=== PATIENT | male | born 1935 | race Caucasian/White ===

== ENCOUNTER → 2017-11-01 07:46 | Outpatient (CLI) | payer MEDICARE, SELFPAY | PROVIDERS: PCP Family Medicine; Visit Provider Orthopaedic Surgery | DX: G56.01 Carpal tunnel syndrome, right upper limb (principal); I25.10 Atherosclerotic heart disease of native coronary artery without angina pectoris; E78.5 Hyperlipidemia, unspecified; I10 Essential (primary) hypertension; Z01.818 Encounter for other preprocedural examination | CPT/HCPCS: 93005; 93010 ==

== ENCOUNTER → 2017-11-20 09:30 | Outpatient (CLI) | payer MEDICARE, SELFPAY | PROVIDERS: PCP Family Medicine; Visit Provider Orthopaedic Surgery | DX: Z47.89 Encounter for other orthopedic aftercare (principal); G56.01 Carpal tunnel syndrome, right upper limb ==

== ENCOUNTER → 2017-12-25 09:13 | Outpatient (BNVA) | payer MEDICARE, SELFPAY | PROVIDERS: PCP Family Medicine; Visit Provider Nurse Practitioner Family | DX: I35.0 Nonrheumatic aortic (valve) stenosis (principal); E78.5 Hyperlipidemia, unspecified; I12.9 Hypertensive chronic kidney disease with stage 1 through stage 4 chronic kidney disease, or unspecified chronic kidney disease; I48.0 Paroxysmal atrial fibrillation; I49.5 Sick sinus syndrome; Z45.018 Encounter for adjustment and management of other part of cardiac pacemaker; E11.22 Type 2 diabetes mellitus with diabetic chronic kidney disease; Z79.84 Long term (current) use of oral hypoglycemic drugs; Z79.01 Long term (current) use of anticoagulants | CPT/HCPCS: 93280; 99213 ==

== ENCOUNTER → 2018-07-16 08:42 | Outpatient (BNVA) | payer MEDICARE, SELFPAY | PROVIDERS: PCP Family Medicine; Visit Provider Nurse Practitioner Family | DX: I35.0 Nonrheumatic aortic (valve) stenosis (principal); E78.5 Hyperlipidemia, unspecified; I10 Essential (primary) hypertension; I48.0 Paroxysmal atrial fibrillation; I49.5 Sick sinus syndrome; E11.9 Type 2 diabetes mellitus without complications; Z79.84 Long term (current) use of oral hypoglycemic drugs; Z45.018 Encounter for adjustment and management of other part of cardiac pacemaker | CPT/HCPCS: 93280; 99213 ==

== ENCOUNTER → 2018-07-16 09:37 | Outpatient (BNVA) | payer MEDICARE, SELFPAY | PROVIDERS: PCP Family Medicine; Referring Provider Family Medicine; Visit Provider Orthopaedic Surgery | DX: M75.81 Other shoulder lesions, right shoulder (principal); Z95.0 Presence of cardiac pacemaker; I49.5 Sick sinus syndrome; I35.0 Nonrheumatic aortic (valve) stenosis; E78.5 Hyperlipidemia, unspecified; I10 Essential (primary) hypertension; I48.0 Paroxysmal atrial fibrillation; Z45.018 Encounter for adjustment and management of other part of cardiac pacemaker; E11.9 Type 2 diabetes mellitus without complications; Z79.84 Long term (current) use of oral hypoglycemic drugs | CPT/HCPCS: 20610; 93280; 99212; 99213; J1040 ==

== ENCOUNTER 2018-08-27 10:21 | Outpatient (CLI) | payer MEDICARE, SELFPAY ==
--- NOTE | 2018-08-27 10:01 | DI.RAD_ITS ---
SYMPTOMS/DIAGNOSIS: PAIN RIGHT ELBOW: The bony structures are normally mineralized. There is no fracture or dislocation. An olecranon spur is demonstrated. There is no evidence of a joint effusion.
== END 2018-08-27 10:41 ==
PROVIDERS: PCP Family Medicine; Referring Provider Family Medicine; Visit Provider Orthopaedic Surgery
DX: M25.521 Pain in right elbow (principal); M77.8 Other enthesopathies, not elsewhere classified
CPT/HCPCS: 99213; 99214; 73080

== ENCOUNTER 2018-09-11 00:55 | Outpatient (CLI) | payer MEDICARE, SELFPAY ==
--- NOTE | 2018-09-11 10:15 | MERGE_ITS ---
*[facility]* *[facility]* [address] [place] [address] Date of study: 09/11/2018 Transthoracic Echocardiography M-mode, complete 2D, complete spectral Doppler, and color Doppler *STUDY CONCLUSIONS* Summary: 1. Left ventricle: The cavity size was normal. There was mild concentric hypertrophy. Systolic function was normal. The estimated ejection fraction was 60-65%. Wall motion was normal; there were no regional wall motion abnormalities. Findings consistent with diastolic dysfunction. 2. Aortic valve: Mild calcification. Left coronary cusp mobility was severely restricted. There was mild stenosis. Peak velocity (S): 1.8m/sec. Valve area (VTI): 1.7cm^2. 3. Mitral valve: There was mild regurgitation. 4. Left atrium: The atrium was severely dilated. 5. Right ventricle: The cavity size was normal. Wall thickness was normal. Pacer wire or catheter noted in right ventricle. Systolic function was normal. 6. Pulmonary arteries: Pulmonary systolic pressure was increased, in the range of 35mm Hg to 40mm Hg. *PATIENT PRESENTATION* Height: 177.8cm ((70in) ) S/D Pressure: 150 / 68 Weight: 95.3kg ((209.6lb) ) BSA: 2.19m^2 Test start time: 10:30 AM. Test stop time: 11:00 AM. 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 This study was interpreted by [facility]. Pertinent images and digital data are archived for permanent storage and are available for subsequent review. Comparison was made to the study of 10/03/2017. Study status: Routine. Transthoracic echocardiography. M-mode, complete 2D, complete spectral Doppler, and color Doppler. A Transthoracic Echocardiogram was performed. Scanning was performed from the parasternal, apical, subcostal, and suprasternal notch acoustic windows. Images were obtained using an [id number] cardiac ultrasound machine. Image quality was adequate. Study completion: The patient tolerated the procedure well. History: PMH: Aortic stenosis i35.0 *CARDIAC ANATOMY* Left ventricle: The cavity size was normal. There was mild concentric hypertrophy. Systolic function was normal. The estimated ejection fraction was 60-65%. Wall motion was normal; there were no regional wall motion abnormalities. Findings consistent with diastolic dysfunction. Aortic valve: Trileaflet; normal thickness leaflets. Mild calcification. Left coronary cusp mobility was severely restricted. Doppler: There was mild stenosis. There was no significant regurgitation. VTI ratio of LVOT to aortic valve: 0.55. Valve area (VTI): 1.7cm^2. Indexed valve area (VTI): 0.8cm^2/m^2. Peak velocity ratio of LVOT to aortic valve: 0.49. Valve area (Vmax): 1.5cm^2. Indexed valve area (Vmax): 0.7cm^2/m^2. Mean velocity ratio of LVOT to aortic valve: 0.54. Valve area (Vmean): 1.7cm^2. Indexed valve area (Vmean): 0.8cm^2/m^2. Mean gradient (S): 7.2mm Hg. Peak gradient (S): 12.7mm Hg. Aorta: Aortic root: The aortic root was normal in size. Ascending aorta: The ascending aorta was normal in size. Mitral valve: Structurally normal valve. Mobility was not restricted. Doppler: Transvalvular velocity was within the normal range. There was no evidence for stenosis. There was mild regurgitation. Valve area by pressure half-time: 3.4cm^2. Indexed valve area by pressure half-time: 1.5cm^2/m^2. Peak gradient (D): 3.4mm Hg. Left atrium: The atrium was severely dilated. Right ventricle: The cavity size was normal. Wall thickness was normal. Pacer wire or catheter noted in right ventricle. Systolic function was normal. Pulmonic valve: Structurally normal valve. The pulmonary valve appears to be grossly normal. Doppler: Transvalvular velocity was within the normal range. There was no evidence for stenosis. There was mild regurgitation. Peak gradient (S): 10.3mm Hg. Tricuspid valve: Structurally normal valve. Doppler: Transvalvular velocity was within the normal range. There was no evidence for stenosis. There was mild regurgitation. Pulmonary artery: Pulmonary systolic pressure was increased, in the range of 35mm Hg to 40mm Hg. Right atrium: The atrium was normal in size. Pericardium: There was no pericardial effusion. Systemic veins: Inferior vena cava: Well visualized. The vessel was patent and normal in size. The respirophasic diameter changes were in the normal range (greater than or equal to 50%). Baseline ECG: Paced rhythm. Measurements Left ventricle Value 10/03/2017 Reference LV ID, ED, PLAX 5.0 cm 4.7 3.5 - 6.0 LV ID, ES, PLAX 3.4 cm 3.3 2.1 - 4.0 LV PW thickness, ED, PLAX 1.2 cm 1.2 LV end-diastolic volume, 68 ml 61 1-p A2C LV ejection fraction, 1-p 57 % 64 A2C LV end-diastolic volume, 76 ml 71 1-p A4C LV ejection fraction, 1-p 54 % 67 A4C LV e', lateral 0.087 m/sec 0.096 LV E/e', lateral 11 9 LV e', medial 0.073 m/sec 0.085 LV E/e', medial 13 10 LV e', average 0.08 m/sec 0.091 LV E/e', average 12 9 Ventricular septum Value 10/03/2017 Reference IVS thickness, ED, PLAX 1.3 cm 1.2 LVOT Value 10/03/2017 Reference LVOT ID, A-P 2.0 cm 2.0 LVOT area 3.1 cm^2 3.3 LVOT peak velocity, S 0.88 m/sec 0.79 LVOT mean velocity, S 0.69 m/sec 0.6 LVOT VTI, S 20.4 cm 18.9 LVOT peak gradient, S 3.1 mm Hg 2.5 LVOT mean gradient, S 2 mm Hg 1.6 Stroke volume (SV), LVOT 64 ml 62 DP Stroke index (SV/bsa), 29 ml/m^2 28 LVOT DP Aortic valve Value 10/03/2017 Reference Aortic valve peak 1.8 m/sec 1.7 velocity, S Aortic valve mean 1.28 m/sec 1.23 velocity, S Aortic valve VTI, S 37.0 cm 38.3 Aortic mean gradient, S 7.2 mm Hg 6.4 Aortic peak gradient, S 12.7 mm Hg 11.1 VTI ratio, LVOT/AV 0.55 0.49 Aortic valve area, VTI 1.7 cm^2 1.6 Velocity ratio, peak, 0.49 0.47 LVOT/AV Aortic valve area, peak 1.5 cm^2 1.6 velocity Velocity ratio, mean, 0.54 0.49 LVOT/AV Aortic valve area, mean 1.7 cm^2 1.6 velocity Aortic valve area/bsa, 0.8 cm^2/m^2 0.7 mean velocity Aorta Value 10/03/2017 Reference Aortic root ID, ED 3.2 cm 3.1 Ascending aorta ID, A-P, S 2.9 cm 2.7 Left atrium Value 10/03/2017 Reference LA ID, A-P, ES 3.8 cm 3.8 LA ID/bsa, A-P 1.7 cm/m^2 1.7 <=2.2 LA area, ES, A4C (H) 28.9 cm^2 22.2 8.8 - 23.4 LA volume/bsa, ES, 1-p A4C 55 ml/m^2 35 LA/aortic root ratio 1.18 1.21 Mitral valve Value 10/03/2017 Reference Mitral E-wave peak 0.93 m/sec 0.86 velocity Mitral A-wave peak 0.57 m/sec 0.69 velocity Mitral deceleration time 225 ms 199 150 - 230 Mitral pressure half-time 65 ms 58 Mitral peak gradient, D 3.4 mm Hg 3 Mitral E/A ratio, peak 1.63 1.25 Mitral valve area, PHT, DP 3.4 cm^2 3.8 Tricuspid valve Value 10/03/2017 Reference Tricuspid regurg peak 3.2 m/sec 3 velocity Tricuspid peak RV-RA 42.1 mm Hg 36.4 gradient Right atrium Value 10/03/2017 Reference RA area, ES, A4C 17.2 cm^2 16.2 8.3 - 19.5 Pulmonic valve Value 10/03/2017 Reference Pulmonic peak gradient, S 10.3 mm Hg Legend: (L) and (H) paulino values outside specified reference range. I have personally reviewed the images and have reviewed and edited the reported findings. Electronically signed by Alex Chung 09/11/2018 12:07
== END 2018-09-11 01:15 ==
PROVIDERS: PCP Family Medicine; Visit Provider Nurse Practitioner Family
DX: I35.0 Nonrheumatic aortic (valve) stenosis (principal); I50.1 Left ventricular failure, unspecified; I10 Essential (primary) hypertension; E11.9 Type 2 diabetes mellitus without complications; Z95.0 Presence of cardiac pacemaker
CPT/HCPCS: 93306

== ENCOUNTER 2018-09-11 15:33 | Outpatient (REF) | payer MEDICARE, SELFPAY ==
[2018-09-11 22:34] LABS: BUN 27 mg/dL (7-18); CREATININE 1.85 mg/dL (0.70-1.30); Calcium 8.1 mg/dL (8.5-10.1); Chloride 104 mmol/L (98-107); Estimated GFR 35.17 (mL/min/1.73m2); Glucose 156 mg/dL (70-100); Potassium 4.9 mmol/L (3.5-5.1); Sodium 140 mmol/L (136-145)
[2018-09-11 22:49] LABS: Hemoglobin A1C 7.2 % (4.5-6.2)
== END 2018-09-11 15:53 ==
LOC: NCHCN 15:33
PROVIDERS: PCP Family Medicine; Visit Provider Family Medicine
DX: E11.9 Type 2 diabetes mellitus without complications (principal); I10 Essential (primary) hypertension
CPT/HCPCS: 80048; 83036

== ENCOUNTER 2019-04-01 10:00 | Outpatient (REF) | payer MEDICARE, SELFPAY ==
[2019-04-01 16:53] LABS: Abs Immature Grans 0.01 k/cumm (0.0-0.09); Absolute Basophil Count 0.03 k/cumm (0.0-0.2); Absolute Eosinophil Count 0.14 k/cumm (0.0-0.7); Absolute Lymphocyte Count 1.43 k/cumm (1.2-3.4); Absolute Monocyte Count 0.34 k/cumm (0.11-0.7); Absolute Neutrophil Count 3.58 k/cumm (1.2-6.7); Basophils % 0.5; Eosinophils % 2.5; HCT 35.5 % (40.0-50.0); HGB 11.6 g/dL (13.5-17.5); Immature Grans % 0.2; Lymphocytes % 25.9; Mean Corp. HGB Concentration 32.7 g/dL (32.0-36.0); Mean Corpuscular Hemoglobin 29.1 pg (27.0-33.0); Mean Corpuscular Volume 89.2 fL (80-95); Mean Platelet Volume 12.6 fL (8.0-11.0); Monocytes % 6.1; Neutrophils % 64.8; Platelet Count 191 x1000/uL (130-400); RBC 3.98 m/cumm (4.50-6.00); RBC Distribution Width 12.7 % (11.8-14.1); White Blood Cell Count 5.53 k/cumm (4.4-10.8)
[2019-04-01 17:20] LABS: ALT 17 U/L (16-63); AST 35 U/L (15-37); Albumin 3.8 g/dL (3.4-5.0); Alkaline Phosphatase 151 U/L (46-116); Anion Gap 11.7 mmol/L (3-11); BUN 31 mg/dL (7-18); Bilirubin, Total 0.2 mg/dL (0.2-1.0); CO2 25.3 mmol/L (21.0-32.0); CREATININE 1.83 mg/dL (0.70-1.30); Calcium 8.4 mg/dL (8.5-10.1); Chloride 104 mmol/L (98-107); Estimated GFR 35.53 (mL/min/1.73m2); Glucose 264 mg/dL (74-106); Potassium 4.6 mmol/L (3.5-5.1); Sodium 141 mmol/L (136-145); Total Protein 6.7 g/dL (6.4-8.2)
[2019-04-01 18:11] LABS: Hemoglobin A1C 7.2 % (3.8-5.6)
== END 2019-04-01 10:20 ==
LOC: NCHCN 10:00
PROVIDERS: PCP Family Medicine; Visit Provider Specialist/Technologist Athletic Trainer
DX: E11.9 Type 2 diabetes mellitus without complications (principal)
CPT/HCPCS: 80053; 83036; 85025

== ENCOUNTER → 2019-06-25 10:56 | Outpatient (BNVA) | payer MEDICARE, SELFPAY | PROVIDERS: PCP Family Medicine; Referring Provider Family Medicine; Visit Provider Physician Assistant | DX: I49.5 Sick sinus syndrome (principal); Z45.018 Encounter for adjustment and management of other part of cardiac pacemaker; I10 Essential (primary) hypertension; E11.9 Type 2 diabetes mellitus without complications | CPT/HCPCS: 93280; 99212; 99213 ==

== ENCOUNTER 2019-09-12 07:52 | Outpatient (CLI) | payer MEDICARE, SELFPAY ==
[2019-09-13 14:13] LABS: COVID-19 RT-PCR UVMMC Result Negative (Negative)
== END 2019-09-12 08:12 ==
PROVIDERS: PCP Family Medicine; Visit Provider Internal Medicine Cardiovascular Disease
DX: Z03.818 Encounter for observation for suspected exposure to other biological agents ruled out (principal)
CPT/HCPCS: U0003

== ENCOUNTER 2019-09-16 07:25 | Day surgery (SDC) | payer MEDICARE, SELFPAY ==
[2019-09-16] VITALS (9 sets, daily range): BP systolic 148–187; BP diastolic 56–91; PULSE 72–86; RESP 12–20; TEMP 35.8–36.7; O2SAT 10–99
[2019-09-16 08:10] LABS: Anion Gap 8.5 mmol/L (3-11); CO2 27.5 mmol/L (21.0-32.0); Chloride 105 mmol/L (98-107); Potassium 4.3 mmol/L (3.5-5.1); Sodium 141 mmol/L (136-145)
[2019-09-16] MEDS: Normal Saline 1,000 ML 30 ML IV (08:14)
--- NOTE | 2019-09-16 08:41 | HPE_ITS ---
Date of service: 09/16/19 Time of Service: 08:41 Assessment and Plan Assessment and plan (1) Cardiac pacemaker: Status: Acute (2) Persistent atrial fibrillation: Status: Acute Assessment and plan: Plan for cardioversion this morning History of Present Illness History of Present Illness Chief Complaint: atrial flutter Narrative: 84yo man with SSS, PAF, mature dual lead [employer] pacemaker, now with persistent atrial flutter based on device data. He is here today for a scheduled cardioversion. He has no complaints today. He remains relatively asymptomatic. Review of Systems All systems reviewed & are unremarkable except as noted in HPI and below PFSH Medical History DM2 (diabetes mellitus, type 2) (Chronic) Essential hypertension (Chronic) History of TIA (transient ischemic attack) and stroke (Acute) Per pt. in 2003 had carotid artery surgery, after procedure pt. suffered a stroke, pt. states full forearm numbness and parts of left leg Hyperlipidemia (Chronic) Mild aortic stenosis (Chronic) Paroxysmal atrial fibrillation (Chronic) Persistent atrial fibrillation (Acute) Onset mid May 2019 - ongoing as of 06/25/2019 Sick sinus syndrome (Chronic) pt. unsure of this medical hx Surgical History FH: carotid endarterectomy (Acute) History of permanent cardiac pacemaker placement (Chronic) Social History Smoking/Tobacco Use Status: Former Tobacco Use Alcohol Intake: never Drug use: Never Meds Home Medications and Allergies Home Medications Medication Instructions Recorded Confirmed Type aspirin [Aspirin Low-Strength] 81 mg PO DAILY #1 tab-cap 09/28/13 09/16/19 History atorvastatin 80 mg PO DAILY #90 tab-cap 09/28/13 09/16/19 History paroxetine HCl [Paxil] 10 mg PO DAILY #1 tab-cap 09/28/13 09/16/19 History pediatric [id number]-[id number] 1 ea PO BID tab.chew 09/28/13 09/16/19 History [Multivitamins With Iron] phenytoin sodium extended 100 mg PO BID #1 09/28/13 09/16/19 History [Dilantin] [id number]-min 1 ea PO DAILY #1 09/16/19 History [Icaps Tablet] albuterol sulfate [Proventil Hfa] 2 puff INHALATION PRN inhaler 10/21/14 09/15/19 History amlodipine [Norvasc] 10 mg PO DAILY tab-cap 10/21/14 09/16/19 History furosemide 80 mg PO DAILY tab-cap 10/21/14 09/16/19 History lisinopril 5 mg PO DAILY 03/15/17 09/16/19 History sitagliptin [Januvia] 100 mg PO DAILY 03/15/17 09/16/19 History fluticasone propionate [Flovent 220 puff INHALATION DAILY 03/19/17 09/15/19 History 220MCG] ibuprofen 800 mg PO TID #30 tab 03/19/17 09/16/19 Rx glimepiride 1 mg tablet 1 mg PO QAM 07/16/18 09/16/19 History rivaroxaban 15 mg tablet 15 mg PO QPM 07/16/18 09/16/19 History Allergies Allergy/AdvReac Type Severity Reaction Status Date / Time metformin Allergy Unknown Diarrhea Unverified 09/16/19 07:50 ezetimibe [From Vytorin] AdvReac FAILED Unverified 09/16/19 07:50 lisinopril AdvReac Hyperkalemi Unverified 09/16/19 07:50 a simvastatin [From Vytorin] AdvReac FAILED Unverified 09/16/19 07:50 Exam Const General: healthy appearing Chest Chest: normal inspection of the chest Resp Effort & Inspection: normal respiratory effort Cardio Rate: regular rate Rhythm: regular rhythm Heart Sounds: S1 normal and S2 normal Extrem General: normal to inspection Results Labs Result diagrams: 09/16/19 07:50 Labs: Laboratory Results - last 24 hr 09/16/19 07:50 Sodium 141 Potassium 4.3 Chloride 105 Carbon Dioxide 27.5 Anion Gap 8.5 Last Vital Signs Temp 36.6 C 09/16/19 07:35 Pulse 72 09/16/19 07:35 Resp 18 09/16/19 07:35 BP 169/62 H 09/16/19 07:35 Pulse Ox 10 L 09/16/19 07:35 COVID-19 Screening In the past 14 days, have you traveled outside of [place] or [place]?: NO Had IN PERSON contact w/suspected or confirmed C-19 person: No
--- NOTE | 2019-09-16 08:47 | W.PM.DSUDISC ---
Discharge Plan Disposition Patient Disposition: HOME Condition: Good Discharge Details Reason For Visit: CARDIOVERSION Attending Provider: David Rojo Primary Care Provider: Nel Cabrera Home Meds and New Rx's Prescriptions: No Action Xarelto 15 mg tablet 15 mg PO QPM RF: 0 glimepiride 1 mg tablet 1 mg PO QAM RF: 0 atorvastatin 80 MG tablet 80 mg PO DAILY Qty: 90 RF: 0 paroxetine HCl [Paxil] 10 MG tablet 10 mg PO DAILY Qty: 1 RF: 0 phenytoin sodium extended [Dilantin Extended] 100 MG capsule 100 mg PO BID Qty: 1 RF: 0 Multi-Vitamins with Iron 1 EACH tablet,chewable 1 ea PO BID RF: 0 aspirin [Aspirin Low-Strength] 81 MG tablet,chewable 81 mg PO DAILY Qty: 1 RF: 0 ICaps 1 EACH tablet extended release 1 ea PO DAILY Qty: 1 RF: 0 furosemide 40 MG tablet 80 mg PO DAILY RF: 0 amlodipine [Norvasc] 10 MG tablet 10 mg PO DAILY RF: 0 albuterol sulfate [Proventil HFA] 6.7 GM HFA aerosol inhaler 2 puff Inhalation PRN RF: 0 lisinopril 5 MG tablet 5 mg PO DAILY RF: 0 Januvia 100 MG tablet 100 mg PO DAILY RF: 0 Flovent HFA 120 PUFF HFA aerosol inhaler 220 puff Inhalation DAILY RF: 0 ibuprofen 800 MG tablet 800 mg PO TID Qty: 30 RF: 0 Discharge Instructions Activity:: Activity as Tolerated Diet:: As Tolerated Discharge Data Discharge Date/Time-TO BE ENTERED AT DEPARTURE: 09/16/19 09:24 DS: Diagnosis Discharge Diagnosis (1) Cardiac pacemaker: Status: Acute (2) Persistent atrial fibrillation: Status: Acute Asessment and Plan: Successful DC cardioversion with 200J x1. Patient's rhythm was confirmed using his Medtronic Pacemaker both before and after cardioversion.
--- NOTE | 2019-09-18 08:34 | W.CARDVER ---
Date of service: 09/16/19 Time of Service: 08:34 Cardioversion The patient was brought to the procedure room. His rhythm was confirmed to be atrial flutter using a [employer] interrogation device. Patient was sedated with the help of anesthesia. Patient was DC cardioverted with 200 J x 1. Normal sinus rhythm was confirmed with ECG Patient tolerated the procedure well Patient was transferred to the recovery unit.
== END 2019-09-16 11:20 | disposition home or self-care (01) ==
LOC: SUR 07:25
PROVIDERS: PCP Family Medicine; Visit Provider Internal Medicine Cardiovascular Disease
PROC: 5A2204Z Restoration of Cardiac Rhythm, Single (ICD-10-PCS; CPT 92960; principal; 2019-09-16 08:30)
DX: I48.19 Other persistent atrial fibrillation (principal); Z95.0 Presence of cardiac pacemaker; I48.92 Unspecified atrial flutter; I10 Essential (primary) hypertension; E11.9 Type 2 diabetes mellitus without complications
CPT/HCPCS: 92960; 36415; 80051; 99223; J2704

== ENCOUNTER → 2019-12-24 09:23 | Outpatient (BNVA) | payer MEDICARE, SELFPAY | PROVIDERS: PCP Family Medicine; Referring Provider Family Medicine; Visit Provider Student in an Organized Health Care Education/Training Program | DX: M18.11 Unilateral primary osteoarthritis of first carpometacarpal joint, right hand (principal); E11.9 Type 2 diabetes mellitus without complications; Z79.84 Long term (current) use of oral hypoglycemic drugs; I10 Essential (primary) hypertension; G83.89 Other specified paralytic syndromes | CPT/HCPCS: 20605; 99203; 99214; J1030 ==

== ENCOUNTER → 2020-03-17 10:48 | Outpatient (BNVA) | payer MEDICARE, SELFPAY | PROVIDERS: PCP Family Medicine; Referring Provider Family Medicine; Visit Provider Orthopaedic Surgery | DX: M70.62 Trochanteric bursitis, left hip (principal); M70.61 Trochanteric bursitis, right hip | CPT/HCPCS: 20610; J1040 ==

== ENCOUNTER 2020-03-17 11:49 | Outpatient (CLI) | payer MEDICARE, SELFPAY ==
--- NOTE | 2020-03-17 11:00 | DI.RAD_ITS ---
EXAM: XR HIP PELVIS ADULT BL CLINICAL HISTORY: b/l hip pain. TECHNIQUE: 2D digital imaging was performed. COMPARISON: CR RT HIP COMPLETE AP PELVIS from 06/07/2015 FINDINGS: There is no evidence of pelvic or hip fracture. Hip joint spaces are normal but there are marginal o steophytes seen in the right femoral head indicating atherosclerotic involvement. No obvious osteoph ytes in the left femoral head. Chondrocalcinosis noted on the left side. No ominous osseous lesions . IMPRESSION: Degenerative changes, more prominent on the right side as described above. No ominous osseous lesion s. DATA REPOSITORY: RADIATION DOSE DELIVERED:
== END 2020-03-17 12:09 ==
PROVIDERS: PCP Family Medicine; Referring Provider Family Medicine; Visit Provider Orthopaedic Surgery
DX: M11.252 Other chondrocalcinosis, left hip (principal); M25.751 Osteophyte, right hip; M25.551 Pain in right hip; M25.552 Pain in left hip; M70.62 Trochanteric bursitis, left hip; M70.61 Trochanteric bursitis, right hip
CPT/HCPCS: 20610; 73521; 99214; J1040

== ENCOUNTER → 2020-04-14 11:18 | Outpatient (BNVA) | payer MEDICARE, SELFPAY | PROVIDERS: PCP Family Medicine; Referring Provider Family Medicine; Visit Provider Internal Medicine Cardiovascular Disease | DX: I48.92 Unspecified atrial flutter (principal); Z79.01 Long term (current) use of anticoagulants; Z45.018 Encounter for adjustment and management of other part of cardiac pacemaker | CPT/HCPCS: 93280 ==

== ENCOUNTER → 2020-10-27 13:52 | Outpatient (BNVA) | payer MEDICARE, SELFPAY | PROVIDERS: PCP Family Medicine; Referring Provider Family Medicine; Visit Provider Physician Assistant | DX: I49.5 Sick sinus syndrome (principal); Z45.018 Encounter for adjustment and management of other part of cardiac pacemaker | CPT/HCPCS: 93280; 99212 ==

== ENCOUNTER → 2020-12-07 13:14 | Outpatient (BNVA) | payer MEDICARE, SELFPAY | PROVIDERS: PCP Family Medicine; Referring Provider Family Medicine | DX: M70.62 Trochanteric bursitis, left hip (principal); M70.61 Trochanteric bursitis, right hip | CPT/HCPCS: 20610; J1040 ==

== ENCOUNTER 2021-03-09 17:13 | Outpatient (REF) | payer MEDICARE, SELFPAY ==
[2021-03-09 22:43] LABS: ALT 21 U/L (16-63); AST 39 U/L (15-37); Alkaline Phosphatase 151 U/L (46-116); BUN 44 mg/dL (7-18); Bilirubin, Total 0.3 mg/dL (0.2-1.0); CREATININE 2.1 mg/dL (0.70-1.30); Calcium 8.6 mg/dL (8.5-10.1); Calculated LDL 84 mg/dL (<100); Chloride 105 mmol/L (98-107); Cholesterol 150 mg/dL (<200); Estimated GFR 30.17 (mL/min/1.73m2); Glucose 108 mg/dL (74-106); HDL Cholesterol 44 mg/dL (40-60); Potassium 4.8 mmol/L (3.5-5.1); Sodium 140 mmol/L (136-145); Total Protein 6.9 g/dL (6.4-8.2); Triglyceride 111 mg/dL (<150)
[2021-03-09 22:55] LABS: Hemoglobin A1C 6.7 % (<5.7)
== END 2021-03-09 17:14 | disposition home or self-care (01) ==
LOC: NCHCN 17:13
PROVIDERS: PCP Family Medicine; Visit Provider Family Medicine
DX: E11.9 Type 2 diabetes mellitus without complications (principal); I10 Essential (primary) hypertension; E78.5 Hyperlipidemia, unspecified; N18.30 Chronic kidney disease, stage 3 unspecified
CPT/HCPCS: 80053; 80061; 83036

== ENCOUNTER → 2021-04-27 13:08 | Outpatient (BNVA) | payer MEDICARE, SELFPAY | PROVIDERS: PCP Family Medicine; Visit Provider Physician Assistant | DX: I49.5 Sick sinus syndrome (principal); I48.0 Paroxysmal atrial fibrillation; Z45.018 Encounter for adjustment and management of other part of cardiac pacemaker | CPT/HCPCS: 93280; 99212 ==

== ENCOUNTER 2021-06-19 08:19 | Emergency (ER) | payer MEDICARE, SELFPAY ==
[2021-06-19 08:24] VITALS: BP 178/57; PULSE 61; TEMP 36.1; O2SAT 99
--- NOTE | 2021-06-19 08:30 | DI.RAD_ITS ---
Exam(s) XR SHOULDER RT COMPLETE 2+V EXAM: XR SHOULDER RT COMPLETE 2+V CLINICAL HISTORY: Fall, debbie-lat pain. TECHNIQUE: 2D digital imaging was performed. COMPARISON: CR RIGHT SHOULDER COMPLETE from 02/14/2017 FINDINGS: Five views of the right shoulder reveal no evidence of acute fracture or dislocation of the glenohume ral joint. Chondrocalcinosis noted. There is a 4 x 3 millimeter calcific density in the superior as pect of the joint. Also calcification inferiorly in what appears to to be the labrum. Subacromial s pace is not diminished. AC joint appears widened when compared to previous. Vascular calcification is noted in the right axillary artery IMPRESSION: Compared to February 2017 there is no widening of the AC joint space, not previously present. Degene rative changes as described above in the glenohumeral joint. DATA REPOSITORY: RADIATION DOSE DELIVERED:
--- NOTE | 2021-06-19 08:41 | ED.GENADUL_ITS ---
Discharge Plan Disposition Patient Disposition: HOME Condition: Improving Discharge Details Clinical Impression: Injury of shoulder, right Primary Care Provider: Nel Cabrera ED Provider: Floyd Gonzales Home Meds and New Rx's Prescriptions: Continued Xarelto 15 mg tablet 15 mg PO QPM 0RF glimepiride 1 mg tablet 1 mg PO QAM 0RF phenytoin sodium extended [Dilantin Extended] 100 mg capsule 100 mg PO BID 0RF atorvastatin 80 MG tablet 80 mg PO DAILY Qty: 90 0RF Rx Instructions: 1 TAB DAILY paroxetine HCl [Paxil] 10 MG tablet 10 mg PO DAILY Qty: 1 0RF Multi-Vitamins with Iron 1 EACH tablet,chewable 1 ea PO BID 0RF aspirin [Aspirin Low-Strength] 81 MG tablet,chewable 81 mg PO DAILY Qty: 1 0RF ICaps 1 EACH tablet extended release 1 ea PO DAILY Qty: 1 0RF furosemide 40 MG tablet 80 mg PO DAILY 0RF amlodipine [Norvasc] 10 MG tablet 10 mg PO DAILY 0RF albuterol sulfate [Proventil HFA] 6.7 GM HFA aerosol inhaler 2 puff Inhalation PRN 0RF Label Comments: unknown naproxen 500 mg tablet 500 mg PO BID PRN0RF multivitamin Tablet 1 tab PO DAILY 0RF lisinopril 5 MG tablet 5 mg PO DAILY 0RF Januvia 100 MG tablet 100 mg PO DAILY 0RF Flovent HFA 120 PUFF HFA aerosol inhaler 220 puff Inhalation DAILY 0RF ibuprofen 800 MG tablet 800 mg PO TID Qty: 30 0RF Discharge Instructions Instructions: Shoulder Sprain (ED), Shoulder Pain (ED) Additional Instructions: Please wear sling while awake and out of bed until seen in orthopedic clinic for follow-up. I have placed a referral for you to orthopedic clinic, the office number is [phone]. Continue ice 20 minutes at a time 5-6 times per day reduce pain and swelling. You may use the arm for eating, brushing teeth, etc. please do not perform heavy lifting and have your son and family help you with would and other chores around the house. Tylenol 650 mg twice daily as needed for pain. Continue your routine medications. Return to the emergency department for any new concerns. Medical Decision Making This is a pleasant and delightful 86-year-old male who lives alone with his dog Judy in [place]. Family to live close by. He heats with wood and yesterday while in the cellar he stumbled and fell against a wall striking his right shoulder which is his dominant and most used arm. 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 He did not fall, have a loss of consciousness, or injure himself in any other way. On exam the patient has right glenohumeral humeral anterior tenderness and pain with internal and external rotation. He is unable to fully abduct the arm and has pain with passive abduction. Patient given ice, referred for x-ray which shows degenerative changes in the AC joint and glenohumeral joint. There is no evidence of fracture. Given that this is an acute injury, rather that overuse, I would consider rotator cuff pathology as well as tendinopathy. Discussed with the patient rest in a sling and short-term follow-up in orthopedic clinic. His son will assist him in daily chores around the house. While in the ER the patient had an uneventful check of his Medtronic cardiac device with no evidence of performance issues. We will ask for short-term orthopedic follow-up as the patient is dependent on his right upper extremity due to previous stroke with left upper extremity hemiparesis. He is stable and appropriate for discharge to home with family help. HPI General Mode of arrival: ambulatory . Date/Time Provider Initiated Documentation: 06/19/21 08:19 . Limitations to Documentation: no limitations . Information obtained by: patient . History of Present Illness 86 year old M presents to the emergency department with the chief complaint of Right shoulder pain after stumble and fall last night, described as moderate, Quality is described as dull and constant, and is localized to the right and upper extremity. Patient reports no radiation. Patient started experiencing this hour(s) and it has been constant. improves with Rest improves symptom(s), Movement worsens symptoms . Patient notes denies chest pain, fever/chills, headaches, seizure, syncope and weakness. Patient did receive the following treatments prior to arrival, NSAID Related Data Home Medications Medication Instructions Recorded Confirmed aspirin 81 mg chewable tablet 81 mg PO DAILY #1 tab-cap 09/28/13 06/19/21 (Aspirin Low-Strength) atorvastatin 80 mg tablet 80 mg PO DAILY #90 tab-cap 09/28/13 06/19/21 paroxetine HCl 10 mg tablet (Paxil) 10 mg PO DAILY #1 tab-cap 09/28/13 06/19/21 pediatric jvkthpfq-kfou-kxw 1 ea PO BID tab.chew 09/28/13 04/27/21 (Multi-Vitamins with Iron) [id number]-[id number]-Y-A-wctlyj-qeztxou-min 1 ea PO DAILY #1 09/28/13 06/19/21 3,300 unit-5 mg-200mg-75 unit tablet ER (ICaps) albuterol sulfate 90 mcg/actuation 2 puff INHALATION PRN inhaler 10/21/14 06/19/21 aerosol inhaler (Proventil HFA) amlodipine 10 mg tablet (Norvasc) 10 mg PO DAILY tab-cap 10/21/14 06/19/21 furosemide 40 mg tablet 80 mg PO DAILY tab-cap 10/21/14 06/19/21 lisinopril 5 mg tablet 5 mg PO DAILY 03/15/17 06/19/21 sitagliptin 100 mg tablet (Januvia) 100 mg PO DAILY 03/15/17 06/19/21 fluticasone propionate 220 220 puff INHALATION DAILY 03/19/17 04/27/21 mcg/actuation HFA aerosol inhaler (Flovent HFA) ibuprofen 800 mg tablet 800 mg PO TID #30 tab 03/19/17 04/27/21 glimepiride 1 mg tablet 1 mg PO QAM 07/16/18 06/19/21 rivaroxaban 15 mg tablet (Xarelto) 15 mg PO QPM 07/16/18 06/19/21 phenytoin sodium extended 100 mg 100 mg PO BID 04/15/20 06/19/21 capsule (Dilantin Extended) multivitamin 1 tab PO DAILY 04/27/21 naproxen 500 mg tablet 500 mg PO BID PRN 04/27/21 06/19/21 Previous Rx's Medication Instructions Recorded ibuprofen 800 mg tablet 800 mg PO TID #30 tab 03/19/17 Allergies Allergy/AdvReac Type Severity Reaction Status Date / Time metformin Allergy Unknown Diarrhea Verified 06/19/21 08:31 ezetimibe [From Vytorin] AdvReac FAILED Verified 06/19/21 08:31 lisinopril AdvReac Hyperkalemi Verified 06/19/21 08:31 a simvastatin [From Vytorin] AdvReac FAILED Verified 06/19/21 08:31 General Stated Complaint: Orthopedic DEENA: 4 Review of Systems Narrative: No other injury. No loss of consciousness. No head/neck/chest or back pain. Denies palpitations or shortness of breath. Lives alone. Has prestanding in left upper extremity weakness from stroke. Heats with wood. Family lives close by. 8 systems reviewed and otherwise negative PFSH All Active Problems (Updated 06/19/21 @ 09:06 by Floyd Gonzales MD) Injury of shoulder, right (Acute) Trochanteric bursitis, right hip (Acute) Steroid injection: 12/07/2020; 03/17/2020 Trochanteric bursitis, left hip (Acute) Steroid injection: 12/07/2020; 03/17/2020 Osteoarthritis of carpometacarpal joint of right thumb (Acute) Cardiac pacemaker (Acute 08/17/17) Med[employer]izeure XT DR MRI model # [id number] serial # [id number] (pulse generator) Ventricular electrodes: Medtronic CapsureFix Model # 5076-58 cm Serial # [id number] Atrial electrodes: Medtronic CapsureFix model # 5076-52 cm serial # [id number] Right rotator cuff tendinitis (Acute) Corticosteroid injection: 07/16/18 Persistent atrial fibrillation (Acute) Onset mid May 2019 - ongoing as of 06/25/2019 Mild aortic stenosis (Chronic) DM2 (diabetes mellitus, type 2) (Chronic) Hyperlipidemia (Chronic) Essential hypertension (Chronic) Paroxysmal atrial fibrillation (Chronic) Sick sinus syndrome (Chronic) pt. unsure of this medical hx Medical History History of TIA (transient ischemic attack) and stroke Per pt. in 2003 had carotid artery surgery, after procedure pt. suffered a stroke, pt. states full forearm numbness and parts of left leg Surgical History FH: carotid endarterectomy History of permanent cardiac pacemaker placement Social History Smoking/Tobacco Use Status: Former Tobacco Use Smoking risk assessment performed?: Yes Alcohol Intake: never Drug use: Never Substance use type: does not use Current gender identity: male Do you feel safe at home: Yes Do you feel safe in your relationship?: Yes Exam Narrative Exam Narrative: GEN: awake, alert, oriented 3. Pleasant, well groomed, interactive. HEAD: Normocephalic, atraumatic ENT: Mucous membranes moist, External ear exam unremarkable EYES: PERRL, EOMI NECK: Full ROM, no ART, no menigismus CHEST/RESP: Nontender, clear to auscultation bilateral, no wheeze/rhonchi/rales CARDIOVASCULAR: RRR, no murmur, rub tino. 2+ Rad pulse bilateral ABDOMEN: Soft, nontender, no mass. +Bowel sounds EXT: Left upper extremity hemiparesis and muscle wasting. Right glenohumeral joint is tender anteriorly chief outpatient. Pain with internal and external rotation. Pain with active attempts at abduction. Motor strength is normal with biceps triceps and hand. Normal sensation throughout. Edema, no rash Neuro: Grossly normal neurologic exam, conversant, interactive. Psych: Speech fluent, thoughts congruent, affect normal Course Vital Signs Vital signs: Vital Signs Temperature 36.1 C L 06/19/21 08:24 Pulse 61 06/19/21 08:24 Blood Pressure 178/57 H 06/19/21 08:24 Pulse Oximetry 99 06/19/21 08:24 Temperature 36.1 C L 06/19/21 08:24 Pulse 61 06/19/21 08:24 Respiratory Effort Non-Labored 06/19/21 08:28 Blood Pressure 178/57 H 06/19/21 08:24 Blood Pressure Position Sitting 06/19/21 08:24 Pulse Oximetry 99 06/19/21 08:24 Oxygen Delivery Method Room Air 06/19/21 08:24 Oxygen Flow Rate 0 06/19/21 08:24
--- NOTE | 2021-06-19 08:59 | DI.VRAD_ITS ---
PROCEDURE INFORMATION: Exam: XR Right Shoulder Exam date and time: 06/19/2021 8:40 AM Age: 86 years old Clinical indication: Other: Fall, anterio-lat pain TECHNIQUE: Imaging protocol: XR Right shoulder. Views: 2 or more views. COMPARISON: CR RIGHT SHOULDER COMPLETE 02/14/2017 9:33 AM FINDINGS: Bones/joints: Degenerative changes in the acromioclavicular joint and glenohumeral joint. There is no evidence of acute fracture.There is no evidence of malalignment or dislocation. Soft tissues: Normal. IMPRESSION: There is no evidence of acute fracture.There is no evidence of malalignment or dislocation. Dictated and Authenticated by: Anibal Laboy MD. Ordering:BRITTANIE Barrientos MD
--- NOTE | 2021-06-19 18:26 | PDOC.ERCMPRO ---
- If Service Date Differs Date of service: 06/19/21 Time of Service: 18:26 Care Management Progress Note Emily presents in the ED for an injury to his right shoulder. At the request of ED provider, REBECCA meets with Emir to assess needs. Emir heats his home with wood and his injury will prevent him from putting wood into his stove. Emir states his son and [id number] live nearby and his son will likely be able to help him out. He reportedly fills the stove in the morning and again at night. He assures CM that his son will be able to do that for him until his shoulder heals. No other needs are identified.
== END 2021-06-19 09:18 | disposition home or self-care (01) ==
PROVIDERS: Emergency Provider Emergency Medicine; PCP Family Medicine
DX: S49.81XA Other specified injuries of right shoulder and upper arm, initial encounter (principal); W18.39XA Other fall on same level, initial encounter
CPT/HCPCS: 99283; 73030

== ENCOUNTER → 2021-07-06 10:29 | Outpatient (BNVA) | payer MEDICARE, SELFPAY | PROVIDERS: PCP Family Medicine; Referring Provider Family Medicine; Visit Provider Student in an Organized Health Care Education/Training Program | DX: M12.511 Traumatic arthropathy, right shoulder (principal); S49.91XA Unspecified injury of right shoulder and upper arm, initial encounter; W19.XXXA Unspecified fall, initial encounter | CPT/HCPCS: 20610; 99214; J1030 ==

== ENCOUNTER → 2021-10-26 13:06 | Outpatient (BNVA) | payer MEDICARE, SELFPAY | PROVIDERS: PCP Family Medicine; Visit Provider Physician Assistant | DX: Z95.0 Presence of cardiac pacemaker (principal); I49.5 Sick sinus syndrome; I48.19 Other persistent atrial fibrillation | CPT/HCPCS: 93280 ==

== ENCOUNTER → 2021-10-27 12:32 | Outpatient (BNVA) | payer MEDICARE, SELFPAY | PROVIDERS: PCP Family Medicine; Referring Provider Family Medicine; Visit Provider Internal Medicine Cardiovascular Disease | DX: Z95.0 Presence of cardiac pacemaker (principal); I35.0 Nonrheumatic aortic (valve) stenosis; I48.19 Other persistent atrial fibrillation | CPT/HCPCS: 99214; 99213 ==

== ENCOUNTER 2021-10-28 10:21 | Outpatient (REF) | payer MEDICARE, SELFPAY ==
[2021-10-28 11:28] LABS: Source Nasal/Nares
[2021-10-28 15:07] LABS: COVID-19 PCR Negative (Negative)
== END 2021-10-28 10:22 | disposition home or self-care (01) ==
LOC: LBN 10:21
PROVIDERS: PCP Family Medicine; Visit Provider Internal Medicine Cardiovascular Disease
DX: Z20.822 Contact with and (suspected) exposure to COVID-19 (principal); Z01.818 Encounter for other preprocedural examination
CPT/HCPCS: 87635

== ENCOUNTER 2021-11-01 06:55 | Day surgery (SDC) | payer MEDICARE, SELFPAY ==
[2021-11-01 07:18] VITALS: BP 140/55; PULSE 64; RESP 20; TEMP 36.8; O2SAT 100
[2021-11-01] MEDS: Normal Saline 1,000 ML 30 ML IV (07:27)
--- NOTE | 2021-11-01 07:29 | W.ANESPRE ---
General Info Date of Service Date Performed: 11/01/21 Height: 5 ft 9 in Weight: 94 kg Body Mass Index (BMI): 30.6 Surgical Procedure: Operation Date: 11/01/21 07:30 Proposed Procedure Side Surgeon p Cardioversion Stefanie Herring MD Actual Procedure Side Surgeon p Cardioversion Stefanie Herring MD Pre-Op Diagnosis Post-Op Diagnosis PERSISTENT ATRIAL FIBRILLATION Meds Allergies and Home Medications Allergies Allergy/AdvReac Type Severity Reaction Status Date / Time metformin Allergy Unknown Diarrhea Verified 11/01/21 07:31 ezetimibe [From Vytorin] AdvReac FAILED Verified 11/01/21 07:31 lisinopril AdvReac Hyperkalemi Verified 11/01/21 07:31 a simvastatin [From Vytorin] AdvReac FAILED Verified 11/01/21 07:31 Home Medication Medication Instructions Recorded aspirin 81 mg chewable tablet 81 mg PO DAILY #1 tab-cap 09/28/13 (Aspirin Low-Strength) atorvastatin 80 mg tablet 80 mg PO DAILY #90 tab-caps 09/28/13 paroxetine HCl 10 mg tablet (Paxil) 10 mg PO DAILY #1 tab-cap 09/28/13 [id number]-Y1-P-K-dlzzam-cxqsohk-min 1 ea PO DAILY ##1 09/28/13 3,300 unit-5 mg-200mg-75 unit tablet ER (ICaps) albuterol sulfate 90 mcg/actuation 2 puff inhalation PRN 10/21/14 aerosol inhaler (Proventil HFA) amlodipine 10 mg tablet (Norvasc) 10 mg PO DAILY 10/21/14 furosemide 40 mg tablet 80 mg PO DAILY 10/21/14 lisinopril 5 mg tablet 5 mg PO DAILY 03/15/17 sitagliptin 100 mg tablet (Januvia) 100 mg PO DAILY 03/15/17 fluticasone propionate 220 220 puff inhalation DAILY 03/19/17 mcg/actuation HFA aerosol inhaler (Flovent HFA) ibuprofen 800 mg tablet 800 mg PO TID #30 tabs 03/19/17 glimepiride 1 mg tablet 1 mg PO QAM 07/16/18 rivaroxaban 15 mg tablet (Xarelto) 15 mg PO QPM 07/16/18 phenytoin sodium extended 100 mg 100 mg PO BID 04/15/20 capsule (Dilantin Extended) multivitamin 1 tab PO DAILY 04/27/21 naproxen 500 mg tablet 500 mg PO BID PRN 04/27/21 amiodarone 200 mg tablet 200 mg PO BID #60 tabs 10/27/21 Current Visit Medications: Current Medications Generic Name Dose Route Start Last Admin Trade Name Freq PRN Reason Stop Dose Admin Sodium Chloride 1,000 mls @ 30 mls/hr 11/01/21 06:00 11/01/21 07:27 Saline 1000ml Bag IV 30 mls/hr INFUSION RAMÍREZ Administration IV Miscellaneous Supplies 1 each 11/01/21 06:00 Iv Access IV 11/30/21 23:59 DIRECTED RAMÍREZ Sodium Chloride 0 ml 11/01/21 06:00 Normal Saline Flush 10 Ml Syr IV 11/30/21 23:59 PRN PRN Sodium Chloride 0 ml 11/01/21 06:00 Normal Saline 10 Ml Vial IJ 11/30/21 23:59 DIRECTED PRN Sterile Water 0 ml 11/01/21 06:00 Water,Injection,Sterile 10 Ml Vial IJ 11/30/21 23:59 DIRECTED PRN PFSH Active Problems Active Problems: Problem Status Onset Code Sick sinus syndrome I49.5 Paroxysmal atrial fibrillation I48.0 Essential hypertension I10 Hyperlipidemia E78.5 DM2 (diabetes mellitus, type 2) E11.9 Mild aortic stenosis I35.0 Cardiac pacemaker 08/17/17 Z95.0 Right rotator cuff tendinitis M75.81 Persistent atrial fibrillation I48.19 Osteoarthritis of carpometacarpal joint of right thumb M18.11 Trochanteric bursitis, left hip M70.62 Trochanteric bursitis, right hip M70.61 Traumatic arthropathy, 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 in 2003 had carotid artery surgery, after procedure pt. suffered a stroke, pt. states full forearm numbness and parts of left leg Pulmonary embolus left DVT Seizure disorder Pt. states he doesn't remember ever having any Surgical History Surgical History FH: carotid endarterectomy History of permanent cardiac pacemaker placement Tobacco Smoking/Tobacco Use Status: Former Tobacco Use Passive smoking exposure: No Second hand exposure: No Alcohol Alcohol Intake: never Substance Use Substance use: Never Substance use type: does not use Vital Signs and Lab Results Vital Signs Most Recent Vital Signs in EMR: Most Recent Vital Signs Temp Pulse Resp BP Pulse Ox 36.8 C 64 20 140/55 L 100 11/01/21 07:18 11/01/21 07:18 11/01/21 07:18 11/01/21 07:18 11/01/21 07:18 Lab Results Blood Type / Crossmatch: No Data to Display Complete Blood Count: No Data to Display Complete Metabolic Panel: No Data to Display Liver Function Panel: No Data to Display Coagulation Panel: No Data to Display Cardiac Panel: No Data to Display Arterial Blood Gas: No Data to Display Venous Blood Gas: No Data to Display Pancreas Panel: No Data to Display Thyroid Panel: No Data to Display Infectious Disease: Coronavirus (COVID-19)(PCR) Negative (Negative) 10/28/21 08:12 Coronavirus 2019 Source Nasal/Nares 10/28/21 08:12 Blood Cultures: No Data to Display Toxicology Panel: No Data to Display Anesthesia Assessment and Plan Anesthesia History Personal History: No History of Anesthesia Complications Family History: No Family History of Anesthesia Complications Exercise Tolerance Exercise Tolerance: Metabolic Equivalents>4 Pertinent Negatives Pertinent Negatives: No Symptoms of GERD, No Major Cardiovascular Symptoms or Complaints and No Major Pulmonary Symptoms or Complaints Cardiac & Pulmonary Exam Cardiac Exam: Normal S1/S2 Heart Sounds Pulmonary Exam: Clear Bilateral Breath Sounds Implantable Cardiac Device Does patient have a Pacemaker or an ICD?: Yes Device [employer] Operator:: Medtronic Lola XT DR model [id number] Reason for Placement:: Persistant A-fib Date of Last Device Interrogation:: 10/26/21 Airway Exam Known Difficult Airway: No Mallampati Class: 2 Mouth Opening: Normal (> 3cm) Thyromental Distance: Greater than 3 cm Neck Range of Motion: Full ROM Neck Circumference: Normal Teeth Condition: Removable Dentures/Plates Upper ASA Classification ASA Score: ASA 3 Emergency Case?: No NPO Status NPO Status: NPO Clears >2 hours, Solids >8 hours Anesthesia Plan Resuscitation Status: Full Code Anesthesia Technique: General Anesthesia Airway Planned: Natural Airway Monitors Used: Standard Monitors
--- NOTE | 2021-11-01 07:30 | RT.EKG_ITS ---
APPROVED REPORT Exam: Resting ECG Reason for Exam: Pre-Op EKG Patient Location: O HR:69 bpm ECG Measurements Heart Rate 69 AXIS MS 289 P 0 QRSd 184 QRS 230 QT 466 T 78 QTc 501 Conclusion Ventricular-paced rhythm
[2021-11-01 07:35] VITALS: BMI 30.6
--- NOTE | 2021-11-01 08:00 | RT.EKG_ITS ---
APPROVED REPORT Exam: Resting ECG Reason for Exam: Post-op EKG Patient Location: O HR:67 bpm ECG Measurements Heart Rate 67 AXIS NH [id number] P [id number] QRSd 152 QRS -27 QT 464 T 81 QTc 491 Conclusion Ventricular paced rhythm No change from previous
--- NOTE | 2021-11-01 08:12 | W.PM.DSUDISC ---
Discharge Plan Disposition Patient Disposition: HOME Condition: Good Discharge Details Attending Provider: Stefanie Herring Primary Care Provider: Nel Cabrera Home Meds and New Rx's Prescriptions: Continued Xarelto 15 mg tablet 15 mg PO QPM glimepiride 1 mg tablet 1 mg PO QAM phenytoin sodium extended [Dilantin Extended] 100 mg capsule 100 mg PO BID atorvastatin 80 MG tablet 80 mg PO DAILY Qty: 90 Rx Instructions: 1 TAB DAILY paroxetine HCl [Paxil] 10 MG tablet 10 mg PO DAILY Qty: 1 aspirin [Aspirin Low-Strength] 81 MG tablet,chewable 81 mg PO DAILY Qty: 1 ICaps 1 EACH tablet extended release 1 ea PO DAILY Qty: 1 furosemide 40 MG tablet 80 mg PO DAILY amlodipine [Norvasc] 10 MG tablet 10 mg PO DAILY albuterol sulfate [Proventil HFA] 6.7 GM HFA aerosol inhaler 2 puff Inhalation PRN Label Comments: unknown naproxen 500 mg tablet 500 mg PO BID PRN multivitamin Tablet 1 tab PO DAILY lisinopril 5 MG tablet 5 mg PO DAILY Januvia 100 MG tablet 100 mg PO DAILY fluticasone propionate [Flovent HFA] 120 PUFF HFA aerosol inhaler 220 puff Inhalation DAILY ibuprofen 800 MG tablet 800 mg PO TID Qty: 30 0RF Discontinued amiodarone 200 mg tablet 200 mg PO BID Qty: 60 8RF Discharge Instructions Activity:: Activity as Tolerated Diet:: As Tolerated
--- NOTE | 2021-11-01 08:14 | W.CARDVER ---
Date of service: 11/01/21 Time of Service: 08:15 Cardioversion DATE OF PROCEDURE: 11/01/21 PRE-OP DIAGNOSES: atrial fibrillation Indications: Atrial fibrillation Procedure Description: Patient was admitted for synchronized cardioversion. He was taken to the operating room and anterior and posterior pads were applied. He was sedated under the direction of the department of anesthesia. When he was adequately sedated, he had 2 separate synchronized shocks at 150 and then 200 W seconds. He remained ventricularly paced throughout. After the second shock there were possible very low amplitude P waves noted. No further intervention was recommended and the patient was taken to the recovery area where he will be discharged when he is fully awake and alert
[2021-11-01 08:23] VITALS: BP 130/50; PULSE 70; RESP 21; TEMP 36.4; O2SAT 97
--- NOTE | 2021-11-01 08:42 | W.ANESPOSTOP ---
Postoperative Evaluation Date, Time and Location Date Performed: 11/01/21 Time Performed: 08:42 Patient Location: Day Surgery Unit Vital Signs Most Recent Imported Vital Signs: Most Recent Vital Signs Temp Pulse Resp BP Pulse Ox 36.4 C L 70 21 130/50 L 97 11/01/21 08:23 11/01/21 08:23 11/01/21 08:23 11/01/21 08:23 11/01/21 08:23 Pain Score Most Recent Pain Score: Most Recent Pain Score Pain Level 0 11/01/21 08:23 Assessment Mental Status: Awake (Alert & Oriented to Patient Baseline) Airway and Respiratory Function: Patent airway with normal (patient baseline) respiratory exam Cardiovascular Function: Hemodynamically Stable Hydration Status: Adequately Hydrated Nausea & Vomiting: No Nausea or Vomiting Pain: Pt. Denies Any Pain Peripheral Nerve Block: Patient did not receive a nerve block
[2021-11-01 08:55] VITALS: BP 143/60; PULSE 68; RESP 15; TEMP 35.9; O2SAT 98
== END 2021-11-01 09:30 | disposition home or self-care (01) ==
PROVIDERS: PCP Family Medicine; Visit Provider Internal Medicine Cardiovascular Disease
PROC: 5A2204Z Restoration of Cardiac Rhythm, Single (ICD-10-PCS; CPT 92960; principal; 2021-11-01 07:30)
DX: I48.0 Paroxysmal atrial fibrillation (principal); I10 Essential (primary) hypertension; I35.0 Nonrheumatic aortic (valve) stenosis; E11.9 Type 2 diabetes mellitus without complications
CPT/HCPCS: 92960; 93005; 93010; J2704

== ENCOUNTER → 2021-11-22 08:53 | Outpatient (BNVA) | payer MEDICARE, SELFPAY | PROVIDERS: PCP Family Medicine; Referring Provider Family Medicine; Visit Provider Student in an Organized Health Care Education/Training Program | DX: M12.511 Traumatic arthropathy, right shoulder (principal) | CPT/HCPCS: 20610; 99214; J1040 ==

== ENCOUNTER 2022-04-17 12:22 | Outpatient (REF) | payer MEDICARE, SELFPAY ==
[2022-04-17 14:54] LABS: ALT 15 U/L (16-63); AST 39 U/L (15-37); Alkaline Phosphatase 187 U/L (46-116); Anion Gap 9.3 mmol/L (3-11); BUN 47 mg/dL (7-18); Bilirubin, Total 0.3 mg/dL (0.2-1.0); CO2 25.7 mmol/L (21.0-32.0); CREATININE 1.9 mg/dL (0.70-1.30); Calcium 8.5 mg/dL (8.5-10.1); Chloride 106 mmol/L (98-107); Estimated GFR 33.93 (mL/min/1.73m2); Glucose 114 mg/dL (74-106); Potassium 4.8 mmol/L (3.5-5.1); Sodium 141 mmol/L (136-145)
[2022-04-17 15:01] LABS: Hemoglobin A1C 6.9 % (<5.7)
== END 2022-04-17 12:23 | disposition home or self-care (01) ==
LOC: NCHCN 12:22
PROVIDERS: PCP Family Medicine; Visit Provider Family Medicine
DX: E11.9 Type 2 diabetes mellitus without complications (principal); Z00.00 Encounter for general adult medical examination without abnormal findings; I10 Essential (primary) hypertension; E78.00 Pure hypercholesterolemia, unspecified
CPT/HCPCS: 80053; 82306; 83036

== ENCOUNTER → 2022-04-26 10:29 | Outpatient (BNVA) | payer MEDICARE, SELFPAY | PROVIDERS: PCP Family Medicine; Visit Provider Physician Assistant | DX: Z95.0 Presence of cardiac pacemaker (principal); I49.5 Sick sinus syndrome; I48.19 Other persistent atrial fibrillation | CPT/HCPCS: 93280 ==

== ENCOUNTER → 2022-05-24 09:54 | Outpatient (BNVA) | payer MEDICARE, SELFPAY | PROVIDERS: PCP Family Medicine; Referring Provider Family Medicine; Visit Provider Student in an Organized Health Care Education/Training Program | DX: M12.511 Traumatic arthropathy, right shoulder | CPT/HCPCS: 20610; 99213; J1040 ==

== ENCOUNTER → 2022-07-27 12:37 | Outpatient (BNVA) | payer MEDICARE, SELFPAY | PROVIDERS: PCP Family Medicine; Referring Provider Family Medicine; Visit Provider Surgery | DX: T23.322A Burn of third degree of single left finger (nail) except thumb, initial encounter (principal); X17.XXXA Contact with hot engines, machinery and tools, initial encounter; I26.99 Other pulmonary embolism without acute cor pulmonale; Z86.73 Personal history of transient ischemic attack (TIA), and cerebral infarction without residual deficits; G83.24 Monoplegia of upper limb affecting left nondominant side; Z95.0 Presence of cardiac pacemaker; Z79.01 Long term (current) use of anticoagulants | CPT/HCPCS: 99202; 99213 ==

== ENCOUNTER → 2022-08-10 13:12 | Outpatient (BNVA) | payer MEDICARE, SELFPAY | PROVIDERS: PCP Family Medicine; Referring Provider Family Medicine; Visit Provider Surgery | DX: Z51.89 Encounter for other specified aftercare (principal); T23.322D Burn of third degree of single left finger (nail) except thumb, subsequent encounter; X17.XXXD Contact with hot engines, machinery and tools, subsequent encounter; G83.24 Monoplegia of upper limb affecting left nondominant side | CPT/HCPCS: 99213 ==

== ENCOUNTER → 2022-08-28 13:27 | Outpatient (BNVA) | payer MEDICARE, SELFPAY | PROVIDERS: PCP Family Medicine; Referring Provider Family Medicine; Visit Provider Surgery | DX: G83.24 Monoplegia of upper limb affecting left nondominant side (principal); T23.322D Burn of third degree of single left finger (nail) except thumb, subsequent encounter; X58.XXXD Exposure to other specified factors, subsequent encounter | CPT/HCPCS: 11042; 99212 ==

== ENCOUNTER → 2022-10-25 10:24 | Outpatient (BNVA) | payer MEDICARE, SELFPAY | PROVIDERS: PCP Family Medicine; Referring Provider Family Medicine; Visit Provider Physician Assistant | DX: Z45.010 Encounter for checking and testing of cardiac pacemaker pulse generator [battery] (principal); I49.5 Sick sinus syndrome; I48.91 Unspecified atrial fibrillation | CPT/HCPCS: 93280 ==

== ENCOUNTER → 2022-11-24 10:03 | Outpatient (BNVA) | payer MEDICARE, SELFPAY | PROVIDERS: PCP Family Medicine; Referring Provider Family Medicine; Visit Provider Internal Medicine Cardiovascular Disease | DX: I48.19 Other persistent atrial fibrillation (principal); Z95.0 Presence of cardiac pacemaker | CPT/HCPCS: 99213 ==

== ENCOUNTER 2023-01-08 16:35 | Outpatient (REF) | payer MEDICARE, SELFPAY ==
[2023-01-08 16:16] LABS: Abs Immature Grans 0.01 10^3/uL (0.0-0.06); Absolute Basophil Count 0.06 10^3/uL (0.0-0.2); Absolute Eosinophil Count 0.29 10^3/uL (0.0-0.7); Absolute Lymphocyte Count 1.68 10^3/uL (1.2-3.4); Absolute Monocyte Count 0.49 10^3/uL (0.1-0.8); Absolute Neutrophil Count 3.11 10^3/uL (1.2-6.7); Basophils % 1.1; Eosinophils % 5.1; HCT 33.3 % (40.0-50.0); HGB 10.4 g/dL (13.5-17.5); Immature Grans % 0.2; Lymphocytes % 29.8; MCH 27.6 pg (27.0-33.0); MCHC 31.2 % (32.0-36.0); MCV 88 fL (80-95); MPV 12.7 fL (8.0-11.0); Monocytes % 8.7; Neutrophils % 55.1; Platelet Count 195 10^3/uL (130-400); RBC 3.77 10^6/uL (4.36-5.78); RDW 13.6 % (11.8-14.1); RDW-SD 44.4 fL; WBC 5.64 10^3/uL (4.4-10.8)
[2023-01-08 16:48] LABS: ALT 11 U/L (16-63); AST 40 U/L (15-37); Alkaline Phosphatase 219 U/L (46-116); Anion Gap 9.4 mmol/L (3-11); BUN 43 mg/dL (7-18); Bilirubin, Total 0.3 mg/dL (0.2-1.0); CO2 24.6 mmol/L (21.0-32.0); CREATININE 1.9 mg/dL (0.70-1.30); Chloride 105 mmol/L (98-107); Estimated GFR 33.93 (mL/min/1.73m2); Glucose 133 mg/dL (74-106); Potassium 5.1 mmol/L (3.5-5.1); Sodium 139 mmol/L (136-145); Total Protein 7.6 g/dL (6.4-8.2)
== END 2023-01-08 16:36 | disposition home or self-care (01) ==
LOC: NCHCN 16:35
PROVIDERS: PCP Family Medicine; Visit Provider Family Medicine
DX: E11.9 Type 2 diabetes mellitus without complications (principal); I48.91 Unspecified atrial fibrillation
CPT/HCPCS: 80053; 83036; 85025

== ENCOUNTER → 2023-03-12 14:16 | Outpatient (CLI) | payer MEDICARE, SELFPAY ==
--- NOTE | 2023-03-12 | DI.RAD_ITS ---
Exam(s) XR CHEST 2V PA LATERAL EXAM: XR CHEST 2V PA LATERAL CLINICAL HISTORY: COUGH R05.9 X 2 WEEKS W/ SOB FORMER SMOKER. TECHNIQUE: 2D digital imaging was performed. COMPARISON: CR CHEST 2 VIEWS PA,LAT from 05/13/2010 FINDINGS: 2 views: Heart size is normal but there has been interval placement of a bipolar left subclavian pacemaker wit h lead tips in RA and right ventricle. There is no mediastinal widening. There is blunting of the right costophrenic angle consistent with a small right pleural effusion. Le ft costophrenic angle is clear. Mild increased markings in the left lung base just above the hemidia phragm noted. No pulmonary edema. No pneumothorax. IMPRESSION: Cardiac pacemaker. No pulmonary edema but there does appear to be a small-moderate size right pleura l effusion. Mild scarring left lung base just above the hemidiaphragm. DATA REPOSITORY: RADIATION DOSE DELIVERED:
== END ==
PROVIDERS: PCP Family Medicine; Visit Provider Nurse Practitioner Family
DX: R05.9 Cough, unspecified (principal); Z87.891 Personal history of nicotine dependence; R91.8 Other nonspecific abnormal finding of lung field
CPT/HCPCS: 71046

== ENCOUNTER → 2023-03-22 10:09 | Outpatient (CLI) | payer MEDICARE, SELFPAY ==
--- NOTE | 2023-03-22 10:59 | DI.RAD_ITS ---
Exam(s) XR CHEST 2V PA LATERAL EXAM: XR CHEST 2V PA LATERAL CLINICAL HISTORY: PLEURAL EFFUSION J90 TECHNIQUE: 2D digital imaging was performed. COMPARISON: CR CHEST 2 VIEWS PA,LAT from 05/13/2010 CR XR CHEST 2V PA LATERAL from 03/12/2023 FINDINGS: HEART: Normal size. A pacemaker again noted. Aorta: Not dilated. PULMONARY VASCULATURE: Normal. LUNGS: Minimal scarring again noted above left diaphragm. PLEURAL SPACE: Improvement in right pleural effusion. Ms. Minimal residual blunting. BONE:Unremarkable for age. Soft tissues: Unremarkable. IMPRESSION: Some improvement in right pleural effusion, now with minimal blunting at the costophrenic angle. DATA REPOSITORY: RADIATION DOSE DELIVERED:
== END ==
PROVIDERS: PCP Family Medicine; Visit Provider Family Medicine
DX: S52.614A Nondisplaced fracture of right ulna styloid process, initial encounter for closed fracture (principal); X58.XXXA Exposure to other specified factors, initial encounter
CPT/HCPCS: 71046

== ENCOUNTER → 2023-03-26 01:13 | Outpatient (CLI) | payer MEDICARE, SELFPAY ==
--- NOTE | 2023-03-26 | DI.RAD_ITS ---
Exam(s) XR HAND LT COMPLETE EXAM: XR HAND LT COMPLETE CLINICAL HISTORY: CONTUSION,S60.222A. TECHNIQUE: 2D digital imaging was performed of the left hand. Three views were obtained. AP, later al and oblique views were obtained. COMPARISON: No exams were available for comparison FINDINGS: BONES: There is a nondisplaced fracture through the ulnar styloid process. No bony destructive lesio n is seen. JOINTS: No dislocation present. SOFT TISSUE: Normal. IMPRESSION: Nondisplaced fracture through the ulnar styloid process. Unexpected findings DATA REPOSITORY: RADIATION DOSE DELIVERED:
== END ==
PROVIDERS: PCP Family Medicine; Visit Provider Family Medicine
DX: S52.614A Nondisplaced fracture of right ulna styloid process, initial encounter for closed fracture (principal); X58.XXXA Exposure to other specified factors, initial encounter
CPT/HCPCS: 73130

== ENCOUNTER → 2023-04-13 00:48 | Outpatient (CLI) | payer MEDICARE, SELFPAY ==
--- NOTE | 2023-04-13 | DI.CT_ITS ---
Exam(s) CT CHEST WO EXAM: CT CHEST WO CLINICAL HISTORY: PLATT R06.09. TECHNIQUE: Imaging protocol: Axial computed tomography images were obtained and coronal and sagittal reformatted images were created and reviewed. COMPARISON: CR XR CHEST 2V PA LATERAL from 03/22/2023 FINDINGS: The examination is limited due to patient motion artifact. Tracheobronchial tree: Patent where visualized. Pulmonary parenchyma: Mild emphysematous changes are seen in the lungs. There are moderate bilateral pleural effusions and subjacent infiltrates, right greater than left. Mediastinum and Jo Ann: No dominant adenopathy or fluid collection. The esophagus is unremarkable. Thyroid gland: Unremarkable. Pleura: No pneumothorax. Heart: The heart is not dilated. Coronary artery calcification and/or stents are present. No pericar dial effusion. Aorta: Thoracic aorta non-dilated. Atherosclerosis. Upper abdomen: Unremarkable. Lymph nodes: Within normal limits. Tubes, Catheters, and Lines: Cardiac pacing device is in place. Soft tissues: Unremarkable. Bones:Within normal limits for the patient's age. IMPRESSION: Moderate bilateral pleural effusions and small subjacent infiltrates which may represent atelectasis or pneumonia. RADIATION DOSE DELIVERED: 456.08mGy.cm Total DLP 456.08mGy.cm Total DLP DATA REPOSITORY: All CT scans at this facility are submitted to the National Radiology Data Registry (NRDR) Dose Index Registry (DIR) with the [employer] (ACR). RADIATION OPTIMIZATION: All CT scans at this facility use at least one of these dose optimization te chniques: automated exposure control; mA and/or kV adjustment per patient size (includes targeted exa ms where dose is matched to clinical indication); or iterative reconstruction.
== END ==
PROVIDERS: PCP Family Medicine; Visit Provider Family Medicine
DX: J91.8 Pleural effusion in other conditions classified elsewhere (principal); R06.09 Other forms of dyspnea
CPT/HCPCS: 71250

== ENCOUNTER → 2023-04-25 11:18 | Outpatient (BNVA) | payer MEDICARE, SELFPAY | PROVIDERS: PCP Family Medicine; Visit Provider Physician Assistant | DX: Z95.0 Presence of cardiac pacemaker (principal); I48.19 Other persistent atrial fibrillation | CPT/HCPCS: 93280 ==

== ENCOUNTER 2023-04-27 08:18 | Day surgery (SDC) | payer MEDICARE, SELFPAY ==
--- NOTE | 2023-04-26 14:19 | W.PM.DSUDISC ---
Date of service: 04/27/23 Time of Service: 10:25 Discharge Plan Disposition Patient Disposition: Home Condition: Good Discharge Details Reason For Visit: Thoracentesis Attending Provider: Jeison Edwards Primary Care Provider: Nel Cabrera Home Meds and New Rx's Prescriptions: Continued glimepiride 1 mg tablet 1 mg PO QAM silver sulfadiazine [Silvadene] 1 % cream 1 applic topical BID Qty: 50 2RF Rx Instructions: apply a 1.5 mm thickness phenytoin sodium extended [Dilantin Extended] 100 mg capsule 100 mg PO BID atorvastatin 80 MG tablet 80 mg PO DAILY Qty: 90 Rx Instructions: 1 TAB DAILY paroxetine HCl [Paxil] 10 MG tablet 10 mg PO DAILY Qty: 1 aspirin [Aspirin Low-Strength] 81 MG tablet,chewable 81 mg PO DAILY Qty: 1 ICaps 1 EACH tablet extended release 1 ea PO DAILY Qty: 1 furosemide 40 MG tablet 80 mg PO DAILY amlodipine [Norvasc] 10 MG tablet 10 mg PO DAILY naproxen 500 mg tablet 500 mg PO BID PRN multivitamin Tablet 1 tab PO DAILY trazodone 50 mg tablet 50 mg PO QHS PRN mirtazapine 7.5 mg tablet 7.5 mg PO DAILY lisinopril 5 MG tablet 5 mg PO DAILY Januvia 100 MG tablet 100 mg PO DAILY ibuprofen 800 MG tablet 800 mg PO TID Qty: 30 0RF Held Xarelto 15 mg tablet 15 mg PO QPM Hold Instructions: Resume on 04/28/23. Discharge Instructions Instructions: Thoracentesis (DC) Additional Instructions: Ilya, we were able to get a specimen of the fluid from around your lung just as we planned today. Everything went very smoothly. I would like you to hold your Eliquis until tomorrow. You can resume it at that point at your regular dose. You may have a little bit of soreness, and some bruising from the site where I passed the needle through. This is very common, so do not be alarmed if you notice some tenderness in the area. You should leave the Band-Aid on until tomorrow. If the Band-Aid becomes soaked, it can be removed, and a new one can be placed. After 24 hours, if the needle site is dry, then you do not need any more Band-Aids on it at that point. It is fine to resume all of your usual activities. You may find that you have a little bit of coughing, so do not be alarmed if that is the case. If you develop any pain in the right side of your chest, or worrisome shortness of breath, please let my office know right away, or come to the emergency department if it is after regular business hours. It will take a week or 2 for me to get all the results of the pleural fluid, and I will certainly be in touch at that point to share any information that I have gathered. I will also make sure that Dr. Cabrera's office also gets the results. Stand Alone Forms: Valorie Flowers (DSU) Activity:: Activity as Tolerated Remove Dressings/Wound Care:: 24 hours Diet:: As Tolerated Discharge Orders Discharge Orders: Discharge Order (Routine); Ordered 04/27/23 Ordered By: Jeison Edwards DS: Diagnosis Discharge Diagnosis (1) Pleural effusion: Status: Acute Asessment and Plan: Status post right-sided diagnostic thoracentesis
[2023-04-27 08:31] VITALS: BP 166/51; PULSE 65; RESP 18; TEMP 36.7; O2SAT 98
--- NOTE | 2023-04-27 10:00 | PAPNONF_PTH ---
PATIENT: Emir Davis LOC: [facility] U#:[id number] AGE/SX: 88/M ROOM: RE04/27/[address]: Jeison Edwards MD : [id number] BED: DIS: 04/27/2023 SPEC #: [id number] RECD: 04/27/23 13:13 STATUS: PAOLA REQ #: [id number] SHIRAZ: 04/27/23 10:[address]: Jeison Edwards DEPT: [facility] Cytology RECD BY: Denice Lucia ENTERED: 04/27/23 13:14 SP TYPE: BROOKE ARRIAZA DR: Nel Cabrera Tissues: 1 - BODY FLUID CYTO(NOT S/U/N/EM)[facility] Procedures: BODY FLUID CYTO(NOT SPU/UR/NIP/ENDOM)[facility] Comments: [id number] (AT=250 ml, SENT FRESH) (REFRIGERATED)
[2023-04-27 10:28] VITALS: BP 166/51; PULSE 68; RESP 18; TEMP 36.7; O2SAT 68
--- NOTE | 2023-04-27 10:28 | W.PROCNOTE ---
Date of service: 04/27/23 Time of Service: 10:28 Procedure Note Date of procedure: 04/27/23 Procedure: Thoracentesis Surgeon/Proceduralist/Physician: Jeison Edwards Procedure Diagnosis: Right-sided diagnostic thoracentesis Procedure Indications: Emir, who prefers to be called Ilya is an 88-year-old male who recently had a fall from a standing level height. This was associated with some exertional dyspnea. He underwent a CAT scan that demonstrated mild bilateral pleural effusions, with the right side being a little bit greater than the left. He is referred for a diagnostic thoracentesis. In the interim, he has been feeling a little bit better. He still has a little bit of exertional dyspnea, with some associated cough. Otherwise, he feels well. Procedure Description: Ilya was brought back to the procedure room. She was assisted to a seated position, with pillows and the table used for his comfort. I performed a limited ultrasound of the right and left hemithoraces. There are bilateral pleural effusions, but the left is quite small. The right side is a suitable target for thoracentesis. Next, I prepped and draped the back in the usual fashion. Next, with real-time ultrasound guidance, I raised a skin wheal, and anesthetize the trajectory of the thoracentesis over the area of the underlying rib. Next, again with ultrasound, I advanced a thoracentesis needle into the pleural space under direct vision. Pale straw-colored fluid was aspirated. The catheter was gently advanced as the needle was removed. Specimens were obtained for pleural fluid analysis. The drain was then connected to suction tubing, and a Vacutainer was used to empty the pleural space. In total about 850 mL of pleural fluid was drained. He had just a small amount of coughing at the end portion of the procedure. Under positive pressure expiration, I removed the catheter, and applied an occlusive bandage. He was brought back to the same-day surgery unit having tolerated the procedure just fine. Postprocedural x-ray showed no evidence of pneumothorax.
--- NOTE | 2023-04-27 10:35 | DI.RAD_ITS ---
Exam(s) XR PORTABLE CHEST AP EXAM: XR PORTABLE CHEST AP CLINICAL HISTORY: s/p right thoracentesis. TECHNIQUE: 2D digital imaging was performed. COMPARISON: CR XR CHEST 2V PA LATERAL from 03/22/2023 FINDINGS: Single AP portable view. Bipolar left subclavian pacemaker again noted with lead tips in RA and right ventricle. Heart size is upper normal. The mediastinum is not widened. Right lung is clear. However, there is now mild infiltrate in the left lower lobe retrocardiac regio n. No obvious pleural effusions. No pneumothorax. No fractures. IMPRESSION: Subtle suggestion of possible left lower lobe infiltrate. No obvious pleural effusions. Recommend n onportable PA and lateral views when clinically possible. DATA REPOSITORY: RADIATION DOSE DELIVERED:
[2023-04-27 11:30] LABS: Clarity Clear; Source Pleural
[2023-04-27 11:32] LABS: Nucleated Cells 420 uL (0)
[2023-04-27 11:55] LABS: Polynuclear Cells 1 %
[2023-04-27 11:56] LABS: Mononuclear Cells 99 %
[2023-04-27 17:53] LABS: Albumin, Body FLuid <1.0 g/dL (See Note); Glucose, Fluid 111 mg/dL (See Note)
[2023-04-29 13:56] LABS: Fluid Type Pleural; Lactate Dehydrogenase (LD), BF 51 U/L; Protein,Total, BF 1.3 g/dL
[2023-05-01 16:26] LABS: Cholesterol (BF) 7 mg/dL; Fluid Type Pleural; Triglyceride (BF) <4 mg/dL
== END 2023-04-27 08:19 | disposition home or self-care (01) ==
PROVIDERS: PCP Family Medicine; Visit Provider Surgery
PROC: (CPT 32554; principal; 2023-04-27 09:00)
DX: J90 Pleural effusion, not elsewhere classified (principal); I48.0 Paroxysmal atrial fibrillation; Z79.899 Other long term (current) drug therapy
CPT/HCPCS: 32555; 82042; 82664; 84311; 84478; 71045; 81373; 82465; 83615; 84157; 87070; 87205; 88104; 89051

== ENCOUNTER 2023-05-14 15:21 | Outpatient (REF) | payer MEDICARE, SELFPAY ==
[2023-05-14 17:20] LABS: Hemoglobin A1C 6.9 % (<5.7)
== END 2023-05-14 15:22 | disposition home or self-care (01) ==
LOC: NCHCN 15:21
PROVIDERS: PCP Family Medicine; Visit Provider Family Medicine
DX: E11.9 Type 2 diabetes mellitus without complications (principal)
CPT/HCPCS: 83036

== ENCOUNTER 2023-08-26 08:59 | Inpatient (IN) | payer MEDICARE, SELFPAY ==
[2023-08-26] VITALS (54 sets, daily range): BP systolic 140–200; BP diastolic 32–143; PULSE 59–110; RESP 13–31; TEMP 36–37.1; O2SAT 91–100
--- NOTE | 2023-08-26 09:00 | DI.RAD_ITS ---
Exam(s) XR CHEST 2V PA LATERAL EXAM: XR CHEST 2V PA LATERAL CLINICAL HISTORY: cough. TECHNIQUE: 2D digital imaging was performed. COMPARISON: CR XR PORTABLE CHEST AP from 04/27/2023 FINDINGS: 2 views: Again noted is a bipolar left subclavian pacemaker lead tips in RA and right ventricle Heart size is normal. The mediastinum is not widened. There is infiltrate in left lower lobe retrocardiac region which is posterior basal segment left lowe r lobe. Blunting of the right costophrenic angle is noted. Small bilateral pleural effusions. IMPRESSION: Left lower lobe infiltrate. Small bilateral pleural effusions. Called to hospitalist 08/26/2023 2:25 p.m. DATA REPOSITORY: RADIATION DOSE DELIVERED:
--- NOTE | 2023-08-26 09:00 | RT.EKG_ITS ---
APPROVED REPORT Exam: Resting ECG Reason for Exam: SOB Patient Location: E HR:84 bpm ECG Measurements Heart Rate 84 AXIS VA 171 P 0 QRSd 194 QRS -75 QT 440 T 97 QTc 522 Conclusion Ventricular-paced rhythm
[2023-08-26 09:23] LABS: Abs Immature Grans 0.03 10^3/uL (0.0-0.06); Absolute Basophil Count 0.06 10^3/uL (0.0-0.2); Absolute Eosinophil Count 0.03 10^3/uL (0.0-0.7); Absolute Lymphocyte Count 1.43 10^3/uL (1.2-3.4); Absolute Monocyte Count 0.68 10^3/uL (0.1-0.8); Absolute Neutrophil Count 5.92 10^3/uL (1.2-6.7); Basophils % 0.7 %; Eosinophils % 0.4 %; HCT 27.6 % (40.0-50.0); HGB 8.4 g/dL (13.5-17.5); Immature Grans % 0.4 %; Lymphocytes % 17.5 %; MCH 26.3 pg (27.0-33.0); MCHC 30.4 % (32.0-36.0); MCV 87 fL (80-95); MPV 11.8 fL (8.0-11.0); Monocytes % 8.3 %; Neutrophils % 72.7 %; Platelet Count 192 10^3/uL (130-400); RBC 3.19 10^6/uL (4.36-5.78); RDW 14.6 % (11.8-14.1); RDW-SD 46.5 fL; WBC 8.15 10^3/uL (4.4-10.8)
--- NOTE | 2023-08-26 09:25 | ED.GENADUL_ITS ---
Discharge Plan Disposition Patient Disposition: Admit to [facility] Discharge Details Clinical Impression: Heart failure, chronic, with acute decompensation, Acute on chronic kidney failure, Hyperkalemia Admit Date/Time: 08/26/23 12:18 Admit Provider: Seamus Quiñones Attending Provider: Seamus Quiñones Primary Care Provider: Nel Cabrera ED Provider: Scott Alexis General Mode of arrival: wheelchair . Date/Time Provider Initiated Documentation: 08/26/23 09:07 . Limitations to Documentation: no limitations . Information obtained by: patient and RN notes reviewed . History of Present Illness 88 year old M presents to the emergency department with the chief complaint of Shortness of breath, described as moderate, severe and similar to prior episodes, Patient started experiencing this day(s) (1) and it has been constant. No relieving factors improve symptom(s), Movement worsens symptoms . Patient notes shortness of breath and weakness; denies fever/chills and nausea/vomiting. Patient did receive the following treatments prior to arrival, none Related Data Home Medications Medication Instructions Recorded Confirmed aspirin 81 mg chewable tablet 81 mg PO DAILY #1 tab-cap 09/28/13 08/26/23 (Aspirin Low-Strength) atorvastatin 80 mg tablet 80 mg PO DAILY #90 tab-caps 09/28/13 08/26/23 [id number]-min 1 ea PO DAILY ##1 09/28/13 08/26/23 3,300 unit-5 mg-200mg-75 unit tablet ER (ICaps) amlodipine 10 mg tablet (Norvasc) 10 mg PO DAILY 10/21/14 08/26/23 furosemide 40 mg tablet 80 mg PO DAILY 10/21/14 08/26/23 lisinopril 5 mg tablet 5 mg PO DAILY 03/15/17 08/26/23 sitagliptin phosphate 100 mg 100 mg PO DAILY 03/15/17 08/26/23 tablet (Januvia) ibuprofen 800 mg tablet 800 mg PO TID #30 tabs 03/19/17 08/26/23 glimepiride 1 mg tablet 1 mg PO QAM 07/16/18 08/26/23 rivaroxaban 15 mg tablet (Xarelto) 15 mg PO QPM 07/16/18 08/26/23 phenytoin sodium extended 100 mg 100 mg PO BID 04/15/20 08/26/23 capsule (Dilantin Extended) multivitamin 1 tab PO DAILY 04/27/21 08/26/23 naproxen 500 mg tablet 500 mg PO BID PRN 04/27/21 08/26/23 trazodone 50 mg tablet 50 mg PO QHS PRN 05/02/22 08/26/23 silver sulfadiazine 1 % topical 1 applic topical BID #50 grams 08/12/22 08/26/23 cream (Silvadene) mirtazapine 7.5 mg tablet 7.5 mg PO DAILY 04/26/23 08/26/23 Previous Rx's Medication Instructions Recorded ibuprofen 800 mg tablet 800 mg PO TID #30 tabs 03/19/17 silver sulfadiazine 1 % topical 1 applic topical BID #50 grams 08/12/22 cream (Silvadene) Allergies Allergy/AdvReac Type Severity Reaction Status Date / Time metformin Allergy Unknown Diarrhea Verified 04/27/23 08:54 ezetimibe [From Vytorin] AdvReac FAILED Verified 04/27/23 08:54 lisinopril AdvReac Hyperkalemi Verified 04/27/23 08:54 a simvastatin [From Vytorin] AdvReac FAILED Verified 04/27/23 08:54 General Stated Complaint: SOB DEENA: 3 Review of Systems Constitutional Constitutional: Denies chills, Denies fever(s), Reports malaise and Reports weakness ENT Ears, Nose, Mouth, and Throat: Denies nasal congestion, Reports nasal discharge, Denies nasal obstruction and Denies sore throat Cardiovascular Cardiovascular: Denies chest pain, Denies leg edema, Reports dyspnea, Reports dyspnea on exertion and Reports orthopnea Respiratory Respiratory: Reports cough, Reports dyspnea and Reports dyspnea on exertion Gastrointestinal Gastrointestinal: Denies abdominal pain, Denies diarrhea, Denies nausea and Denies vomiting Integumentary/Breasts Skin/Breast: Denies rash Neurologic Neurologic: Reports weakness Exam Const General: cooperative, comfortable and not diaphoretic Orientation: alert, awake and oriented x3 Limitations: mental status not altered Neck Neck: normal visual inspection, full ROM, trachea midline, supple and no anterior neck swelling Chest Chest: normal inspection of the chest Resp Effort & Inspection: able to speak in complete sentences and tachypneic Auscultation: crackles bilaterally (fine) at the base Cardio Jugular venous pressure: no JVD Palpation: normal PMI Rate: regular rate Rhythm: regular rhythm Heart Sounds: S1 normal, S2 normal, no click, no gallops, no murmurs and no rubs Pulses: radial pulses present bilaterally 2+ GI Inspection: normal to inspection Palpation: soft, no aortic enlargement, no pulsatile masses and nontender Auscultation: normal bowel sounds Skin General skin exam: no rashes or lesions noted Neuro General: patient alert, patient awake, patient oriented x3, tone normal and moves all extremities Course Vital Signs Vital signs: Vital Signs Temperature 36.6 C 08/26/23 09:07 Pulse 76 08/26/23 09:07 Respiratory Rate 23 08/26/23 09:07 Blood Pressure 179/67 H 08/26/23 09:07 Pulse Oximetry 95 08/26/23 09:07 Temperature 36.6 C 08/26/23 09:07 Temperature Source Oral 08/26/23 09:07 Pulse 76 08/26/23 09:07 Respiratory Rate 23 08/26/23 09:07 Respiratory Effort Normal, Non-Labored 08/26/23 09:20 Blood Pressure 179/67 H 08/26/23 09:07 Blood Pressure Position Sitting 08/26/23 09:07 Pulse Oximetry 95 08/26/23 09:07 Oxygen Delivery Method Room Air 08/26/23 09:07 Oxygen Flow Rate 0 08/26/23 09:07 Pain Level 0 08/26/23 09:07 Medical Decision Making Patient presenting to the emergency department for chief complaint of shortness of breath. Patient reports that this started yesterday and worsened through the evening. States increase of symptoms with activity and lying flat which made it difficult to sleep. Patient does state this is similar to when he needed to have fluid drained off of his lung. Patient denies any chest pain, abdominal discomfort, nausea vomiting fever chills or other symptoms. He does state slight runny nose but again review of systems otherwise negative. 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 Physical exam shows fine crackles bilateral bases, tachypnea, slight hypertension but patient has not taken any of his morning medications. Exam otherwise noncontributory. Will plan on doing EKG, labs, and chest x-ray. Pending results will give patient 80 mg push IV Lasix as chief working diagnosis is CHF exacerbation and fluid overload. Please see physician interpretation for full interpretation of EKG but upon my review patient is ventricular paced, rate of 84, difficult to determine STEMI due to paced rhythm but given no chest pain have lower suspicion of ACS. Will continue to monitor Reviewed patient's labs which show anemia with hemoglobin of 8.4 otherwise no leukocytosis or shift noted, CMP does show potassium of 6.1 slightly elevated glucose BNP of 4523 and troponin of 596. Patient is negative for COVID flu RSV. Given the hyperkalemia and CHF will monitor patient's urine output, will give calcium glucose and insulin along with albuterol. Will recheck a BMP after further diuresis along with repeat troponin as again I do not feel this is ACS related. Repeat troponin shows decreased to 533 repeat EKG looks very similar except potential slight ST depressions in V6 but again please see physician interpretation for full interpretation of EKG. Potassium remains at 6.1 on review of BMP. patient was reassessed and stated overall improvement of symptoms and has 300-500ml urine output and tachypnea has significantly decreased. I feel that troponin elevation is secondary to fluid overload and CHF. Patient agreeable to admission for further diuresis and monitoring. Spoke with hospitalist Dr. Quiñones who agreed to admit patient. Patient did give verbal confirmation of DNR/DNI status and family was present for this discussion. Imaging Data Radiologic Study: Imaging: X-Ray My impression: Question of possible pleural effusion that is subtle with some signs of pulmonary edema Radiologist's impression: Exam(s) PROCEDURE INFORMATION: Exam: XR Chest Exam date and time: 08/26/2023 9:32 AM Age: 88 years old Clinical indication: Cough TECHNIQUE: Imaging protocol: Radiologic exam of the chest. Views: 2 views. COMPARISON: CR XR PORTABLE CHEST AP 04/27/2023 10:30 AM FINDINGS: Tubes, catheters and devices: Transvenous pacemaker leads in the heart Lungs: Unremarkable. No consolidation. Pleural spaces: Unremarkable. No pleural effusion. No pneumothorax. Heart/Mediastinum: Mild cardiomegaly Bones/joints: Unremarkable. IMPRESSION: No focal consolidation Dictated and Authenticated by: Anibal Laboy MD. Lab Data Lab results reviewed: Yes I reviewed the patient's lab results. Quality:SDOH Health Related Social Needs: No Data to Display PFSH All Active Problems (Updated 08/26/23 @ 14:26 by Kaylie Curtis NP) Anemia (Chronic) NSTEMI (non-ST elevated myocardial infarction) (Acute) Acute on chronic kidney failure (Acute) Heart failure, chronic, with acute decompensation (Acute) Hyperkalemia (Acute) Pleural effusion (Acute) Memory change (Acute) Paralysis of left upper extremity (Acute) Third degree burn of finger of left hand excluding thumb (Acute) Burn of finger (Acute) Sick sinus syndrome (Chronic) pt. unsure of this medical hx Essential hypertension (Chronic) Hyperlipidemia (Chronic) DM2 (diabetes mellitus, type 2) (Chronic) Mild aortic stenosis (Chronic) Cardiac pacemaker (Acute 08/17/17) Vow To Be [place] XT DR MRI model # [id number] serial # [id number] (pulse generator) Ventricular electrodes: Medtronic CapsureFix Model # 5076-58 cm Serial # [id number] Atrial electrodes: [employer]tronic CapsureFix model # 5076-52 cm serial # [id number] Right rotator cuff tendinitis (Acute) Corticosteroid injection: 07/16/18 Persistent atrial fibrillation (Acute) Onset mid May 2019 - ongoing as of 06/25/2019 - sinus restored Onset again January 2021 - ongoing as of 10/26/2021 DC cardioversion [facility] 10/2021 - on amiodarone; recurrent in February 2022 - amiodarone stopped Osteoarthritis of carpometacarpal joint of right thumb (Acute) Trochanteric bursitis, left hip (Acute) Steroid injection: 12/07/2020; 03/17/2020 Trochanteric bursitis, right hip (Acute) Steroid injection: 12/07/2020; 03/17/2020 Traumatic arthropathy, right shoulder (Acute) Most recent Depo-Medrol injection: 11/22/2021; 05/24/2022 Medical History 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 states he doesn't remember ever having any History of TIA (transient ischemic attack) and stroke Per pt. in 2003 had carotid artery surgery, after procedure pt. suffered a stroke, pt. states full forearm numbness and parts of left leg Surgical History History of thoracentesis (~04/2023) FH: carotid endarterectomy History of permanent cardiac pacemaker placement Family History Brother Family history of premature coronary heart disease Sister Family history of premature coronary heart disease Social History Smoking/Tobacco Use Status: Former Tobacco Use Quit Date: 04/09/84 Pack-years: 30 Second Hand Exposure: No Smoking risk assessment performed?: Yes Alcohol Intake: never Drug use: Never Substance use type: does not use Housing: house Current gender identity: male Do you feel safe at home: Yes (lives alone) Do you feel safe in your relationship?: Yes
[2023-08-26] MEDS: Furosemide 100 MG/10 ML VIAL 80 MG IVP ×2 (09:39→14:45)
[2023-08-26 09:50] LABS: ALT 18 U/L (16-63); AST 39 U/L (15-37); Albumin 4.1 g/dL (3.4-5.0); Alkaline Phosphatase 209 U/L (46-116); BUN 61 mg/dL (7-18); Bilirubin, Total 0.5 mg/dL (0.2-1.0); CREATININE 2.7 mg/dL (0.70-1.30); Calcium 8.7 mg/dL (8.5-10.1); Chloride 103 mmol/L (98-107); Estimated GFR 22.12 (mL/min/1.73m2); Glucose 164 mg/dL (74-106); Magnesium 1.9 mg/dL (1.8-2.4); NT-proBNP 4523 pg/mL (<300); Sodium 137 mmol/L (136-145); Total Protein 7.8 g/dL (6.4-8.2)
[2023-08-26 09:53] LABS: Potassium 6.1 mmol/L (3.5-5.1); Troponin I 596 ng/L (< or =60)
[2023-08-26] MEDS: Albuterol 2.5 MG/3 ML INH SOLN VIAL UPD (10:11)
--- NOTE | 2023-08-26 10:14 | DI.VRAD_ITS ---
PROCEDURE INFORMATION: Exam: XR Chest Exam date and time: 08/26/2023 9:32 AM Age: 88 years old Clinical indication: Cough TECHNIQUE: Imaging protocol: Radiologic exam of the chest. Views: 2 views. COMPARISON: CR XR PORTABLE CHEST AP 04/27/2023 10:30 AM FINDINGS: Tubes, catheters and devices: Transvenous pacemaker leads in the heart Lungs: Unremarkable. No consolidation. Pleural spaces: Unremarkable. No pleural effusion. No pneumothorax. Heart/Mediastinum: Mild cardiomegaly Bones/joints: Unremarkable. IMPRESSION: No focal consolidation Dictated and Authenticated by: Anibal Laboy MD. Ordering:CHLOÉ Chavez MD
[2023-08-26 10:15] LABS: COVID-19 PCR Negative (Negative); Influenza A PCR Negative (Negative); Influenza B PCR Negative (Negative); RSV PCR Negative (Negative)
[2023-08-26 10:17] LABS: Source Nasopharynx
[2023-08-26] MEDS: Insulin REGULAR-Human 100 UNITS/ML UNIT 10 UNITS SC (10:40)
[2023-08-26] MEDS: Dextrose 50%-Water 25 GM/50 ML SYR IVP (10:41)
[2023-08-26] MEDS: Calcium Gluconate 4.65 MEQ/10 ML VIAL 4.65 MG IVP (10:45)
[2023-08-26 11:35] LABS: BUN 62 mg/dL (7-18); CREATININE 2.6 mg/dL (0.70-1.30); Calcium 9.5 mg/dL (8.5-10.1); Chloride 101 mmol/L (98-107); Estimated GFR 23.14 (mL/min/1.73m2); Glucose 276 mg/dL (74-106); Sodium 130 mmol/L (136-145)
[2023-08-26 11:37] LABS: Potassium 6.1 mmol/L (3.5-5.1)
--- NOTE | 2023-08-26 11:45 | RT.EKG_ITS ---
APPROVED REPORT Exam: Resting ECG Reason for Exam: shortness of breath Patient Location: E HR:62 bpm ECG Measurements Heart Rate 62 AXIS DE 322 P 0 QRSd 180 QRS -61 QT 470 T 102 QTc 477 Conclusion Ventricular-paced rhythm
[2023-08-26 11:47] LABS: Troponin I 533 ng/L (< or =60)
[2023-08-26] MEDS: Sodium Zirconium Cyclosilicate 10 GM PKT PO ×2 (11:56→14:46)
--- NOTE | 2023-08-26 12:19 | W.PM.HP.N ---
Date of service: 08/26/23 Time of Service: 12:19 Assessment and Plan Assessment and plan (1) Hyperkalemia: Status: Acute Assessment and plan: in setting of CRUZ from decompensated heart failure received lasix, insulin and dextrose and lokelma in the ED. no acute EKG manifestations, did receive calcium gluconate will continue lasix and lokelma and trend closely (2) Heart failure, chronic, with acute decompensation: Status: Acute Assessment and plan: strict I&O and daily weights continue diuresis will hold nicole I in setting of CRUZ update echo, last echo on record (September 2018) shows: Summary: 1. Left ventricle: The cavity size was normal. There was mild concentric hypertrophy. Systolic function was normal. The estimated ejection fraction was 60-65%. Wall motion was normal; there were no regional wall motion abnormalities. Findings consistent with diastolic dysfunction. 2. Aortic valve: Mild calcification. Left coronary cusp mobility was severely restricted. There was mild stenosis. Peak velocity (S): 1.8m/sec. Valve area (VTI): 1.7cm^2. 3. Mitral valve: There was mild regurgitation. 4. Left atrium: The atrium was severely dilated. 5. Right ventricle: The cavity size was normal. Wall thickness was normal. Pacer wire or catheter noted in right ventricle. Systolic function was normal. 6. Pulmonary arteries: Pulmonary systolic pressure was increased, in the range of 35mm Hg to 40mm Hg. (3) Acute on chronic kidney failure: Status: Acute Assessment and plan: baseline creatinine 1.9, comes in at 2.7 hold nephrotoxic drugs in setting on decompensated heart failure trend (4) NSTEMI (non-ST elevated myocardial infarction): Status: Acute Assessment and plan: initially suspected type 2 NSTEMI in setting of decompensated heart failure but after further query on admission, in the setting of diabetes and sudden onset of exertional shortness of breath yesterday possibility of type 1, will give full dose asa. low threshold to initial heparin drip, he is fully anticoagulated on xarelto. no chest pain or ischemic changes on EKG trops trending downward in 500's. no further trending needed. continue baby asa daily, will update echo tomorrow when available. would appreciate cardiology input. (5) Sick sinus syndrome: Status: Chronic Assessment and plan: with pacemaker in situ (6) Essential hypertension: Status: Chronic Assessment and plan: will hold lisinopril in setting of CRUZ continue norvasc diuresing (7) DM2 (diabetes mellitus, type 2): Status: Chronic Assessment and plan: diabetic diet blood sugar checks ac with sliding scale coverage will hold oral agents while hospitalized, well controlled with last A1C was 6.9 in May 2023 (8) Persistent atrial fibrillation: Status: Acute Assessment and plan: fully anticoagulated on rivoroxaban not on any rate control medications (was previously on amiodarone) (9) Anemia: Status: Chronic Assessment and plan: normocytic, and in setting of CKD, but also on anticoagulation. no evidence of active bleeding, no black/tarry stools, no orthostatic symptoms. will add anemia studies, check stool for OB. History of Present Illness History of Present Illness Chief Complaint: shortness of breath Narrative: This is an elderly male lives home independently past medical history significant for diastolic heart failure, diabetes mellitus type 2, chronic kidney disease, persistent atrial fibrillation on chronic anticoagulation, sick sinus syndrome with pacemaker who presents to the emergency department after 1 day history of shortness of breath this came on suddenly while he was working out in the yard. He denied any chest pain. He states his symptoms progressively got worse overnight definitely worse lying flat. He denies any new increased peripheral edema he states that this came on suddenly and was not progressive. He denies any cough fever or recent viral illness. He states has been taking his medications as prescribed. Workup in the emergency department was concerning for acute decompensation of heart failure with hyperkalemia and acute on chronic renal failure. He received IV diuretics with improvement in his symptoms. Hospitalist is asked to admit him for further management Review of Systems All systems reviewed & are unremarkable except as noted in HPI and below PFSH All Active Problems (Updated 08/26/23 @ 14:26 by Kaylie Curtis NP) Anemia (Chronic) NSTEMI (non-ST elevated myocardial infarction) (Acute) Acute on chronic kidney failure (Acute) Heart failure, chronic, with acute decompensation (Acute) Hyperkalemia (Acute) Pleural effusion (Acute) Memory change (Acute) Paralysis of left upper extremity (Acute) Third degree burn of finger of left hand excluding thumb (Acute) Burn of finger (Acute) Sick sinus syndrome (Chronic) pt. unsure of this medical hx Essential hypertension (Chronic) Hyperlipidemia (Chronic) DM2 (diabetes mellitus, type 2) (Chronic) Mild aortic stenosis (Chronic) Cardiac pacemaker (Acute 08/17/17) Medtronic [place] XT DR MRI model # [id number] serial # [id number] (pulse generator) Ventricular electrodes: Medtronic CapsureFix Model # 5076-58 cm Serial # [id number] Atrial electrodes: Medtronic CapsureFix model # 5076-52 cm serial # [id number] Right rotator cuff tendinitis (Acute) Corticosteroid injection: 07/16/18 Persistent atrial fibrillation (Acute) Onset mid May 2019 - ongoing as of 06/25/2019 - sinus restored Onset again January 2021 - ongoing as of 10/26/2021 DC cardioversion [facility] 10/2021 - on amiodarone; recurrent in February 2022 - amiodarone stopped Osteoarthritis of carpometacarpal joint of right thumb (Acute) Trochanteric bursitis, left hip (Acute) Steroid injection: 12/07/2020; 03/17/2020 Trochanteric bursitis, right hip (Acute) Steroid injection: 12/07/2020; 03/17/2020 Traumatic arthropathy, right shoulder (Acute) Most recent Depo-Medrol injection: 11/22/2021; 05/24/2022 Medical History 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 states he doesn't remember ever having any History of TIA (transient ischemic attack) and stroke Per pt. in 2003 had carotid artery surgery, after procedure pt. suffered a stroke, pt. states full forearm numbness and parts of left leg Surgical History History of thoracentesis (~04/2023) FH: carotid endarterectomy History of permanent cardiac pacemaker placement Family History Brother Family history of premature coronary heart disease Sister Family history of premature coronary heart disease Social History Smoking/Tobacco Use Status: Former Tobacco Use Quit Date: 04/09/84 Pack-years: 30 Second Hand Exposure: No Smoking risk assessment performed?: Yes Alcohol Intake: never Drug use: Never Substance use type: does not use Housing: house Current gender identity: male Do you feel safe at home: Yes (lives alone) Do you feel safe in your relationship?: Yes Meds Allergies and Home Medications Allergies Allergy/AdvReac Type Severity Reaction Status Date / Time metformin Allergy Unknown Diarrhea Verified 04/27/23 08:54 ezetimibe [From Vytorin] AdvReac FAILED Verified 04/27/23 08:54 lisinopril AdvReac Hyperkalemi Verified 04/27/23 08:54 a simvastatin [From Vytorin] AdvReac FAILED Verified 04/27/23 08:54 Home Medications Medication Instructions Recorded Confirmed Type aspirin 81 mg chewable tablet 81 mg PO DAILY #1 tab-cap 09/28/13 08/26/23 History (Aspirin Low-Strength) atorvastatin 80 mg tablet 80 mg PO DAILY #90 tab-caps 09/28/13 08/26/23 History [id number]-G-[id number]-rzryyl-fjnikja-min 1 ea PO DAILY ##1 09/28/13 08/26/23 History 3,300 unit-5 mg-200mg-75 unit tablet ER (ICaps) amlodipine 10 mg tablet (Norvasc) 10 mg PO DAILY 10/21/14 08/26/23 History furosemide 40 mg tablet 80 mg PO DAILY 10/21/14 08/26/23 History lisinopril 5 mg tablet 5 mg PO DAILY 03/15/17 08/26/23 History sitagliptin phosphate 100 mg 100 mg PO DAILY 03/15/17 08/26/23 History tablet (Januvia) ibuprofen 800 mg tablet 800 mg PO TID #30 tabs 03/19/17 08/26/23 Rx glimepiride 1 mg tablet 1 mg PO QAM 07/16/18 08/26/23 History rivaroxaban 15 mg tablet (Xarelto) 15 mg PO QPM 07/16/18 08/26/23 History phenytoin sodium extended 100 mg 100 mg PO BID 04/15/20 08/26/23 History capsule (Dilantin Extended) multivitamin 1 tab PO DAILY 04/27/21 08/26/23 History naproxen 500 mg tablet 500 mg PO BID PRN 04/27/21 08/26/23 History trazodone 50 mg tablet 50 mg PO QHS PRN 05/02/22 08/26/23 History silver sulfadiazine 1 % topical 1 applic topical BID #50 grams 08/12/22 08/26/23 Rx cream (Silvadene) mirtazapine 7.5 mg tablet 7.5 mg PO DAILY 04/26/23 08/26/23 History Exam Narrative Exam Narrative: Elderly male appearing younger than stated age no acute distress head is atraumatic eyes nonicteric noninjected EOMs intact oral mucosa is moist cardiovascular regular rate and rhythm is 100% paced on the monitor lungs with Rales in the bases bilaterally no wheezing abdomen benign skin with no rashes or lesions bilateral lower extremity +1-2 edema which she says is baseline neurologic he is awake alert oriented no focal deficits psychiatric normal mood and affect Results Labs 08/27/23 06:18 08/27/23 06:18 Labs: Laboratory Results - last 24 hr 08/26/23 08/26/23 08/26/23 09:15 09:20 09:26 WBC 8.15 RBC 3.19 L Hgb 8.4 L Hct 27.6 L MCV 87 MCH 26.3 L MCHC 30.4 L RDW 14.6 H Plt Count 192 MPV 11.8 H Immature Gran % 0.4 Neutrophils % 72.7 Lymphocytes % 17.5 Monocytes % 8.3 Eosinophils % 0.4 Basophils % 0.7 Nucleated RBC % 0.0 Absolute Neutrophils 5.92 Absolute Lymphocytes 1.43 Absolute Monocytes 0.68 Absolute Eosinophils 0.03 Absolute Basophils 0.06 Sodium 137 Potassium 6.1 H* Chloride 103 Carbon Dioxide 21.0 Anion Gap 13.0 H BUN 61 H Creatinine 2.7 H Est GFR (CKD-EPI 2020) 22.12 Glucose 164 H Calcium 8.7 Magnesium 1.9 Total Bilirubin 0.5 AST 39 H ALT 18 Alkaline Phosphatase 209 H Troponin I 596 H* NT-Pro-B Natriuret Pep 4523 H Cancelled Total Protein 7.8 Albumin 4.1 COVID-19 Source Nasopharynx SARS-CoV-2 (PCR) Negative Influenza Type A (PCR) Negative Influenza Type B (PCR) Negative RSV (PCR) Negative 08/26/23 11:20 WBC RBC Hgb Hct MCV MCH MCHC RDW Plt Count MPV Immature Gran % Neutrophils % Lymphocytes % Monocytes % Eosinophils % Basophils % Nucleated RBC % Absolute Neutrophils Absolute Lymphocytes Absolute Monocytes Absolute Eosinophils Absolute Basophils Sodium 130 L Potassium 6.1 H* Chloride 101 Carbon Dioxide 21.0 Anion Gap 8.0 BUN 62 H Creatinine 2.6 H Est GFR (CKD-EPI 2020) 23.14 Glucose 276 H Calcium 9.5 Magnesium Total Bilirubin AST ALT Alkaline Phosphatase Troponin I 533 H* NT-Pro-B Natriuret Pep Total Protein Albumin COVID-19 Source SARS-CoV-2 (PCR) Influenza Type A (PCR) Influenza Type B (PCR) RSV (PCR) Last Vital Signs Temp 36.6 C 08/26/23 09:29 Pulse 64 08/26/23 11:51 Resp 26 H 08/26/23 11:51 BP 185/49 H 08/26/23 11:51 Pulse Ox 96 08/26/23 11:51 Time Spent Time spent with Patient: >75 minutes Time was spent: preparing to see the patient(eg.review tests), obtaining and/or reviewing separately otained hiistory, ordering medications,tests, procedures, indepentently interpreting results, counseling the patient and care coordination
[2023-08-26] MEDS: Aspirin 81 MG CHEW 324 MG CH (14:45)
[2023-08-26 16:19] LABS: Iron 40 ug/dL (65-175)
[2023-08-26 16:41] LABS: BUN 58 mg/dL (7-18); CREATININE 2.4 mg/dL (0.70-1.30); Calcium 8.7 mg/dL (8.5-10.1); Chloride 102 mmol/L (98-107); Estimated GFR 25.48 (mL/min/1.73m2); Glucose 74 mg/dL (74-106); Sodium 139 mmol/L (136-145)
[2023-08-26 16:43] LABS: Potassium 4.5 mmol/L (3.5-5.1)
[2023-08-26] MEDS: Rivaroxaban 15 MG TABLET PO (16:59)
[2023-08-26 17:22] LABS: Lab Add On Test DONE
[2023-08-26] MEDS: Ferrous Sulfate 325 MG TAB PO (19:55)
[2023-08-26] MEDS: Normal Saline Flush 10 ML SYR IVP (19:55)
[2023-08-27] MEDS: traZODone 50 MG TAB PO (01:02)
[2023-08-27 03:19] VITALS: BP 141/52; PULSE 62; RESP 14; TEMP 37.8; O2SAT 97
[2023-08-27 06:36] LABS: Abs Immature Grans 0.02 10^3/uL (0.0-0.06); Absolute Basophil Count 0.05 10^3/uL (0.0-0.2); Absolute Eosinophil Count 0.08 10^3/uL (0.0-0.7); Absolute Lymphocyte Count 1.39 10^3/uL (1.2-3.4); Absolute Monocyte Count 0.82 10^3/uL (0.1-0.8); Absolute Neutrophil Count 5.72 10^3/uL (1.2-6.7); Basophils % 0.6 %; HCT 25.4 % (40.0-50.0); HGB 8.1 g/dL (13.5-17.5); Immature Grans % 0.2 %; Lymphocytes % 17.2 %; MCH 26.8 pg (27.0-33.0); MCHC 31.9 % (32.0-36.0); MCV 84 fL (80-95); MPV 12.4 fL (8.0-11.0); Monocytes % 10.1 %; Neutrophils % 70.9 %; Platelet Count 169 10^3/uL (130-400); RBC 3.02 10^6/uL (4.36-5.78); RDW 14.6 % (11.8-14.1); RDW-SD 44.8 fL; WBC 8.08 10^3/uL (4.4-10.8)
[2023-08-27 06:57] LABS: Anion Gap 12.5 mmol/L (3-11); BUN 61 mg/dL (7-18); CO2 22.5 mmol/L (21.0-32.0); CREATININE 2.6 mg/dL (0.70-1.30); Calcium 8.3 mg/dL (8.5-10.1); Chloride 101 mmol/L (98-107); Estimated GFR 23.14 (mL/min/1.73m2); Glucose 148 mg/dL (74-106); Potassium 4.8 mmol/L (3.5-5.1); Sodium 136 mmol/L (136-145)
[2023-08-27 07:18] VITALS: BP 142/47; PULSE 60; RESP 18; TEMP 37.6; O2SAT 93
[2023-08-27] MEDS: Normal Saline Flush 10 ML SYR IVP (08:23)
[2023-08-27] MEDS: Furosemide 100 MG/10 ML VIAL 80 MG IVP (08:23)
[2023-08-27] MEDS: Multivitamin TAB 1 TAB PO (08:24)
[2023-08-27] MEDS: Insulin Aspart 300 UNITS/3 ML PEN SC ×2 (08:24→11:50)
[2023-08-27] MEDS: amLODIPine 10 MG TAB PO (08:24)
[2023-08-27] MEDS: Ferrous Sulfate 325 MG TAB PO (08:25)
[2023-08-27] MEDS: Atorvastatin 40 MG TAB 80 MG PO (08:25)
[2023-08-27] MEDS: Aspirin 81 MG CHEW PO (08:25)
--- NOTE | 2023-08-27 09:43 | INITIAL_ITS ---
Date of service: 08/27/23 Time of Service: 09:50 Care Management Initial Assmt Initial Assessment Reason for Hospitalization: Hyperkalemia, decompensated heart failure Functional Status/Living Situation Town of Residence: [place] Resides with: Alone Significant Other/Family: Local Natural Supports: Ilya's son, Calista, and daughter in law, Nat, live across the street from Ilya. Calista and Nat are very supportive, and Ilya stated that he would want Calista to be his medical decision maker (HCA). Ilya has two other sons, one who lives in [place], [place], and one who lives in [place]. Employment Status: Retired (Ilya worked for the [employer], as well as the [employer].) Instrumental Activities of Daily Living (ADLs): Independent (Ilya has one arm, which he has lived with for twenty years, therefore he has made modifications in order to complete all ADLs independently.) Activities/Hobbies/SocialSupport: Ilya enjoys spending time with his small dog, Joni, who is a long haired dachshund that he takes everywhere with him. Medications Medication Management: No Issues/Barriers identified Physical Functioning/Mobility Assistive Device: Ilya lost one of his arms about 20 years go, and has been modifying his work and daily life ever sense. Advance Directives Advance Directives: Do you have an Advance Directive: Y 08/25/19 12:59 AD On File at [facility]: N 08/25/19 12:59 Date Asked 08/26/23 08/26/23 17:47 AD Date Reviewed COLST On File at [facility] COLST Date Scanned Comment: discussed [place] AD with Ilya, who stated that he has a will that he filled out years ago, and that he would like his son, Calista, to be his HCA. Code Status Resuscitation Status DNR/DNI Portal Pt does not currently have a portal and education provided: Yes Insurance Coverage/Financial Issues Insurance: [facility]. AARP supplement. ACO Member: Yes Care Team Visit Care Team Role Provider Type Nel Cabrera Primary Care Provider NON-[facility] STAFF PH YSICIAN InPatient Zachary Montanez Other Providers OTHER Scott Alexis NP Emergency Provider NURSE PRACTITIONER Seamus Quiñones MD Admit Provider [facility] STAFF PHYSICIAN Attending Provider Discharge Potential Discharge Needs: PCP F/U Appt Anticipated Barriers to Discharge: None Identified Patient/Family Education Needs: Review discharge instructions, discuss Ask Me Three Transportation: Private vehicle (by family) Plan: Anticipate Ilya will return home once medically cleared. His son will drive him home via private vehicle. He will follow up with his PCP and discharge plan of care. CM will continue to follow. PFSH All Active Problems (Updated 08/27/23 @ 14:46 by Stefanie Herring MD) Anemia (Chronic) NSTEMI (non-ST elevated myocardial infarction) (Acute) Acute on chronic kidney failure (Acute) Heart failure, chronic, with acute decompensation (Acute) Hyperkalemia (Acute) Pleural effusion (Acute) Memory change (Acute) Paralysis of left upper extremity (Acute) Third degree burn of finger of left hand excluding thumb (Acute) Burn of finger (Acute) Sick sinus syndrome (Chronic) pt. unsure of this medical hx Essential hypertension (Chronic) Hyperlipidemia (Chronic) DM2 (diabetes mellitus, type 2) (Chronic) Mild aortic stenosis (Chronic) Cardiac pacemaker (Acute 08/17/17) [employer] [place] XT DR MRI model # [id number] serial # [id number] (pulse generator) Ventricular electrodes: Medtronic CapsureFix Model # 5076-58 cm Serial # [id number] Atrial electrodes: Medtronic CapsureFix model # 5076-52 cm serial # [id number] Right rotator cuff tendinitis (Acute) Corticosteroid injection: 07/16/18 Persistent atrial fibrillation (Acute) Onset mid May 2019 - ongoing as of 06/25/2019 - sinus restored Onset again January 2021 - ongoing as of 10/26/2021 DC cardioversion [facility] 10/2021 - on amiodarone; recurrent in February 2022 - amiodarone stopped Osteoarthritis of carpometacarpal joint of right thumb (Acute) Trochanteric bursitis, left hip (Acute) Steroid injection: 12/07/2020; 03/17/2020 Trochanteric bursitis, right hip (Acute) Steroid injection: 12/07/2020; 03/17/2020 Traumatic arthropathy, right shoulder (Acute) Most recent Depo-Medrol injection: 11/22/2021; 05/24/2022 Medical History 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 states he doesn't remember ever having any History of TIA (transient ischemic attack) and stroke Per pt. in 2003 had carotid artery surgery, after procedure pt. suffered a stroke, pt. states full forearm numbness and parts of left leg Surgical History History of thoracentesis (~04/2023) FH: carotid endarterectomy History of permanent cardiac pacemaker placement Family History Brother Family history of premature coronary heart disease Sister Family history of premature coronary heart disease Social History Smoking/Tobacco Use Status: Former Tobacco Use Quit Date: 04/09/84 Pack-years: 30 Second Hand Exposure: No Smoking risk assessment performed?: Yes Alcohol Intake: never Drug use: Never Substance use type: does not use Housing: house Current gender identity: male Do you feel safe at home: Yes (lives alone) Do you feel safe in your relationship?: Yes SDOH(Care Management) Screening Will the Patient Participate in the Screening?: Unable to obtain Do you worry about having a steady place to live?: no
[2023-08-27 11:47] VITALS: BP 121/43; PULSE 60; RESP 18; TEMP 37.2; O2SAT 97
[2023-08-27] MEDS: Acetaminophen 325 MG TAB 650 MG PO (14:38)
--- NOTE | 2023-08-27 14:40 | CCONE_ITS ---
Date of service: 08/27/23 Time of Service: 14:42 Assessment and Plan Assessment and plan (1) NSTEMI (non-ST elevated myocardial infarction): Status: Acute Assessment and plan: I would consider this a type II myocardial infarction, precipitated by heart failure and also anemia (2) Acute on chronic kidney failure: Status: Acute Assessment and plan: He has chronic kidney disease. I doubt any of this is acute Qualifiers: Chronic kidney disease stage: stage 4 (severe) Acute renal failure type: unspecified Qualified Code(s): N17.9 - Acute kidney failure, unspecified; N18.4 - Chronic kidney disease, stage 4 (severe) (3) Anemia: Status: Chronic Assessment and plan: So far iron studies look low. He may have anemia due in part to his renal disease Qualifiers: Anemia type: unspecified type Qualified Code(s): D64.9 - Anemia, unspecified (4) Mild aortic stenosis: Status: Chronic Assessment and plan: Again, I would like to see his echocardiogram regarding LV function and degree of valvular disease. I suspect he has heart failure with preserved ejection fraction with some contribution of his renal disease. History of Present Illness History of Present Illness Chief Complaint: Shortness of breath Narrative: This is an 88-year-old man with multiple medical problems who reportedly came to the hospital because of shortness of breath. He has permanent atrial fibrillation and a pacemaker programmed VVI. He is chronically anticoagulated with Xarelto. Around the beginning of the year he had pleural effusions which were evaluated and treated with thoracentesis. As best I can determine these were a transudate. It appears he was short of breath then, but that it improved. His respiratory status worsened again prompting him to come to the emergency room. He describes orthopnea as well as exertional dyspnea. Chest x- ray was read as showing no acute pulmonary disease. He was noted to be anemic with a hemoglobin of 8.4, now 8.1. His potassium was elevated but this has been corrected. He has chronic kidney disease. Baseline creatinine appears to be now in the vicinity of 2.5. Troponins were moderately elevated but relatively flat. EKGs only showed ventricular paced rhythm I have been waiting for an echocardiogram to be performed to assess LV function and his prior known mild aortic stenosis. Echocardiogram has not yet been performed today Review of Systems Narrative: Patient was not interviewed or examined PFSH All Active Problems (Updated 08/27/23 @ 14:46 by Stefanie Herring MD) Anemia (Chronic) NSTEMI (non-ST elevated myocardial infarction) (Acute) Acute on chronic kidney failure (Acute) Heart failure, chronic, with acute decompensation (Acute) Hyperkalemia (Acute) Pleural effusion (Acute) Memory change (Acute) Paralysis of left upper extremity (Acute) Third degree burn of finger of left hand excluding thumb (Acute) Burn of finger (Acute) Sick sinus syndrome (Chronic) pt. unsure of this medical hx Essential hypertension (Chronic) Hyperlipidemia (Chronic) DM2 (diabetes mellitus, type 2) (Chronic) Mild aortic stenosis (Chronic) Cardiac pacemaker (Acute 08/17/17) [email or web address] [place] XT DR MRI model # W1DR01 serial # [id number] (pulse generator) Ventricular electrodes: [employer]tronic CapsureFix Model # 5076-58 cm Serial # [id number] Atrial electrodes: [employer]onic CapsureFix model # 5076-52 cm serial # [id number] Right rotator cuff tendinitis (Acute) Corticosteroid injection: 07/16/18 Persistent atrial fibrillation (Acute) Onset mid May 2019 - ongoing as of 06/25/2019 - sinus restored Onset again January 2021 - ongoing as of 10/26/2021 DC cardioversion [facility] 10/2021 - on amiodarone; recurrent in February 2022 - amiodarone stopped Osteoarthritis of carpometacarpal joint of right thumb (Acute) Trochanteric bursitis, left hip (Acute) Steroid injection: 12/07/2020; 03/17/2020 Trochanteric bursitis, right hip (Acute) Steroid injection: 12/07/2020; 03/17/2020 Traumatic arthropathy, right shoulder (Acute) Most recent Depo-Medrol injection: 11/22/2021; 05/24/2022 Medical History 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 states he doesn't remember ever having any History of TIA (transient ischemic attack) and stroke Per pt. in 2003 had carotid artery surgery, after procedure pt. suffered a stroke, pt. states full forearm numbness and parts of left leg Surgical History History of thoracentesis (~04/2023) FH: carotid endarterectomy History of permanent cardiac pacemaker placement Family History Brother Family history of premature coronary heart disease Sister Family history of premature coronary heart disease Social History Smoking/Tobacco Use Status: Former Tobacco Use Quit Date: 04/09/84 Pack-years: 30 Second Hand Exposure: No Smoking risk assessment performed?: Yes Alcohol Intake: never Drug use: Never Substance use type: does not use Housing: house Current gender identity: male Do you feel safe at home: Yes (lives alone) Do you feel safe in your relationship?: Yes Exam Narrative Exam Narrative: Patient was not examined Results Last Vital Signs Temp 37.2 C 08/27/23 11:47 Pulse 60 08/27/23 11:47 Resp 18 08/27/23 11:47 BP 121/43 L 08/27/23 11:47 Pulse Ox 97 08/27/23 11:47 Labs 08/27/23 06:18 08/27/23 06:18 Labs: Laboratory Results - last 24 hr 08/26/23 08/26/23 08/27/23 11:22 16:17 06:18 WBC 8.08 RBC 3.02 L Hgb 8.1 L Hct 25.4 L MCV 84 MCH 26.8 L MCHC 31.9 L RDW 14.6 H Plt Count 169 MPV 12.4 H Immature Gran % 0.2 Neutrophils % 70.9 Lymphocytes % 17.2 Monocytes % 10.1 Eosinophils % 1.0 Basophils % 0.6 Nucleated RBC % 0.0 Absolute Neutrophils 5.72 Absolute Lymphocytes 1.39 Absolute Monocytes 0.82 H Absolute Eosinophils 0.08 Absolute Basophils 0.05 Sodium 139 136 Potassium 4.5 D 4.8 Chloride 102 101 Carbon Dioxide 24.0 22.5 Anion Gap 13.0 H 12.5 H BUN 58 H 61 H Creatinine 2.4 H 2.6 H Est GFR (CKD-EPI 2020) 25.48 23.14 Glucose 74 148 H Calcium 8.7 8.3 L Iron 40 L Add-On Test Request DONE
--- NOTE | 2023-08-27 14:53 | PT.INIE ---
PT Notes Visit Reasons: hyperkalmia, decompensated heart failure Physical Therapy Inpatient Initial Evaluation Date: 08/27/2023 Referring Doctor: Kaylie Curtis NP PT Orders: PT CONSULT: Eval/Treat Precautions: Fall. Standard. Activity as tolerated. Patient Profile/Admitting Diagnosis: Emir is an 88-year-old male with past medical history of L UE hemiplegia (CVA 21 years ago) who presented to the ED on 08/26/2023 due to shortness of breath with subsequent admission to acute level level of care for management of hyperkalemia, heart failure chronic with decompensation, NSTEMI, sick sinus syndrome, diabetes type 2, persistent atrial fibrillation, and anemia. PMHX: All Active Problems (Updated 08/26/23 @ 14:26 by Kaylie Curtis NP) Anemia (Chronic) NSTEMI (non-ST elevated myocardial infarction) (Acute) Acute on chronic kidney failure (Acute) Heart failure, chronic, with acute decompensation (Acute) Hyperkalemia (Acute) Pleural effusion (Acute) Memory change (Acute) Paralysis of left upper extremity (Acute) Third degree burn of finger of left hand excluding thumb (Acute) Burn of finger (Acute) Sick sinus syndrome (Chronic) pt. unsure of this medical hx Essential hypertension (Chronic) Hyperlipidemia (Chronic) DM2 (diabetes mellitus, type 2) (Chronic) Mild aortic stenosis (Chronic) Cardiac pacemaker (Acute 08/17/17) [employer] [place] XT DR MRI model # [id number] serial # [id number] (pulse generator) Ventricular electrodes: [employer] CapsureFix Model # 5076-58 cm Serial # [id number] Atrial electrodes: [employer] CapsureFix model # 5076-52 cm serial # [id number] Right rotator cuff tendinitis (Acute) Corticosteroid injection: 07/16/18Persistent atrial fibrillation (Acute) Onset mid May 2019 - ongoing as of 06/25/2019 - sinus restored Onset again January 2021 - ongoing as of 10/26/2021 DC cardioversion [facility] 10/2021 - on amiodarone; recurrent in February 2022 - amiodarone stopped Osteoarthritis of carpometacarpal joint of right thumb (Acute) Trochanteric bursitis, left hip (Acute) Steroid injection: 12/07/2020; 03/17/2020Trochanteric bursitis, right hip (Acute) Steroid injection: 12/07/2020; 03/17/2020Traumatic arthropathy, right shoulder (Acute) Most recent Depo-Medrol injection: 11/22/2021; 05/24/2022 Medical History 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 states he doesn't remember ever having any History of TIA (transient ischemic attack) and stroke Per pt. in 2003 had carotid artery surgery, after procedure pt. suffered a stroke, pt. states full forearm numbness and parts of left leg Surgical History History of thoracentesis (~04/2023) FH: carotid endarterectomy History of permanent cardiac pacemaker placement Social History/Home Situation: Lives alone. No assistive device with ambulation performance. Still drives. Very good family support. Manages meals and self-care tasks at home prior to admission. 2 steps to enter with 1 rail. Equipment Owned/DME: None Subjective: Per sister, patient has been doing well and managing alone at home until today's admission. Verbalized feeling back almost at mobility baseline and hoping to go home. Agreeable with HH PT. Objective: General Observation: Resting in bed. Sister helping out with getting patient cleaned up. Patient on his way to echo testing. PT offerred to assist. Mental Status: Alert and oriented as to person, place, time, and purpose. Able to pay attention, focus, and respond appropriately. Pain: None reported Vital Signs: WNL as closely monitored by nursing staff ROM: Right Upper Extremity: Shoulder Flexion WFL. Shoulder abduction WFL. Elbow flexion WFL. Wrist flexion WFL. Functional opening and closing of hand WFL. Left Upper Extremity: Flaccid from 21-year old L UE monoplegia and L LE hemiparesis Right Lower Extremity: Hip flexion WFL. Hip abduction WFL. Knee flexion WFL. Ankle dorsiflexion WFL. Ankle plantarflexion WFL. Left Lower Extremity: Hip flexion WFL. Hip abduction WFL. Knee flexion WFL. Ankle dorsiflexion WFL. Ankle plantarflexion WFL. Strength: Right Upper Extremity: Shoulder flexors 4/5. Shoulder abductors 4/5. Elbow flexors 4/5. Elbow extensors 4/5. Template Inspector strong. Left Upper Extremity: 0/5 due to L UE monoplegia Right Lower Extremity: Hip flexors 4-/5. Hip abductors 4-/5. Knee flexors 4-/5. Knee extensors 4-/5. Ankle dorsiflexors 4-/5. Ankle plantarflexors 4-/5. Left Lower Extremity: Hip flexors 3/5. Hip abductors 3/5. Knee flexors 3/5. Knee extensors 3/5. Ankle dorsiflexors 3/5. Ankle plantarflexors 3/5. Bed Mobility/Transfers: Minimal cueing provided for use of B hands as needed for support, movement sequence, AD management, and posture to reduce fall risk and minimize pain report Rolling with cues for safe/correct technique Supine to sit with minimal assist Sit to stand hand held assist to L UE Stand to sit stand by assist Bed to transport chair contact guard assist Gait: 10 steps from bedside to transport chair with stand by assist from PT with no assistive device. Patient stated that this has how he has been moving at home. Balance: Static Sitting: Normal Dynamic Sitting: Normal Static Standing: Good Dynamic Standing: Fair Special Tests: Mobility Limitations Standardized Measure [facility] AM-PAC 6 clicks Basic Mobility Inpatient Short Form: Raw Score: 21 CMS Score: 29% deficit 4-Stage balance Test: Feet together 10 seconds Semi-tandem <10 seconds Full tandem <10 seconds One-legged stance deferred Informed Consent/Education: Patient was instructed in purpose of PT consult and plan of care. Agreeable to proceed with established PT POC to achieve personal goals. 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 Able to ambulate indoor home distances without AD. Patient presents with clinical signs and symptoms consistent with current/admitting diagnoses that have resulted to mobility limitations, gait instability, generalized weakness, and overall ADL decline as demonstrated by the following impairment level findings: 1. Decreased strength to B LE major muscle groups L<<R 2. Impaired standing balance 3. Impaired activity tolerance 4. 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 Decline in bed mobility skills 2. Increased completion time for mobility ADL performance 3. Increased risk for fall Patient is assessed as a 66639 moderate complexity based on the following: History: 88-year-old male with past medical history as indicated above Examination: Demonstrable impairment in strength, balance, and mobility level with underlying impairments and functional limitations as exhibited above as well as deficit score of 29% utilizing the [facility] Mobility Inpatient Short Form Presentation: Stable Decision Makin moderate complexity Goals: Goals X1 week 1. Supine-Sit independent 2. Sit-Supine independent 3. Sit-Stand independent 4. Stand-Sit independent with no AD 5. Bed-Chair independent with no AD 6. Chair-Bed independent with no AD 7. Independent gait on level surface with use of SPC for at least 150 feet feet without report of pain nor dyspnea 8. Independent stair negotiation while holding onto 1 rail for at least 2 steps without report of pain nor dyspnea 9. Independent with home exercise program 10. Good static and dynamic standing balance/tolerance Plan of Care/Treatment Plan: 1-2x/day, 7 days/week x 1 week. Plan of care has been reviewed with the HEALTHCARE CONSULTANT providing the service under Physical Therapy direction. Initiate Physical Therapy intervention for pain management as needed, strengthening, bed mobility, transfers, gait, stairs, balance training, and use of assistive device. DISCHARGE RECOMMENDATIONS: [] Home with no services [] [X patient will benefit from home health PT services in order to progress mobility level using least restrictive assistive ambulatory device, assess home safety, identify additional equipment needs, and establish a functional maintenance program that will increase ability of patient to remain at home.] Home with services. [] Home with outpatient PT [] [] SNF for continued rehabilitation [] [] Nutrition Instructor Care [] [] SNF versus LTC based on ability to participate and progress [] TREATMENT CODE/TIME: 9716 2 x 20 minutes for 1 unit (14:53-15:13). Thank you for the opportunity to participate in the care of this patient. Sylvia Burgos PT, DPT, CLT [facility], [place]
--- NOTE | 2023-08-27 15:00 | DI.US_ITS ---
APPROVED REPORT EXAM: Comprehensive 2D, Doppler, and color-flow Echocardiogram Patient Location: In-Patient Room/Bed: 210 Offshoring Manager: Eliot Brewer RDCS (AE) Indications: heart failure Other Information Study Quality: Technically Limited. Technically limited study due to body habitus, inability to posit ion patient. Conclusion Technically difficult but adequate study Normal left ventricular wall thickness and chamber size. Ejection fraction is 50 to 55%. There are no segmental wall motion abnormalities Normal right ventricular size and function Both atria are normal in size Device lead noted in the right heart Grossly normal appearance of the aortic valve. Mean gradient is 9 mmHg Mild mitral and tricuspid regurgitation Estimated right ventricular systolic pressure is 41 mmHg Wall motion Left Ventricle The left ventricle is normal size. The overall left ventricular systolic function appears normal. The re is normal left ventricular wall thickness. There are no segmental wall motion abnormalities. There is no ventricular septal defect visualized. LVEF is 50-55%. Right Ventricle The right ventricle is normal size. The right ventricular systolic function is normal. Pacemaker lead is present in the right ventricle. Atria The left atrium size is normal. The right atrium size is normal. The interatrial septum is intact wit h no evidence for an atrial septal defect. Aortic Valve Aortic valve is grossly normal in structure. Mean gradient is 9 mmHg No aortic regurgitation is prese nt. Mitral Valve The mitral valve is normal in structure. No evidence of mitral valve stenosis. Mild mitral regurgitat ion. Tricuspid Valve The tricuspid valve is normal in structure. There is no tricuspid valve stenosis. Mild tricuspid regu rgitation. The RVSP is 41.2 mmHg. Pulmonic Valve Pulmonic valve is not well visualized. Great Vessels The aortic root is not well visualized but is probably normal size. Ascending aorta is not well visua lized. Aortic arch is not well visualized. IVC is normal in size and collapses >50% with inspiration. Pericardium There is no pericardial effusion. 2D Dimensions IVSD d PLAX 1.00 cm M: 0.6-1.2 Ao Root d 2.98 cm M: 3.1 - 3.7 LVPW d PLAX 0.97 cm M: 0.6 - 1.2 LVID d PLAX 4.80 cm M: 4.2 - 5.8 LVDs 3.57 cm M: 2.5 - 4.0 LV EF Teichholz 50.4 % FS 25.64 % LV EDV (Teich) 107.3 mL LV ESV (Teich) 53.2 mL Stroke Vol Index (Teich) 26.40 M-Mode TAPSE 1.18 cm (M/F) >1.7 Auto EF LV EDV A4C 82.8 mL LV EDV A2C 127.9 mL LV EDV BP 103.7 mL LV ESV A4C 43.4 mL LV ESV A2C 66.7 mL LV ESV BP 53.6 mL LVEF(%) A4C 47.6 % LVEF(%) A2C 47.9 % LVEF(%) BP 48.3 % LV SV A4C 39.4 ml LV SV A2C 61.3 ml LV SV BP 50.1 ml LV CO A4C 3.0 L/min LV CO A2C 4.1 L/min LV CO BP 3.5 L/min HR A4C 75.16 BPM HR A2C 67.04 BPM LV EDV Index (BP) LA Volume LA Length A4C 4.3 cm LA Length A2C 5.2 cm LA Area A4C s 11.52 cm2 LA Area A2C s 19.73 cm2 LA Vol A4C A-L 26.13 mL LA Vol A2C A-L 62.98 mL LA Vol Biplane A-L 44.8 mL LA Vol/BSA A4C A-L LA Vol/BSA A2C A-L LA Vol/BSA BP A-L 21.8 mL/m2 LA Vol A4C MOD 24.4 mL LA Vol A2C MOD 61.6 mL LA Vol BP MOD 42.2 mL RA Volume RA Area A4C 8.6 cm2 RA ESV A4C (A-L) 14.6mL RA Vol/BSA A4C A-L RA Length A4C 4.3 cm RA ESV A4C (MOD) 13.9mL LV Diastology MV E' medial 0.076 (>0.07 m/s) MV E Vmax 1.10 (0.4-1.3 m/s) MV E/E' MED 14.39 (<14) MV A Vmax 0.50 (0.4-1.3 m/s) MV E' lateral 0.113 (>0.1 m/s) E/A Ratio 2.2 MV E/E' LAT 9.76 (<14) MV E' Average 0.095 m/s MV E/E'(average) 11.63 Aortic Valve AoV Vmax 1.77 m/s LVOT Vmax 0.78 m/s AoV Peak Grad 12.5 mmHg LVOT Peak Grad 2.4 mmHg AoV Area (Vmax) 1.35 cm2 LVOT VTI 0.133 m AoV VTI 0.341 m LVOT Mean Grad 1.6 mmHg AoV Mean Kyle. 1.42 m/s LVOT SV 40.61 mL AoV Mean Grad 8.7 mmHg LVOT Diam s 1.95 cm AoV Area (VTI) 1.19 cm2 Velocity Ratio 0.44 Mitral Valve MV DT 231 (160-240 msec) Tricuspid Valve RA Pressure 3.00 mmHg TR Vmax 3.09 m/s TR Peak Grad 38.1 mmHg RVSP (TR) 41.2 mmHg
--- NOTE | 2023-08-27 15:04 | DSE_ITS ---
Date of service: 08/27/23 Time of Service: 15:04 DS: Diagnosis Discharge Diagnosis (1) NSTEMI (non-ST elevated myocardial infarction): Status: Acute (2) Acute on chronic kidney failure: Status: Acute (3) Anemia: Status: Chronic (4) Mild aortic stenosis: Status: Chronic Discharge Plan Disposition Patient Disposition: Home Condition: Stable Discharge Details Reason For Visit: hyperkalmia, decompensated heart failure Admit Date/Time: 08/26/23 12:18 Admit Provider: Seamus Quiñones Attending Provider: Seamus Quiñones Primary Care Provider: Nel Cabrera [facility] Hospital Course: This is an 88-year-old male patient followed by cardiology who presented to the emergency department with complaints of shortness of breath and fatigue he states his symptoms came on suddenly yesterday while doing yard work. He denied any chest pain or peripheral edema. His workup in the emergency department was concerning for congestive heart failure he was found to have acute on chronic renal failure with hyperkalemia and an elevated troponin thought to be due to his heart failure. He received treatment for the hyperkalemia with IV calcium dextrose insulin and Lokelma he also received IV diuresis. He was admitted to the hospitalist services. His troponin did remain flat. He had no acute ischemic changes on his EKG. He responded well to the diuresis his potassium normalized. He was safely reambulated. He did have an echocardiogram but results were pending at time of discharge he did feel he was stable and ready for discharge to home. He will follow-up outpatient with cardiology and his primary care provider for further recommendations based on echo results. Discharge discussed with Dr. Quiñones Home Meds and New Rx's Prescriptions: Continued Xarelto 15 mg tablet 15 mg PO QPM Hold Instructions: Resume on 04/28/23. glimepiride 1 mg tablet 1 mg PO QAM silver sulfadiazine [Silvadene] 1 % cream 1 applic topical BID Qty: 50 2RF Rx Instructions: apply a 1.5 mm thickness phenytoin sodium extended [Dilantin Extended] 100 mg capsule 100 mg PO BID atorvastatin 80 MG tablet 80 mg PO DAILY Qty: 90 Rx Instructions: 1 TAB DAILY aspirin [Aspirin Low-Strength] 81 MG tablet,chewable 81 mg PO DAILY Qty: 1 ICaps 1 EACH tablet extended release 1 ea PO DAILY Qty: 1 furosemide 40 MG tablet 80 mg PO DAILY amlodipine [Norvasc] 10 MG tablet 10 mg PO DAILY naproxen 500 mg tablet 500 mg PO BID PRN multivitamin Tablet 1 tab PO DAILY trazodone 50 mg tablet 50 mg PO QHS PRN mirtazapine 7.5 mg tablet 7.5 mg PO DAILY lisinopril 5 MG tablet 5 mg PO DAILY Januvia 100 MG tablet 100 mg PO DAILY ibuprofen 800 MG tablet 800 mg PO TID Qty: 30 0RF Discharge Instructions Instructions: Heart Failure (DC), Acute Kidney Injury (DC), Hyperkalemia (DC) Stand Alone Forms: Nursing Discharge Form Referrals: Nle Cabrera [Primary Care Provider] - 09/05/23 2:50 pm Stefanie Herring MD [ [facility] STAFF PHYSICIAN] - (The office should call for an appointment. ) Activity:: Activity as Tolerated Equipment/Supplies:: No Equipment Needed Diet:: As Tolerated Discharge Orders Discharge Orders: Discharge Order (Routine); Ordered 08/27/23 Ordered By: Kaylie Curtis Discharge Data Discharge Date/Time-TO BE ENTERED AT DEPARTURE: 08/27/23 16:25 DS: Summary Time Spent with Patient providing and/or coordinating discharge services: Greater than 30 minutes Status at Discharge Functional status at discharge: independent ambulation Overall status at discharge: patient is progressing back to baseline Mental Status: mental status grossly normal Speech and Movement: speech and movement normal Mood: congruent mood Affect: normal affect Quality:SDOH Health Related Social Needs: No Data to Display Exam Narrative Exam Narrative: Elderly male appearing younger than stated age no acute distress head is atraumatic eyes nonicteric noninjected EOMs intact oral mucosa is moist cardiovascular regular rate and rhythm is 100% paced on the monitor lungs with Rales in the bases bilaterally no wheezing abdomen benign skin with no rashes or lesions bilateral lower extremity +1-2 edema which she says is baseline neurologic he is awake alert oriented no focal deficits psychiatric normal mood and affect Psych Mental Status: mental status grossly normal Speech and Movement: speech and movement normal Mood: congruent mood Affect: normal affect DS: Data Vitals/I&O Vitals and I&O: Vital Signs Temperature 37.2 C 08/27/23 11:47 Temperature Source Tympanic 08/27/23 11:47 Pulse 60 08/27/23 11:47 Pulse Rhythm Regular 08/27/23 08:30 Pulse 110 H 08/26/23 12:36 Respiratory Rate 18 08/27/23 11:47 Respiratory Effort Normal, Non-Labored 08/27/23 08:30 Respiratory Depth Normal 08/27/23 08:30 Respiratory Pattern Normal 08/27/23 08:30 Blood Pressure 121/43 L 08/27/23 11:47 Blood Pressure Mean 89 08/26/23 12:36 Blood Pressure Position Sitting 08/26/23 09:29 Pulse Oximetry 97 08/27/23 11:47 Oxygen Delivery Method Room Air 08/27/23 11:47 Oxygen Flow Rate 0 08/27/23 11:47 Pain Level 0 08/27/23 11:47 Comment RN Notified 08/27/23 03:19 Intake & Output 08/26/23 08/27/23 08/27/23 23:59 11:59 23:59 Intake Total 1040 / 1040 890 / 890 Output Total 1100 / 1425 275 / 1425 1150 / 1425 Balance -60 / -385 615 / -535 -1150 / -535 Weight 91.1 kg 86.8 kg Intake: Oral 1040 / 1040 890 / 890 Output: Urine 1100 / 1425 275 / 1425 1150 / 1425 Other: Urine Color Light [place] Yellow Yellow Urine Appearance Clear Clear Clear Data Completed and Pending Labs on day of discharge: Labs from last 24 hours 08/27/23 08/26/23 08/26/23 06:18 16:17 11:22 WBC 8.08 RBC 3.02 L Hgb 8.1 L Hct 25.4 L MCV 84 MCH 26.8 L MCHC 31.9 L RDW 14.6 H Plt Count 169 MPV 12.4 H Immature Gran % 0.2 Neutrophils % 70.9 Lymphocytes % 17.2 Monocytes % 10.1 Eosinophils % 1.0 Basophils % 0.6 Nucleated RBC % 0.0 Absolute Neutrophils 5.72 Absolute Lymphocytes 1.39 Absolute Monocytes 0.82 H Absolute Eosinophils 0.08 Absolute Basophils 0.05 Sodium 136 139 Potassium 4.8 4.5 D Chloride 101 102 Carbon Dioxide 22.5 24.0 Anion Gap 12.5 H 13.0 H BUN 61 H 58 H Creatinine 2.6 H 2.4 H Est GFR (CKD-EPI 2020) 23.14 25.48 Glucose 148 H 74 Calcium 8.3 L 8.7 Iron 40 L Add-On Test Request DONE PFS All Active Problems (Updated 08/28/23 @ 00:08 by KALEN ALONSO) Anemia (Chronic) NSTEMI (non-ST elevated myocardial infarction) (Acute) Acute on chronic kidney failure (Acute) Heart failure, chronic, with acute decompensation (Acute) Hyperkalemia (Acute) Pleural effusion (Acute) Memory change (Acute) Paralysis of left upper extremity (Acute) Third degree burn of finger of left hand excluding thumb (Acute) Burn of finger (Acute) Sick sinus syndrome (Chronic) pt. unsure of this medical hx Essential hypertension (Chronic) Hyperlipidemia (Chronic) DM2 (diabetes mellitus, type 2) (Chronic) Mild aortic stenosis (Chronic) Cardiac pacemaker (Acute 08/17/17) [employer] [place] XT DR MRI model # W1DR01 serial # [id number] (pulse generator) Ventricular electrodes: [employer] CapsureFix Model # 5076-58 cm Serial # [id number] Atrial electrodes: [employer] CapsureFix model # 5076-52 cm serial # [id number] Right rotator cuff tendinitis (Acute) Corticosteroid injection: 07/16/18 Persistent atrial fibrillation (Acute) Onset mid May 2019 - ongoing as of 06/25/2019 - sinus restored Onset again January 2021 - ongoing as of 10/26/2021 DC cardioversion 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 states he doesn't remember ever having any History of TIA (transient ischemic attack) and stroke Per pt. in 2003 had carotid artery surgery, after procedure pt. suffered a stroke, pt. states full forearm numbness and parts of left leg Surgical History History of thoracentesis (~04/2023) FH: carotid endarterectomy History of permanent cardiac pacemaker placement Family History Brother Family history of premature coronary heart disease Sister Family history of premature coronary heart disease Social History Smoking/Tobacco Use Status: Former Tobacco Use Quit Date: 04/09/84 Pack-years: 30 Second Hand Exposure: No Smoking risk assessment performed?: Yes Alcohol Intake: never Drug use: Never Substance use type: does not use Housing: house Current gender identity: male Do you feel safe at home: Yes (lives alone) Do you feel safe in your relationship?: Yes Time Spent with Patient Time Spent with Patient: >85 minutes Time was spent: preparing to see the patient(eg.review tests), obtaining and/or reviewing separately otained hiistory, ordering medications,tests, procedures, referring, communicating with other health care support representative, indepentently interpreting results and counseling the patient
[2023-08-27 15:47] VITALS: BP 135/46; PULSE 74; RESP 20; TEMP 37; O2SAT 95
--- NOTE | 2023-08-27 16:02 | PDOC.CMDIS ---
Date of service: 08/27/23 Time of Service: 16:04 LACE Index Scoring Tool Questions: Length of Stay (in days): 1 Was the patient admitted via the E.D.?: Yes Comorbidities: Previous M.I., Diabetes w/o Complication, Congestive Heart Failure and Liver or Renal Disease E.D. Visits: 0 Answers: Total Score: 9 Risk of Readmission: Low Risk Care Management Discharge Plan Reason for Hospitalization: hyperkalemia, heart failure Discharge Plan: Ilya returned home today with new orders for HH RN, PT. His son drove him home via private vehicle. He will follow up with his PCP and discharge plan of care. He is happy to be going home. Patient/Family Education Needs: Review discharge instructions and limitations, discussion of self care needs including ask me three. Services Needed at Discharge: Home Health Care Services (new HH RN, PT) SDOH Health Related Social Needs: No Data to Display
--- NOTE | 2023-08-27 16:05 | PDOC.HHF2F ---
Home Health Referral Home Health Orders Clinical synopsis of why skilled professionals are needed: HFrEF, HTN, NSTEMI Registered Nurse: Check all that apply Instruct on new or changed medication(s)/assess compliance: Ordered Physical Therapist: Check all that apply Increase strength & endurance for safe mobility at home: Ordered To design/establish home maintenance program: Ordered Fall reduction therapy program for patient with history of frequent falls: Ordered Home safety evaluation and teaching/gait training including stair management (if applicable): Ordered Encounter Date and Reason: I certify that a FTF encounter for this patient was performed on August 27, 2023 and that such encounter was related to the primary reason the patient requires home health services. The encounter was conducted in the following manner: By me as the certifying physician, USER EXPERIENCE ANALYST, PA or By an inpatient physician, USER EXPERIENCE ANALYST or PA during an inpatient stay who communicated findings to me, Certification And Authentication I certify that I composed the above information based on my clinical judgment relating to this patient's medical condition and, if applicable, clinical findings communicated to me by the NPP or inpatient physician who performed the FTF encounter. Name of Provider that will be monitoring home health services: Nel Cabrera
== END 2023-08-27 16:25 | disposition home or self-care (01) | DRG 280 ==
LOC: ER 12:36 → MS 17:47
PROVIDERS: Nurse Practitioner Acute Care; Admitting Provider Family Medicine; Emergency Provider Nurse Practitioner Family; PCP Family Medicine; Visit Provider Family Medicine
DX: I21.4 Non-ST elevation (NSTEMI) myocardial infarction (principal); I50.33 Acute on chronic diastolic (congestive) heart failure; I13.0 Hypertensive heart and chronic kidney disease with heart failure and stage 1 through stage 4 chronic kidney disease, or unspecified chronic kidney disease; N17.9 Acute kidney failure, unspecified; N18.4 Chronic kidney disease, stage 4 (severe); I48.19 Other persistent atrial fibrillation; E87.5 Hyperkalemia; I49.5 Sick sinus syndrome; E11.22 Type 2 diabetes mellitus with diabetic chronic kidney disease; I35.0 Nonrheumatic aortic (valve) stenosis; D64.9 Anemia, unspecified; Z95.0 Presence of cardiac pacemaker; Z79.01 Long term (current) use of anticoagulants; R41.3 Other amnesia; I25.10 Atherosclerotic heart disease of native coronary artery without angina pectoris; Z86.711 Personal history of pulmonary embolism; G47.00 Insomnia, unspecified; E78.00 Pure hypercholesterolemia, unspecified; F32.A Depression, unspecified; Z86.73 Personal history of transient ischemic attack (TIA), and cerebral infarction without residual deficits; Z79.84 Long term (current) use of oral hypoglycemic drugs
CPT/HCPCS: 00123; 36415; 36416; 80048; 80053; 82962; 87637; 93005; 93306; 94640; 96374; 96375; 97162; 99222; 99285; 71046; 83540; 83735; 83880; 84484; 85025; 93010; 99223; 99239; J0612; J1815; J1940; J7613

== ENCOUNTER → 2023-08-27 16:12 | Outpatient (BNVA) | payer MEDICARE, SELFPAY | PROVIDERS: PCP Family Medicine; Referring Provider Family Medicine; Visit Provider Internal Medicine Cardiovascular Disease ==

== ENCOUNTER 2023-09-09 08:02 | Emergency (ER) | payer MEDICARE, SELFPAY ==
[2023-09-09] VITALS (13 sets, daily range): BP systolic 108–168; BP diastolic 37–113; PULSE 57–85; RESP 13–26; TEMP 37.4; O2SAT 97
--- NOTE | 2023-09-09 08:00 | RT.EKG_ITS ---
APPROVED REPORT Exam: Resting ECG Reason for Exam: dyspnea Patient Location: E HR:69 bpm ECG Measurements Heart Rate 69 AXIS IN 117 P 0 QRSd 165 QRS -38 QT 423 T 131 QTc 454 Conclusion Ventricular-paced complexes...other complexes also detected
--- NOTE | 2023-09-09 08:27 | W.ED.GENAD ---
Discharge Plan Disposition Patient Disposition: Home Condition: Stable Discharge Details Clinical Impression: Dyspnea Primary Care Provider: Nel Cabrera ED Provider: Adolfo Lobo Home Meds and New Rx's Prescriptions: New furosemide [Lasix] 40 mg tablet 40 mg PO QAM Qty: 30 0RF Continued Xarelto 15 mg tablet 15 mg PO QPM Hold Instructions: Resume on 04/28/23. glimepiride 1 mg tablet 1 mg PO QAM silver sulfadiazine [Silvadene] 1 % cream 1 applic topical BID Qty: 50 2RF Rx Instructions: apply a 1.5 mm thickness phenytoin sodium extended [Dilantin Extended] 100 mg capsule 100 mg PO BID atorvastatin 80 MG tablet 80 mg PO DAILY Qty: 90 Rx Instructions: 1 TAB DAILY aspirin [Aspirin Low-Strength] 81 MG tablet,chewable 81 mg PO DAILY Qty: 1 ICaps 1 EACH tablet extended release 1 ea PO DAILY Qty: 1 furosemide 40 MG tablet 80 mg PO DAILY amlodipine [Norvasc] 10 MG tablet 10 mg PO DAILY naproxen 500 mg tablet 500 mg PO BID PRN multivitamin Tablet 1 tab PO DAILY trazodone 50 mg tablet 50 mg PO QHS PRN mirtazapine 7.5 mg tablet 7.5 mg PO DAILY lisinopril 5 MG tablet 5 mg PO DAILY Januvia 100 MG tablet 100 mg PO DAILY Discharge Instructions Additional Instructions: He still have a small amount of fluid in your lungs which is likely the cause of your symptoms with laying flat. Increasing the dose of your furosemide should help. I would recommend continuing 80 mg and adding the 40 mg tablets that I prescribed for you today. Follow-up with primary care provider within 1 to 2 weeks. He can also discuss with them if you should have a sleep study to determine if he would benefit from a CPAP machine If you feel more ill, have difficulty breathing when sitting up or at rest or have severe chest pain or fevers return to the emergency department for reevaluation HPI General Mode of arrival: wheelchair. Date/Time Provider Initiated Documentation: 09/09/23 08:02. Limitations to Documentation: no limitations. Information obtained by: patient and family. History of Present Illness 88 year old M presents to the emergency department with the chief complaint of dyspnea when laying flat, described as moderate, Patient started experiencing this week(s) (2) and it has been constant. other things that improve symptom(s), (Sitting up) Other factors that worsen symptoms (Laying flat) . Patient notes denies chest pain and fever/chills. Patient did receive the following treatments prior to arrival, none Related Data Home Medications Medication Instructions Recorded Confirmed aspirin 81 mg chewable tablet 81 mg PO DAILY #1 tab-cap 09/28/13 09/09/23 (Aspirin Low-Strength) atorvastatin 80 mg tablet 80 mg PO DAILY #90 tab-caps 09/28/13 09/09/23 [id number] 1 ea PO DAILY ##1 09/28/13 09/09/23 3,300 unit-5 mg-200mg-75 unit tablet ER (ICaps) amlodipine 10 mg tablet (Norvasc) 10 mg PO DAILY 10/21/14 09/09/23 furosemide 40 mg tablet 80 mg PO DAILY 10/21/14 09/09/23 lisinopril 5 mg tablet 5 mg PO DAILY 03/15/17 09/09/23 sitagliptin phosphate 100 mg 100 mg PO DAILY 03/15/17 09/09/23 tablet (Januvia) glimepiride 1 mg tablet 1 mg PO QAM 07/16/18 09/09/23 rivaroxaban 15 mg tablet (Xarelto) 15 mg PO QPM 07/16/18 09/09/23 phenytoin sodium extended 100 mg 100 mg PO BID 04/15/20 09/09/23 capsule (Dilantin Extended) multivitamin 1 tab PO DAILY 04/27/21 09/09/23 naproxen 500 mg tablet 500 mg PO BID PRN 04/27/21 09/09/23 trazodone 50 mg tablet 50 mg PO QHS PRN 05/02/22 09/09/23 silver sulfadiazine 1 % topical 1 applic topical BID #50 grams 08/12/22 09/09/23 cream (Silvadene) mirtazapine 7.5 mg tablet 7.5 mg PO DAILY 04/26/23 09/09/23 furosemide 40 mg tablet (Lasix) 40 mg PO QAM #30 tabs 09/09/23 Previous Rx's Medication Instructions Recorded silver sulfadiazine 1 % topical 1 applic topical BID #50 grams 08/12/22 cream (Silvadene) furosemide 40 mg tablet (Lasix) 40 mg PO QAM #30 tabs 09/09/23 Allergies Allergy/AdvReac Type Severity Reaction Status Date / Time metformin Allergy Unknown Diarrhea Verified 09/09/23 08:04 ezetimibe [From Vytorin] AdvReac FAILED Verified 09/09/23 08:04 lisinopril AdvReac Hyperkalemi Verified 09/09/23 08:04 a simvastatin [From Vytorin] AdvReac FAILED Verified 09/09/23 08:04 General Stated Complaint: SOB DEENA: 3 Review of Systems All systems reviewed & are unremarkable except as noted in HPI and below Constitutional Constitutional: Denies chills and Denies fever(s) Cardiovascular Cardiovascular: Denies chest pain and Reports dyspnea Respiratory Respiratory: Reports dyspnea Gastrointestinal Gastrointestinal: Denies abdominal pain, Denies nausea and Denies vomiting Integumentary/Breasts Skin/Breast: Denies rash Exam Const General: no acute distress Orientation: alert HENMT Head: normal to inspection Ears: external ears normal General nose exam: external nose normal Mouth: moist mucous membranes Eyes General: appearance normal, both eyes and all related structures Neck Neck: normal visual inspection Resp Effort & Inspection: normal respiratory effort and able to speak in complete sentences Auscultation: crackles and no wheezes Cardio Rate: regular rate Skin General skin exam: no rashes or lesions noted Neuro General: patient alert and patient oriented x3 Extrem General: normal to inspection Psych Mental Status: mental status grossly normal Course Vital Signs Vital signs: Vital Signs Temperature 37.4 C 09/09/23 08:08 Pulse 78 09/09/23 08:08 Respiratory Rate 16 09/09/23 08:08 Blood Pressure 140/43 L 09/09/23 08:08 Pulse Oximetry 97 09/09/23 08:08 Temperature 37.4 C 09/09/23 08:08 Temperature Source Temporal Artery Scan 09/09/23 08:08 Pulse 78 09/09/23 08:08 Respiratory Rate 16 09/09/23 08:08 Respiratory Effort Normal, Non-Labored, Short of Breath 09/09/23 08:10 Blood Pressure 140/43 L 09/09/23 08:08 Blood Pressure Position Sitting 09/09/23 08:08 Pulse Oximetry 97 09/09/23 08:08 Oxygen Delivery Method Room Air 09/09/23 08:08 Oxygen Flow Rate 0 09/09/23 08:08 Pain Level 0 09/09/23 08:08 Medical Decision Making 88-year-old male with a history of chronic kidney disease, recent mission for heart failure, pacemaker due to sick sinus syndrome, hypertension, diabetes, A-fib on rivaroxaban, comes in with continued shortness of breath when laying flat and with exertion. He says he felt this way since he was discharged on the , denies ever having any chest pain, no fever, had a cough for the first few days after discharge but none since. Patient is sitting up on the side of the bed states he feels much better sitting in this position and laying on the stretcher. He is alert and answering questions appropriately, he does have crackles at the bases bilaterally, mild pitting edema to the mid tibias bilaterally, no calf tenderness. Bedside ultrasound shows no pericardial effusion,appears to have normal ejection fraction. Does have B-lines more so on the left lung than the right. Suspect recurrent CHF and pulmonary edema, will check a CBC, CMP, troponin as this was elevated last time, obtain a chest x-ray, and treat with IV Lasix. He took his 80 mg oral dose this morning, will give an IV dose of 80 mg. Monitor I's and O's. Patient has been able to urinate and has urinated 250 cc and states he feels better. Labs showed no significant changes from baseline, troponin negative, given he had symptoms for 1 week do not feel delta troponin indicated. Has continued pleural effusions and minimally changed from prior x-ray, discussed results with him and discussed options of increasing his dose of Lasix and going home or being admitted for observation and patient does not want to be admitted again and prefers to go home. This is reasonable given he has no oxygen requirement and reassuring lab workup. I will have him increase his dose of Lasix from 80 mg to 120 mg daily. He will follow-up with his primary care provider and return precautions given Differential Diagnosis Differential Diagnosis: CHF, anemia, CRUZ Medical Records Medical records reviewed: Yes I reviewed the patient's medical records. Imaging Data Radiologic Study: Attestation: I personally reviewed and interpreted this imaging study as follows: Imaging: X-Ray Radiologist's impression: TECHNIQUE: Imaging protocol: Radiologic exam of the chest. Views: 2 views. COMPARISON: CR XR CHEST 2V PA LATERAL 08/26/2023 9:32 AM FINDINGS: Lungs: Minimal compressive atelectasis in the lung bases. Pleural spaces: Bilateral pleural effusions, perhaps minimally increased in volume compared to the 08/26/2023. Heart/Mediastinum: Heart size is stable. No pulmonary vascular congestion. Cardiac pacemaker is again noted. Bones/joints: No obvious acute abnormality. IMPRESSION: Bilateral pleural effusions may have increased very slightly in volume since 08/26/2023. Otherwise, no new process is seen. Lab Data Lab results reviewed: Yes I reviewed the patient's lab results. ECG Data Attestation: I personally reviewed and interpreted this ECG (s) as follows: Prior ECG tracings: available for review Interpretation: Paced rhythm, rate of 69, no significant changes from prior Quality:SDOH Health Related Social Needs: No Data to Display [facility] All Active Problems (Updated 09/09/23 @ 10:28 by Adolfo Lobo MD) Dyspnea (Acute) Skin lesion of face (Acute) Anemia (Chronic) NSTEMI (non-ST elevated myocardial infarction) (Acute) Acute on chronic kidney failure (Acute) Heart failure, chronic, with acute decompensation (Acute) Hyperkalemia (Acute) Pleural effusion (Acute) Memory change (Acute) Paralysis of left upper extremity (Acute) Third degree burn of finger of left hand excluding thumb (Acute) Burn of finger (Acute) Sick sinus syndrome (Chronic) pt. unsure of this medical hx Essential hypertension (Chronic) Hyperlipidemia (Chronic) DM2 (diabetes mellitus, type 2) (Chronic) Mild aortic stenosis (Chronic) Cardiac pacemaker (Acute 08/17/17) [employer] [place] XT DR MRI model # [id number] serial # [id number] (pulse generator) Ventricular electrodes: [employer]tronic CapsureFix Model # 5076-58 cm Serial # [id number] Atrial electrodes: [employer]tronic CapsureFix model # 5076-52 cm serial # [id number] Right rotator cuff tendinitis (Acute) Corticosteroid injection: 07/16/18 Persistent atrial fibrillation (Acute) Onset mid May 2019 - ongoing as of 06/25/2019 - sinus restored Onset again January 2021 - ongoing as of 10/26/2021 DC cardioversion [facility] 10/2021 - on amiodarone; recurrent in February 2022 - amiodarone stopped Osteoarthritis of carpometacarpal joint of right thumb (Acute) Trochanteric bursitis, left hip (Acute) Steroid injection: 12/07/2020; 03/17/2020 Trochanteric bursitis, right hip (Acute) Steroid injection: 12/07/2020; 03/17/2020 Traumatic arthropathy, right shoulder (Acute) Most recent Depo-Medrol injection: 11/22/2021; 05/24/2022 Medical History 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 states he doesn't remember ever having any History of TIA (transient ischemic attack) and stroke Per pt. in 2003 had carotid artery surgery, after procedure pt. suffered a stroke, pt. states full forearm numbness and parts of left leg Surgical History History of thoracentesis (~04/2023) FH: carotid endarterectomy History of permanent cardiac pacemaker placement Family History Brother Family history of premature coronary heart disease Sister Family history of premature coronary heart disease Social History Smoking/Tobacco Use Status: Former Tobacco Use Quit Date: 04/09/84 Pack-years: 30 Second Hand Exposure: No Smoking risk assessment performed?: Yes Alcohol Intake: never Drug use: Never Substance use type: does not use Housing: house Current gender identity: male Do you feel safe at home: Yes (lives alone) Do you feel safe in your relationship?: Yes POCUS Exam (ED) Limited Cardiac Exam DATE OF EXAM: 09/09/23 REASON FOR EXAM: Dyspnea VISUALIZED STRUCTURES: Left ventricle and Right ventricle VIEW OBTAINED: Parasternal long-axis PERTINENT FINDINGS/IMPRESSION: No LV dysfunction and No pericardial effusion Exam complete
--- NOTE | 2023-09-09 08:30 | DI.RAD_ITS ---
Exam(s) XR CHEST 2V PA LATERAL EXAM: XR CHEST 2V PA LATERAL CLINICAL HISTORY: dyspnea TECHNIQUE: 2D digital imaging was performed of the chest. Two images were obtained. PA and lateral views were obtained. COMPARISON: CR,XR XR CHEST 2V PA LATERAL from 08/26/2023 FINDINGS: MEDIASTINUM: Normal. HEART: Normal. The cardiac pacing wires are in stable position. PULMONARY VASCULATURE: Normal. LUNGS: Small bilateral basilar opacities which may represent atelectasis. Pneumonia cannot be entire ly excluded. PLEURAL SPACE: There are bilateral small pleural effusions present. No pneumothorax. BONE:Within normal limits for the patient's age. OTHER FINDINGS:Normal. IMPRESSION: Slight increase in size of the pleural effusions. Bilateral basilar opacities which may represent at electasis. DATA REPOSITORY: RADIATION DOSE DELIVERED:
[2023-09-09 08:42] LABS: Abs Immature Grans 0.02 10^3/uL (0.0-0.06); Absolute Basophil Count 0.04 10^3/uL (0.0-0.2); Absolute Eosinophil Count 0.09 10^3/uL (0.0-0.7); Absolute Monocyte Count 0.47 10^3/uL (0.1-0.8); Absolute Neutrophil Count 4.33 10^3/uL (1.2-6.7); BE (Venous) -5 mmol/L (-2-3); Basophils % 0.7 %; Eosinophils % 1.5 %; HCO3 (Venous) 21 mmol/L (23-28); HCT 26.3 % (40.0-50.0); HGB 7.9 g/dL (13.5-17.5); Immature Grans % 0.3 %; Lymphocytes % 18.2 %; MCH 25.9 pg (27.0-33.0); MCV 86 fL (80-95); MPV 11.2 fL (8.0-11.0); Monocytes % 7.8 %; Neutrophils % 71.5 %; O2 Sat (Venous) 42 %; Platelet Count 229 10^3/uL (130-400); RBC 3.05 10^6/uL (4.36-5.78); RDW 14.6 % (11.8-14.1); RDW-SD 45.4 fL; TCO2 (Venous) 20 mmol/L (24-29); WBC 6.05 10^3/uL (4.4-10.8); pCO2 (Venous) 41 mmHg (41-51); pH (Venous) 7.32 (7.31-7.41); pO2 (Venous) 27 mmHg
[2023-09-09] MEDS: Normal Saline Flush 10 ML SYR IVP (08:47)
[2023-09-09] MEDS: Furosemide 100 MG/10 ML VIAL 80 MG IVP (08:47)
[2023-09-09 09:01] LABS: INR 1.5 (0.9-1.1); PTT Activated 32.4 sec (23.6-32.8); Prothrombin Time 14.3 sec (9.1-11.1)
[2023-09-09 09:10] LABS: ALT 15 U/L (16-63); AST 35 U/L (15-37); Albumin 3.8 g/dL (3.4-5.0); Alkaline Phosphatase 199 U/L (46-116); Anion Gap 11.7 mmol/L (3-11); BUN 47 mg/dL (7-18); Bilirubin, Total 0.4 mg/dL (0.2-1.0); CO2 22.3 mmol/L (21.0-32.0); CREATININE 2.5 mg/dL (0.70-1.30); Calcium 8.4 mg/dL (8.5-10.1); Chloride 102 mmol/L (98-107); Estimated GFR 24.26 (mL/min/1.73m2); Glucose 282 mg/dL (74-106); NT-proBNP 5243 pg/mL (<300); Potassium 5.2 mmol/L (3.5-5.1); Sodium 136 mmol/L (136-145); TSH (W/Ref FT4) 2.55 uIU/mL (0.36-3.74); Total Protein 7.6 g/dL (6.4-8.2); Troponin I 57 ng/L (< or =60)
[2023-09-09 09:16] LABS: Diff Comment Diff Reviewed; Hypochromasia 1+
[2023-09-09 09:27] LABS: COVID-19 PCR Negative (Negative)
[2023-09-09 09:38] LABS: Procalcitonin < 0.1 ng/mL
--- NOTE | 2023-09-09 09:39 | DI.VRAD_ITS ---
PROCEDURE INFORMATION: Exam: XR Chest Exam date and time: 09/09/2023 9:12 AM Age: 88 years old Clinical indication: Shortness of breath TECHNIQUE: Imaging protocol: Radiologic exam of the chest. Views: 2 views. COMPARISON: CR XR CHEST 2V PA LATERAL 08/26/2023 9:32 AM FINDINGS: Lungs: Minimal compressive atelectasis in the lung bases. Pleural spaces: Bilateral pleural effusions, perhaps minimally increased in volume compared to the 08/26/2023. Heart/Mediastinum: Heart size is stable. No pulmonary vascular congestion. Cardiac pacemaker is again noted. Bones/joints: No obvious acute abnormality. IMPRESSION: Bilateral pleural effusions may have increased very slightly in volume since 08/26/2023. Otherwise, no new process is seen. Dictated and Authenticated by: Magen Greene MD. Ordering:OKSANA Mata MD
[2023-09-09 09:40] LABS: Source Nasopharynx
== END 2023-09-09 11:05 | disposition home or self-care (01) ==
PROVIDERS: Emergency Provider Emergency Medicine; PCP Family Medicine
DX: R06.09 Other forms of dyspnea (principal); I13.0 Hypertensive heart and chronic kidney disease with heart failure and stage 1 through stage 4 chronic kidney disease, or unspecified chronic kidney disease; E11.22 Type 2 diabetes mellitus with diabetic chronic kidney disease; N18.30 Chronic kidney disease, stage 3 unspecified; I50.9 Heart failure, unspecified; I48.0 Paroxysmal atrial fibrillation; I25.2 Old myocardial infarction; J90 Pleural effusion, not elsewhere classified; I69.354 Hemiplegia and hemiparesis following cerebral infarction affecting left non-dominant side; Z86.73 Personal history of transient ischemic attack (TIA), and cerebral infarction without residual deficits; Z79.01 Long term (current) use of anticoagulants; Z79.84 Long term (current) use of oral hypoglycemic drugs; Z86.711 Personal history of pulmonary embolism; Z87.891 Personal history of nicotine dependence; Z79.82 Long term (current) use of aspirin
CPT/HCPCS: 36415; 80053; 82805; 84145; 87635; 93005; 93308; 96374; 99285; 71046; 83735; 83880; 84443; 84484; 85025; 85610; 85730; 93010; 99284; J1940

== ENCOUNTER → 2023-09-14 09:47 | Outpatient (BNVA) | payer MEDICARE, SELFPAY | PROVIDERS: PCP Family Medicine; Referring Provider Family Medicine; Visit Provider Internal Medicine Cardiovascular Disease | DX: I50.43 Acute on chronic combined systolic (congestive) and diastolic (congestive) heart failure (principal); I48.19 Other persistent atrial fibrillation; I35.0 Nonrheumatic aortic (valve) stenosis; D64.9 Anemia, unspecified; N18.30 Chronic kidney disease, stage 3 unspecified | CPT/HCPCS: 99213 ==

== ENCOUNTER → 2023-09-20 10:54 | Outpatient (BNVA) | payer MEDICARE, SELFPAY | PROVIDERS: PCP Family Medicine; Referring Provider Family Medicine; Visit Provider Internal Medicine Cardiovascular Disease | DX: I50.43 Acute on chronic combined systolic (congestive) and diastolic (congestive) heart failure (principal); I48.19 Other persistent atrial fibrillation | CPT/HCPCS: 99213 ==

== ENCOUNTER → 2023-10-05 09:54 | Outpatient (BNVA) | payer MEDICARE, SELFPAY | PROVIDERS: PCP Family Medicine; Referring Provider Family Medicine; Visit Provider Internal Medicine Cardiovascular Disease | DX: I50.43 Acute on chronic combined systolic (congestive) and diastolic (congestive) heart failure (principal); Z95.0 Presence of cardiac pacemaker | CPT/HCPCS: 99213 ==

== ENCOUNTER → 2023-10-24 11:22 | Outpatient (BNVA) | payer MEDICARE, SELFPAY | PROVIDERS: PCP Family Medicine; Visit Provider Physician Assistant | DX: Z95.810 Presence of automatic (implantable) cardiac defibrillator (principal); I48.19 Other persistent atrial fibrillation | CPT/HCPCS: 93279 ==

== ENCOUNTER → 2023-11-22 10:48 | Outpatient (BNVA) | payer MEDICARE, SELFPAY | PROVIDERS: PCP Family Medicine; Visit Provider Internal Medicine Cardiovascular Disease | DX: I48.21 Permanent atrial fibrillation (principal); D64.9 Anemia, unspecified; I50.30 Unspecified diastolic (congestive) heart failure; Z95.0 Presence of cardiac pacemaker | CPT/HCPCS: 99213 ==

== ENCOUNTER → 2023-12-21 11:09 | Outpatient (BNVA) | payer MEDICARE, SELFPAY | PROVIDERS: PCP Family Medicine; Referring Provider Family Medicine | DX: M70.62 Trochanteric bursitis, left hip (principal); M70.61 Trochanteric bursitis, right hip; M17.0 Bilateral primary osteoarthritis of knee | CPT/HCPCS: 99213 ==

== ENCOUNTER 2024-01-07 10:20 | Emergency (ER) | payer MEDICARE, SELFPAY ==
[2024-01-07] VITALS (11 sets, daily range): BP systolic 137–158; BP diastolic 44–65; PULSE 59–103; RESP 20–29; TEMP 36.8; O2SAT 97–99
--- NOTE | 2024-01-07 10:30 | RT.EKG_ITS ---
APPROVED REPORT Exam: Resting ECG Reason for Exam: SOB Patient Location: E HR:72 bpm ECG Measurements Heart Rate 72 AXIS IN 198 P 0 QRSd 153 QRS -8 QT 433 T 160 QTc 481 Conclusion Ventricular-paced complexes...other complexes also detected
--- NOTE | 2024-01-07 11:07 | ED.GENADUL_ITS ---
Discharge Plan Disposition Patient Disposition: Home Condition: Stable Discharge Details Clinical Impression: Shortness of breath, CHF exacerbation Primary Care Provider: Nel Cabrera ED Provider: Adolfo Lobo Home Meds and New Rx's Prescriptions: Continued Xarelto 15 mg tablet 15 mg PO QPM glimepiride 1 mg tablet 1 mg PO QAM silver sulfadiazine [Silvadene] 1 % cream 1 applic topical BID Qty: 50 2RF Rx Instructions: apply a 1.5 mm thickness furosemide 80 mg tablet 80 mg PO BID Rx Instructions: take 80 mg in AM, take second pill no later than 3PM paroxetine HCl 10 mg/5 mL suspension 10 mg PO QAM phenytoin sodium extended [Dilantin Extended] 100 mg capsule 100 mg PO BID albuterol sulfate [Ventolin HFA] 90 mcg/actuation HFA aerosol inhaler 2 inh inhalation 6XD PRN atorvastatin 80 MG tablet 80 mg PO DAILY Qty: 90 Rx Instructions: 1 TAB DAILY aspirin [Aspirin Low-Strength] 81 MG tablet,chewable 81 mg PO DAILY Qty: 1 ICaps 1 EACH tablet extended release 1 ea PO DAILY Qty: 1 amlodipine [Norvasc] 10 MG tablet 10 mg PO DAILY naproxen 500 mg tablet 500 mg PO BID PRN multivitamin Tablet 1 tab PO DAILY trazodone 50 mg tablet 50 mg PO QHS PRN mirtazapine 7.5 mg tablet 7.5 mg PO DAILY lisinopril 5 MG tablet 5 mg PO DAILY Januvia 100 MG tablet 100 mg PO DAILY Discharge Instructions Additional Instructions: I would recommend increasing your morning Lasix dose to 160 mg. Recommend following up with your primary care provider within 1 to 2 weeks for recheck. If you feel more ill, have severe worsening shortness of breath or chest pain return to the emergency department for reevaluation HPI General Date/Time Provider Initiated Documentation: 01/07/24 10:36 . Limitations to Documentation: no limitations . Information obtained by: patient . History of Present Illness 88 year old M presents to the emergency department with the chief complaint of dyspnea, described as moderate, Patient started experiencing this day(s) (4) and it has been constant. No relieving factors improve symptom(s), No exacerbating factors reported . Patient notes shortness of breath; denies chest pain, cough and fever/chills. Patient did receive the following treatments prior to arrival, none Related Data Home Medications ?Medication ?Instructions ?Recorded ?Confirmed aspirin 81 mg chewable tablet 81 mg PO DAILY #1 tab-cap 09/28/13 01/07/24 (Aspirin Low-Strength) atorvastatin 80 mg tablet 80 mg PO DAILY #90 tab-caps 09/28/13 01/07/24 [id number]-[id number]-inzeoak-min 1 ea PO DAILY ##1 09/28/13 01/07/24 3,300 unit-5 mg-200mg-75 unit tablet ER (ICaps) amlodipine 10 mg tablet (Norvasc) 10 mg PO DAILY 10/21/14 01/07/24 lisinopril 5 mg tablet 5 mg PO DAILY 03/15/17 01/07/24 sitagliptin phosphate 100 mg 100 mg PO DAILY 03/15/17 01/07/24 tablet (Januvia) glimepiride 1 mg tablet 1 mg PO QAM 07/16/18 01/07/24 rivaroxaban 15 mg tablet (Xarelto) 15 mg PO QPM 07/16/18 01/07/24 phenytoin sodium extended 100 mg 100 mg PO BID 04/15/20 01/07/24 capsule (Dilantin Extended) multivitamin 1 tab PO DAILY 04/27/21 01/07/24 naproxen 500 mg tablet 500 mg PO BID PRN 04/27/21 01/07/24 trazodone 50 mg tablet 50 mg PO QHS PRN 05/02/22 01/07/24 silver sulfadiazine 1 % topical 1 applic topical BID #50 grams 08/12/22 01/07/24 cream (Silvadene) mirtazapine 7.5 mg tablet 7.5 mg PO DAILY 04/26/23 01/07/24 albuterol sulfate 90 mcg/actuation 2 inh inhalation 6XD PRN 10/24/23 01/07/24 aerosol inhaler (Ventolin HFA) furosemide 80 mg tablet 80 mg PO BID 11/22/23 01/07/24 paroxetine HCl 10 mg/5 mL oral 10 mg PO QAM 11/22/23 01/07/24 suspension Previous Rx's ?Medication ?Instructions ?Recorded silver sulfadiazine 1 % topical 1 applic topical BID #50 grams 08/12/22 cream (Silvadene) Allergies Allergy/AdvReac Type Severity Reaction Status Date / Time metformin Allergy Unknown Diarrhea Verified 01/07/24 12:11 ezetimibe (From Vytorin) AdvReac FAILED Verified 01/07/24 12:11 lisinopril AdvReac Hyperkalemi Verified 01/07/24 12:11 a simvastatin (From Vytorin) AdvReac FAILED Verified 01/07/24 12:11 General Stated Complaint: RespSymp DEENA: 3 Review of Systems All systems reviewed & are unremarkable except as noted in HPI and below Constitutional Constitutional: Denies chills, Denies fever(s) and Denies weakness Cardiovascular Cardiovascular: Denies chest pain and Reports dyspnea Respiratory Respiratory: Reports dyspnea Gastrointestinal Gastrointestinal: Denies abdominal pain, Denies nausea and Denies vomiting Musculoskeletal Musculoskeletal: Denies joint swelling Neurologic Neurologic: Denies weakness Exam Const General: no acute distress Orientation: alert HENMT Head: normal to inspection Ears: external ears normal General nose exam: external nose normal Mouth: moist mucous membranes Eyes General: appearance normal, both eyes and all related structures Neck Neck: normal visual inspection Resp Effort & Inspection: normal respiratory effort and able to speak in complete sentences Auscultation: clear to auscultation bilaterally Cardio Jugular venous pressure: no JVD Rate: regular rate Skin General skin exam: no rashes or lesions noted Neuro General: patient alert and patient oriented x3 Extrem General: edema Psych Mental Status: mental status grossly normal Course Vital Signs Vital signs: Vital Signs Temperature 36.8 C 01/07/24 10:32 Pulse 68 01/07/24 10:32 Respiratory Rate 20 01/07/24 10:32 Blood Pressure 137/65 01/07/24 10:32 Pulse Oximetry 97 01/07/24 10:32 Temperature 36.8 C 01/07/24 10:32 Temperature Source Tympanic 01/07/24 10:32 Pulse 68 01/07/24 10:32 Respiratory Rate 20 01/07/24 10:32 Blood Pressure 137/65 01/07/24 10:32 Blood Pressure Position Sitting 01/07/24 10:32 Pulse Oximetry 97 01/07/24 10:32 Oxygen Delivery Method Room Air 01/07/24 10:32 Oxygen Flow Rate 0 01/07/24 10:32 Pain Level 0 01/07/24 10:32 Medical Decision Making 88-year-old male with a history of heart failure, A-fib on Xarelto, who comes in with 4 days of worsening shortness of breath. He denies any chest pain or fevers or cough. He says he still taking his Lasix, and has been urinating normally. He is alert and oriented x 4 and arrival speaking clearly, he has no wheezing at the apices mildly diminished breath sounds at the bases. No JVD, does have mild pitting edema of the lower distal extremities. Suspect CHF, will check a troponin, CBC, CMP, proBNP and procalcitonin and obtain a chest x-ray*. He is on Xarelto so doubt PE and has no pleuritic chest pain to suggest this. Patient sleeping on reassessment, remains hemodynamically stable and not requiring any oxygen 98% room air. He denies any chest pain. His initial troponin was 89 and second 1 was 86 and given his had symptoms for over 3 hours and was downtrending of feeling further as indicated. Does have an elevated proBNP and small pleural effusions on his chest x-ray so suspect he is in CHF as the cause for the elevated troponins. Has chronic anemia at baseline. I discussed results with him and offered admission, but given he is asymptomatic currently he declines admission, I feel this is reasonable given his ongoing oxygen, and his minimal elevation in his troponins. I will have him increase h is dose of furosemide in the morning Differential Diagnosis Differential Diagnosis: chf, pneumonia, nstemi Medical Records Medical records reviewed: Yes I reviewed the patient's medical records. Lab Data Lab results reviewed: Yes I reviewed the patient's lab results. ECG Data Attestation: I personally reviewed and interpreted this ECG (s) as follows: Prior ECG tracings: available for review Interpretation: ventricular paced rhythm rate of 72 pr 198 Quality:[facility] Health Related Social Needs: No Data to Display PFSH All Active Problems (Updated 01/07/24 @ 15:21 by Adolfo Lobo MD) CHF exacerbation (Acute) Shortness of breath (Acute) Osteoarthritis of knees, bilateral (Acute) Heart failure (Acute) Skin lesion of face (Acute) Anemia (Chronic) NSTEMI (non-ST elevated myocardial infarction) (Acute) Acute on chronic kidney failure (Acute) Heart failure, chronic, with acute decompensation (Acute) Hyperkalemia (Acute) Pleural effusion (Acute) Memory change (Acute) Paralysis of left upper extremity (Acute) Third degree burn of finger of left hand excluding thumb (Acute) Burn of finger (Acute) Sick sinus syndrome (Chronic) pt. unsure of this medical hx Essential hypertension (Chronic) Hyperlipidemia (Chronic) DM2 (diabetes mellitus, type 2) (Chronic) Mild aortic stenosis (Chronic) Cardiac pacemaker (Acute 08/17/17) [employer]onic [place] XT DR MRI model # [id number] serial # [id number] (pulse generator) Ventricular electrodes: Medtronic CapsureFix Model # 5076-58 cm Serial # [id number] Atrial electrodes: Medtronic CapsureFix model # 5076-52 cm serial # [id number] Right rotator cuff tendinitis (Acute) Corticosteroid injection: 07/16/18 Persistent atrial fibrillation (Acute) Onset mid May 2019 - ongoing as of 06/25/2019 - sinus restored Onset again January 2021 - ongoing as of 10/26/2021 DC cardioversion [facility] 10/2021 - on amiodarone; recurrent in February 2022 - amiodarone stopped Osteoarthritis of carpometacarpal joint of right thumb (Acute) Trochanteric bursitis, left hip (Acute) Steroid injection: 12/07/2020; 03/17/2020 Trochanteric bursitis, right hip (Acute) Steroid injection: 12/07/2020; 03/17/2020 Traumatic arthropathy, right shoulder (Acute) Most recent Depo-Medrol injection: 11/22/2021; 05/24/2022 Medical History 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 states he doesn't remember ever having any History of TIA (transient ischemic attack) and stroke Per pt. in 2003 had carotid artery surgery, after procedure pt. suffered a stroke, pt. states full forearm numbness and parts of left leg Surgical History History of thoracentesis (~04/2023) FH: carotid endarterectomy History of permanent cardiac pacemaker placement Family History Brother Family history of premature coronary heart disease Sister Family history of premature coronary heart disease Social History Smoking/Tobacco Use Status: Former Tobacco Use Quit Date: 04/09/84 Pack-years: 30 Second Hand Exposure: No Smoking risk assessment performed?: Yes Alcohol Intake: never Drug use: Never Substance use type: does not use Housing: house Current gender identity: male Do you feel safe at home: Yes (lives alone) Do you feel safe in your relationship?: Yes
[2024-01-07 11:55] LABS: COVID-19 PCR Negative (Negative); Influenza A PCR Negative (Negative); Influenza B PCR Negative (Negative); RSV PCR Negative (Negative)
[2024-01-07 11:59] LABS: Source Nasopharynx
[2024-01-07 12:28] LABS: Abs Immature Grans 0.02 10^3/uL (0.0-0.06); Absolute Basophil Count 0.04 10^3/uL (0.0-0.2); Absolute Eosinophil Count 0.08 10^3/uL (0.0-0.7); Absolute Lymphocyte Count 1.25 10^3/uL (1.2-3.4); Absolute Monocyte Count 0.58 10^3/uL (0.1-0.8); Absolute Neutrophil Count 5.17 10^3/uL (1.2-6.7); Basophils % 0.6 %; Eosinophils % 1.1 %; HCT 25.3 % (40.0-50.0); HGB 7.6 g/dL (13.5-17.5); Immature Grans % 0.3 %; Lymphocytes % 17.5 %; MCH 24.7 pg (27.0-33.0); MCV 82 fL (80-95); MPV 12.4 fL (8.0-11.0); Monocytes % 8.1 %; Neutrophils % 72.4 %; Platelet Count 171 10^3/uL (130-400); RBC 3.08 10^6/uL (4.36-5.78); RDW 17.2 % (11.8-14.1); RDW-SD 50.9 fL; WBC 7.14 10^3/uL (4.4-10.8)
[2024-01-07 12:42] LABS: INR 1.5 (0.9-1.1); PTT Activated 31.4 sec (23.6-32.8); Prothrombin Time 14.3 sec (9.1-11.1)
[2024-01-07 12:56] LABS: ALT 19 U/L (16-63); AST 41 U/L (15-37); Albumin 3.6 g/dL (3.4-5.0); Alkaline Phosphatase 190 U/L (46-116); BUN 68 mg/dL (7-18); Bilirubin, Total 0.45 mg/dL (0.2-1.0); CREATININE 2.5 mg/dL (0.70-1.30); Chloride 101 mmol/L (98-107); Estimated GFR 24.26 (mL/min/1.73m2); Glucose 146 mg/dL (74-106); Magnesium 1.8 mg/dL (1.8-2.4); NT-proBNP 5058 pg/mL (<300); Sodium 135 mmol/L (136-145); Total Protein 7.4 g/dL (6.4-8.2)
[2024-01-07 12:57] LABS: Troponin I 89 ng/L (<or=76)
[2024-01-07 13:02] LABS: Procalcitonin 0.1 ng/mL
[2024-01-07 14:29] LABS: Troponin I 86 ng/L (<or=76)
--- NOTE | 2024-01-07 14:35 | DI.RAD_ITS ---
Exam(s) XR CHEST 2V PA LATERAL EXAM: XR CHEST 2V PA LATERAL CLINICAL HISTORY: ?chf TECHNIQUE: 2D digital imaging was performed. Two views. COMPARISON: CR,XR XR CHEST 2V PA LATERAL from 09/09/2023 FINDINGS: HEART: Enlarged, unchanged. Pacemaker again noted. Aorta: Not dilated. PULMONARY VASCULATURE: Normal. MEDIASTINUM: Unremarkable. LUNGS: No focal infiltrate or pulmonary edema visible. PLEURAL SPACE: Small bilateral pleural effusions, right greater than left, unchanged. No pneumothora x. BONE:Unremarkable for age. SOFT TISSUES: Unremarkable. IMPRESSION: Small bilateral pleural effusions, stable. DATA REPOSITORY: RADIATION DOSE DELIVERED:
--- NOTE | 2024-01-08 10:08 | NUR.NOTE ---
Nursing Note: Patients daughter called with a few questions about his medication increase. She also wanted to confirm that she received the correct medication because the discharge said lasix and his prescription bottles say furosemide. I reassured her that these are the same medications and per the discharge instructions, he should be taking 160 mg in the morning and the normal 80 mg in the evening. I also instructed her to follow up closely with his PCP for monitoring.
== END 2024-01-07 15:42 | disposition home or self-care (01) ==
PROVIDERS: Emergency Provider Emergency Medicine; PCP Family Medicine
DX: I13.0 Hypertensive heart and chronic kidney disease with heart failure and stage 1 through stage 4 chronic kidney disease, or unspecified chronic kidney disease (principal); E11.22 Type 2 diabetes mellitus with diabetic chronic kidney disease; N18.30 Chronic kidney disease, stage 3 unspecified; I50.9 Heart failure, unspecified; E78.00 Pure hypercholesterolemia, unspecified; I25.10 Atherosclerotic heart disease of native coronary artery without angina pectoris; I25.2 Old myocardial infarction; Z86.73 Personal history of transient ischemic attack (TIA), and cerebral infarction without residual deficits; Z86.711 Personal history of pulmonary embolism; Z79.01 Long term (current) use of anticoagulants; Z79.84 Long term (current) use of oral hypoglycemic drugs; Z79.82 Long term (current) use of aspirin; Z87.891 Personal history of nicotine dependence
CPT/HCPCS: 36415; 80053; 84145; 87637; 93005; 99285; 71046; 83735; 83880; 84484; 85025; 85610; 85730; 93010; 99284

== ENCOUNTER 2024-01-25 17:52 | Inpatient (IN) | payer MEDICARE, SELFPAY ==
[2024-01-25] VITALS (25 sets, daily range): BP systolic 104–158; BP diastolic 36–81; PULSE 72–76; RESP 16–26; TEMP 36.4–36.9; O2SAT 97–100
--- NOTE | 2024-01-25 17:45 | RT.EKG_ITS ---
APPROVED REPORT Exam: Resting ECG Reason for Exam: dyspnea Patient Location: E HR:78 bpm ECG Measurements Heart Rate 78 AXIS AR 53 P 0 QRSd 175 QRS -33 QT 446 T 134 QTc 509 Conclusion Ventricular-paced rhythm V paced rhythm
--- NOTE | 2024-01-25 18:15 | DI.RAD_ITS ---
Exam(s) XR CHEST 2V PA LATERAL EXAM: XR CHEST 2V PA LATERAL CLINICAL HISTORY: SOB, h/o CHF. TECHNIQUE: 2D digital imaging was performed. COMPARISON: CR XR CHEST 2V PA LATERAL from 01/07/2024 FINDINGS: 2 views: Cardiomegaly and bipolar left subclavian pacemaker again noted with lead tips in RA and right ventric le. Mediastinum is not widened. There are small bilateral pleural effusions. There also appears to be some infiltrate in the right l ower lobe posterior basal segment (behind the right-side of the heart). IMPRESSION: Area of infiltrate in the posterior basal segment of the right lower lobe. Small bilateral pleural e ffusions although on the right side the pleural effusion is smaller than on 01/07/2024. Mild pulmonary congestion but less than was evident on 01/07/2024. DATA REPOSITORY: RADIATION DOSE DELIVERED:
--- NOTE | 2024-01-25 18:22 | W.ED.GENAD ---
Discharge Plan Disposition Patient Disposition: Admit to [facility] Discharge Details Clinical Impression: Heart failure, chronic, with acute decompensation, Acute on chronic kidney failure, Anemia Admit Date/Time: 01/25/24 21:04 Admit Provider: David Denny Attending Provider: David Denny Primary Care Provider: Nel Cabrera ED Provider: Kiana Ramos [facility] General Date/Time Provider Initiated Documentation: 01/25/24 18:04. [facility] Narrative: Emir Ayon) is an 88-year-old male with history of chronic CHF, anemia, afib on anticoagulation with Xarelto, NSTEMI, HTN, HLD, T2DM, aortic stenosis, sick sinus syndrome with cardiac pacemaker, and L sided UE paralysis who presents to the emergency department today for evaluation of shortness of breath. He reports that he has been to the emergency department twice for this, was told it was CHF exacerbation H time. After last visit he had his furosemide increased to 160 mg in the morning and 80 mg at night. He reports he felt better after leaving the emergency department, but has had increasing shortness of breath with exertion over the last 3 weeks. Today he had some discomfort going all across his anterior chest that lasted approximately 30 to 45 minutes, and resolved after he burped. He denies associated fever/chills, dizziness, cough, nausea/vomiting, change in p.o. intake, abdominal pain, change in bowel or bladder function, new pedal edema. He has been taking his medications as prescribed. He reports that on one of his previous emergency department visits he had to have the fluid drained from his lung. He denies history of cancer. Physical exam reassuring. Patient is alert and oriented x 4, in no acute distress. Conjunctival pallor noted. Easy work of breathing, able to speak in complete sentences. Inspiratory and expiratory crackles noted in all lung cabrera. Normal heart sounds. Abdomen is soft, nondistended, nontender to palpation with normoactive bowel sounds. No pedal edema. DDx includes but is not limited to: ACS, CHF, severe anemia, obstructive process such as neoplasm, PNA, GERD. Low suspicion for PE based on current anticoagulation with Xarelto. I independently interpreted the following tests: EKG shows ventricular paced rhythm, no changes consistent with acute ischemia, unchanged from previous. Troponins elevated, 420 initial and 649 at one hour, then 697 at 3 hour. Worsening of acute anemia noted, H&H 6.1 and 20.1 today versus 7.6 and 25.3 on 01/07/2024. No thrombocytopenia noted. While in the emergency department Ilya received 1 unit PRBCs for severe anemia. History and presentation today consistent with heart failure coupled with severe anemia and jnyvj-vk-vuegcke kidney disease, likely attributed to increased furosemide dosing. Elevated troponins likely due to demand ischemia. Discussed case with Dr. Denny, hospitalist. Pt to be admitted to [facility]. Related Data Home Medications ?Medication ?Instructions ?Recorded ?Confirmed aspirin 81 mg chewable tablet 81 mg PO DAILY #1 tab-cap 09/28/13 01/25/24 (Aspirin Low-Strength) atorvastatin 80 mg tablet 80 mg PO DAILY #90 tab-caps 09/28/13 01/25/24 [id number]-W-P-pycimw-tbtnpqt-min 1 ea PO DAILY ##1 09/28/13 01/25/24 3,300 unit-5 mg-200mg-75 unit tablet ER (ICaps) amlodipine 10 mg tablet (Norvasc) 10 mg PO DAILY 10/21/14 01/25/24 lisinopril 5 mg tablet 5 mg PO DAILY 03/15/17 01/25/24 sitagliptin phosphate 100 mg 100 mg PO DAILY 03/15/17 01/25/24 tablet (Januvia) glimepiride 1 mg tablet 1 mg PO QAM 07/16/18 01/25/24 rivaroxaban 15 mg tablet (Xarelto) 15 mg PO QPM 07/16/18 01/25/24 phenytoin sodium extended 100 mg 100 mg PO BID 04/15/20 01/25/24 capsule (Dilantin Extended) multivitamin 1 tab PO DAILY 04/27/21 01/25/24 naproxen 500 mg tablet 500 mg PO BID PRN 04/27/21 01/25/24 trazodone 50 mg tablet 50 mg PO QHS PRN 05/02/22 01/25/24 silver sulfadiazine 1 % topical 1 applic topical BID #50 grams 08/12/22 01/25/24 cream (Silvadene) mirtazapine 7.5 mg tablet 7.5 mg PO DAILY 04/26/23 01/25/24 albuterol sulfate 90 mcg/actuation 2 inh inhalation 6XD PRN 10/24/23 01/25/24 aerosol inhaler (Ventolin HFA) furosemide 80 mg tablet 80 mg PO BID 11/22/23 01/25/24 paroxetine HCl 10 mg/5 mL oral 10 mg PO QAM 11/22/23 01/25/24 suspension Previous Rx's ?Medication ?Instructions ?Recorded silver sulfadiazine 1 % topical 1 applic topical BID #50 grams 08/12/22 cream (Silvadene) Allergies Allergy/AdvReac Type Severity Reaction Status Date / Time metformin Allergy Unknown Diarrhea Verified 01/25/24 18:01 ezetimibe (From Vytorin) AdvReac FAILED Verified 01/25/24 18:01 lisinopril AdvReac Hyperkalemi Verified 01/25/24 18:01 a simvastatin (From Vytorin) AdvReac FAILED Verified 01/25/24 18:01 General Stated Complaint: SOB DEENA: 3 Review of Systems Narrative: see HPI Exam Narrative Exam Narrative: conjunctival pallor noted Const General: cooperative, healthy appearing and no acute distress Nutritional Appearance: average body habitus and thin Orientation: alert and oriented x3 Resp Effort & Inspection: normal respiratory effort and able to speak in complete sentences Auscultation: rales bilaterally Cardio Rate: regular rate Rhythm: regular rhythm GI Inspection: normal to inspection and non-distended Palpation: not firm, not rigid and nontender Auscultation: normal bowel sounds Skin General skin exam: no rashes or lesions noted Extrem General: no pedal edema Course Vital Signs Vital signs: Vital Signs Temperature 36.4 C 01/25/24 17:55 Pulse 74 01/25/24 17:55 Respiratory Rate 20 01/25/24 17:55 Blood Pressure 147/63 H 01/25/24 17:55 Pulse Oximetry 98 01/25/24 17:55 Temperature 36.4 C 01/25/24 17:55 Temperature Source Temporal Artery Scan 01/25/24 17:55 Pulse 74 01/25/24 17:55 Respiratory Rate 20 01/25/24 17:55 Blood Pressure 147/63 H 01/25/24 17:55 Pulse Oximetry 98 01/25/24 17:55 Oxygen Delivery Method Room Air 01/25/24 17:55 Oxygen Flow Rate 0 01/25/24 17:55 Pain Level 0 01/25/24 17:55 Medical Decision Making Quality:SDOH Health Related Social Needs: No Data to Display PFSH All Active Problems (Updated 01/25/24 @ 22:13 by Kiana Mccullough) Anemia (Chronic) Hypomagnesemia (Acute) Elevated troponin level not due to acute coronary syndrome (Acute) CKD (chronic kidney disease) (Chronic) CHF exacerbation (Acute) Shortness of breath (Acute) Osteoarthritis of knees, bilateral (Acute) Heart failure (Chronic) Skin lesion of face (Acute) Anemia (Chronic) NSTEMI (non-ST elevated myocardial infarction) (Acute) Acute on chronic kidney failure (Acute) Heart failure, chronic, with acute decompensation (Acute) Hyperkalemia (Acute) Pleural effusion (Chronic) Memory change (Acute) Paralysis of left upper extremity (Acute) Third degree burn of finger of left hand excluding thumb (Acute) Burn of finger (Acute) Sick sinus syndrome (Chronic) pt. unsure of this medical hx Essential hypertension (Chronic) Hyperlipidemia (Chronic) DM2 (diabetes mellitus, type 2) (Chronic) Mild aortic stenosis (Chronic) Cardiac pacemaker (Acute 08/17/17) [employer] [place] XT DR MRI model # [id number] serial # [id number] (pulse generator) Ventricular electrodes: [employer]tronic CapsureFix Model # 5076-58 cm Serial # [id number] Atrial electrodes: [employer]tronic CapsureFix model # 5076-52 cm serial # [id number] Right rotator cuff tendinitis (Acute) Corticosteroid injection: 07/16/18 Persistent atrial fibrillation (Acute) Onset mid May 2019 - ongoing as of 06/25/2019 - sinus restored Onset again January 2021 - ongoing as of 10/26/2021 DC cardioversion [facility] 10/2021 - on amiodarone; recurrent in February 2022 - amiodarone stopped Osteoarthritis of carpometacarpal joint of right thumb (Acute) Trochanteric bursitis, left hip (Acute) Steroid injection: 12/07/2020; 03/17/2020 Trochanteric bursitis, right hip (Acute) Steroid injection: 12/07/2020; 03/17/2020 Traumatic arthropathy, right shoulder (Acute) Most recent Depo-Medrol injection: 11/22/2021; 05/24/2022 Medical History 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 states he doesn't remember ever having any History of TIA (transient ischemic attack) and stroke Per pt. in 2003 had carotid artery surgery, after procedure pt. suffered a stroke, pt. states full forearm numbness and parts of left leg Surgical History History of thoracentesis (~04/2023) FH: carotid endarterectomy History of permanent cardiac pacemaker placement Family History Brother Family history of premature coronary heart disease Sister Family history of premature coronary heart disease Social History Smoking/Tobacco Use Status: Former Tobacco Use Quit Date: 04/09/84 Pack-years: 30 Second Hand Exposure: No Smoking risk assessment performed?: Yes Alcohol Intake: never Drug use: Never Substance use type: does not use Housing: house Current gender identity: male Do you feel safe at home: Yes (lives alone) Do you feel safe in your relationship?: Yes
[2024-01-25 18:42] LABS: Abs Immature Grans 0.04 10^3/uL (0.0-0.06); Absolute Basophil Count 0.04 10^3/uL (0.0-0.2); Absolute Eosinophil Count 0.06 10^3/uL (0.0-0.7); Absolute Lymphocyte Count 1.47 10^3/uL (1.2-3.4); Absolute Monocyte Count 0.67 10^3/uL (0.1-0.8); Absolute Neutrophil Count 4.02 10^3/uL (1.2-6.7); Basophils % 0.6 %; Immature Grans % 0.6 %; Lymphocytes % 23.3 %; MCH 24.5 pg (27.0-33.0); MCHC 30.3 % (32.0-36.0); MCV 81 fL (80-95); MPV 11.6 fL (8.0-11.0); Monocytes % 10.6 %; Neutrophils % 63.9 %; Platelet Count 197 10^3/uL (130-400); RBC 2.49 10^6/uL (4.36-5.78); RDW 16.6 % (11.8-14.1); RDW-SD 47.8 fL
[2024-01-25 18:45] LABS: HCT 20.1 % (40.0-50.0); HGB 6.1 g/dL (13.5-17.5)
[2024-01-25 18:51] LABS: Hypochromasia 2+
[2024-01-25 19:02] LABS: Lab Add On Test DONE
[2024-01-25 19:08] LABS: ALT 16 U/L (16-63); AST 38 U/L (15-37); Albumin 3.3 g/dL (3.4-5.0); Alkaline Phosphatase 145 U/L (46-116); Anion Gap 15.2 mmol/L (3-11); Bilirubin, Total 0.22 mg/dL (0.2-1.0); CO2 22.8 mmol/L (21.0-32.0); CREATININE 3.1 mg/dL (0.70-1.30); Chloride 100 mmol/L (98-107); Estimated GFR 18.74 (mL/min/1.73m2); Glucose 207 mg/dL (74-106); Magnesium 1.7 mg/dL (1.8-2.4); NT-proBNP 5274 pg/mL (<300); Potassium 4.8 mmol/L (3.5-5.1); Sodium 138 mmol/L (136-145)
[2024-01-25 19:09] LABS: BUN 89 mg/dL (7-18); Troponin I 420 ng/L (<or=76)
--- NOTE | 2024-01-25 19:49 | DI.VRAD_ITS ---
PROCEDURE INFORMATION: Exam: XR Chest Exam date and time: 01/25/2024 7:12 PM Age: 88 years old Clinical indication: Shortness of breath; Additional info: SOB, h/o chf TECHNIQUE: Imaging protocol: Radiologic exam of the chest. Views: 2 views. COMPARISON: CR XR CHEST 2V PA LATERAL 01/07/2024 2:31 PM FINDINGS: Lungs: No acute lung infiltrates. No pulmonary edema or interstitial edema. Pleural spaces: Blunting of the costophrenic angles bilaterally suggesting small pleural effusions. Heart/Mediastinum: Normal heart size. Left chest pacemaker. Bones/joints: Degenerative thoracic spine. IMPRESSION: 1. No acute infiltrates or pulmonary edema. 2. Small bilateral pleural effusions with blunted costophrenic angles. Pleural effusions appear to have decreased slightly in size since prior study 01/07/2024. 3. Cardiac pacemaker. Dictated and Authenticated by: Emil Kimbrough MD. Ordering:CHAPIS Bruno MD
[2024-01-25 19:51] LABS: Procalcitonin < 0.1 ng/mL
--- NOTE | 2024-01-25 20:27 | W.PM.HP.N ---
Date of service: 01/25/24 Time of Service: 20:27 Assessment and Plan Assessment and plan (1) Dyspnea on exertion: Start date: 01/25/24 Assessment and plan: This is an 88-year-old gentleman with progressive shortness of breath over weeks prior to admission becoming so severe that he could not walk across the room. He did have an episode of chest pressure which was relieved by belching and no other associated symptoms prior to presentation. This found to be severely anemic and was given 1 unit of packed red blood cells with his hemoglobin just above 7 g/dL with no symptoms at rest. Because of his increasing trend in troponins though not dramatic with associated CKD, The patient was given 1 more units of thyroid blood cells and [facility] cardiology will be consulted if his troponins do not plateau. Repeat EKG will be performed though patient does have paced rhythm. He is not having ongoing resting symptoms and has had no recurrent chest pressure. He is a full code. (2) Anemia: Start date: 01/25/24 Status: Chronic Assessment and plan: Patient has progressive anemia and this may be associated with CKD and iron deficiency. Patient did have complaints of melanotic stools a month prior to admission and he is taking naproxen daily rather than as needed with his family prefilling his medications. Occult blood test will be done on his stool and surgery was consulted for possible EGD. Patient will be n.p.o. after midnight. Qualifiers: Anemia type: due to chronic kidney disease Chronic kidney disease stage: stage 4 (severe) Qualified Code(s): N18.4 - Chronic kidney disease, stage 4 (severe); D63.1 - Anemia in chronic kidney disease (3) Heart failure: Status: Chronic Assessment and plan: This appears chronic and stable. Patient does have recurrent pleural effusions which is being evaluated. Avoid fluid overload and continue outpatient furosemide twice daily. ED physician did report the patient recently had increase Lasix therapy which may have prompted his elevation of creatinine level and exacerbation of CKD. Qualifiers: Heart failure chronicity: unspecified Heart failure type: diastolic Qualified Code(s): I50.30 - Unspecified diastolic (congestive) heart failure (4) Hypomagnesemia: Start date: 01/25/24 Status: Acute Assessment and plan: Replete and follow-up lab. (5) Elevated troponin level not due to acute coronary syndrome: Start date: 01/25/24 Status: Acute Assessment and plan: Patient's troponins will be trended with thus far not plateauing though he is asymptomatic. This could be associated with his acute anemia and presentation with persistence of elevation because of CKD. [facility]ology will be consulted. Recent echocardiogram was reassuring. (6) Pleural effusion: Status: Chronic Assessment and plan: Continue follow-up with evaluation as outpatient. This appears to be stable. (7) CKD (chronic kidney disease): Status: Chronic Assessment and plan: Monitor while hospitalized. This is progressive and probably associated with diabetes. Qualifiers: Chronic kidney disease stage: stage 4 (severe) Qualified Code(s): N18.4 - Chronic kidney disease, stage 4 (severe) (8) Atherosclerosis of coronary artery without angina pectoris: Assessment and plan: Patient is having increased troponin levels trending upward slowly. He is asymptomatic. Repeat EKG and continue Xarelto. Consultation with [facility] cardiology if continues to trend upward. Qualifiers: Coronary Disease-Associated Artery/Lesion type: [place] artery [place] vs. transplanted heart: [place] heart Qualified Code(s): I25.10 - Atherosclerotic heart disease of [place] coronary artery without angina pectoris (9) Persistent atrial fibrillation: Status: Chronic Assessment and plan: Patient did have sick sinus syndrome with atrial fibrillation and presently is completely paced rhythm. (10) Cardiac pacemaker: Status: Chronic Assessment and plan: Completely paced rhythm at this time. (11) Essential hypertension: Status: Chronic Assessment and plan: Continue outpatient medical therapy monitoring and adjusting as needed. (12) DM2 (diabetes mellitus, type 2): Status: Chronic Assessment and plan: Glucometers before meals and at bedtime with moderate sliding scale short acting insulin for coverage while hospitalized. Hold outpatient medical therapy except for Januvia. Qualifiers: Chronic kidney disease stage: stage 4 (severe) Diabetes mellitus complication detail: with chronic kidney disease Diabetes mellitus complication status: with kidney complications Diabetes mellitus snf insulin use: without snf use Qualified Code(s): E11.22 - Type 2 diabetes mellitus with diabetic chronic kidney disease; N18.4 - Chronic kidney disease, stage 4 (severe) (13) Hyperlipidemia: Status: Chronic Assessment and plan: Continue outpatient statin therapy. Qualifiers: Hyperlipidemia type: mixed hyperlipidemia Qualified Code(s): E78.2 - Mixed hyperlipidemia History of Present Illness History of Present Illness Chief Complaint: Progressively increasing shortness of breath over the last 3 weeks Narrative: This is an 88-year-old male patient with a history of atrial fibrillation with sick sinus syndrome having paced beats on Xarelto presenting with progressive shortness of breath with exertion over the last 3 weeks with a history of progressive anemia that has not been fully evaluated by history. He does have an increased RDW and does have CKD with a slightly worsened with increasing use of diuretics recently. He does have normal potassium but hypomagnesemia with chronic diuretic therapy. His magnesium will be repleted. He was initiated on 1 unit of packed red blood cells for his symptomatic anemia. Anemia deficiency panel will be checked on admitting serum prior to transfusion. He did have an adequate left ventricular ejection fraction with no focal wall motion abnormalities in August 2023 by echocardiogram but increased PA pressure. Recently is that recurrent pleural effusions with continuing evaluation. He did have a short episode of chest pressure which was relieved by belching and his troponins were elevated in the ED which may be associated with his CKD most likely secondary to demand with his anemia and increased shortness of breath recently over weeks of progressive symptoms. [facility] cardiology was not consulted in the ED and we will trend troponins with discussion with cardiology if marked increase. For now this appears to be nonischemic elevation of his troponins. He had no associated symptoms and presently is asymptomatic. EKG is uninterpretable with paced rhythm. He will be on cardiac monitoring. He already is on Xarelto and heparin was not initiated. His main presentation is his shortness of breath with his progressive anemia and he did receive 1 unit of packed red blood cells with follow-up and further transfusion only if needed. Long-term he will need to have an evaluation for possible CKD associated anemia and Epogen injections. He is a full code. He did indicate he may not want to pursue continued CODE STATUS and this can be discussed with palliative care if needed during this hospitalization and at least with his PCP. Review of Systems Narrative: 13 point review of systems negative for change and peripheral edema or weight gain, possibly melanotic stool 1 to 2 months prior to admission which self resolved, otherwise unrevealing or stable. [facility] All Active Problems (Updated 01/26/24 @ 06:53 by David Denny) Anemia (Chronic) Hypomagnesemia (Acute) Elevated troponin level not due to acute coronary syndrome (Acute) CKD (chronic kidney disease) (Chronic) CHF exacerbation (Acute) Shortness of breath (Acute) Osteoarthritis of knees, bilateral (Acute) Heart failure (Chronic) Skin lesion of face (Acute) Anemia (Chronic) NSTEMI (non-ST elevated myocardial infarction) (Acute) Acute on chronic kidney failure (Acute) Heart failure, chronic, with acute decompensation (Acute) Hyperkalemia (Acute) Pleural effusion (Chronic) Memory change (Acute) Paralysis of left upper extremity (Acute) Third degree burn of finger of left hand excluding thumb (Acute) Burn of finger (Acute) Sick sinus syndrome (Chronic) pt. unsure of this medical hx Essential hypertension (Chronic) Hyperlipidemia (Chronic) DM2 (diabetes mellitus, type 2) (Chronic) Mild aortic stenosis (Chronic) Cardiac pacemaker (Chronic 08/17/17) [employer] [place] XT DR MRI model # [id number] serial # [id number] (pulse generator) Ventricular electrodes: Medtronic CapsureFix Model # 5076-58 cm Serial # [id number] Atrial electrodes: [employer]tronic CapsureFix model # 5076-52 cm serial # [id number] Right rotator cuff tendinitis (Acute) Corticosteroid injection: 07/16/18 Persistent atrial fibrillation (Chronic) Onset mid May 2019 - ongoing as of 06/25/2019 - sinus restored Onset again January 2021 - ongoing as of 10/26/2021 DC cardioversion [facility] 10/2021 - on amiodarone; recurrent in February 2022 - amiodarone stopped Osteoarthritis of carpometacarpal joint of right thumb (Acute) Trochanteric bursitis, left hip (Acute) Steroid injection: 12/07/2020; 03/17/2020 Trochanteric bursitis, right hip (Acute) Steroid injection: 12/07/2020; 03/17/2020 Traumatic arthropathy, right shoulder (Acute) Most recent Depo-Medrol injection: 11/22/2021; 05/24/2022 Medical History 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 states he doesn't remember ever having any History of TIA (transient ischemic attack) and stroke Per pt. in 2003 had carotid artery surgery, after procedure pt. suffered a stroke, pt. states full forearm numbness and parts of left leg Surgical History History of thoracentesis (~04/2023) FH: carotid endarterectomy History of permanent cardiac pacemaker placement Family History Brother Family history of premature coronary heart disease Sister Family history of premature coronary heart disease Social History Smoking/Tobacco Use Status: Former Tobacco Use Quit Date: 04/09/84 Pack-years: 30 Second Hand Exposure: No Smoking risk assessment performed?: Yes Alcohol Intake: never Drug use: Never Substance use type: does not use Housing: house Current gender identity: male Do you feel safe at home: Yes (lives alone) Do you feel safe in your relationship?: Yes Meds Allergies and Home Medications Allergies Allergy/AdvReac Type Severity Reaction Status Date / Time metformin Allergy Unknown Diarrhea Verified 01/25/24 18:01 ezetimibe (From Vytorin) AdvReac FAILED Verified 01/25/24 18:01 lisinopril AdvReac Hyperkalemi Verified 01/25/24 18:01 a simvastatin (From Vytorin) AdvReac FAILED Verified 01/25/24 18:01 Home Medications ?Medication ?Instructions ?Recorded ?Confirmed ?Type aspirin 81 mg chewable tablet 81 mg PO DAILY #1 tab-cap 09/28/13 01/25/24 History (Aspirin Low-Strength) atorvastatin 80 mg tablet 80 mg PO DAILY #90 tab-caps 09/28/13 01/25/24 History [id number]-min 1 ea PO DAILY ##1 09/28/13 01/25/24 History 3,300 unit-5 mg-200mg-75 unit tablet ER (ICaps) amlodipine 10 mg tablet (Norvasc) 10 mg PO DAILY 10/21/14 01/25/24 History lisinopril 5 mg tablet 5 mg PO DAILY 03/15/17 01/25/24 History sitagliptin phosphate 100 mg 100 mg PO DAILY 03/15/17 01/25/24 History tablet (Januvia) glimepiride 1 mg tablet 1 mg PO QAM 07/16/18 01/25/24 History rivaroxaban 15 mg tablet (Xarelto) 15 mg PO QPM 07/16/18 01/25/24 History phenytoin sodium extended 100 mg 100 mg PO BID 04/15/20 01/25/24 History capsule (Dilantin Extended) multivitamin 1 tab PO DAILY 04/27/21 01/25/24 History naproxen 500 mg tablet 500 mg PO BID PRN 04/27/21 01/25/24 History trazodone 50 mg tablet 50 mg PO QHS PRN 05/02/22 01/25/24 History silver sulfadiazine 1 % topical 1 applic topical BID #50 grams 08/12/22 01/25/24 Rx cream (Silvadene) mirtazapine 7.5 mg tablet 7.5 mg PO DAILY 04/26/23 01/25/24 History albuterol sulfate 90 mcg/actuation 2 inh inhalation 6XD PRN 10/24/23 01/25/24 History aerosol inhaler (Ventolin HFA) furosemide 80 mg tablet 80 mg PO BID 11/22/23 01/25/24 History paroxetine HCl 10 mg/5 mL oral 10 mg PO QAM 11/22/23 01/25/24 History suspension Exam Narrative Exam Narrative: General: Patient appears appropriate for age, alert and oriented x 3 and in no acute distress. HEENT: Normocephalic, eyes with pupils equal and react to light symmetric, extraocular liver intact and sclera anicteric. Oropharynx with moist [place] and fair dentition. Neck: Supple without JVD. Back: Slightly stooped posture without CVA tenderness. Lungs: Fair aeration and clear to auscultation and percussion. No focalizing rales or rhonchi. No expiratory wheeze. Heart: Regular rate and rhythm with no appreciable murmur or gallop. Palpable pacemaker subcutaneously left upper chest. Abdomen: Normal contour, soft and nontender to palpation with no palpable hepatosplenomegaly. Bowel sounds positive all quadrants. Genitalia/rectal: Exam deferred. Extremity: 1+ pitting edema over both lower extremities with chronic nonpitting edema the patient reporting unchanged from baseline. Skin changes over legs with hyperpigmentation and loss of hair but no ulcerations. No cyanosis or clubbing. Good capillary refill. Skin: Normal color, warm and dry. Chronic changes over legs. Rough texture with actinic changes over sun exposed areas. Neuro: Cranial nerves II through XII gross intact, no focal motor deficits. No tremor. Psych: Normal affect and mood. Remote and recent memory grossly intact. No abnormal thought processes. Results Imaging Imaging Studies: Exam: XR Chest Exam date and time: 01/25/2024 7:12 PM Age: 88 years old Clinical indication: Shortness of breath; Additional info: SOB, h/o chf TECHNIQUE: Imaging protocol: Radiologic exam of the chest. Views: 2 views. COMPARISON: CR XR CHEST 2V PA LATERAL 01/07/2024 2:31 PM FINDINGS: Lungs: No acute lung infiltrates. No pulmonary edema or interstitial edema. Pleural spaces: Blunting of the costophrenic angles bilaterally suggesting small pleural effusions. Heart/Mediastinum: Normal heart size. Left chest pacemaker. Bones/joints: Degenerative thoracic spine. IMPRESSION: 1. No acute infiltrates or pulmonary edema. 2. Small bilateral pleural effusions with blunted costophrenic angles. Pleural effusions appear to have decreased slightly in size since prior study 01/07/2024. 3. Cardiac pacemaker. EXAM: Comprehensive 2D, Doppler, and color-flow Echocardiogram Date of Exam: 08/27/23 Indications: heart failure Other Information Study Quality: Technically Limited. Technically limited study due to body habitus, inability to position patient. Conclusion Technically difficult but adequate study Normal left ventricular wall thickness and chamber size. Ejection fraction is 50 to 55%. There are no segmental wall motion abnormalities Normal right ventricular size and function Both atria are normal in size Device lead noted in the right heart Grossly normal appearance of the aortic valve. Mean gradient is 9 mmHg Mild mitral and tricuspid regurgitation Estimated right ventricular systolic pressure is 41 mmHg Labs 01/26/24 03:22 01/25/24 18:34 Labs: Laboratory Results - last 24 hr 10/18/24 10/18/24 10/18/24 18:34 18:34 18:34 WBC 6.30 RBC 2.49 L Hgb 6.1 L* Hct 20.1 L* MCV 81 MCH 24.5 L MCHC 30.3 L RDW 16.6 H Plt Count 197 MPV 11.6 H Immature Gran % 0.6 Neutrophils % 63.9 Lymphocytes % 23.3 Monocytes % 10.6 Eosinophils % 1.0 Basophils % 0.6 Nucleated RBC % 0.0 Absolute Neutrophils 4.02 Absolute Lymphocytes 1.47 Absolute Monocytes 0.67 Absolute Eosinophils 0.06 Absolute Basophils 0.04 RBC Morphology See Below Hypochromasia 2+ Sodium 138 Cancelled Potassium 4.8 Cancelled Chloride 100 Carbon Dioxide Anion Gap BUN Creatinine Est GFR (CKD-EPI 2020) Glucose Calcium Magnesium Total Bilirubin AST ALT Alkaline Phosphatase Troponin I NT-Pro-B Natriuret Pep Total Protein Albumin Procalcitonin Add-On Test Request ABO/Rh Blood Type Recheck Antibody Screen Crossmatch 01/25/24 01/25/24 01/25/24 18:34 18:34 18:34 WBC RBC Hgb Hct MCV MCH MCHC RDW Plt Count MPV Immature Gran % Neutrophils % Lymphocytes % Monocytes % Eosinophils % Basophils % Nucleated RBC % Absolute Neutrophils Absolute Lymphocytes Absolute Monocytes Absolute Eosinophils Absolute Basophils RBC Morphology Hypochromasia Sodium Potassium Chloride Cancelled Carbon Dioxide 22.8 Cancelled Anion Gap 15.2 H Cancelled BUN 89 H* Creatinine Est GFR (CKD-EPI 2020) Glucose Calcium Magnesium Total Bilirubin AST ALT Alkaline Phosphatase Troponin I NT-Pro-B Natriuret Pep Total Protein Albumin Procalcitonin Add-On Test Request ABO/Rh Blood Type Recheck Antibody Screen Crossmatch 01/25/24 01/25/24 01/25/24 18:34 18:34 18:34 WBC RBC Hgb Hct MCV MCH MCHC RDW Plt Count MPV Immature Gran % Neutrophils % Lymphocytes % Monocytes % Eosinophils % Basophils % Nucleated RBC % Absolute Neutrophils Absolute Lymphocytes Absolute Monocytes Absolute Eosinophils Absolute Basophils RBC Morphology Hypochromasia Sodium Potassium Chloride Carbon Dioxide Anion Gap BUN Cancelled Creatinine 3.1 H Cancelled Est GFR (CKD-EPI 2020) 18.74 Cancelled Glucose 207 H Calcium Magnesium Total Bilirubin AST ALT Alkaline Phosphatase Troponin I NT-Pro-B Natriuret Pep Total Protein Albumin Procalcitonin Add-On Test Request ABO/Rh Blood Type Recheck Antibody Screen Crossmatch 01/25/24 01/25/24 01/25/24 18:34 18:34 18:34 WBC RBC Hgb Hct MCV MCH MCHC RDW Plt Count MPV Immature Gran % Neutrophils % Lymphocytes % Monocytes % Eosinophils % Basophils % Nucleated RBC % Absolute Neutrophils Absolute Lymphocytes Absolute Monocytes Absolute Eosinophils Absolute Basophils RBC Morphology Hypochromasia Sodium Potassium Chloride Carbon Dioxide Anion Gap BUN Creatinine Est GFR (CKD-EPI 2020) Glucose Cancelled Calcium 8.0 L Cancelled Magnesium 1.7 L Cancelled Total Bilirubin 0.22 AST ALT Alkaline Phosphatase Troponin I NT-Pro-B Natriuret Pep Total Protein Albumin Procalcitonin Add-On Test Request ABO/Rh Blood Type Recheck Antibody Screen Crossmatch 01/25/24 01/25/24 01/25/24 18:34 18:34 18:34 WBC RBC Hgb Hct MCV MCH MCHC RDW Plt Count MPV Immature Gran % Neutrophils % Lymphocytes % Monocytes % Eosinophils % Basophils % Nucleated RBC % Absolute Neutrophils Absolute Lymphocytes Absolute Monocytes Absolute Eosinophils Absolute Basophils RBC Morphology Hypochromasia Sodium Potassium Chloride Carbon Dioxide Anion Gap BUN Creatinine Est GFR (CKD-EPI 2020) Glucose Calcium Magnesium Total Bilirubin Cancelled AST 38 H Cancelled ALT 16 Cancelled Alkaline Phosphatase 145 H Troponin I NT-Pro-B Natriuret Pep Total Protein Albumin Procalcitonin Add-On Test Request ABO/Rh Blood Type Recheck Antibody Screen Crossmatch 01/25/24 01/25/24 01/25/24 18:34 18:34 18:34 WBC RBC Hgb Hct MCV MCH MCHC RDW Plt Count MPV Immature Gran % Neutrophils % Lymphocytes % Monocytes % Eosinophils % Basophils % Nucleated RBC % Absolute Neutrophils Absolute Lymphocytes Absolute Monocytes Absolute Eosinophils Absolute Basophils RBC Morphology Hypochromasia Sodium Potassium Chloride Carbon Dioxide Anion Gap BUN Creatinine Est GFR (CKD-EPI 2020) Glucose Calcium Magnesium Total Bilirubin AST ALT Alkaline Phosphatase Cancelled Troponin I 420 H* NT-Pro-B Natriuret Pep 5274 H Total Protein 7.0 Cancelled Albumin 3.3 L Cancelled Procalcitonin < 0.1 Add-On Test Request ABO/Rh Blood Type Recheck Cancelled Antibody Screen Crossmatch 01/25/24 01/25/24 01/25/24 18:34 18:52 19:23 WBC RBC Hgb Hct MCV MCH MCHC RDW Plt Count MPV Immature Gran % Neutrophils % Lymphocytes % Monocytes % Eosinophils % Basophils % Nucleated RBC % Absolute Neutrophils Absolute Lymphocytes Absolute Monocytes Absolute Eosinophils Absolute Basophils RBC Morphology Hypochromasia Sodium Potassium Chloride Carbon Dioxide Anion Gap BUN Creatinine Est GFR (CKD-EPI 2020) Glucose Calcium Magnesium Total Bilirubin AST ALT Alkaline Phosphatase Troponin I NT-Pro-B Natriuret Pep Total Protein Albumin Procalcitonin Add-On Test Request DONE ABO/Rh A Positive Blood Type Recheck A Positive Antibody Screen NEGATIVE Crossmatch See Detail Last Vital Signs Temp 36.9 C 01/25/24 20:12 Pulse 74 01/25/24 20:16 Resp 21 01/25/24 20:16 BP 138/53 L 01/25/24 20:16 Pulse Ox 99 01/25/24 20:16 Time Spent Time spent with Patient: >75 minutes Time was spent: preparing to see the patient(eg.review tests), obtaining and/or reviewing separately otained hiistory, ordering medications,tests, procedures, indepentently interpreting results, counseling the patient and care coordination
[2024-01-25 21:02] LABS: Troponin I 649 ng/L (<or=76)
[2024-01-25 22:05] LABS: Troponin I 697 ng/L (<or=76)
[2024-01-25 22:10] LABS: COVID-19 PCR Negative (Negative); Influenza A PCR Negative (Negative); Influenza B PCR Negative (Negative); RSV PCR Negative (Negative)
[2024-01-25 22:11] LABS: Source NASOPHARYNX
--- NOTE | 2024-01-25 22:19 | W.PC.ACHO ---
Registration Status: Primary Language: Preferred Language: ED Information & Data Chief Complaint SOB 01/25/24 19:59 Chief Complaint SOB 01/25/24 18:26 Triage Note Patient presented with 01/25/24 17:55 daughter in law with known history of CHF. But presented today with SOB for the past 2-3 weeks. Patient daughter in law state symptoms' has gotten worsened over the past couple of day. 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 Hemiplegia Insomnia Depressive disorder Nicotine dependence Pure hypercholesterolemia Paroxysmal atrial fibrillation Pulmonary embolus Seizure disorder History of TIA (transient ischemic attack) and stroke (Last Reviewed 01/25/24 @ 20:31 by David Denny) History of thoracentesis (~04/2023) FH: carotid endarterectomy History of permanent cardiac pacemaker placement Most Recent Vital Signs Temperature 36.8 C 01/25/24 22:09 Temperature Source Temporal Artery Scan 01/25/24 20:12 Pulse 75 01/25/24 22:09 Pulse 75 01/25/24 20:16 Respiratory Rate 20 01/25/24 22:09 Respiratory Effort Non-Labored, Short of Breath 01/25/24 19:59 Respiratory Depth Normal 01/25/24 19:59 Respiratory Pattern Normal 01/25/24 19:59 Blood Pressure 131/81 01/25/24 22:09 Blood Pressure Mean 81 01/25/24 20:16 Blood Pressure Position Supine 01/25/24 20:12 Pulse Oximetry 98 01/25/24 22:09 Oxygen Delivery Method Room Air 01/25/24 22:09 Oxygen Flow Rate 0 01/25/24 22:09 Pain Level 0 01/25/24 20:12 Allergies metformin Allergy (Unknown, Verified 01/25/24 18:01) Diarrhea ezetimibe (From Vytorin) Adverse Reaction (Verified 01/25/24 18:01) FAILED lisinopril Adverse Reaction (Verified 01/25/24 18:01) Hyperkalemia simvastatin (From Vytorin) Adverse Reaction (Verified 01/25/24 18:01) FAILED Precautions Isolation Standard precaution 01/25/24 19:59 IV IV Catheter Type [Right Saline Lock Forearm] IV Catheter Type [Right Peripheral IV Antecubital] IV Catheter Gauge [Right 22 Forearm] IV Catheter Gauge [Right 20 Antecubital] Diet Orders Category Date Time Status Diabetes Consistent CHO/Heart Healthy [DIET] Nutrition 01/26/24 Breakfast Ordered Diagnostics 01/25/24 01/25/24 01/25/24 Range/Units 22:07 21:39 21:25 WBC Pending (4.4-10.8) 10^3/uL RBC Pending (4.36-5.78) 10^6/uL Hgb Pending (13.5-17.5) g/dL Hct Pending (40.0-50.0) % MCV Pending (80-95) fL MCH Pending (27.0-33.0) pg MCHC Pending (32.0-36.0) % RDW Pending (11.8-14.1) % Plt Count Pending (130-400) 10^3/uL MPV Pending (8.0-11.0) fL Immature Gran % % Neutrophils % % Lymphocytes % % Monocytes % % Eosinophils % % Basophils % % Nucleated RBC % (0.0-0.3) % Absolute Neutrophils (1.2-6.7) 10^3/uL Absolute Lymphocytes (1.2-3.4) 10^3/uL Absolute Monocytes (0.1-0.8) 10^3/uL Absolute Eosinophils (0.0-0.7) 10^3/uL Absolute Basophils (0.0-0.2) 10^3/uL RBC Morphology Hypochromasia Sodium (136-145) mmol/L Potassium (3.5-5.1) mmol/L Chloride (98-107) mmol/L Carbon Dioxide (21.0-32.0) mmol/L Anion Gap (3-11) mmol/L BUN (7-18) mg/dL Creatinine (0.70-1.30) mg/dL Est GFR (CKD-EPI 2020) (mL/min/1.73m2) Glucose (74-106) mg/dL Calcium (8.5-10.1) mg/dL Magnesium (1.8-2.4) mg/dL Iron Ferritin Total Bilirubin (0.2-1.0) mg/dL AST (15-37) U/L ALT (16-63) U/L Alkaline Phosphatase (46-116) U/L Troponin I Pending 697 H* (<or=76) ng/L NT-Pro-B Natriuret Pep (<300) pg/mL Total Protein (6.4-8.2) g/dL Albumin (3.4-5.0) g/dL Vitamin B12 Folate Procalcitonin ng/mL TSH Pending COVID-19 Source Pending SARS-CoV-2 (PCR) Pending Influenza Type A (PCR) Pending Influenza Type B (PCR) Pending RSV (PCR) Pending Add-On Test Request ABO/Rh Blood Type Recheck Antibody Screen Crossmatch 01/25/24 01/25/24 01/25/24 Range/Units 21:04 20:32 19:23 WBC (4.4-10.8) 10^3/uL RBC (4.36-5.78) 10^6/uL Hgb (13.5-17.5) g/dL Hct (40.0-50.0) % MCV (80-95) fL MCH (27.0-33.0) pg MCHC (32.0-36.0) % RDW (11.8-14.1) % Plt Count (130-400) 10^3/uL MPV (8.0-11.0) fL Immature Gran % % Neutrophils % % Lymphocytes % % Monocytes % % Eosinophils % % Basophils % % Nucleated RBC % (0.0-0.3) % Absolute Neutrophils (1.2-6.7) 10^3/uL Absolute Lymphocytes (1.2-3.4) 10^3/uL Absolute Monocytes (0.1-0.8) 10^3/uL Absolute Eosinophils (0.0-0.7) 10^3/uL Absolute Basophils (0.0-0.2) 10^3/uL RBC Morphology Hypochromasia Sodium (136-145) mmol/L Potassium (3.5-5.1) mmol/L Chloride (98-107) mmol/L Carbon Dioxide (21.0-32.0) mmol/L Anion Gap (3-11) mmol/L BUN (7-18) mg/dL Creatinine (0.70-1.30) mg/dL Est GFR (CKD-EPI 2020) (mL/min/1.73m2) Glucose (74-106) mg/dL Calcium (8.5-10.1) mg/dL Magnesium (1.8-2.4) mg/dL Iron Pending Ferritin Pending Total Bilirubin (0.2-1.0) mg/dL AST (15-37) U/L ALT (16-63) U/L Alkaline Phosphatase (46-116) U/L Troponin I 649 H* (<or=76) ng/L NT-Pro-B Natriuret Pep (<300) pg/mL Total Protein (6.4-8.2) g/dL Albumin (3.4-5.0) g/dL Vitamin B12 Pending Folate Pending Procalcitonin ng/mL TSH COVID-19 Source SARS-CoV-2 (PCR) Influenza Type A (PCR) Influenza Type B (PCR) RSV (PCR) Add-On Test Request ABO/Rh A Positive Blood Type Recheck Antibody Screen NEGATIVE Crossmatch See Detail 01/25/24 01/25/24 01/25/24 Range/Units 18:52 18:34 18:34 WBC (4.4-10.8) 10^3/uL RBC (4.36-5.78) 10^6/uL Hgb (13.5-17.5) g/dL Hct (40.0-50.0) % MCV (80-95) fL MCH (27.0-33.0) pg MCHC (32.0-36.0) % RDW (11.8-14.1) % Plt Count (130-400) 10^3/uL MPV (8.0-11.0) fL Immature Gran % % Neutrophils % % Lymphocytes % % Monocytes % % Eosinophils % % Basophils % % Nucleated RBC % (0.0-0.3) % Absolute Neutrophils (1.2-6.7) 10^3/uL Absolute Lymphocytes (1.2-3.4) 10^3/uL Absolute Monocytes (0.1-0.8) 10^3/uL Absolute Eosinophils (0.0-0.7) 10^3/uL Absolute Basophils (0.0-0.2) 10^3/uL RBC Morphology Hypochromasia Sodium (136-145) mmol/L Potassium (3.5-5.1) mmol/L Chloride (98-107) mmol/L Carbon Dioxide (21.0-32.0) mmol/L Anion Gap (3-11) mmol/L BUN (7-18) mg/dL Creatinine (0.70-1.30) mg/dL Est GFR (CKD-EPI 2020) (mL/min/1.73m2) Glucose (74-106) mg/dL Calcium (8.5-10.1) mg/dL Magnesium (1.8-2.4) mg/dL Iron Ferritin Total Bilirubin (0.2-1.0) mg/dL AST (15-37) U/L ALT (16-63) U/L Alkaline Phosphatase (46-116) U/L Troponin I (<or=76) ng/L NT-Pro-B Natriuret Pep (<300) pg/mL Total Protein (6.4-8.2) g/dL Albumin Cancelled (3.4-5.0) g/dL Vitamin B12 Folate Procalcitonin < 0.1 ng/mL TSH COVID-19 Source SARS-CoV-2 (PCR) Influenza Type A (PCR) Influenza Type B (PCR) RSV (PCR) Add-On Test Request DONE ABO/Rh Blood Type Recheck A Positive Cancelled Antibody Screen Crossmatch 01/25/24 01/25/24 01/25/24 Range/Units 18:34 18:34 18:34 WBC (4.4-10.8) 10^3/uL RBC (4.36-5.78) 10^6/uL Hgb (13.5-17.5) g/dL Hct (40.0-50.0) % MCV (80-95) fL MCH (27.0-33.0) pg MCHC (32.0-36.0) % RDW (11.8-14.1) % Plt Count (130-400) 10^3/uL MPV (8.0-11.0) fL Immature Gran % % Neutrophils % % Lymphocytes % % Monocytes % % Eosinophils % % Basophils % % Nucleated RBC % (0.0-0.3) % Absolute Neutrophils (1.2-6.7) 10^3/uL Absolute Lymphocytes (1.2-3.4) 10^3/uL Absolute Monocytes (0.1-0.8) 10^3/uL Absolute Eosinophils (0.0-0.7) 10^3/uL Absolute Basophils (0.0-0.2) 10^3/uL RBC Morphology Hypochromasia Sodium (136-145) mmol/L Potassium (3.5-5.1) mmol/L Chloride (98-107) mmol/L Carbon Dioxide (21.0-32.0) mmol/L Anion Gap (3-11) mmol/L BUN (7-18) mg/dL Creatinine (0.70-1.30) mg/dL Est GFR (CKD-EPI 2020) (mL/min/1.73m2) Glucose (74-106) mg/dL Calcium (8.5-10.1) mg/dL Magnesium (1.8-2.4) mg/dL Iron Ferritin Total Bilirubin (0.2-1.0) mg/dL AST (15-37) U/L ALT Cancelled (16-63) U/L Alkaline Phosphatase Cancelled 145 H (46-116) U/L Troponin I 420 H* (<or=76) ng/L NT-Pro-B Natriuret Pep 5274 H (<300) pg/mL Total Protein Cancelled 7.0 (6.4-8.2) g/dL Albumin 3.3 L (3.4-5.0) g/dL Vitamin B12 Folate Procalcitonin ng/mL TSH COVID-19 Source SARS-CoV-2 (PCR) Influenza Type A (PCR) Influenza Type B (PCR) RSV (PCR) Add-On Test Request ABO/Rh Blood Type Recheck Antibody Screen Crossmatch 01/25/24 01/25/24 01/25/24 Range/Units 18:34 18:34 18:34 WBC (4.4-10.8) 10^3/uL RBC (4.36-5.78) 10^6/uL Hgb (13.5-17.5) g/dL Hct (40.0-50.0) % MCV (80-95) fL MCH (27.0-33.0) pg MCHC (32.0-36.0) % RDW (11.8-14.1) % Plt Count (130-400) 10^3/uL MPV (8.0-11.0) fL Immature Gran % % Neutrophils % % Lymphocytes % % Monocytes % % Eosinophils % % Basophils % % Nucleated RBC % (0.0-0.3) % Absolute Neutrophils (1.2-6.7) 10^3/uL Absolute Lymphocytes (1.2-3.4) 10^3/uL Absolute Monocytes (0.1-0.8) 10^3/uL Absolute Eosinophils (0.0-0.7) 10^3/uL Absolute Basophils (0.0-0.2) 10^3/uL RBC Morphology Hypochromasia Sodium (136-145) mmol/L Potassium (3.5-5.1) mmol/L Chloride (98-107) mmol/L Carbon Dioxide (21.0-32.0) mmol/L Anion Gap (3-11) mmol/L BUN (7-18) mg/dL Creatinine (0.70-1.30) mg/dL Est GFR (CKD-EPI 2020) (mL/min/1.73m2) Glucose (74-106) mg/dL Calcium (8.5-10.1) mg/dL Magnesium Cancelled (1.8-2.4) mg/dL Iron Ferritin Total Bilirubin Cancelled 0.22 (0.2-1.0) mg/dL AST Cancelled 38 H (15-37) U/L ALT 16 (16-63) U/L Alkaline Phosphatase (46-116) U/L Troponin I (<or=76) ng/L NT-Pro-B Natriuret Pep (<300) pg/mL Total Protein (6.4-8.2) g/dL Albumin (3.4-5.0) g/dL Vitamin B12 Folate Procalcitonin ng/mL TSH COVID-19 Source SARS-CoV-2 (PCR) Influenza Type A (PCR) Influenza Type B (PCR) RSV (PCR) Add-On Test Request ABO/Rh Blood Type Recheck Antibody Screen Crossmatch 01/25/24 01/25/24 01/25/24 Range/Units 18:34 18:34 18:34 WBC (4.4-10.8) 10^3/uL RBC (4.36-5.78) 10^6/uL Hgb (13.5-17.5) g/dL Hct (40.0-50.0) % MCV (80-95) fL MCH (27.0-33.0) pg MCHC (32.0-36.0) % RDW (11.8-14.1) % Plt Count (130-400) 10^3/uL MPV (8.0-11.0) fL Immature Gran % % Neutrophils % % Lymphocytes % % Monocytes % % Eosinophils % % Basophils % % Nucleated RBC % (0.0-0.3) % Absolute Neutrophils (1.2-6.7) 10^3/uL Absolute Lymphocytes (1.2-3.4) 10^3/uL Absolute Monocytes (0.1-0.8) 10^3/uL Absolute Eosinophils (0.0-0.7) 10^3/uL Absolute Basophils (0.0-0.2) 10^3/uL RBC Morphology Hypochromasia Sodium (136-145) mmol/L Potassium (3.5-5.1) mmol/L Chloride (98-107) mmol/L Carbon Dioxide (21.0-32.0) mmol/L Anion Gap (3-11) mmol/L BUN (7-18) mg/dL Creatinine (0.70-1.30) mg/dL Est GFR (CKD-EPI 2020) Cancelled (mL/min/1.73m2) Glucose Cancelled 207 H (74-106) mg/dL Calcium Cancelled 8.0 L (8.5-10.1) mg/dL Magnesium 1.7 L (1.8-2.4) mg/dL Iron Ferritin Total Bilirubin (0.2-1.0) mg/dL AST (15-37) U/L ALT (16-63) U/L Alkaline Phosphatase (46-116) U/L Troponin I (<or=76) ng/L NT-Pro-B Natriuret Pep (<300) pg/mL Total Protein (6.4-8.2) g/dL Albumin (3.4-5.0) g/dL Vitamin B12 Folate Procalcitonin ng/mL TSH COVID-19 Source SARS-CoV-2 (PCR) Influenza Type A (PCR) Influenza Type B (PCR) RSV (PCR) Add-On Test Request ABO/Rh Blood Type Recheck Antibody Screen Crossmatch 01/25/24 01/25/24 01/25/24 Range/Units 18:34 18:34 18:34 WBC (4.4-10.8) 10^3/uL RBC (4.36-5.78) 10^6/uL Hgb (13.5-17.5) g/dL Hct (40.0-50.0) % MCV (80-95) fL MCH (27.0-33.0) pg MCHC (32.0-36.0) % RDW (11.8-14.1) % Plt Count (130-400) 10^3/uL MPV (8.0-11.0) fL Immature Gran % % Neutrophils % % Lymphocytes % % Monocytes % % Eosinophils % % Basophils % % Nucleated RBC % (0.0-0.3) % Absolute Neutrophils (1.2-6.7) 10^3/uL Absolute Lymphocytes (1.2-3.4) 10^3/uL Absolute Monocytes (0.1-0.8) 10^3/uL Absolute Eosinophils (0.0-0.7) 10^3/uL Absolute Basophils (0.0-0.2) 10^3/uL RBC Morphology Hypochromasia Sodium (136-145) mmol/L Potassium (3.5-5.1) mmol/L Chloride (98-107) mmol/L Carbon Dioxide (21.0-32.0) mmol/L Anion Gap Cancelled (3-11) mmol/L BUN Cancelled 89 H* (7-18) mg/dL Creatinine Cancelled 3.1 H (0.70-1.30) mg/dL Est GFR (CKD-EPI 2020) 18.74 (mL/min/1.73m2) Glucose (74-106) mg/dL Calcium (8.5-10.1) mg/dL Magnesium (1.8-2.4) mg/dL Iron Ferritin Total Bilirubin (0.2-1.0) mg/dL AST (15-37) U/L ALT (16-63) U/L Alkaline Phosphatase (46-116) U/L Troponin I (<or=76) ng/L NT-Pro-B Natriuret Pep (<300) pg/mL Total Protein (6.4-8.2) g/dL Albumin (3.4-5.0) g/dL Vitamin B12 Folate Procalcitonin ng/mL TSH COVID-19 Source SARS-CoV-2 (PCR) Influenza Type A (PCR) Influenza Type B (PCR) RSV (PCR) Add-On Test Request ABO/Rh Blood Type Recheck Antibody Screen Crossmatch 01/25/24 01/25/24 01/25/24 Range/Units 18:34 18:34 18:34 WBC (4.4-10.8) 10^3/uL RBC (4.36-5.78) 10^6/uL Hgb (13.5-17.5) g/dL Hct (40.0-50.0) % MCV (80-95) fL MCH (27.0-33.0) pg MCHC (32.0-36.0) % RDW (11.8-14.1) % Plt Count (130-400) 10^3/uL MPV (8.0-11.0) fL Immature Gran % % Neutrophils % % Lymphocytes % % Monocytes % % Eosinophils % % Basophils % % Nucleated RBC % (0.0-0.3) % Absolute Neutrophils (1.2-6.7) 10^3/uL Absolute Lymphocytes (1.2-3.4) 10^3/uL Absolute Monocytes (0.1-0.8) 10^3/uL Absolute Eosinophils (0.0-0.7) 10^3/uL Absolute Basophils (0.0-0.2) 10^3/uL RBC Morphology Hypochromasia Sodium (136-145) mmol/L Potassium Cancelled (3.5-5.1) mmol/L Chloride Cancelled 100 (98-107) mmol/L Carbon Dioxide Cancelled 22.8 (21.0-32.0) mmol/L Anion Gap 15.2 H (3-11) mmol/L BUN (7-18) mg/dL Creatinine (0.70-1.30) mg/dL Est GFR (CKD-EPI 2020) (mL/min/1.73m2) Glucose (74-106) mg/dL Calcium (8.5-10.1) mg/dL Magnesium (1.8-2.4) mg/dL Iron Ferritin Total Bilirubin (0.2-1.0) mg/dL AST (15-37) U/L ALT (16-63) U/L Alkaline Phosphatase (46-116) U/L Troponin I (<or=76) ng/L NT-Pro-B Natriuret Pep (<300) pg/mL Total Protein (6.4-8.2) g/dL Albumin (3.4-5.0) g/dL Vitamin B12 Folate Procalcitonin ng/mL TSH COVID-19 Source SARS-CoV-2 (PCR) Influenza Type A (PCR) Influenza Type B (PCR) RSV (PCR) Add-On Test Request ABO/Rh Blood Type Recheck Antibody Screen Crossmatch 01/25/24 01/25/24 Range/Units 18:34 18:34 WBC 6.30 (4.4-10.8) 10^3/uL RBC 2.49 L (4.36-5.78) 10^6/uL Hgb 6.1 L* (13.5-17.5) g/dL Hct 20.1 L* (40.0-50.0) % MCV 81 (80-95) fL MCH 24.5 L (27.0-33.0) pg MCHC 30.3 L (32.0-36.0) % RDW 16.6 H (11.8-14.1) % Plt Count 197 (130-400) 10^3/uL MPV 11.6 H (8.0-11.0) fL Immature Gran % 0.6 % Neutrophils % 63.9 % Lymphocytes % 23.3 % Monocytes % 10.6 % Eosinophils % 1.0 % Basophils % 0.6 % Nucleated RBC % 0.0 (0.0-0.3) % Absolute Neutrophils 4.02 (1.2-6.7) 10^3/uL Absolute Lymphocytes 1.47 (1.2-3.4) 10^3/uL Absolute Monocytes 0.67 (0.1-0.8) 10^3/uL Absolute Eosinophils 0.06 (0.0-0.7) 10^3/uL Absolute Basophils 0.04 (0.0-0.2) 10^3/uL RBC Morphology See Below Hypochromasia 2+ Sodium Cancelled 138 (136-145) mmol/L Potassium 4.8 (3.5-5.1) mmol/L Chloride (98-107) mmol/L Carbon Dioxide (21.0-32.0) mmol/L Anion Gap (3-11) mmol/L BUN (7-18) mg/dL Creatinine (0.70-1.30) mg/dL Est GFR (CKD-EPI 2020) (mL/min/1.73m2) Glucose (74-106) mg/dL Calcium (8.5-10.1) mg/dL Magnesium (1.8-2.4) mg/dL Iron Ferritin Total Bilirubin (0.2-1.0) mg/dL AST (15-37) U/L ALT (16-63) U/L Alkaline Phosphatase (46-116) U/L Troponin I (<or=76) ng/L NT-Pro-B Natriuret Pep (<300) pg/mL Total Protein (6.4-8.2) g/dL Albumin (3.4-5.0) g/dL Vitamin B12 Folate Procalcitonin ng/mL TSH COVID-19 Source SARS-CoV-2 (PCR) Influenza Type A (PCR) Influenza Type B (PCR) RSV (PCR) Add-On Test Request ABO/Rh Blood Type Recheck Antibody Screen Crossmatch Intake and Output - 24 Hour Total 01/25/24 17:52 thru 01/25/24 22:08 Intake Total 450 Balance 450 Weight 87.543 kg Intake: Blood Product 400 Unit 400 Other 50 Unit 50 Falls Risk Assessment History of Falls No History 01/25/24 19:59 Contributing Factors Unstable,Impairments 01/25/24 19:59 Ambulatory Aids Uses ambulatory device 01/25/24 19:59 Gait Evaluation No gait disturbance 01/25/24 19:59 Fall Total Score 21 01/25/24 19:59 Level of Risk Standard/Low Risk 01/25/24 19:59 Problems (Last Reviewed 01/25/24 @ 20:31 by David Denny) Hypomagnesemia (Acute) Elevated troponin level not due to acute coronary syndrome (Acute) CKD (chronic kidney disease) (Chronic) Heart failure (Chronic) Anemia (Chronic) Pleural effusion (Chronic) Essential hypertension (Chronic) Hyperlipidemia (Chronic) DM2 (diabetes mellitus, type 2) (Chronic) Cardiac pacemaker (Acute 08/17/17) Persistent atrial fibrillation (Acute) v v v v v v v v v Sending and/or Receiving Nurses: Please use comment section below to note any information pertinent to the patient hand-off not included above. Information / Comments: Patient has continuous shortness of breath for several weeks. Progressive weight loss for several months. Patient has history of CHF. History of left side weakness from previous CVA. Patient is standby assist for ambulation. Ordered Covid/Flu to rule out. DM type 2 patient. 20 right antecubital 22 Right forearm afebrile 96% 6.1 hgb, 20.1 hct 1.7 mag Report received from:JANNET valencia
[2024-01-25 22:22] LABS: Iron 61 ug/dL (65-175)
[2024-01-25 22:22] LABS: Bilirubin Negative (Negative); Blood Negative (Negative); Clarity Clear (Clear); Glucose Negative (Negative); Ketones Negative (Negative); Leukocyte Esterase Negative (Negative); Nitrite Negative (Negative); Specific Gravity 1.015 (1.005-1.025); Urobilinogen 0.2 mg/dL (Up to 0.2)
[2024-01-25] MEDS: MAGNESIUM SULFATE 2 GM/50 ML BAG IV_INF (22:32)
[2024-01-25 22:50] LABS: Ferritin 38 ng/mL (26-388); Folate > 20.0 ng/mL (8.6-20.0); Vitamin B12 491 pg/mL (193-986)
[2024-01-26] VITALS (12 sets, daily range): BP systolic 91–141; BP diastolic 42–57; PULSE 61–77; RESP 17–22; TEMP 35.8–37.5; O2SAT 93–99
[2024-01-26 00:26] LABS: HCT 24.3 % (40.0-50.0); HGB 7.6 g/dL (13.5-17.5); MCH 25.2 pg (27.0-33.0); MCHC 31.3 % (32.0-36.0); MCV 81 fL (80-95); MPV 11.5 fL (8.0-11.0); Platelet Count 189 10^3/uL (130-400); RBC 3.01 10^6/uL (4.36-5.78); RDW-SD 46.3 fL
[2024-01-26 00:51] LABS: TSH (W/Ref FT4) 3.32 uIU/mL (0.36-3.74)
[2024-01-26 01:06] LABS: Troponin I 850 ng/L (<or=76)
[2024-01-26] MEDS: Normal Saline Flush 10 ML SYR IVP ×2 (01:40→21:43)
[2024-01-26 03:34] LABS: HCT 24.3 % (40.0-50.0); HGB 7.8 g/dL (13.5-17.5); MCH 24.9 pg (27.0-33.0); MCHC 32.1 % (32.0-36.0); MCV 78 fL (80-95); RBC 3.13 10^6/uL (4.36-5.78); RDW 15.9 % (11.8-14.1); RDW-SD 44.7 fL; WBC 9.02 10^3/uL (4.4-10.8)
[2024-01-26 03:48] LABS: Troponin I 989 ng/L (<or=76)
--- NOTE | 2024-01-26 06:30 | RT.EKG_ITS ---
APPROVED REPORT Exam: Resting ECG Reason for Exam: Elevated troponins Patient Location: I HR:76 bpm ECG Measurements Heart Rate 76 AXIS AR [id number] P [id number] QRSd 157 QRS -9 QT 418 T 141 QTc 471 Conclusion May be atrial pacing, ventricular pacing Left bundle branch block...QRSd>120, broad/notched R
[2024-01-26 07:03] LABS: HCT 24.3 % (40.0-50.0); HGB 7.7 g/dL (13.5-17.5); MCH 25.4 pg (27.0-33.0); MCHC 31.7 % (32.0-36.0); MCV 80 fL (80-95); MPV 10.5 fL (8.0-11.0); Platelet Count 183 10^3/uL (130-400); RBC 3.03 10^6/uL (4.36-5.78); RDW-SD 46.4 fL; WBC 8.61 10^3/uL (4.4-10.8)
[2024-01-26 07:18] LABS: ALT 16 U/L (16-63); AST 35 U/L (15-37); Albumin 3.4 g/dL (3.4-5.0); Alkaline Phosphatase 151 U/L (46-116); Anion Gap 11.9 mmol/L (3-11); Bilirubin, Total 0.39 mg/dL (0.2-1.0); CO2 24.1 mmol/L (21.0-32.0); CREATININE 2.7 mg/dL (0.70-1.30); Calcium 8.6 mg/dL (8.5-10.1); Chloride 104 mmol/L (98-107); Estimated GFR 22.12 (mL/min/1.73m2); Glucose 90 mg/dL (74-106); Magnesium 2.1 mg/dL (1.8-2.4); Potassium 4.3 mmol/L (3.5-5.1); Sodium 140 mmol/L (136-145); Total Protein 7.1 g/dL (6.4-8.2)
[2024-01-26 07:21] LABS: BUN 84 mg/dL (7-18)
[2024-01-26] MEDS: Mirtazapine 15 MG TAB 7.5 MG PO (08:00)
[2024-01-26] MEDS: Multivitamin TAB 1 TAB PO (08:01)
[2024-01-26] MEDS: Atorvastatin 40 MG TAB 80 MG PO (08:02)
[2024-01-26] MEDS: amLODIPine 10 MG TAB PO (08:02)
[2024-01-26] MEDS: Lisinopril 5 MG TAB PO (08:02)
[2024-01-26] MEDS: Furosemide 80 MG TAB PO ×2 (08:03→16:21)
--- NOTE | 2024-01-26 09:34 | PDOC.CMIN ---
Date of service: 01/26/24 Time of Service: 09:35 Care Management Initial Assmt Initial Assessment Reason for Hospitalization: dyspnea on exertion Functional Status/Living Situation Patient Presentation: Ilya lives alone in a single family home in [place] with his dog and cat. He has 3 sons; two live locally and one is in [place]. Ilya also has 7 grandchildren and 4 great grandchildren. 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 When asked if he enjoyed the work as road nguyen, he stated he did not, but that it paid well. Ilya is independent at baseline and does not receive any community services. He has been admitted with difficulty breathing and was found to be symptomatically anemic and has received 2 units of blood. Ilya also has elevated troponins which started at 420 and increased to the current high of 1021. A call was placed to [facility] requesting transfer, however they declined to accept the patient. His renal function is such that he would not be able to receive contrast for a cardiac cath. A surgical consult has been placed and an EGD is planned for Sunday. Town of Residence: [place] Resides with: Alone Significant Other/Family: Local (2 sons live locally and one is in [place]) Employment Status: Retired Instrumental Activities of Daily Living (ADLs): Independent Medications Medication Management: No Issues/Barriers identified Advance Directives Advance Directives: Do you have an Advance Directive: Y 12/24/23 16:24 AD On File at [facility]: N 12/24/23 16:24 Date Asked 01/25/24 01/25/24 18:01 AD Date Reviewed COLST On File at [facility] COLST Date Scanned Code Status Resuscitation Status Full Code Portal Pt does not currently have a portal and education provided: Yes Insurance Coverage/Financial Issues Insurance: Medicare [facility] Medicare Supplement Care Team Visit Care Team Role Provider Type Nel Cabrera Primary Care Provider NON-[facility] STAFF PHYSICIAN Asher Okeefe, DO Other Providers CONSULTING PHYSICIAN Kiana Mccullough Emergency Provider NURSE PRACTITIONER David Denny Admit Provider NON-[facility] STAFF PHYSICIAN Attending Provider Discharge Potential Discharge Needs: Other (transfer to tertiary care) Anticipated Barriers to Discharge: Bed availability Transportation: EMS Plan: Anticipate Ilya will be transferred to [facility] when a bed is available. He will follow up with facility providers and plan of care and transport via EMS coordinated by the nursing classified advertising supervisor.discharged home, possibly with new home health services, when medically cleared. He will follow up with his community providers and plan of care and transport with family. CM will follow and continue to assess for discharge needs. PFSH All Active Problems (Updated 01/26/24 @ 06:53 by David Denny) Anemia (Chronic) Hypomagnesemia (Acute) Elevated troponin level not due to acute coronary syndrome (Acute) CKD (chronic kidney disease) (Chronic) CHF exacerbation (Acute) Shortness of breath (Acute) Osteoarthritis of knees, bilateral (Acute) Heart failure (Chronic) Skin lesion of face (Acute) Anemia (Chronic) NSTEMI (non-ST elevated myocardial infarction) (Acute) Acute on chronic kidney failure (Acute) Heart failure, chronic, with acute decompensation (Acute) Hyperkalemia (Acute) Pleural effusion (Chronic) Memory change (Acute) Paralysis of left upper extremity (Acute) Third degree burn of finger of left hand excluding thumb (Acute) Burn of finger (Acute) Sick sinus syndrome (Chronic) pt. unsure of this medical hx Essential hypertension (Chronic) Hyperlipidemia (Chronic) DM2 (diabetes mellitus, type 2) (Chronic) Mild aortic stenosis (Chronic) Cardiac pacemaker (Chronic 08/17/17) OpenDrive Lola XT DR MRI model # [id number] serial # [id number] (pulse generator) Ventricular electrodes: Medtronic CapsureFix Model # 5076-58 cm Serial # [id number] Atrial electrodes: Medtronic CapsureFix model # 5076-52 cm serial # [id number] Right rotator cuff tendinitis (Acute) Corticosteroid injection: 07/16/18 Persistent atrial fibrillation (Chronic) Onset mid May 2019 - ongoing as of 06/25/2019 - sinus restored Onset again January 2021 - ongoing as of 10/26/2021 DC cardioversion [facility] 10/2021 - on amiodarone; recurrent in February 2022 - amiodarone stopped Osteoarthritis of carpometacarpal joint of right thumb (Acute) Trochanteric bursitis, left hip (Acute) Steroid injection: 12/07/2020; 03/17/2020 Trochanteric bursitis, right hip (Acute) Steroid injection: 12/07/2020; 03/17/2020 Traumatic arthropathy, right shoulder (Acute) Most recent Depo-Medrol injection: 11/22/2021; 05/24/2022 Medical History 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 states he doesn't remember ever having any History of TIA (transient ischemic attack) and stroke Per pt. in 2003 had carotid artery surgery, after procedure pt. suffered a stroke, pt. states full forearm numbness and parts of left leg Surgical History History of thoracentesis (~04/2023) FH: carotid endarterectomy History of permanent cardiac pacemaker placement Family History Brother Family history of premature coronary heart disease Sister Family history of premature coronary heart disease Social History Smoking/Tobacco Use Status: Former Tobacco Use Quit Date: 04/09/84 Pack-years: 30 Second Hand Exposure: No Smoking risk assessment performed?: Yes Alcohol Intake: never Drug use: Never Substance use type: does not use Housing: house Current gender identity: male Do you feel safe at home: Yes (lives alone) Do you feel safe in your relationship?: Yes SDOH(Care Management) Screening Will the Patient Participate in the Screening?: Yes Do you worry about having a steady place to live?: no Problems where you live: no known problems In the past 12 months, have you had to go without electric, gas, oil or water in your home?: no Have you or anyone in your house had to go without enough food to eat?: no Has lack of transportation kept you from medical appointments or from doing things needed for daily living?: no Has anyone in your support network made you feel unsafe for any reason?: no
[2024-01-26] MEDS: PARoxetine 10 MG TAB PO (09:44)
[2024-01-26] MEDS: SITagliptin 100 MG TAB PO (09:45)
--- NOTE | 2024-01-26 10:01 | W.PM.PROGNOT ---
Date of Service Date of service: 01/26/24 Time of Service: 10:01 Assessment and Plan Assessment and plan (1) Dyspnea on exertion: Start date: 01/25/24 Assessment and plan: Presentation with progressive shortness of breath over weeks prior with increased severity prompting the patient to seek medical care Chest pressure on presentation relieved by belching without other associated symptoms. Non- ischemic EKG Hemoglobin 6.1 and 7.6 status post 1 unit of packed red blood cells-with resolution of dyspnea at rest. Will continue to monitor As needed oxygen 20 and sat above 92% Physical therapy for safe discharge (2) Anemia: Start date: 01/25/24 Status: Chronic Assessment and plan: Progressive anemia and this may be associated with CKD and iron deficiency versus recent report of melena in the prior month which would point out to GI bleed in the setting of taking daily naproxen in the past month as well as rivaroxaban. 1 PRBC completed in the ED Complete second PRBC transfusion Repeat H&H Surgical consult: Plan for EGD Sunday morning Will hold rivaroxaban ASA 81 mg EC PO daily Qualifiers: Anemia type: due to chronic kidney disease Chronic kidney disease stage: stage 4 (severe) Qualified Code(s): N18.4 - Chronic kidney disease, stage 4 (severe); D63.1 - Anemia in chronic kidney disease (3) Heart failure: Status: Chronic Assessment and plan: Last echo conducted on 08/27/2023 with LVEF of 50-55% Will avoid fluid overload Continue outpatient furosemide twice daily; reported recentl increase in Lasix therapy which may have prompted his elevation of creatinine level and exacerbation of CKD. Echo cardiogram on Sunday Qualifiers: Heart failure chronicity: unspecified Heart failure type: diastolic Qualified Code(s): I50.30 - Unspecified diastolic (congestive) heart failure (4) Hypomagnesemia: Start date: 01/25/24 Status: Acute Assessment and plan: Resolved with mag of 2.1 Mg in a.m. (5) Elevated troponin level not due to acute coronary syndrome: Start date: 01/25/24 Status: Acute Assessment and plan: Trending up troponins with initial value at 420 on 01/25/2024 at 18:00 then 1021 at 10:55 on 01/26/2024 Cardiology consulted at [facility] with goal of transferring patient: Spoke to AMY Cortés-does not recommend transfer for cath at this time with creatinine clearance around 20 mL/min as well as acute bleeding and anemia. The provider considered sequential troponin of 989 and 1021 over the span of 8 hours as a flat trend and recommends further troponin 3 hours apart. Subsequent troponin scheduled for 1400 is not trending down at 922. As per discussion with [facility] cardiology this could well be due to demand ischemia in the setting of severe anemia; the recommended to call them back if the patient again became symptomatic. Will not repeat troponin as we have down trending troponin now unless the patient becomes symptomatic ASA 81 mg also recommended ending agreement with holding of rivaroxaban (6) Pleural effusion: Status: Chronic Assessment and plan: Continue follow-up with evaluation as outpatient Continue home dose of diuretic (7) CKD (chronic kidney disease): Status: Chronic Assessment and plan: BMP in the morning Possibly associated with DM type II Qualifiers: Chronic kidney disease stage: stage 4 (severe) Qualified Code(s): N18.4 - Chronic kidney disease, stage 4 (severe) (8) Atherosclerosis of coronary artery without angina pectoris: Assessment and plan: Initial chest pressure, with increased troponin levels trending upward slowly. no further symptoms at this time Consultation with [facility] cardiology: Recommendation by AMY Cortés are to treat GIB/ anemia - hold xeralto for suspected GIB and report of melena Try ASA 81 mg to see if the patient will tolerate. Call if further ACS symptoms; this might still be considered demand ischemia The patient cannot be cath in the setting of acute GIB , CrCL 23ml/min- CT of ABD with contrast could not be done at this time for GFR < 30 Qualifiers: Coronary Disease-Associated Artery/Lesion type: [place] artery [place] vs. transplanted heart: [place] heart Qualified Code(s): I25.10 - Atherosclerotic heart disease of [place] coronary artery without angina pectoris (9) Persistent atrial fibrillation: Status: Chronic Assessment and plan: Patient did have sick sinus syndrome with atrial fibrillation and presently is completely paced rhythm. Rivaroxaban now on hold On telemetry (10) Cardiac pacemaker: Status: Chronic Assessment and plan: paced rhythm versus sinus TELEMETRY (11) Essential hypertension: Status: Chronic Assessment and plan: Continue home medicine therapy monitoring and adjusting as needed. (12) DM2 (diabetes mellitus, type 2): Status: Chronic Assessment and plan: Continue Bal AC and at bedtime with SSI and renal dosing Januvia. 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 Discussed with Dr. 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 Objective Last Vital Signs Temp 36.7 C 01/26/24 07:51 Pulse 76 01/26/24 07:51 Resp 19 01/26/24 07:51 BP 141/56 H 01/26/24 07:51 Pulse Ox 99 01/26/24 07:51 Laboratory Results - last 24 hr 01/25/24 01/25/24 01/25/24 18:34 18:34 18:34 WBC 6.30 RBC 2.49 L Hgb 6.1 L* Hct 20.1 L* MCV 81 MCH 24.5 L MCHC 30.3 L RDW 16.6 H Plt Count 197 MPV 11.6 H Immature Gran % 0.6 Neutrophils % 63.9 Lymphocytes % 23.3 Monocytes % 10.6 Eosinophils % 1.0 Basophils % 0.6 Nucleated RBC % 0.0 Absolute Neutrophils 4.02 Absolute Lymphocytes 1.47 Absolute Monocytes 0.67 Absolute Eosinophils 0.06 Absolute Basophils 0.04 RBC Morphology See Below Hypochromasia 2+ Sodium 138 Cancelled Potassium 4.8 Cancelled Chloride 100 Carbon Dioxide Anion Gap BUN Creatinine Est GFR (CKD-EPI 2020) Glucose Calcium Magnesium Iron Ferritin Total Bilirubin AST ALT Alkaline Phosphatase Troponin I NT-Pro-B Natriuret Pep Total Protein Albumin Vitamin B12 Folate Procalcitonin TSH Urine Color Urine Clarity Urine pH Ur Specific Flasher Urine Protein Urine Ketones Urine Blood Urine Nitrite Urine Bilirubin Urine Urobilinogen Ur Leukocyte Esterase Urine Glucose COVID-19 Source SARS-CoV-2 (PCR) Influenza Type A (PCR) Influenza Type B (PCR) RSV (PCR) Add-On Test Request ABO/Rh Blood Type Recheck Antibody Screen Crossmatch 01/25/24 01/25/24 01/25/24 18:34 18:34 18:34 WBC RBC Hgb Hct MCV MCH MCHC RDW Plt Count MPV Immature Gran % Neutrophils % Lymphocytes % Monocytes % Eosinophils % Basophils % Nucleated RBC % Absolute Neutrophils Absolute Lymphocytes Absolute Monocytes Absolute Eosinophils Absolute Basophils RBC Morphology Hypochromasia Sodium Potassium Chloride Cancelled Carbon Dioxide 22.8 Cancelled Anion Gap 15.2 H Cancelled BUN 89 H* Creatinine Est GFR (CKD-EPI 2020) Glucose Calcium Magnesium Iron Ferritin Total Bilirubin AST ALT Alkaline Phosphatase Troponin I NT-Pro-B Natriuret Pep Total Protein Albumin Vitamin B12 Folate Procalcitonin TSH Urine Color Urine Clarity Urine pH Ur Specific Flasher Urine Protein Urine Ketones Urine Blood Urine Nitrite Urine Bilirubin Urine Urobilinogen Ur Leukocyte Esterase Urine Glucose COVID-19 Source SARS-CoV-2 (PCR) Influenza Type A (PCR) Influenza Type B (PCR) RSV (PCR) Add-On Test Request ABO/Rh Blood Type Recheck Antibody Screen Crossmatch 01/25/24 01/25/24 01/25/24 18:34 18:34 18:34 WBC RBC Hgb Hct MCV MCH MCHC RDW Plt Count MPV Immature Gran % Neutrophils % Lymphocytes % Monocytes % Eosinophils % Basophils % Nucleated RBC % Absolute Neutrophils Absolute Lymphocytes Absolute Monocytes Absolute Eosinophils Absolute Basophils RBC Morphology Hypochromasia Sodium Potassium Chloride Carbon Dioxide Anion Gap BUN Cancelled Creatinine 3.1 H Cancelled Est GFR (CKD-EPI 2020) 18.74 Cancelled Glucose 207 H Calcium Magnesium Iron Ferritin Total Bilirubin AST ALT Alkaline Phosphatase Troponin I NT-Pro-B Natriuret Pep Total Protein Albumin Vitamin B12 Folate Procalcitonin TSH Urine Color Urine Clarity Urine pH Ur Specific Flasher Urine Protein Urine Ketones Urine Blood Urine Nitrite Urine Bilirubin Urine Urobilinogen Ur Leukocyte Esterase Urine Glucose COVID-19 Source SARS-CoV-2 (PCR) Influenza Type A (PCR) Influenza Type B (PCR) RSV (PCR) Add-On Test Request ABO/Rh Blood Type Recheck Antibody Screen Crossmatch 01/25/24 01/25/24 01/25/24 18:34 18:34 18:34 WBC RBC Hgb Hct MCV MCH MCHC RDW Plt Count MPV Immature Gran % Neutrophils % Lymphocytes % Monocytes % Eosinophils % Basophils % Nucleated RBC % Absolute Neutrophils Absolute Lymphocytes Absolute Monocytes Absolute Eosinophils Absolute Basophils RBC Morphology Hypochromasia Sodium Potassium Chloride Carbon Dioxide Anion Gap BUN Creatinine Est GFR (CKD-EPI 2020) Glucose Cancelled Calcium 8.0 L Cancelled Magnesium 1.7 L Cancelled Iron 61 L Ferritin 38 Total Bilirubin 0.22 AST ALT Alkaline Phosphatase Troponin I NT-Pro-B Natriuret Pep Total Protein Albumin Vitamin B12 Folate Procalcitonin TSH Urine Color Urine Clarity Urine pH Ur Specific Flasher Urine Protein Urine Ketones Urine Blood Urine Nitrite Urine Bilirubin Urine Urobilinogen Ur Leukocyte Esterase Urine Glucose COVID-19 Source SARS-CoV-2 (PCR) Influenza Type A (PCR) Influenza Type B (PCR) RSV (PCR) Add-On Test Request ABO/Rh Blood Type Recheck Antibody Screen Crossmatch 01/25/24 01/25/24 01/25/24 18:34 18:34 18:34 WBC RBC Hgb Hct MCV MCH MCHC RDW Plt Count MPV Immature Gran % Neutrophils % Lymphocytes % Monocytes % Eosinophils % Basophils % Nucleated RBC % Absolute Neutrophils Absolute Lymphocytes Absolute Monocytes Absolute Eosinophils Absolute Basophils RBC Morphology Hypochromasia Sodium Potassium Chloride Carbon Dioxide Anion Gap BUN Creatinine Est GFR (CKD-EPI 2020) Glucose Calcium Magnesium Iron Ferritin Total Bilirubin Cancelled AST 38 H Cancelled ALT 16 Cancelled Alkaline Phosphatase 145 H Troponin I NT-Pro-B Natriuret Pep Total Protein Albumin Vitamin B12 Folate Procalcitonin TSH Urine Color Urine Clarity Urine pH Ur Specific Flasher Urine Protein Urine Ketones Urine Blood Urine Nitrite Urine Bilirubin Urine Urobilinogen Ur Leukocyte Esterase Urine Glucose COVID-19 Source SARS-CoV-2 (PCR) Influenza Type A (PCR) Influenza Type B (PCR) RSV (PCR) Add-On Test Request ABO/Rh Blood Type Recheck Antibody Screen Crossmatch 01/25/24 01/25/24 01/25/24 18:34 18:34 18:34 WBC RBC Hgb Hct MCV MCH MCHC RDW Plt Count MPV Immature Gran % Neutrophils % Lymphocytes % Monocytes % Eosinophils % Basophils % Nucleated RBC % Absolute Neutrophils Absolute Lymphocytes Absolute Monocytes Absolute Eosinophils Absolute Basophils RBC Morphology Hypochromasia Sodium Potassium Chloride Carbon Dioxide Anion Gap BUN Creatinine Est GFR (CKD-EPI 2020) Glucose Calcium Magnesium Iron Ferritin Total Bilirubin AST ALT Alkaline Phosphatase Cancelled Troponin I 420 H* NT-Pro-B Natriuret Pep 5274 H Total Protein 7.0 Cancelled Albumin 3.3 L Cancelled Vitamin B12 491 Folate > 20.0 H Procalcitonin < 0.1 TSH Urine Color Urine Clarity Urine pH Ur Specific Flasher Urine Protein Urine Ketones Urine Blood Urine Nitrite Urine Bilirubin Urine Urobilinogen Ur Leukocyte Esterase Urine Glucose COVID-19 Source SARS-CoV-2 (PCR) Influenza Type A (PCR) Influenza Type B (PCR) RSV (PCR) Add-On Test Request ABO/Rh Blood Type Recheck Cancelled Antibody Screen Crossmatch 01/25/24 01/25/24 01/25/24 18:34 18:52 19:23 WBC RBC Hgb Hct MCV MCH MCHC RDW Plt Count MPV Immature Gran % Neutrophils % Lymphocytes % Monocytes % Eosinophils % Basophils % Nucleated RBC % Absolute Neutrophils Absolute Lymphocytes Absolute Monocytes Absolute Eosinophils Absolute Basophils RBC Morphology Hypochromasia Sodium Potassium Chloride Carbon Dioxide Anion Gap BUN Creatinine Est GFR (CKD-EPI 2020) Glucose Calcium Magnesium Iron Ferritin Total Bilirubin AST ALT Alkaline Phosphatase Troponin I NT-Pro-B Natriuret Pep Total Protein Albumin Vitamin B12 Folate Procalcitonin TSH Urine Color Urine Clarity Urine pH Ur Specific Flasher Urine Protein Urine Ketones Urine Blood Urine Nitrite Urine Bilirubin Urine Urobilinogen Ur Leukocyte Esterase Urine Glucose COVID-19 Source SARS-CoV-2 (PCR) Influenza Type A (PCR) Influenza Type B (PCR) RSV (PCR) Add-On Test Request DONE ABO/Rh A Positive Blood Type Recheck A Positive Antibody Screen NEGATIVE Crossmatch See Detail 10/01/25/24 01/25/24 20:32 21:25 21:39 WBC RBC Hgb Hct MCV MCH MCHC RDW Plt Count MPV Immature Gran % Neutrophils % Lymphocytes % Monocytes % Eosinophils % Basophils % Nucleated RBC % Absolute Neutrophils Absolute Lymphocytes Absolute Monocytes Absolute Eosinophils Absolute Basophils RBC Morphology Hypochromasia Sodium Potassium Chloride Carbon Dioxide Anion Gap BUN Creatinine Est GFR (CKD-EPI 2020) Glucose Calcium Magnesium Iron Ferritin Total Bilirubin AST ALT Alkaline Phosphatase Troponin I 649 H* 697 H* NT-Pro-B Natriuret Pep Total Protein Albumin Vitamin B12 Folate Procalcitonin TSH Urine Color Yellow Urine Clarity Clear Urine pH 6.0 Ur Specific Flasher 1.015 Urine Protein Negative Urine Ketones Negative Urine Blood Negative Urine Nitrite Negative Urine Bilirubin Negative Urine Urobilinogen 0.2 Ur Leukocyte Esterase Negative Urine Glucose Negative COVID-19 Source NASOPHARYNX SARS-CoV-2 (PCR) Negative Influenza Type A (PCR) Negative Influenza Type B (PCR) Negative RSV (PCR) Negative Add-On Test Request ABO/Rh Blood Type Recheck Antibody Screen Crossmatch 01/26/24 01/26/24 01/26/24 00:15 03:22 06:55 WBC 7.00 9.02 8.61 RBC 3.01 L 3.13 L 3.03 L Hgb 7.6 L 7.8 L 7.7 L Hct 24.3 L 24.3 L 24.3 L MCV 81 78 L 80 MCH 25.2 L 24.9 L 25.4 L MCHC 31.3 L 32.1 31.7 L RDW 16.0 H 15.9 H 16.0 H Plt Count 189 183 MPV 11.5 H 10.5 Immature Gran % Neutrophils % Lymphocytes % Monocytes % Eosinophils % Basophils % Nucleated RBC % Absolute Neutrophils Absolute Lymphocytes Absolute Monocytes Absolute Eosinophils Absolute Basophils RBC Morphology Hypochromasia Sodium 140 Potassium 4.3 Chloride 104 Carbon Dioxide 24.1 Anion Gap 11.9 H BUN 84 H* Creatinine 2.7 H Est GFR (CKD-EPI 2020) 22.12 Glucose 90 Calcium 8.6 Magnesium 2.1 Iron Ferritin Total Bilirubin 0.39 AST 35 ALT 16 Alkaline Phosphatase 151 H Troponin I 850 H* 989 H* NT-Pro-B Natriuret Pep Total Protein 7.1 Albumin 3.4 Vitamin B12 Folate Procalcitonin TSH 3.32 Urine Color Urine Clarity Urine pH Ur Specific Flasher Urine Protein Urine Ketones Urine Blood Urine Nitrite Urine Bilirubin Urine Urobilinogen Ur Leukocyte Esterase Urine Glucose COVID-19 Source SARS-CoV-2 (PCR) Influenza Type A (PCR) Influenza Type B (PCR) RSV (PCR) Add-On Test Request ABO/Rh Blood Type Recheck Antibody Screen Crossmatch Time Spent with Patient Time Spent with Patient: >50 minutes Time was spent: preparing to see the patient(eg.review tests), obtaining and/or reviewing separately otained hiistory, ordering medications,tests, procedures, referring, communicating with other health social worker palliative care, indepentently interpreting results, counseling the patient and care coordination
[2024-01-26 11:02] LABS: HCT 24.7 % (40.0-50.0); HGB 7.7 g/dL (13.5-17.5); MCH 25.2 pg (27.0-33.0); MCHC 31.2 % (32.0-36.0); MCV 81 fL (80-95); MPV 11.3 fL (8.0-11.0); Platelet Count 187 10^3/uL (130-400); RBC 3.06 10^6/uL (4.36-5.78); RDW 16.2 % (11.8-14.1); RDW-SD 46.9 fL
[2024-01-26 11:24] LABS: Troponin I 1021 ng/L (<or=76)
--- NOTE | 2024-01-26 11:28 | SCONE_ITS ---
Date of service: 01/26/24 Time of Service: 11:28 Assessment and Plan Assessment and plan (1) Anemia: Status: Chronic Assessment and plan: (a) Likely chronic in nature. There had been no observed blood loss. (b) Pre-renal azotemia/ renal insuffiency. (c) Hold Naproxen and Xarelto (d) Optimize medical status (e) Monitor for bleeding/trend H/H. Transfuse as appropriate. (f) Will plan for elective upper endoscopy for 01/28/[address] Edwards. (g) I remain immediately available over the weekend should any bleeding be observe; just call if necessary. Thank you for the opportunity to Consult on your patient. Asher Okeefe D.O. History of Present Illness History of Present Illness Chief Complaint: SOB, weakness, fatigue Narrative: This 88 y/o male presented via ER at [facility] with SOB, weakness, and fatigue. Patient found to have anemia with Hgb of 6.1gm. Also had marked increase of BUN/Creat of 84/2.7. There had been no observation of bright red blood, maroon or tarry stools. Patient takes both Xarelto and Naproxen. These are presently being held. General Surgery service consulted to consider upper endoscopy. Review of Systems Narrative: Patient's main complaint has been shortness of breath and weakness. He denies seeing any changes in his bowel movements. Denies seeing any loss ob blood. Constitutional Comments: Pleasant man with nice yepez resting comfortably in hospital bed. Conversational and appropriate. No apparent distress. Cardiovascular Comments: Has Pacemaker Respiratory Comments: Complains of SOB. Gastrointestinal Comments: Denies any abdominal pain. Has not seen any blood loss. Denies changes in bowel habits. Musculoskeletal Comments: C/o weakness. Neurologic Comments: Has had dizziness PFSH All Active Problems (Updated 01/26/24 @ 06:53 by David Denny) Anemia (Chronic) Hypomagnesemia (Acute) Elevated troponin level not due to acute coronary syndrome (Acute) CKD (chronic kidney disease) (Chronic) CHF exacerbation (Acute) Shortness of breath (Acute) Osteoarthritis of knees, bilateral (Acute) Heart failure (Chronic) Skin lesion of face (Acute) Anemia (Chronic) NSTEMI (non-ST elevated myocardial infarction) (Acute) Acute on chronic kidney failure (Acute) Heart failure, chronic, with acute decompensation (Acute) Hyperkalemia (Acute) Pleural effusion (Chronic) Memory change (Acute) Paralysis of left upper extremity (Acute) Third degree burn of finger of left hand excluding thumb (Acute) Burn of finger (Acute) Sick sinus syndrome (Chronic) pt. unsure of this medical hx Essential hypertension (Chronic) Hyperlipidemia (Chronic) DM2 (diabetes mellitus, type 2) (Chronic) Mild aortic stenosis (Chronic) Cardiac pacemaker (Chronic 08/17/17) [employer]here[employer] Lola XT DR MRI model # [id number] serial # [id number] (pulse generator) Ventricular electrodes: Medtronic CapsureFix Model # 5076-58 cm Serial # [id number] Atrial electrodes: Medtronic CapsureFix model # 5076-52 cm serial # [id number] Right rotator cuff tendinitis (Acute) Corticosteroid injection: 07/16/18 Persistent atrial fibrillation (Chronic) Onset mid May 2019 - ongoing as of 06/25/2019 - sinus restored Onset again January 2021 - ongoing as of 10/26/2021 DC cardioversion [facility] 10/2021 - on amiodarone; recurrent in February 2022 - amiodarone stopped Osteoarthritis of carpometacarpal joint of right thumb (Acute) Trochanteric bursitis, left hip (Acute) Steroid injection: 12/07/2020; 03/17/2020 Trochanteric bursitis, right hip (Acute) Steroid injection: 12/07/2020; 03/17/2020 Traumatic arthropathy, right shoulder (Acute) Most recent Depo-Medrol injection: 11/22/2021; 05/24/2022 Medical History 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 states he doesn't remember ever having any History of TIA (transient ischemic attack) and stroke Per pt. in 2003 had carotid artery surgery, after procedure pt. suffered a stroke, pt. states full forearm numbness and parts of left leg Surgical History History of thoracentesis (~04/2023) FH: carotid endarterectomy History of permanent cardiac pacemaker placement Family History Brother Family history of premature coronary heart disease Sister Family history of premature coronary heart disease Social History Smoking/Tobacco Use Status: Former Tobacco Use Quit Date: 04/09/84 Pack-years: 30 Second Hand Exposure: No Smoking risk assessment performed?: Yes Alcohol Intake: never Drug use: Never Substance use type: does not use Housing: house Current gender identity: male Do you feel safe at home: Yes (lives alone) Do you feel safe in your relationship?: Yes Exam Narrative Exam Narrative: Pleasant, cooperative, and appropriate throughout encounter. No apparent distress at this time. Const Other: Chronological age and physiological age appear congruent. Patient does not appear malnourished. Yepez is well-kept. Eyes Other: Non-icteric, EOMI Neck Other: Neck is supple. There are no carotid bruits. Thyroid is non-tender. Chest Other: HRRR Resp Other: No tachypnea, no conversational SOB, Lungs are CTA b/l in anterior cabrera. Cardio Other: HRRR GI Other: Soft, non-tender, BS are present, there is no guarding and no rebound. Other: Not examined. Skin Other: No rashes Neuro Other: There no focal or lateralizing neuro deficits, signs, or symptoms. Extrem Other: There are no open sores, wounds, or ulcers. There is no calf pain. Psych Other: Appropriate, cooperative Results Last Vital Signs Temp 98.1 F 01/26/24 07:51 Pulse 76 01/26/24 07:51 Resp 19 01/26/24 07:51 BP 141/56 H 01/26/24 07:51 Pulse Ox 99 01/26/24 07:51 Labs 01/26/24 06:55 01/26/24 06:55 Labs: Laboratory Results - last 24 hr 01/25/24 01/25/24 01/25/24 18:34 18:34 18:34 WBC 6.30 RBC 2.49 L Hgb 6.1 L* Hct 20.1 L* MCV 81 MCH 24.5 L MCHC 30.3 L RDW 16.6 H Plt Count 197 MPV 11.6 H Immature Gran % 0.6 Neutrophils % 63.9 Lymphocytes % 23.3 Monocytes % 10.6 Eosinophils % 1.0 Basophils % 0.6 Nucleated RBC % 0.0 Absolute Neutrophils 4.02 Absolute Lymphocytes 1.47 Absolute Monocytes 0.67 Absolute Eosinophils 0.06 Absolute Basophils 0.04 RBC Morphology See Below Hypochromasia 2+ Sodium 138 Cancelled Potassium 4.8 Cancelled Chloride 100 Carbon Dioxide Anion Gap BUN Creatinine Est GFR (CKD-EPI 2020) Glucose Calcium Magnesium Iron Ferritin Total Bilirubin AST ALT Alkaline Phosphatase Troponin I NT-Pro-B Natriuret Pep Total Protein Albumin Vitamin B12 Folate Procalcitonin TSH Urine Color Urine Clarity Urine pH Ur Specific [place] Urine Protein Urine Ketones Urine Blood Urine Nitrite Urine Bilirubin Urine Urobilinogen Ur Leukocyte Esterase Urine Glucose COVID-19 Source SARS-CoV-2 (PCR) Influenza Type A (PCR) Influenza Type B (PCR) RSV (PCR) Add-On Test Request ABO/Rh Blood Type Recheck Antibody Screen Crossmatch 01/25/24 01/25/24 01/25/24 18:34 18:34 18:34 WBC RBC Hgb Hct MCV MCH MCHC RDW Plt Count MPV Immature Gran % Neutrophils % Lymphocytes % Monocytes % Eosinophils % Basophils % Nucleated RBC % Absolute Neutrophils Absolute Lymphocytes Absolute Monocytes Absolute Eosinophils Absolute Basophils RBC Morphology Hypochromasia Sodium Potassium Chloride Cancelled Carbon Dioxide 22.8 Cancelled Anion Gap 15.2 H Cancelled BUN 89 H* Creatinine Est GFR (CKD-EPI 2020) Glucose Calcium Magnesium Iron Ferritin Total Bilirubin AST ALT Alkaline Phosphatase Troponin I NT-Pro-B Natriuret Pep Total Protein Albumin Vitamin B12 Folate Procalcitonin TSH Urine Color Urine Clarity Urine pH Ur Specific [place] Urine Protein Urine Ketones Urine Blood Urine Nitrite Urine Bilirubin Urine Urobilinogen Ur Leukocyte Esterase Urine Glucose COVID-19 Source SARS-CoV-2 (PCR) Influenza Type A (PCR) Influenza Type B (PCR) RSV (PCR) Add-On Test Request ABO/Rh Blood Type Recheck Antibody Screen Crossmatch 01/25/24 01/25/24 01/25/24 18:34 18:34 18:34 WBC RBC Hgb Hct MCV MCH MCHC RDW Plt Count MPV Immature Gran % Neutrophils % Lymphocytes % Monocytes % Eosinophils % Basophils % Nucleated RBC % Absolute Neutrophils Absolute Lymphocytes Absolute Monocytes Absolute Eosinophils Absolute Basophils RBC Morphology Hypochromasia Sodium Potassium Chloride Carbon Dioxide Anion Gap BUN Cancelled Creatinine 3.1 H Cancelled Est GFR (CKD-EPI 2020) 18.74 Cancelled Glucose 207 H Calcium Magnesium Iron Ferritin Total Bilirubin AST ALT Alkaline Phosphatase Troponin I NT-Pro-B Natriuret Pep Total Protein Albumin Vitamin B12 Folate Procalcitonin TSH Urine Color Urine Clarity Urine pH Ur Specific [place] Urine Protein Urine Ketones Urine Blood Urine Nitrite Urine Bilirubin Urine Urobilinogen Ur Leukocyte Esterase Urine Glucose COVID-19 Source SARS-CoV-2 (PCR) Influenza Type A (PCR) Influenza Type B (PCR) RSV (PCR) Add-On Test Request ABO/Rh Blood Type Recheck Antibody Screen Crossmatch 01/25/24 01/25/24 01/25/24 18:34 18:34 18:34 WBC RBC Hgb Hct MCV MCH MCHC RDW Plt Count MPV Immature Gran % Neutrophils % Lymphocytes % Monocytes % Eosinophils % Basophils % Nucleated RBC % Absolute Neutrophils Absolute Lymphocytes Absolute Monocytes Absolute Eosinophils Absolute Basophils RBC Morphology Hypochromasia Sodium Potassium Chloride Carbon Dioxide Anion Gap BUN Creatinine Est GFR (CKD-EPI 2020) Glucose Cancelled Calcium 8.0 L Cancelled Magnesium 1.7 L Cancelled Iron 61 L Ferritin 38 Total Bilirubin 0.22 AST ALT Alkaline Phosphatase Troponin I NT-Pro-B Natriuret Pep Total Protein Albumin Vitamin B12 Folate Procalcitonin TSH Urine Color Urine Clarity Urine pH Ur Specific [place] Urine Protein Urine Ketones Urine Blood Urine Nitrite Urine Bilirubin Urine Urobilinogen Ur Leukocyte Esterase Urine Glucose COVID-19 Source SARS-CoV-2 (PCR) Influenza Type A (PCR) Influenza Type B (PCR) RSV (PCR) Add-On Test Request ABO/Rh Blood Type Recheck Antibody Screen Crossmatch 01/25/24 01/25/24 01/25/24 18:34 18:34 18:34 WBC RBC Hgb Hct MCV MCH MCHC RDW Plt Count MPV Immature Gran % Neutrophils % Lymphocytes % Monocytes % Eosinophils % Basophils % Nucleated RBC % Absolute Neutrophils Absolute Lymphocytes Absolute Monocytes Absolute Eosinophils Absolute Basophils RBC Morphology Hypochromasia Sodium Potassium Chloride Carbon Dioxide Anion Gap BUN Creatinine Est GFR (CKD-EPI 2020) Glucose Calcium Magnesium Iron Ferritin Total Bilirubin Cancelled AST 38 H Cancelled ALT 16 Cancelled Alkaline Phosphatase 145 H Troponin I NT-Pro-B Natriuret Pep Total Protein Albumin Vitamin B12 Folate Procalcitonin TSH Urine Color Urine Clarity Urine pH Ur Specific [place] Urine Protein Urine Ketones Urine Blood Urine Nitrite Urine Bilirubin Urine Urobilinogen Ur Leukocyte Esterase Urine Glucose COVID-19 Source SARS-CoV-2 (PCR) Influenza Type A (PCR) Influenza Type B (PCR) RSV (PCR) Add-On Test Request ABO/Rh Blood Type Recheck Antibody Screen Crossmatch 01/25/24 01/25/24 01/25/24 18:34 18:34 18:34 WBC RBC Hgb Hct MCV MCH MCHC RDW Plt Count MPV Immature Gran % Neutrophils % Lymphocytes % Monocytes % Eosinophils % Basophils % Nucleated RBC % Absolute Neutrophils Absolute Lymphocytes Absolute Monocytes Absolute Eosinophils Absolute Basophils RBC Morphology Hypochromasia Sodium Potassium Chloride Carbon Dioxide Anion Gap BUN Creatinine Est GFR (CKD-EPI 2020) Glucose Calcium Magnesium Iron Ferritin Total Bilirubin AST ALT Alkaline Phosphatase Cancelled Troponin I 420 H* NT-Pro-B Natriuret Pep 5274 H Total Protein 7.0 Cancelled Albumin 3.3 L Cancelled Vitamin B12 491 Folate > 20.0 H Procalcitonin < 0.1 TSH Urine Color Urine Clarity Urine pH Ur Specific [place] Urine Protein Urine Ketones Urine Blood Urine Nitrite Urine Bilirubin Urine Urobilinogen Ur Leukocyte Esterase Urine Glucose COVID-19 Source SARS-CoV-2 (PCR) Influenza Type A (PCR) Influenza Type B (PCR) RSV (PCR) Add-On Test Request ABO/Rh Blood Type Recheck Cancelled Antibody Screen Crossmatch 01/25/24 01/25/24 01/25/24 18:34 18:52 19:23 WBC RBC Hgb Hct MCV MCH MCHC RDW Plt Count MPV Immature Gran % Neutrophils % Lymphocytes % Monocytes % Eosinophils % Basophils % Nucleated RBC % Absolute Neutrophils Absolute Lymphocytes Absolute Monocytes Absolute Eosinophils Absolute Basophils RBC Morphology Hypochromasia Sodium Potassium Chloride Carbon Dioxide Anion Gap BUN Creatinine Est GFR (CKD-EPI 2020) Glucose Calcium Magnesium Iron Ferritin Total Bilirubin AST ALT Alkaline Phosphatase Troponin I NT-Pro-B Natriuret Pep Total Protein Albumin Vitamin B12 Folate Procalcitonin TSH Urine Color Urine Clarity Urine pH Ur Specific [place] Urine Protein Urine Ketones Urine Blood Urine Nitrite Urine Bilirubin Urine Urobilinogen Ur Leukocyte Esterase Urine Glucose COVID-19 Source SARS-CoV-2 (PCR) Influenza Type A (PCR) Influenza Type B (PCR) RSV (PCR) Add-On Test Request DONE ABO/Rh A Positive Blood Type Recheck A Positive Antibody Screen NEGATIVE Crossmatch See Detail 01/25/24 01/25/24 01/25/24 20:32 21:25 21:39 WBC RBC Hgb Hct MCV MCH MCHC RDW Plt Count MPV Immature Gran % Neutrophils % Lymphocytes % Monocytes % Eosinophils % Basophils % Nucleated RBC % Absolute Neutrophils Absolute Lymphocytes Absolute Monocytes Absolute Eosinophils Absolute Basophils RBC Morphology Hypochromasia Sodium Potassium Chloride Carbon Dioxide Anion Gap BUN Creatinine Est GFR (CKD-EPI 2020) Glucose Calcium Magnesium Iron Ferritin Total Bilirubin AST ALT Alkaline Phosphatase Troponin I 649 H* 697 H* NT-Pro-B Natriuret Pep Total Protein Albumin Vitamin B12 Folate Procalcitonin TSH Urine Color Yellow Urine Clarity Clear Urine pH 6.0 Ur Specific [place] 1.015 Urine Protein Negative Urine Ketones Negative Urine Blood Negative Urine Nitrite Negative Urine Bilirubin Negative Urine Urobilinogen 0.2 Ur Leukocyte Esterase Negative Urine Glucose Negative COVID-19 Source NASOPHARYNX SARS-CoV-2 (PCR) Negative Influenza Type A (PCR) Negative Influenza Type B (PCR) Negative RSV (PCR) Negative Add-On Test Request ABO/Rh Blood Type Recheck Antibody Screen Crossmatch 01/26/24 01/26/24 01/26/24 00:15 03:22 06:55 WBC 7.00 9.02 8.61 RBC 3.01 L 3.13 L 3.03 L Hgb 7.6 L 7.8 L 7.7 L Hct 24.3 L 24.3 L 24.3 L MCV 81 78 L 80 MCH 25.2 L 24.9 L 25.4 L MCHC 31.3 L 32.1 31.7 L RDW 16.0 H 15.9 H 16.0 H Plt Count 189 183 MPV 11.5 H 10.5 Immature Gran % Neutrophils % Lymphocytes % Monocytes % Eosinophils % Basophils % Nucleated RBC % Absolute Neutrophils Absolute Lymphocytes Absolute Monocytes Absolute Eosinophils Absolute Basophils RBC Morphology Hypochromasia Sodium 140 Potassium 4.3 Chloride 104 Carbon Dioxide 24.1 Anion Gap 11.9 H BUN 84 H* Creatinine 2.7 H Est GFR (CKD-EPI 2020) 22.12 Glucose 90 Calcium 8.6 Magnesium 2.1 Iron Ferritin Total Bilirubin 0.39 AST 35 ALT 16 Alkaline Phosphatase 151 H Troponin I 850 H* 989 H* NT-Pro-B Natriuret Pep Total Protein 7.1 Albumin 3.4 Vitamin B12 Folate Procalcitonin TSH 3.32 Urine Color Urine Clarity Urine pH Ur Specific [place] Urine Protein Urine Ketones Urine Blood Urine Nitrite Urine Bilirubin Urine Urobilinogen Ur Leukocyte Esterase Urine Glucose COVID-19 Source SARS-CoV-2 (PCR) Influenza Type A (PCR) Influenza Type B (PCR) RSV (PCR) Add-On Test Request ABO/Rh Blood Type Recheck Antibody Screen Crossmatch 01/26/24 01/26/24 10:55 11:11 WBC RBC Hgb Hct MCV MCH MCHC RDW Plt Count MPV Immature Gran % Neutrophils % Lymphocytes % Monocytes % Eosinophils % Basophils % Nucleated RBC % Absolute Neutrophils Absolute Lymphocytes Absolute Monocytes Absolute Eosinophils Absolute Basophils RBC Morphology Hypochromasia Sodium Potassium Chloride Carbon Dioxide Anion Gap BUN Creatinine Est GFR (CKD-EPI 2020) Glucose Calcium Magnesium Iron Ferritin Total Bilirubin AST ALT Alkaline Phosphatase Troponin I 1021 H* Cancelled NT-Pro-B Natriuret Pep Total Protein Albumin Vitamin B12 Folate Procalcitonin TSH Urine Color Urine Clarity Urine pH Ur Specific [place] Urine Protein Urine Ketones Urine Blood Urine Nitrite Urine Bilirubin Urine Urobilinogen Ur Leukocyte Esterase Urine Glucose COVID-19 Source SARS-CoV-2 (PCR) Influenza Type A (PCR) Influenza Type B (PCR) RSV (PCR) Add-On Test Request ABO/Rh Blood Type Recheck Antibody Screen Crossmatch
[2024-01-26] MEDS: Pantoprazole 40 MG VIAL IVP ×2 (12:01→21:43)
[2024-01-26 15:15] LABS: Troponin I 922 ng/L (<or=76)
[2024-01-26] MEDS: Insulin Aspart 300 UNITS/3 ML PEN SC (17:13)
[2024-01-27 02:37] VITALS: BP 119/40; PULSE 65; RESP 18; TEMP 36.9; O2SAT 95
[2024-01-27 07:27] VITALS: BP 123/53; PULSE 70; RESP 20; TEMP 36.2; O2SAT 96
[2024-01-27] MEDS: Lisinopril 5 MG TAB PO (08:34)
[2024-01-27] MEDS: Multivitamin TAB 1 TAB PO (08:34)
[2024-01-27] MEDS: amLODIPine 10 MG TAB PO (08:34)
[2024-01-27] MEDS: Pantoprazole 40 MG VIAL IVP ×2 (08:34→20:01)
[2024-01-27] MEDS: Mirtazapine 15 MG TAB 7.5 MG PO (08:34)
[2024-01-27] MEDS: PARoxetine 10 MG TAB PO (08:34)
[2024-01-27] MEDS: Atorvastatin 40 MG TAB 80 MG PO (08:34)
[2024-01-27] MEDS: Aspirin E.C. 81 MG TABEC PO (08:34)
[2024-01-27] MEDS: Furosemide 80 MG TAB PO ×2 (08:34→16:28)
[2024-01-27 11:28] VITALS: BP 124/46; PULSE 66; RESP 20; TEMP 36.5; O2SAT 97
[2024-01-27] MEDS: Insulin Aspart 300 UNITS/3 ML PEN SC ×3 (11:55→21:12)
--- NOTE | 2024-01-27 14:01 | PGE_ITS ---
Date of Service Date of service: 01/27/24 Time of Service: 14:01 Assessment and Plan Assessment and plan (1) Dyspnea on exertion: Assessment and plan: Presentation with progressive shortness of breath over weeks prior with increased severity prompting the patient to seek medical care Chest pressure on presentation relieved by belching without other associated symptoms. Non- ischemic EKG Hemoglobin 6.1 and 7.6 status post 1 unit of packed red blood cells-with resolution of dyspnea at rest. Will continue to monitor As needed oxygen 20 and sat above 92% Physical therapy for safe discharge (2) Anemia: Status: Chronic Assessment and plan: Progressive anemia and this may be associated with CKD and iron deficiency versus recent report of melena in the prior month which would point out to GI bleed in the setting of taking daily naproxen in the past month as well as rivaroxaban. 1 PRBC completed in the ED Complete second PRBC transfusion Repeat H&H Surgical consult: Plan for EGD Sunday morning N.p.o. after midnight Will hold rivaroxaban ASA 81 mg EC PO daily Qualifiers: Anemia type: due to chronic kidney disease Chronic kidney disease stage: stage 4 (severe) Qualified Code(s): N18.4 - Chronic kidney disease, stage 4 (severe); D63.1 - Anemia in chronic kidney disease (3) Heart failure: Status: Chronic Assessment and plan: Last echo conducted on 08/27/2023 with LVEF of 50-55% Will avoid fluid overload Continue outpatient furosemide twice daily; reported recentl increase in Lasix therapy which may have prompted his elevation of creatinine level and exacerbation of CKD. Echo cardiogram on Sunday Qualifiers: Heart failure chronicity: unspecified Heart failure type: diastolic Qualified Code(s): I50.30 - Unspecified diastolic (congestive) heart failure (4) Hypomagnesemia: Status: Acute Assessment and plan: Resolved with mag of 2.1 Mg in a.m. (5) Elevated troponin level not due to acute coronary syndrome: Status: Acute Assessment and plan: Trending up troponins with initial value at 420 on 01/25/2024 at 18:00 then 1021 at 10:55 on 01/26/2024 Cardiology consulted at [facility] with goal of transferring patient: Spoke to AMY Cortés-does not recommend transfer for cath at this time with creatinine clearance around 20 mL/min as well as acute bleeding and anemia. The provider considered sequential troponin of 989 and 1021 over the span of 8 hours as a flat trend and recommends further troponin 3 hours apart. Subsequent troponin scheduled for 1400 is not trending down at 922. As per discussion with [facility] cardiology this could well be due to demand ischemia in the setting of severe anemia; the recommended to call them back if the patient again became symptomatic. Will not repeat troponin as we have down trending troponin now unless the patient becomes symptomatic ASA 81 mg also recommended ending agreement with holding of rivaroxaban (6) Pleural effusion: Status: Chronic Assessment and plan: Continue follow-up with evaluation as outpatient Continue home dose of diuretic (7) CKD (chronic kidney disease): Status: Chronic Assessment and plan: BMP in the morning Possibly associated with DM type II Qualifiers: Chronic kidney disease stage: stage 4 (severe) Qualified Code(s): N18.4 - Chronic kidney disease, stage 4 (severe) (8) Atherosclerosis of coronary artery without angina pectoris: Assessment and plan: Initial chest pressure, with increased troponin levels trending upward slowly. no further symptoms at this time Consultation with [facility] cardiology: Recommendation by AMY Cortés are to treat GIB/ anemia - hold xeralto for suspected GIB and report of melena Try ASA 81 mg to see if the patient will tolerate. Call if further ACS symptoms; this might still be considered demand ischemia The patient cannot be cath in the setting of acute GIB , CrCL 23ml/min- CT of ABD with contrast could not be done at this time for GFR < 30 Qualifiers: Coronary Disease-Associated Artery/Lesion type: eek artery [place] vs. transplanted heart: eek heart Qualified Code(s): I25.10 - Atherosclerotic heart disease of eek coronary artery without angina pectoris (9) Persistent atrial fibrillation: Status: Chronic Assessment and plan: Patient did have sick sinus syndrome with atrial fibrillation and presently is completely paced rhythm. Rivaroxaban now on hold On telemetry (10) Cardiac pacemaker: Status: Chronic Assessment and plan: paced rhythm versus sinus TELEMETRY (11) Essential hypertension: Status: Chronic Assessment and plan: Continue home medicine therapy monitoring and adjusting as needed. (12) DM2 (diabetes mellitus, type 2): Status: Chronic Assessment and plan: Continue Bal AC and at bedtime with SSI and renal dosing Januvia. 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 Discussed with Dr. Harrison Qualifiers: Hyperlipidemia type: mixed hyperlipidemia Qualified Code(s): E78.2 - Mixed hyperlipidemia Subjective Subjective Patient reports: no new complaints, tolerating liquids well, tolerating a regular diet and afebrile; denies shortness of breath Exam Narrative Exam Narrative: Elderly gentleman of stated age no acute distress Const General: no acute distress Orientation: alert HENMT Head: normal to inspection Mouth: moist mucous membranes Eyes General: appearance normal, both eyes and all related structures Neck Neck: normal visual inspection Resp Effort & Inspection: normal respiratory effort and able to speak in complete sentences Auscultation: clear to auscultation bilaterally Cardio Jugular venous pressure: no JVD Rate: regular rate Skin General skin exam: no rashes or lesions noted Neuro General: patient alert and patient oriented x3 Extrem General: edema Psych Mental Status: mental status grossly normal Objective Last Vital Signs Temp 36.5 C 01/27/24 11:28 Pulse 66 01/27/24 11:28 Resp 20 01/27/24 11:28 BP 124/46 L 01/27/24 11:28 Pulse Ox 97 01/27/24 11:28 Laboratory Results - last 24 hr 01/25/24 01/26/24 19:23 14:39 Troponin I 922 H* Crossmatch See Detail Time Spent with Patient Time Spent with Patient: 35-49 minutes Time was spent: preparing to see the patient(eg.review tests), obtaining and/or reviewing separately otained hiistory, ordering medications,tests, procedures, indepentently interpreting results and counseling the patient
--- NOTE | 2024-01-27 15:23 | W.PM.PROGNOT ---
Date of Service Date of service: 01/27/24 Time of Service: 15:23 Assessment and Plan Assessment and plan (1) Anemia: Status: Chronic Assessment and plan: (a) Anemia (presumptive blood loss) (b) NPO after midnight tonight. (c) Hold any anticoagulation after midnight (d) Planning upper endoscopy/EGD for tomorrow (01/28/24) with Dr. Jerry Okeefe, Denys.Faustino Subjective Subjective Interval history since last seen: No new complaints. Patient states that he has not seen any blood. He is feeling better after receiving two units of PRBC's. Hgb 6.1 -->7.7 Exam Narrative Exam Narrative: Patient seen and examined on afternoon round. Resting comfortably in bed on regular nursing floor. GI Other: Soft, non-tender. Objective Last Vital Signs Temp 97.7 F 01/27/24 11:28 Pulse 66 01/27/24 11:28 Resp 20 01/27/24 11:28 BP 124/46 L 01/27/24 11:28 Pulse Ox 97 01/27/24 11:28 Laboratory Results - last 24 hr 01/25/24 19:23 Crossmatch See Detail Time Spent with Patient Time Spent with Patient: <25 minutes Time was spent: preparing to see the patient(eg.review tests), ordering medications,tests, procedures, counseling the patient and care coordination
[2024-01-27 15:31] VITALS: BP 132/49; PULSE 68; RESP 20; TEMP 36.5; O2SAT 97
--- NOTE | 2024-01-27 17:40 | W.PM.PROGNOT ---
Date of Service Date of service: 01/27/24 Time of Service: 17:41 Subjective Subjective Interval history since last seen: transfer orders entered in error on this patient. med surg to ICU with change in resuscitation status. awaiting [facility] support, have not heard reply. paged x 2. transfer orders entered to transfer back to med surg from ICU. Full Code status reinstated. Discussed with Magen lead on Med Surg. Objective Last Vital Signs Temp 36.5 C 01/27/24 15:31 Pulse 68 01/27/24 15:31 Resp 20 01/27/24 15:31 BP 132/49 L 01/27/24 15:31 Pulse Ox 97 01/27/24 15:31 Laboratory Results - last 24 hr 01/25/24 19:23 Crossmatch See Detail Time Spent with Patient Time Spent with Patient: <25 minutes Time was spent: referring, communicating with other health patient care and other (correcting service order dispatcher chief error)
[2024-01-27] MEDS: Normal Saline Flush 10 ML SYR IVP (20:01)
[2024-01-27 20:10] VITALS: BP 128/47; PULSE 67; RESP 18; TEMP 36.8; O2SAT 100
[2024-01-28] VITALS (73 sets, daily range): BP systolic 91–162; BP diastolic 24–100; PULSE 57–117; RESP 15–20; TEMP 36.5–37.1; O2SAT 95–99; BMI 25.4
[2024-01-28] MEDS: Normal Saline Flush 10 ML SYR IVP ×3 (08:18→21:25)
[2024-01-28] MEDS: Pantoprazole 40 MG VIAL IVP ×2 (09:57→21:25)
[2024-01-28] MEDS: Multivitamin TAB 1 TAB PO (09:58)
[2024-01-28] MEDS: Mirtazapine 15 MG TAB 7.5 MG PO (09:58)
[2024-01-28] MEDS: Aspirin E.C. 81 MG TABEC PO (09:59)
[2024-01-28] MEDS: Lisinopril 5 MG TAB PO (09:59)
[2024-01-28] MEDS: amLODIPine 10 MG TAB PO (09:59)
[2024-01-28] MEDS: PARoxetine 10 MG TAB PO (09:59)
[2024-01-28] MEDS: Furosemide 80 MG TAB PO ×2 (10:00→16:58)
[2024-01-28] MEDS: Atorvastatin 40 MG TAB 80 MG PO (10:00)
[2024-01-28 11:19] LABS: Abs Immature Grans 0.02 10^3/uL (0.0-0.06); Absolute Basophil Count 0.04 10^3/uL (0.0-0.2); Absolute Eosinophil Count 0.28 10^3/uL (0.0-0.7); Absolute Lymphocyte Count 1.38 10^3/uL (1.2-3.4); Absolute Monocyte Count 0.69 10^3/uL (0.1-0.8); Absolute Neutrophil Count 3.86 10^3/uL (1.2-6.7); Basophils % 0.6 %; Eosinophils % 4.5 %; HCT 29.4 % (40.0-50.0); Immature Grans % 0.3 %; MCH 25.6 pg (27.0-33.0); MCHC 30.6 % (32.0-36.0); MCV 84 fL (80-95); MPV 11.5 fL (8.0-11.0); Neutrophils % 61.6 %; Platelet Count 194 10^3/uL (130-400); RBC 3.51 10^6/uL (4.36-5.78); RDW 17.1 % (11.8-14.1); RDW-SD 51.8 fL; WBC 6.27 10^3/uL (4.4-10.8)
[2024-01-28 11:28] LABS: Anion Gap 11.7 mmol/L (3-11); BUN 76 mg/dL (7-18); CO2 23.3 mmol/L (21.0-32.0); CREATININE 2.3 mg/dL (0.70-1.30); Calcium 9.1 mg/dL (8.5-10.1); Chloride 107 mmol/L (98-107); Estimated GFR 26.81 (mL/min/1.73m2); Glucose 142 mg/dL (74-106); Potassium 4.5 mmol/L (3.5-5.1); Sodium 142 mmol/L (136-145)
--- NOTE | 2024-01-28 11:42 | CMPROGNOTE_ITS ---
Date of service: 01/28/24 Time of Service: 11:43 Care Management Progress Note Progress Note Text Progress Note Text: Ilya was lying in bed when CM met with him. His daughter in law, Nat, was in the room visiting. He stated that he is hungry and not able to eat currently. Per report, he is NPO for an EGD scheduled for later today. Per provider, he will also need to have an echo, which will likely happen tomorrow. [employer] is also reaching out to cardiology for medication recommendations. He will likely be ready for discharge tomorrow. CM discussed HH services, and he stated that he will consider it; he has had them in the past and wasn't sure that it was helpfu l. CM will continue to follow. Discharge Potential Discharge Needs: Other (may require transfer ) Anticipated Barriers to Discharge: None Identified Patient/Family Education Needs: Review discharge instructions, discuss Ask Me Three Transportation: Private vehicle Plan: Ilya will likely have an EGD today; he may require transfer if he is medically appropriate and accepted for transfer. If he does not transfer, and is stabili zed at [facility], he will likely return home with new HH services, when medically cleared. He will transport He will follow up with his PCP and his discharge plan of care. CM will continue to follow. SDOH(Care Management) Screening Will the Patient Participate in the Screening?: Yes Do you worry about having a steady place to live?: no Problems where you live: no known problems In the past 12 months, have you had to go without electric, gas, oil or water in your home?: no Have you or anyone in your house had to go without enough food to eat?: no Has lack of transportation kept you from medical appointments or from doing things needed for daily living?: no Has anyone in your support network made you feel unsafe for any reason?: no
--- NOTE | 2024-01-28 12:21 | PGE_ITS ---
Date of Service Date of service: 01/28/24 Time of Service: 12:21 Assessment and Plan Assessment and plan (1) Anemia: Status: Chronic Assessment and plan: We talked for a little bit about the differential diagnosis for gastrointestinal bleeding as it relates to his anemia. Despite his lack of dyspepsia, I would still consider gastritis is the most likely culprit, especially in light of his therapeutic anticoagulation. I explained the role of EGD in helping to refine the diagnosis, and the potential for any kind of interventions to reduce likelihood of bleeding again given his ongoing need for anticoagulation. We talked about the risks of the procedure, I think he has a good understanding of this. Will try to proceed with EGD this afternoon in an effort to help get him discharged as soon as possible. Subjective Subjective Interval history since last seen: Ilya seems to be much more comfortable this morning. He reports his dyspnea has improved significantly after transfusion of packed cells. Currently, he denies any discomfort at all. Exam GI Other: Abdomen is soft and nontender. He is not at all distended. Objective Last Vital Signs Temp 97.9 F 01/28/24 07:18 Pulse 77 01/28/24 07:18 Resp 20 01/28/24 07:18 BP 124/100 H 01/28/24 07:18 Pulse Ox 98 01/28/24 07:18 Laboratory Results - last 24 hr 01/28/24 11:10 WBC 6.27 RBC 3.51 L Hgb 9.0 L Hct 29.4 L MCV 84 MCH 25.6 L MCHC 30.6 L RDW 17.1 H Plt Count 194 MPV 11.5 H Immature Gran % 0.3 Neutrophils % 61.6 Lymphocytes % 22.0 Monocytes % 11.0 Eosinophils % 4.5 Basophils % 0.6 Nucleated RBC % 0.0 Absolute Neutrophils 3.86 Absolute Lymphocytes 1.38 Absolute Monocytes 0.69 Absolute Eosinophils 0.28 Absolute Basophils 0.04 Sodium 142 Potassium 4.5 Chloride 107 Carbon Dioxide 23.3 Anion Gap 11.7 H BUN 76 H Creatinine 2.3 H Est GFR (CKD-EPI 2020) 26.81 Glucose 142 H Calcium 9.1 Time Spent with Patient Time Spent with Patient: 25-34 minutes Time was spent: preparing to see the patient(eg.review tests), referring, communicating with other health patient centered care specialist, indepentently interpreting results and counseling the patient
--- NOTE | 2024-01-28 13:04 | W.ANESPRE ---
General Info Date of Service Date Performed: 01/28/24 Height: 5 ft 11 in Weight: 82.7 kg Body Mass Index (BMI): 25.4 Surgical Procedure: Operation Date: 01/28/24 13:20 Proposed Procedure Side Surgeon p Gastroscopy Jeison Edwards MD Meds Allergies and Home Medications Allergies Allergy/AdvReac Type Severity Reaction Status Date / Time metformin Allergy Unknown Diarrhea Verified 01/25/24 18:01 ezetimibe (From Vytorin) AdvReac FAILED Verified 01/25/24 18:01 lisinopril AdvReac Hyperkalemi Verified 01/25/24 18:01 a simvastatin (From Vytorin) AdvReac FAILED Verified 01/25/24 18:01 Home Medication ?Medication ?Instructions ?Recorded aspirin 81 mg chewable tablet 81 mg PO DAILY #1 tab-cap 09/28/13 (Aspirin Low-Strength) atorvastatin 80 mg tablet 80 mg PO DAILY #90 tab-caps 09/28/13 [id number]-min 1 ea PO DAILY ##1 09/28/13 3,300 unit-5 mg-200mg-75 unit tablet ER (ICaps) amlodipine 10 mg tablet (Norvasc) 10 mg PO DAILY 10/21/14 lisinopril 5 mg tablet 5 mg PO DAILY 03/15/17 sitagliptin phosphate 100 mg 100 mg PO DAILY 03/15/17 tablet (Januvia) glimepiride 1 mg tablet 1 mg PO QAM 07/16/18 rivaroxaban 15 mg tablet (Xarelto) 15 mg PO QPM 07/16/18 phenytoin sodium extended 100 mg 100 mg PO BID 04/15/20 capsule (Dilantin Extended) multivitamin 1 tab PO DAILY 04/27/21 naproxen 500 mg tablet 500 mg PO BID PRN 04/27/21 trazodone 50 mg tablet 50 mg PO QHS PRN 05/02/22 mirtazapine 7.5 mg tablet 7.5 mg PO DAILY 04/26/23 albuterol sulfate 90 mcg/actuation 2 inh inhalation 6XD PRN 10/24/23 aerosol inhaler (Ventolin HFA) furosemide 80 mg tablet 80 mg PO BID 11/22/23 paroxetine HCl 10 mg/5 mL oral 10 mg PO QAM 11/22/23 suspension Current Visit Medications: Current Medications Generic Name Dose Route Start Last Admin Trade Name Freq PRN Reason Stop Dose Admin Acetaminophen 0 mg 01/25/24 22:07 Acetaminophen 325 Mg Tab PO Q4H PRN PRN Al Hydrox/Mg Hydrox/Simethicone 30 ml 01/25/24 22:07 Mylanta Suspension 30 Ml Cup PO Q2H PRN PRN Albuterol Sulfate 2 puff 01/25/24 22:07 Albuterol Hfa 8 Gm 60 Puff Inh IH Q4H PRN PRN Amlodipine Besylate 10 mg 01/26/24 08:30 01/28/24 09:59 Amlodipine 10 Mg Tab PO 10 mg DAILY RAMÍREZ Administration Aspirin 81 mg 01/27/24 08:30 01/28/24 09:59 Aspirin E.C. 81 Mg Tabec PO 81 mg DAILY RAMÍREZ Administration Atorvastatin Calcium 80 mg 01/26/24 08:30 01/28/24 10:00 Atorvastatin 40 Mg Tab PO 80 mg DAILY RAMÍREZ Administration Dextrose 0 gm 01/25/24 21:41 Glucose Oral Gel 15 Gm/37.5 Gm Tube PO DIRECTED PRN Dextrose/Water 0 gm 01/25/24 21:41 Dextrose 50%-Water 25 Gm/50 Ml Syr IVP DIRECTED PRN Docusate Sodium 100 mg 01/25/24 22:07 Docusate Sodium 100 Mg Cap PO TID PRN PRN Furosemide 80 mg 01/26/24 08:30 01/28/24 10:00 Furosemide 80 Mg Tab PO 80 mg BID DIURETIC RAMÍREZ Administration Sodium Chloride 500 mls @ 0 mls/hr 01/26/24 07:45 Saline 500ml Bag IV DIRECTED PRN As Directed IV Miscellaneous Supplies 1 each 01/26/24 07:45 Iv Access IV DIRECTED [facility] Insulin Aspart 0 units 01/26/24 08:00 01/28/24 12:22 Insulin Aspart 300 Units/3 Ml Pen SC Not Given 0800,1200,1700,2200 [facility] Protocol Lisinopril 5 mg 01/26/24 08:30 01/28/24 09:59 Lisinopril 5 Mg Tab PO 5 mg DAILY RAMÍREZ Administration Magnesium Hydroxide 30 ml 01/25/24 22:07 Milk Of Magnesia 30 Ml Cup PO DAILY PRN PRN Mirtazapine 7.5 mg 01/26/24 08:30 01/28/24 09:58 Mirtazapine 15 Mg Tab PO 7.5 mg DAILY RAMÍREZ Administration Multivitamins 1 tab 01/26/24 08:30 01/28/24 09:58 Multivitamin Tab PO 1 tab DAILY RAMÍREZ Administration Pantoprazole Sodium 40 mg 01/26/24 11:40 01/28/24 09:57 Pantoprazole 40 Mg Vial IVP 40 mg BID RAMÍREZ Administration Paroxetine HCl 10 mg 01/26/24 08:30 01/28/24 09:59 Paroxetine 10 Mg Tab PO 10 mg QAM RAMÍREZ Administration Phenytoin Sodium 100 mg 01/26/24 08:30 01/28/24 09:58 Phenytoin-Extended 100 Mg Cap PO 100 mg BID RAMÍREZ Administration Polyethylene Glycol 17 gm 01/25/24 22:07 Polyethylene Glycol 3350 17 Gm Packet PO DAILY PRN PRN Constipation Silver Sulfadiazine 0 gm 01/26/24 08:30 01/28/24 10:04 Silver Sulfadiazine 1% 25 Gm Tube TP Not Given BID RAMÍREZ Sitagliptin Phosphate 25 mg 01/27/24 08:30 01/28/24 09:59 Sitagliptin 25 Mg Tab PO 25 mg DAILY RAMÍREZ Administration Sodium Chloride 0 ml 01/26/24 07:45 01/28/24 08:20 Normal Saline Flush 10 Ml Syr IVP 10 ml PRN PRN Administration Trazodone HCl 50 mg 01/25/24 22:07 Trazodone 50 Mg Tab PO HS PRN PRN PFSH Active Problems Active Problems: Problem Status Onset Code Anemia Chronic D64.9 Hypomagnesemia Acute E83.42 Elevated troponin level not due to acute coronary syndrome Acute R79.89 CKD (chronic kidney disease) Chronic N18.9 CHF exacerbation Acute I50.9 Shortness of breath Acute R06.02 Osteoarthritis of knees, bilateral Acute M17.0 Heart failure Chronic I50.9 Skin lesion of face Acute L98.9 Anemia Chronic D64.9 NSTEMI (non-ST elevated myocardial infarction) Acute I21.4 Acute on chronic kidney failure Acute N17.9, N18.9 Heart failure, chronic, with acute decompensation Acute I50.9 Hyperkalemia Acute E87.5 Pleural effusion Chronic J90 Memory change Acute R41.3 Paralysis of left upper extremity Acute G83.24 Third degree burn of finger of left hand excluding thumb Acute T23.322A Burn of finger Acute T23.029A Sick sinus syndrome Chronic I49.5 Essential hypertension Chronic I10 Hyperlipidemia Chronic E78.5 DM2 (diabetes mellitus, type 2) Chronic E11.9 Mild aortic stenosis Chronic I35.0 Cardiac pacemaker Chronic 08/17/17 Z95.0 Right rotator cuff tendinitis Acute M75.81 Persistent atrial fibrillation Chronic I48.19 Osteoarthritis of carpometacarpal joint of right thumb Acute M18.11 Trochanteric bursitis, left hip Acute M70.62 Trochanteric bursitis, right hip Acute M70.61 Traumatic arthropathy, right shoulder Acute M12.511 Medical History Medical History 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 states he doesn't remember ever having any History of TIA (transient ischemic attack) and stroke Per pt. in 2003 had carotid artery surgery, after procedure pt. suffered a stroke, pt. states full forearm numbness and parts of left leg Medical History Comments:: 04/27/23: pt reports he saw forestry support specialist and had pacemaker check on 04/25/23 at [facility] Surgical History Surgical History History of thoracentesis (~04/2023) FH: carotid endarterectomy History of permanent cardiac pacemaker placement Tobacco Smoking/Tobacco Use Status: Former Tobacco Use Passive smoking exposure: No Second hand exposure: No Alcohol Alcohol Intake: never Substance Use Substance use: Never Substance use type: does not use Vital Signs and Lab Results Vital Signs Most Recent Vital Signs in EMR: Most Recent Vital Signs Temp Pulse Resp BP Pulse Ox 36.9 C 75 16 141/48 H 96 01/28/24 12:21 01/28/24 12:21 01/28/24 12:21 01/28/24 12:21 01/28/24 12:21 Point of Care Results Point of Care Results: Finger Stick Blood Glucose 164 01/28/24 12:19 Lab Results 01/28/24 11:10 01/28/24 11:10 Blood Type / Crossmatch: Antibody Screen NEGATIVE 01/25/24 Crossmatch See Detail 01/25/24 Complete Blood Count: White Blood Count 6.27 10^3/uL (4.4-10.8) 01/28/24 11:10 Red Blood Count 3.51 10^6/uL (4.36-5.78) L 01/28/24 11:10 Hemoglobin 9.0 g/dL (13.5-17.5) L 01/28/24 11:10 Hematocrit 29.4 % (40.0-50.0) L 01/28/24 11:10 Platelet Count 194 10^3/uL (130-400) 01/28/24 11:10 Complete Metabolic Panel: Sodium 142 mmol/L (136-145) 01/28/24 11:10 Potassium 4.5 mmol/L (3.5-5.1) 01/28/24 11:10 Chloride 107 mmol/L (98-107) 01/28/24 11:10 Carbon Dioxide 23.3 mmol/L (21.0-32.0) 01/28/24 11:10 BUN 76 mg/dL (7-18) H 01/28/24 11:10 Creatinine 2.3 mg/dL (0.70-1.30) H 01/28/24 11:10 Est GFR (CKD-EPI 2020) 26.81 (mL/min/1.73m2) 01/28/24 11:10 Magnesium 2.1 mg/dL (1.8-2.4) 01/26/24 06:55 Calcium 9.1 mg/dL (8.5-10.1) 01/28/24 11:10 Albumin 3.4 g/dL (3.4-5.0) 01/26/24 06:55 Glucose 142 mg/dL (74-106) H 01/28/24 11:10 Liver Function Panel: Alanine Aminotransferase (ALT/SGPT) 16 U/L (16-63) 01/26/24 06:55 Aspartate Amino Transf (AST/SGOT) 35 U/L (15-37) 01/26/24 06:55 Coagulation Panel: INR International Normalized Ratio 1.5 (0.9-1.1) H 01/07/24 12:20 Prothrombin Time 14.3 sec (9.1-11.1) H 01/07/24 12:20 Activated Partial Thromboplast Time 31.4 sec (23.6-32.8) 01/07/24 12:20 Cardiac Panel: Troponin I 922 ng/L (<or=76) H* 01/26/24 NT-Pro-B Natriuret Pep 5274 pg/mL (<300) H 01/25/24 Arterial Blood Gas: No Data to Display Venous Blood Gas: No Data to Display Pancreas Panel: No Data to Display Thyroid Panel: Thyroid Stimulating Hormone (TSH) 3.32 uIU/mL (0.36-3.74) 01/26/24 00:15 Infectious Disease: Coronavirus (COVID-19)(PCR) Negative (Negative) 01/25/24 21:25 Coronavirus 2019 Source NASOPHARYNX 01/25/24 21:25 Influenza Virus Type A (PCR) Negative (Negative) 01/25/24 21:25 Influenza Virus Type B (PCR) Negative (Negative) 01/25/24 21:25 Respiratory Syncytial Virus (PCR) Negative (Negative) 01/25/24 21:25 Blood Cultures: No Data to Display Toxicology Panel: No Data to Display Imaging and Studies Imaging and Studies Study information below may be from another EMR and interpreted by another provider. Please see original notes in EMR for more complete details. EKG Summary: EKG PATIENT NAME: Emir Davis UNIT #: [id number] ORDERING PROVIDER: David Denny PRIMARY CARE PROVIDER: NEL CABRERA DATE/TIME OF SERVICE: 01/26/24647 : 1935 PERFORMING LOCATION: [place] APPROVED REPORT Exam: Resting ECG Reason for Exam: Elevated troponins Patient Location: I HR:76 bpm ECG Measurements Heart Rate 76 AXIS IA [id number] P [id number] QRSd 157 QRS -9 QT 418 T141 QTc 471 Conclusion May be atrial pacing, ventricular pacing Left bundle branch block...QRSd>120, broad/notched R <Electronically signed by ARNULFO HERRING MD in OV> E-Sign Date: 01/28/24 E-Sign Time: 814 Echocardiogram Summary: Patient Name: Emir Davis Unit #: [id number] Loc: [place] Ordering Provider: Kaylie Curtis NP Status: ADM IN Primary Care Provider: Nel Cabrera Date of Exam: 08/27/23 Sex: M Admission Date: 08/26/23 : 1935 Age: 88 APPROVED REPORT EXAM: Comprehensive 2D, Doppler, and color-flow Echocardiogram Patient Location: In-Patient Room/Bed: 210 Beef Ribber: Eliot Brewer RDCS (AE) Indications: heart failure Other Information Study Quality: Technically Limited. Technically limited study due to body habitus, inability to position patient. Conclusion Technically difficult but adequate study Normal left ventricular wall thickness and chamber size. Ejection fraction is 50 to 55%. There are no segmental wall motion abnormalities Normal right ventricular size and function Both atria are normal in size Device lead noted in the right heart Grossly normal appearance of the aortic valve. Mean gradient is 9 mmHg Mild mitral and tricuspid regurgitation Estimated right ventricular systolic pressure is 41 mmHg Wall motion Left Ventricle The left ventricle is normal size. The overall left ventricular systolic function appears normal. There is normal left ventricular wall thickness. There are no segmental wall motion abnormalities. There is no ventricular septal defect visualized. LVEF is 50-55%. Right Ventricle The right ventricle is normal size. The right ventricular systolic function is normal. Pacemaker lead is present in the right ventricle. Atria The left atrium size is normal. The right atrium size is normal. The interatrial septum is intact with no evidence for an atrial septal defect. Aortic Valve Aortic valve is grossly normal in structure. Mean gradient is 9 mmHg No aortic regurgitation is present. Mitral Valve The mitral valve is normal in structure. No evidence of mitral valve stenosis. Mild mitral regurgitation. Tricuspid Valve The tricuspid valve is normal in structure. There is no tricuspid valve stenosis. Mild tricuspid regurgitation. The RVSP is 41.2 mmHg. Pulmonic Valve Pulmonic valve is not well visualized. Great Vessels The aortic root is not well visualized but is probably normal size. Ascending aorta is not well visualized. Aortic arch is not well visualized. IVC is normal in size and collapses >50% with inspiration. Pericardium There is no pericardial effusion. 2D Dimensions IVSD d PLAX 1.00 cm M: 0.6-1.2Ao Root d 2.98 cm M: 3.1 - 3.7 LVPW d PLAX 0.97 cm M: 0.6 - 1.2 LVID d PLAX 4.80 cm M: 4.2 - 5.8 LVDs 3.57 cm M: 2.5 - 4.0 LV EF Teichholz 50.4 % FS25.64 % LV EDV (Teich)107.3 mL LV ESV (Teich)53.2 mL Stroke Vol Index (Teich)26.40 M-Mode TAPSE 1.18 cm (M/F) >1.7 Auto EF LV EDV A4C82.8 mLLV EDV N5I636.9 mLLV EDV BP103.7 mL LV ESV A4C43.4 mLLV ESV A2C66.7 mLLV ESV BP53.6 mL LVEF(%) A4C47.6 %LVEF(%) A2C47.9 %LVEF(%) BP48.3 % LV SV A4C39.4 mlLV SV A2C61.3 mlLV SV BP50.1 ml LV CO A4C3.0 L/minLV CO A2C4.1 L/minLV CO BP3.5 L/min HR A4C75.16 BPMHR A2C67.04 BPMLV EDV Index (BP) LA Volume LA Length A4C4.3 cmLA Length A2C5.2 cm LA Area A4C s 11.52 cm2LA Area A2C s 19.73 cm2 LA Vol A4C A-L26.13 mLLA Vol A2C A-L62.98 mLLA Vol Biplane A-L44.8 mL LA Vol/BSA A4C A-LLA Vol/BSA A2C A-LLA Vol/BSA BP A-L 21.8 mL/m2 LA Vol A4C MOD24.4 mLLA Vol A2C MOD61.6 mLLA Vol BP MOD42.2 mL RA Volume RA Area A4C8.6 cm2RA ESV A4C (A-L)14.6mLRA Vol/BSA A4C A-L RA Length A4C4.3 cmRA ESV A4C (MOD)13.9mL LV Diastology MV E' medial0.076 (>0.07 m/s)MV E Vmax 1.10 (0.4-1.3 m/s) MV E/E' MED14.39 (<14)MV A Vmax 0.50 (0.4-1.3 m/s) MV E' lateral0.113 (>0.1 m/s)E/A Ratio 2.2 MV E/E' LAT9.76 (<14) MV E' Average0.095 m/s MV E/E'(average)11.63 Aortic Valve AoV Vmax1.77 m/sLVOT Vmax 0.78 m/s AoV Peak Grad12.5 mmHgLVOT Peak Grad 2.4 mmHg AoV Area (Vmax)1.35 [id number] VTI0.133 m AoV VTI0.341 mLVOT Mean Grad 1.6 mmHg AoV Mean Kyle.1.42 m/sLVOT SV 40.61 mL AoV Mean Grad8.7 mmHgLVOT Diam s 1.95 cm AoV Area (VTI)1.19 cm2 Velocity Ratio 0.44 Mitral Valve MV DT 231 (160-240 msec) Tricuspid Valve RA Pressure 3.00 mmHgTR Vmax 3.09 m/s TR Peak Grad 38.1 mmHg RVSP (TR) 41.2 mmHg Ordered By: Kaylie Curtis NP CC: Dictated By: Arnulfo Herring M.D. 08/27/23 3197 <Electronically signed by Arnulfo Herring M.D. in [place]> 08/27/23 1603 Transcribed By: Arnulfo Herring MD 08/27/23 8913 This is privileged, confidential information intended only for the provider named. Any use or distribution by any person other than this provider is strictly prohibited. If you receive this report in error, please notify us immediately at [phone] and return the original report to us at the address above. Thank-you. Anesthesia Assessment and Plan Anesthesia History Personal History: No History of Anesthesia Complications Family History: No Family History of Anesthesia Complications Exercise Tolerance Exercise Tolerance: Metabolic Equivalents<4 Cardiac & Pulmonary Exam Cardiac Exam: Normal S1/S2 Heart Sounds Pulmonary Exam: Clear Bilateral Breath Sounds Implantable Cardiac Device Does patient have a Pacemaker or an ICD?: Yes Device Aircraft Designer:: [employer] [place] XT DR model [id number] Reason for Placement:: CHF Date of Last Device Interrogation:: april 2023 Airway Exam Known Difficult Airway: No Mallampati Class: 2 Mouth Opening: Normal (> 3cm) Thyromental Distance: Greater than 3 cm Neck Range of Motion: Full ROM Neck Circumference: Normal Teeth Condition: Generalized Poor Dentition and Removable Dentures/Plates Upper Tooth Numberin. 4 remaining teeth ASA Classification ASA Score: ASA 4 Emergency Case?: Yes NPO Status NPO Status: NPO Clears >2 hours, Solids >8 hours Anesthesia Plan Resuscitation Status: Full Code (Discussed at length and wishes to remain full code) Anesthesia Technique: General Anesthesia Airway Planned: Natural Airway Monitors Used: Standard Monitors Preoperative Comments:: Patient with recent changes in functional status, to ED, bumps in troponin that continued. 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 Patient with improvement of subjective symptoms with blood. Discussed at length with general surgeon and feels need to proceed. Discussed risk at length with patient, wishes to proceed. No guarantee of amnesia during case discussed and patient comfortable with proceeding.
--- NOTE | 2024-01-28 14:07 | NUR.NOTE ---
Documentation reviewed with student NICOLE, Zoë Norris. Luanne Obrien, MSN, RNC-OB (clinical instructor)
--- NOTE | 2024-01-28 14:56 | W.PM.ENDDOP ---
Date of service: 01/28/24 Time of Service: 14:56 Endoscopy Report DATE OF PROCEDURE: 01/28/24 PRE-OP DIAGNOSIS: Gastrointestinal bleeding POST-OP DIAGNOSIS: other (Gastritis with peptic ulcer disease) PROCEDURE: EGD with clipping of peptic ulcer SURGEON: Jeison Edwards ANESTHESIA TYPE: General:No Airway PATHOLOGY: none sent COMPLICATIONS: None DISPOSITION: PACU INDICATIONS: Ilya is an 88-year-old male comes to the emergency department with dyspnea. He is found to have acute blood loss anemia. He was admitted with a diagnosis of gastrointestinal bleeding. Therapeutic anticoagulation was withheld, he was started on proton pump inhibitor therapy. He is here for diagnostic EGD. FINDINGS: Gastritis with small focus of peptic ulcer disease on the anterior wall of the stomach PROCEDURE DESCRIPTION: After the initiation of anesthesia, and with the assistance of a bite block, I advanced a standard gastroscope through the mouth past the hypopharynx and into the esophagus.? Under the direct vision of the scope, I advanced down the esophagus towards the stomach.? The GE junction and Z-line were encountered around 37 cm from the incisors. No evidence of Mendez's esophagus. I entered the stomach and began insufflation. There appeared to be a small amount of old blood. Irrigation was used to clear the mucosa. There was a small focus of mucosal inflammation on the anterior wall of the stomach toward the midportion of the gastric body. This was irrigated clean. I did not see any signs of a visible vessel, although there was a small amount of bleeding from the mucosa. I advanced the camera down into the duodenum and examined it down to the third portion. The duodenum was totally normal-appearing. I did not see any blood anywhere in the duodenum. I brought the camera back up into the stomach. I performed retroflexion. I did not see any signs of any hiatal hernia, or any ulceration up in the gastric fundus or cardiac region. I turned my attention back to the area of inflammation that was noted previously. Narrowband imaging was used to assist with analysis. It did not appear consistent with malignancy. It looks like a simple ulcer. A resolution 360 clip was applied across this in light of the patient's need for therapeutic anticoagulation. It appeared hemostatic, and the clip was well-seated. Stomach was then emptied and the camera was brought out along the length of the esophagus which was examined 1 last time. No other abnormalities were appreciated.
--- NOTE | 2024-01-28 15:17 | W.ANESPOSTOP ---
Postoperative Evaluation Date, Time and Location Date Performed: 01/28/24 Time Performed: 15:17 Patient Location: PACU Vital Signs Most Recent Imported Vital Signs: Most Recent Vital Signs Temp Pulse Resp BP Pulse Ox 36.6 C 59 L 18 100/29 L 95 01/28/24 15:00 01/28/24 14:56 01/28/24 15:00 01/28/24 14:56 01/28/24 15:00 Pain Score Most Recent Pain Score: Most Recent Pain Score Pain Level 0 01/28/24 15:00 Assessment Mental Status: Awake (Alert & Oriented to Patient Baseline) Airway and Respiratory Function: Patent airway with normal (patient baseline) respiratory exam Cardiovascular Function: Hemodynamically Stable Hydration Status: Adequately Hydrated Nausea & Vomiting: No Nausea or Vomiting Pain: Pt. Denies Any Pain Peripheral Nerve Block: Patient did not receive a nerve block
--- NOTE | 2024-01-28 17:21 | NUR.NOTE ---
Nursing Note: Patient care transferred to Magen TOVAR on return from PACU. Patient care transferred to Yomaira TOVAR at 16:50. Full report given.
--- NOTE | 2024-01-28 18:11 | W.PM.PROGNOT ---
Date of Service Date of service: 01/28/24 Time of Service: 11:30 Assessment and Plan Assessment and plan (1) Dyspnea on exertion: Assessment and plan: Presentation with progressive shortness of breath over weeks prior with increased severity prompting the patient to seek medical care No further chest pressure . Non- ischemic EKG in ED Hemoglobin stable at 9; s/p 2 PRBC's was 6.1 on arrival- no further dyspnea at rest. No O2 requirement Physical therapy for safe discharge (2) Anemia: Status: Chronic Assessment and plan: As above Progressive anemia and this may be associated with CKD and iron deficiency versus recent report of melena in the prior month Reported taking daily naproxen in the past month as well as rivaroxaban. CBC in AM Surgical consult: EGD completed today . Please read report -small focus of mucosal inflammation on the anterior wall of the stomach; small amount of bleeding from the mucosa - resolution 360 clip was applied Resume diet Will hold rivaroxaban- until cardiology consult completion continue PPI ASA 81 mg EC PO daily Qualifiers: Anemia type: due to chronic kidney disease Chronic kidney disease stage: stage 4 (severe) Qualified Code(s): N18.4 - Chronic kidney disease, stage 4 (severe); D63.1 - Anemia in chronic kidney disease (3) Heart failure: Status: Chronic Assessment and plan: Last echo conducted on 08/27/2023 with LVEF of 50-55% Will avoid fluid overload Continue furosemideopt dosing twice daily, brief increase in dosing might have exacerbated CKD Echocardiogram ordered and pending Qualifiers: Heart failure chronicity: unspecified Heart failure type: diastolic Qualified Code(s): I50.30 - Unspecified diastolic (congestive) heart failure (4) Hypomagnesemia: Status: Acute Assessment and plan: Resolved Mg in a.m. (5) Elevated troponin level not due to acute coronary syndrome: Status: Acute Assessment and plan: Resolved and asymptomatic now Trending up troponins max 1021 then down trend On 01/26/2024 : Cardiology consulted at [facility] with goal of transferring patient: Spoke to AMY Cortés-does not recommend transfer for cath at this time with creatinine clearance around 20 mL/min as well as acute bleeding and anemia. The provider considered sequential troponin of 989 and 1021 over the span of 8 hours as a flat trend and recommends further troponin 3 hours apart. Subsequent troponin scheduled for 1400 is not trending down at 922. As per discussion with [facility] cardiology this could well be due to demand ischemia in the setting of severe anemia; recommendation to call them back if the patient became symptomatic. ASA 81 mg also recommended ending agreement with holding of rivaroxaban (6) Pleural effusion: Status: Chronic Assessment and plan: continue home dose furosemide (7) CKD (chronic kidney disease): Status: Chronic Assessment and plan: BMP in the morning Cr improving to 2.3 Possibly associated with DM type II Qualifiers: Chronic kidney disease stage: stage 4 (severe) Qualified Code(s): N18.4 - Chronic kidney disease, stage 4 (severe) (8) Atherosclerosis of coronary artery without angina pectoris: Assessment and plan: Initial chest pressure resolved, troponin levels down-trending w/o further symptoms at this time Consultation with [facility] cardiology: Recommendation by AMY Cortés are to treat GIB/ anemia - hold xeralto for suspected GIB and report of melena Conitnue ASA 81 mg as tolerated On home dose statins Reconsult if further ACS symptoms; this might still be considered demand ischemia The patient cannot be cath in the setting of acute GIB , CrCL 23ml/min- CT of ABD with contrast could not be done at this time for GFR < 30- f/u opt Qualifiers: Coronary Disease-Associated Artery/Lesion type: [place] artery [place] vs. transplanted heart: [place] heart Qualified Code(s): I25.10 - Atherosclerotic heart disease of [place] coronary artery without angina pectoris (9) Persistent atrial fibrillation: Status: Chronic Assessment and plan: Patient did have sick sinus syndrome with atrial fibrillation and presently is completely paced rhythm. Rivaroxaban now on hold On telemetry: V Paced (10) Cardiac pacemaker: Status: Chronic Assessment and plan: V-Paced rhythm on telemetry (11) Essential hypertension: Status: Chronic Assessment and plan: Continue opt medicine regimen and monitoring- adjusting as needed. (12) DM2 (diabetes mellitus, type 2): Status: Chronic Assessment and plan: Continue blood sugar check AC and HS with SSI and renal dosing Januvia. Old all other antihyperglycemic agent Qualifiers: Chronic kidney disease stage: stage 4 (severe) Diabetes mellitus complication detail: with chronic kidney disease Diabetes mellitus complication status: with kidney complications Diabetes mellitus termination clerk insulin use: without termination clerk use Qualified Code(s): E11.22 - Type 2 diabetes mellitus with diabetic chronic kidney disease; N18.4 - Chronic kidney disease, stage 4 (severe) (13) Hyperlipidemia: Status: Chronic Assessment and plan: On outpatient statin therapy. Discussed with Dr. Harrison Qualifiers: Hyperlipidemia type: mixed hyperlipidemia Qualified Code(s): E78.2 - Mixed hyperlipidemia Subjective Subjective Patient reports: voiding w/o difficulty, flatus, blood in stool, shortness of breath and other (NPO for EGD); denies diarrhea, nausea, vomiting or fever Exam Narrative Exam Narrative: Constitutional The patient is sitting in bed comfortable , without acute distress Neuro:alert and oriented X4 .Residual LUE paresis from previous CVA Resp: Unlabored breathing, clear lung bilaterally Cardio: Telemetry first-degree AV block to sinus rhythm-HR 83 regular rhythm, S1, S2, no murmur, positive pedal and radial pulses bilaterally GI: Abdomen is not distended, soft and non tender, bowel sounds are present : Negative Costovertebral angle tenderness Integumentary: No skin lesions or rash on exposed skin Extremities: strength 5/5 to bilateral lower and upper extremities Psych: RASS 0, congruent mood and normal affect. Objective Last Vital Signs Temp 36.6 C 01/28/24 16:45 Pulse 59 L 01/28/24 16:45 Resp 16 01/28/24 16:45 BP 122/52 L 01/28/24 16:45 Pulse Ox 98 01/28/24 16:45 Laboratory Results - last 24 hr 01/28/24 11:10 WBC 6.27 RBC 3.51 L Hgb 9.0 L Hct 29.4 L MCV 84 MCH 25.6 L MCHC 30.6 L RDW 17.1 H Plt Count 194 MPV 11.5 H Immature Gran % 0.3 Neutrophils % 61.6 Lymphocytes % 22.0 Monocytes % 11.0 Eosinophils % 4.5 Basophils % 0.6 Nucleated RBC % 0.0 Absolute Neutrophils 3.86 Absolute Lymphocytes 1.38 Absolute Monocytes 0.69 Absolute Eosinophils 0.28 Absolute Basophils 0.04 Sodium 142 Potassium 4.5 Chloride 107 Carbon Dioxide 23.3 Anion Gap 11.7 H BUN 76 H Creatinine 2.3 H Est GFR (CKD-EPI 2020) 26.81 Glucose 142 H Calcium 9.1 Time Spent with Patient Time Spent with Patient: >50 minutes Time was spent: preparing to see the patient(eg.review tests), obtaining and/or reviewing separately otained hiistory, ordering medications,tests, procedures, referring, communicating with other health day care aide, indepentently interpreting results, counseling the patient and care coordination
[2024-01-28] MEDS: Insulin Aspart 300 UNITS/3 ML PEN SC ×2 (18:54→21:54)
[2024-01-28] MEDS: Melatonin 3 MG TAB PO (21:25)
[2024-01-29 03:28] VITALS: BP 116/48; PULSE 63; RESP 17; TEMP 36; O2SAT 95
[2024-01-29 06:49] LABS: HCT 27.3 % (40.0-50.0); HGB 8.5 g/dL (13.5-17.5); MCH 26.1 pg (27.0-33.0); MCHC 31.1 % (32.0-36.0); MCV 84 fL (80-95); MPV 11.3 fL (8.0-11.0); Platelet Count 192 10^3/uL (130-400); RBC 3.26 10^6/uL (4.36-5.78); RDW 17.1 % (11.8-14.1); RDW-SD 52.1 fL
[2024-01-29 07:13] LABS: Anion Gap 11.8 mmol/L (3-11); CO2 24.2 mmol/L (21.0-32.0); CREATININE 2.3 mg/dL (0.70-1.30); Calcium 8.6 mg/dL (8.5-10.1); Chloride 106 mmol/L (98-107); Estimated GFR 26.81 (mL/min/1.73m2); Glucose 142 mg/dL (74-106); Magnesium 1.8 mg/dL (1.8-2.4); Potassium 5.1 mmol/L (3.5-5.1); Sodium 142 mmol/L (136-145)
[2024-01-29 07:16] LABS: BUN 82 mg/dL (7-18)
[2024-01-29 07:46] VITALS: BP 117/60; PULSE 68; RESP 18; TEMP 36.6; O2SAT 97
--- NOTE | 2024-01-29 07:51 | NUR.NOTE ---
Access chart to reconcile EKG orders with the EKG's in [facility]. Duplicate order cancelled. Nursing Note:
[2024-01-29] MEDS: Pantoprazole 40 MG VIAL IVP (08:20)
[2024-01-29] MEDS: Aspirin E.C. 81 MG TABEC PO (08:21)
[2024-01-29] MEDS: Normal Saline Flush 10 ML SYR IVP (08:21)
[2024-01-29] MEDS: Atorvastatin 40 MG TAB 80 MG PO (08:22)
[2024-01-29] MEDS: Mirtazapine 15 MG TAB 7.5 MG PO (08:23)
[2024-01-29] MEDS: Lisinopril 5 MG TAB PO (08:23)
[2024-01-29] MEDS: amLODIPine 10 MG TAB PO (08:24)
[2024-01-29] MEDS: Multivitamin TAB 1 TAB PO (08:24)
[2024-01-29] MEDS: Furosemide 80 MG TAB PO (08:24)
[2024-01-29] MEDS: PARoxetine 10 MG TAB PO (08:25)
--- NOTE | 2024-01-29 08:27 | W.CARDCONSUL ---
Date of service: 01/29/24 Time of Service: 08:27 Assessment and Plan Assessment and plan (1) Cardiac pacemaker: Status: Chronic Assessment and plan: Followed in device clinic (2) Persistent atrial fibrillation: Status: Chronic Assessment and plan: Patient has persistent asymptomatic atrial fibrillation. Currently Xarelto is being appropriately withheld (3) Anemia: Status: Chronic Assessment and plan: Patient has a gastric ulcer. Qualifiers: Anemia type: other cause (4) NSTEMI (non-ST elevated myocardial infarction): Status: Acute Assessment and plan: Type II non-ST elevation myocardial infarction precipitated by GI bleeding At this point I would recommend he be off anticoagulation for about 2 weeks. At that point his low-dose Xarelto could be restarted. He could be considered for a referral for a Watchman procedure but this is not immediately possible. It was mentioned to the patient as potential therapy History of Present Illness Narrative: This is an 88-year-old man who presented to the hospital with progressive shortness of breath and was found to be profoundly anemic. He had evidence of a type II non-ST elevation myocardial infarction, manifested by elevation of his cardiac enzymes. He has been transfused, Xarelto withheld. he feels a lot better. Yesterday he had an EGD and was found to have a gastric ulcer Review of Systems Cardiovascular Cardiovascular: Reports as per HPI, Reports chest pain with activity and Reports dyspnea on exertion Respiratory Respiratory: Reports dyspnea on exertion PFSH All Active Problems (Updated 01/29/24 @ 08:31 by Stefanie Herring MD) Anemia (Chronic) Hypomagnesemia (Acute) Elevated troponin level not due to acute coronary syndrome (Acute) CKD (chronic kidney disease) (Chronic) CHF exacerbation (Acute) Shortness of breath (Acute) Osteoarthritis of knees, bilateral (Acute) Heart failure (Chronic) Skin lesion of face (Acute) Anemia (Chronic) NSTEMI (non-ST elevated myocardial infarction) (Acute) Acute on chronic kidney failure (Acute) Heart failure, chronic, with acute decompensation (Acute) Hyperkalemia (Acute) Pleural effusion (Chronic) Memory change (Acute) Paralysis of left upper extremity (Acute) Third degree burn of finger of left hand excluding thumb (Acute) Burn of finger (Acute) Sick sinus syndrome (Chronic) pt. unsure of this medical hx Essential hypertension (Chronic) Hyperlipidemia (Chronic) DM2 (diabetes mellitus, type 2) (Chronic) Mild aortic stenosis (Chronic) Cardiac pacemaker (Chronic 08/17/17) Medtronic Lola XT DR MRI model # [id number] serial # [id number] (pulse generator) Ventricular electrodes: Medtronic CapsureFix Model # 5076-58 cm Serial # [id number] Atrial electrodes: Medtronic CapsureFix model # 5076-52 cm serial # [id number] Right rotator cuff tendinitis (Acute) Corticosteroid injection: 07/16/18 Persistent atrial fibrillation (Chronic) Onset mid May 2019 - ongoing as of 06/25/2019 - sinus restored Onset again January 2021 - ongoing as of 10/26/2021 DC cardioversion [facility] 10/2021 - on amiodarone; recurrent in February 2022 - amiodarone stopped Osteoarthritis of carpometacarpal joint of right thumb (Acute) Trochanteric bursitis, left hip (Acute) Steroid injection: 12/07/2020; 03/17/2020 Trochanteric bursitis, right hip (Acute) Steroid injection: 12/07/2020; 03/17/2020 Traumatic arthropathy, right shoulder (Acute) Most recent Depo-Medrol injection: 11/22/2021; 05/24/2022 Medical History 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 states he doesn't remember ever having any History of TIA (transient ischemic attack) and stroke Per pt. in 2003 had carotid artery surgery, after procedure pt. suffered a stroke, pt. states full forearm numbness and parts of left leg Surgical History History of thoracentesis (~04/2023) FH: carotid endarterectomy History of permanent cardiac pacemaker placement Family History Brother Family history of premature coronary heart disease Sister Family history of premature coronary heart disease Social History Smoking/Tobacco Use Status: Former Tobacco Use Quit Date: 04/09/84 Pack-years: 30 Second Hand Exposure: No Smoking risk assessment performed?: Yes Alcohol Intake: never Drug use: Never Substance use type: does not use Housing: house Current gender identity: male Do you feel safe at home: Yes (lives alone) Do you feel safe in your relationship?: Yes Exam Const Other: Elderly no acute distress Neck Other: Neck veins are flat carotid pulsations are normal there are no bruits Resp Auscultation: clear to auscultation bilaterally Cardio Other: Heart is regular S2 is paradoxic Extrem Other: No significant edema Results Last Vital Signs Temp 36.6 C 01/29/24 07:46 Pulse 68 01/29/24 07:46 Resp 18 01/29/24 07:46 BP 117/60 01/29/24 07:46 Pulse Ox 97 01/29/24 07:46 Labs 01/29/24 06:32 01/29/24 06:32 Labs: Laboratory Results - last 24 hr 01/28/24 01/29/24 11:10 06:32 WBC 6.27 5.00 RBC 3.51 L 3.26 L Hgb 9.0 L 8.5 L Hct 29.4 L 27.3 L MCV 84 84 MCH 25.6 L 26.1 L MCHC 30.6 L 31.1 L RDW 17.1 H 17.1 H Plt Count 194 192 MPV 11.5 H 11.3 H Immature Gran % 0.3 Neutrophils % 61.6 Lymphocytes % 22.0 Monocytes % 11.0 Eosinophils % 4.5 Basophils % 0.6 Nucleated RBC % 0.0 Absolute Neutrophils 3.86 Absolute Lymphocytes 1.38 Absolute Monocytes 0.69 Absolute Eosinophils 0.28 Absolute Basophils 0.04 Sodium 142 142 Potassium 4.5 5.1 Chloride 107 106 Carbon Dioxide 23.3 24.2 Anion Gap 11.7 H 11.8 H BUN 76 H 82 H* Creatinine 2.3 H 2.3 H Est GFR (CKD-EPI 2020) 26.81 26.81 Glucose 142 H 142 H Calcium 9.1 8.6 Magnesium 1.8
--- NOTE | 2024-01-29 09:30 | DI.US_ITS ---
APPROVED REPORT EXAM: Comprehensive 2D, Doppler, and color-flow Echocardiogram Patient Location: In-Patient Room/Bed: 211 Wet Trimmer: Rosanna Dominguez RDCS (AE) Indications: Dyspnea Other Information Study Quality: Adequate Conclusion Mild concentric left ventricular hypertrophy. Ejection fraction is 50 to 55%. There are no segmenta l wall motion abnormalities Normal right ventricular size and function Left atrium is moderately dilated. Right atrium is mildly dilated Device lead noted in the right heart Aortic valve is sclerotic without stenosis or regurgitation Estimated right ventricular systolic pressure is 42 mmHg There is no clinically significant change compared to study from July 2023 Wall motion Left Ventricle The left ventricle is normal size. The left ventricular systolic function is normal. The left ventric ular ejection fraction is within the normal range. Mild concentric left ventricular hypertrophy. Ther e is normal LV segmental wall motion. There is no ventricular septal defect visualized. LVEF is 52%. Right Ventricle The right ventricle is normal size. The right ventricular systolic function is normal. Pacemaker lead is present in the right ventricle. Atria Left atrium is moderately dilated. Right atrium is mildly dilated. The interatrial septum is intact w ith no evidence for an atrial septal defect. Aortic Valve The Aortic valve is sclerotic. There is no aortic valvular stenosis. No aortic regurgitation is prese nt. Mitral Valve The mitral valve is normal in structure. No evidence of mitral valve stenosis. Mild mitral regurgitat ion. Tricuspid Valve The tricuspid valve is normal in structure. There is no tricuspid valve stenosis. Mild to moderate t ricuspid regurgitation. The RVSP is 42.2 mmHg. Pulmonic Valve The pulmonary valve is normal in structure. There is no pulmonic valvular stenosis. Mild pulmonic reg urgitation. Great Vessels The aortic root is normal in size. Ascending aorta is not well visualized. Aortic arch is not well vi sualized. IVC is normal in size and collapses >50% with inspiration. Pericardium There is no pericardial effusion. 2D Dimensions IVSD d PLAX 1.30 cm M: 0.6-1.2 Ao Root d 3.06 cm M: 3.1 - 3.7 LVPW d PLAX 1.34 cm M: 0.6 - 1.2 LVID d PLAX 4.71 cm M: 4.2 - 5.8 LVDs 3.50 cm M: 2.5 - 4.0 LV EF Teichholz 51.6 % FS 26.36 % LV EDV (Teich) 103.1 mL LV ESV (Teich) 49.9 mL M-Mode TAPSE 1.55 cm (M/F) >1.7 Auto EF LV EDV A4C 148.3 mL LV EDV A2C 143.4 mL LV EDV BP 149.7 mL LV ESV A4C 71.2 mL LV ESV A2C 69.0 mL LV ESV BP 70.2 mL LVEF(%) A4C 52.0 % LVEF(%) A2C 51.9 % LVEF(%) BP 53.1 % LV SV A4C 77.0 ml LV SV A2C 74.4 ml LV SV BP 79.4 ml LV CO A4C 4.6 L/min LV CO A2C 4.6 L/min LV CO BP 4.6 L/min HR A4C 59.90 BPM HR A2C 61.20 BPM LV EDV Index (BP) LA Volume LA Length A4C 5.7 cm LA Length A2C 5.7 cm LA Area A4C s 23.86 cm2 LA Area A2C s 25.87 cm2 LA Vol A4C A-L 85.03 mL LA Vol A2C A-L 100.02 mL LA Vol Biplane A-L 92.3 mL LA Vol/BSA A4C A-L LA Vol/BSA A2C A-L LA Vol/BSA BP A-L 45.4 mL/m2 LA Vol A4C MOD 79.4 mL LA Vol A2C MOD 95.5 mL LA Vol BP MOD 86.9 mL RA Volume RA Area A4C 16.9 cm2 RA ESV A4C (A-L) 47.1mL RA Vol/BSA A4C A-L RA Length A4C 5.2 cm RA ESV A4C (MOD) 45.0mL LV Diastology MV E' lateral 0.088 (>0.1 m/s) MV E Vmax 1.20 (0.4-1.3 m/s) MV E/E' LAT 13.57 (<14) Aortic Valve AoV Vmax 1.47 m/s LVOT Vmax 0.87 m/s AoV Peak Grad 8.6 mmHg LVOT Peak Grad 3.0 mmHg AoV Area (Vmax) 1.82 cm2 LVOT VTI 0.176 m AoV VTI 0.313 m LVOT Mean Grad 1.7 mmHg AoV Mean Kyle. 0.90 m/s LVOT SV 54.04 mL AoV Mean Grad 4.1 mmHg LVOT Diam s 1.95 cm AoV Area (VTI) 1.73 cm2 AV Regurg Peak Gr. 8.63 mmHg Velocity Ratio 0.59 Mitral Valve MV DT 172 (160-240 msec) MV Vmax TIPS 1.04 m/s MV Mean Grad 1.4 (<2mmHg) MV PHT 112 msec MV Area PHT 1.96 cm2 MV VTI 0.274 m Pulmonary Valve PV Vmax 1.31 (0.5-1.5 m/s) RVOT Vmax 0.80 m/s PV Peak Grad 6.9 mmHg RVOT Peak Gr. 2.6 mmHg PV Mean Kyle 0.82 m/s RVOT VTI 0.168 m PV Mean Grad 3.3 mmHg RVOT Mean Gr. 1.4 mmHg Tricuspid Valve RA Pressure 3.00 mmHg TR Vmax 3.13 m/s TV S' 0.13 m/s TR Peak Grad 39.2 mmHg RVSP (TR) 42.2 mmHg
--- NOTE | 2024-01-29 09:56 | PDOC.CMDIS ---
Date of service: 01/29/24 Time of Service: 09:56 LACE Index Scoring Tool Questions: Length of Stay (in days): 4 - 6 Was the patient admitted via the E.D.?: Yes Comorbidities: Previous M.I., Diabetes w/o Complication, Congestive Heart Failure and Liver or Renal Disease E.D. Visits: 3 Answers: Total Score: 15 Risk of Readmission: High Risk Care Management Discharge Plan Reason for Hospitalization: Dyspnea on exertion, chronic anemia Discharge Plan: Ilya will return home today with new orders for HH RN, PT. He will be driven home via private vehicle by family. He will follow up with his PCP and discharge plan of care. He is happy to be going home. Patient/Family Education Needs: Review discharge instructions and limitations, discussion of self care needs including ask me three. Services Needed at Discharge: Home Health Care Services (New HH RN, PT) [facility] Health Related Social Needs: No Data to Display
--- NOTE | 2024-01-29 10:00 | DSE_ITS ---
Date of service: 01/29/24 Time of Service: 10:00 DS: Diagnosis Discharge Diagnosis (1) Cardiac pacemaker: Status: Chronic (2) Persistent atrial fibrillation: Status: Chronic (3) Anemia: Status: Chronic (4) NSTEMI (non-ST elevated myocardial infarction): Status: Acute Discharge Plan Disposition Patient Disposition: Home Condition: Improving Discharge Details Reason For Visit: Dyspnea Upon Exertion, Chronic anemia acute worsen Admit Date/Time: 01/25/24 21:04 Admit Provider: David Denny Attending Provider: David Denny Primary Care Provider: Nel Cabrera Hospital Course Hospital Course: This 88-year-old male patient with a past medical history of atrial fibrillation rivaroxaban,CVA, sick sinus syndrome with pacemaker, congestive heart failure, anemia, chronic kidney disease,presented with progressive shortness of breath with exertion over the last 3 weeks. Patient reported chest pressure which was relieved by belching and no other associated symptoms prior to presentation; also reported melana a month prior to admission and daily intake of naproxen rather than as needed as er order as per his family member who is prefilling his medications. Workup in the ED included an EKG showing ventricular paced rhythm, with no changes consistent with acute ischemia, unchanged from previous. Troponins elevated, 420 and trending up to 697 at 3 hour. Worsening of acute anemia without thrombocytopenia noted, at H&H 6.1 and 20.1 today versus 7.6 and 25.3 on 01/07/2024; creatinine and BUN of 3.1 & 89 and higher than baseline, magnesium of 1.7. 1 unit of packed red blood cells was given in the ED with his hemoglobin improving to just above 7 g/dL with no symptoms at rest. The hospitalist was consulted and the patient admitted for gastrointestinal bleeding , acute kidney injury superimposed on chronic kidney disease, hypomagnesemia, and elevated troponin not due to acute coronary syndrome but most likely to demand ischemia. During the stay, Rivaroxaban was held. [facility] [place] and recommended troponin at 3 hours, treating the gastrointestinal bleed as most likley cause demand ischemia and the elevation in the troponins; also considered the slow trend as flat on an asymptomatic patient. Other recommendation included trial of aspirin 81 mg EC in agreement while holding the rivaroxaban. The elevation troponin reaching a maximum of 1021 then down-trended. A second unit of packed red blood cells was transfused with H&H 9.0 & 29.4. Surgery was consulted and an EGD was completed on 01/28/2024 with findings of a simple ulc er with resolution 360 clip was application; small amount of old blood also irrigated clean. Magnesium was supplemented and is now stable. Cardiology consult completed and as per Dr. Herring recommendations will hold Rivaroxaban for at least 2 weeks in the setting of persistent atrial fibrillation and Type II non-ST elevation myocardial infarction precipitated by GI bleeding, consideration for referral for a Watchman procedure not emergently. The patient should reconvey with cardiology for decision regarding the resumption of Rivaroxaban upon referral or follow-up. The patient will be discharge home today on PPI and sucralfate and his home medicine should be resumed without taking NSAID's. Aspirin will need to be resumed as per the primary care practitioner discretion after CBC results from 02/01/2024. BMP should also be drawn on 02/01/2024 with follow-up with PCP.Follow-up with PCP recommended with 7 days of discharge with consideration of resumption/trial of Aspirin 81 mg EC at PCP's and patient shared decision making. The patient has been on Dilantin and reporting not having seen a neurologist since his CVA, recommendation for neurology f/u as provider's decision. Home Meds and New Rx's Prescriptions: New sucralfate 1 gram Tablet 1 g PO AC & HS Qty: 120 0RF polyethylene glycol 3350 17 gram Powder In Packet 17 g PO DAILY Qty: 30 0RF melatonin 3 mg Tablet 9 mg PO HS Qty: 90 0RF docusate sodium [Colace] 100 mg Capsule 100 mg PO DAILY Qty: 30 0RF pantoprazole [Protonix] 40 mg tablet,delayed release (DR/EC) 40 mg PO DAILY Qty: 60 0RF acetaminophen 500 mg capsule 1,000 mg PO Q8H PRN PRNQty: 60 0RF Continued glimepiride 1 mg tablet 1 mg PO QAM furosemide 80 mg tablet 80 mg PO BID Rx Instructions: take 80 mg in AM, take second pill no later than 3PM paroxetine HCl 10 mg/5 mL suspension 10 mg PO QAM phenytoin sodium extended [Dilantin Extended] 100 mg capsule 100 mg PO BID albuterol sulfate [Ventolin HFA] 90 mcg/actuation HFA aerosol inhaler 2 inh inhalation 6XD PRN atorvastatin 80 MG tablet 80 mg PO DAILY Qty: 90 Rx Instructions: 1 TAB DAILY ICaps 1 EACH tablet extended release 1 ea PO DAILY Qty: 1 amlodipine [Norvasc] 10 MG tablet 10 mg PO DAILY trazodone 50 mg tablet 50 mg PO QHS PRN mirtazapine 7.5 mg tablet 7.5 mg PO DAILY multivitamin with folic acid [Tab-A-Chris] 400 mcg tablet 1 tab PO DAILY Patient Comments: TAKE ONE TABLET BY MOUTH ONCE DAILY lisinopril 5 MG tablet 5 mg PO DAILY Januvia 100 MG tablet 100 mg PO DAILY Held Xarelto 15 mg tablet 15 mg PO QPM Hold Instructions: Resume on 02/16/24. aspirin 81 mg tablet,delayed release (DR/EC) 81 mg PO DAILY Hold Instructions: Resume on 02/05/24. Resume as per SLEEP TECHNOLOGIST or cardiology Patient Comments: TAKE ONE TABLET BY MOUTH EVERY DAY Discontinued naproxen 500 mg tablet 500 mg PO BID PRN Discharge Instructions Instructions: Anemia of inflammation (anemia of chronic disease), Shortness of breath Stand Alone Forms: Nursing Discharge Form Referrals: Nel Cabrera [Primary Care Provider] - 02/11/24 9:50 am (Please arrive to your appointment at 9:35.) Stefanie Herring MD [ [facility] STAFF PHYSICIAN] - 02/07/24 10:20 am (Already a patient and consult completed during current stay) Activity:: Activity as Tolerated Equipment/Supplies:: cane/ FWW Diet:: heart healthy diabetic Discharge Orders Discharge Orders: Discharge Order (Routine); Ordered 01/29/24 Ordered By: Lisa Valladares Other Ambulatory Orders: Basic Metabolic Panel (Routine) Timeframe: 20240201 Facility: [facility] - Location: Laboratory Outpatient - [facility] Ordered By: Lisa Valladares Complete Blood Count w/Diff (Routine) Timeframe: 20240201 Facility: [facility] - Location: Laboratory Outpatient - [facility] Ordered By: Lisa Valladares DS: Summary Time Spent with Patient providing and/or coordinating discharge services: Greater than 30 minutes Status at Discharge Functional status at discharge: uses cane/walker Overall status at discharge: patient is progressing back to baseline Mental Status: mental status grossly normal Speech and Movement: speech and movement normal Mood: congruent mood Affect: normal affect Quality:SDOH Health Related Social Needs: No Data to Display Exam Narrative Exam Narrative: Constitutional The patient is sitting in bed comfortable , without acute distress Neuro:alert and oriented X4 .Residual LUE paresis from previous CVA Resp: Unlabored breathing, clear lung bilaterally Cardio: Telemetry V-paced -HR 65 regular rhythm, S1, S2, no murmur GI: Abdomen is not distended, soft and non tender, bowel sounds are present Extremities: strength 5/5 to bilateral lower and right upper extremity Psych: RASS 0, congruent mood and normal affect. Psych Mental Status: mental status grossly normal Speech and Movement: speech and movement normal Mood: congruent mood Affect: normal affect DS: Data Vitals/I&O Vitals and I&O: Vital Signs Temperature 36.6 C 01/29/24 07:46 Temperature Source Tympanic 01/29/24 07:46 Pulse 68 01/29/24 07:46 Pulse Rhythm Regular 01/25/24 22:38 Pulse 64 01/28/24 15:32 Respiratory Rate 18 01/29/24 07:46 Respiratory Effort Normal, Non-Labored, Short of Breath 01/25/24 22:38 Respiratory Depth Normal 01/25/24 22:38 Respiratory Pattern Normal 01/25/24 22:38 Blood Pressure 117/60 01/29/24 07:46 Blood Pressure Mean 70 01/28/24 15:31 Blood Pressure Position Supine 01/25/24 20:12 Pulse Oximetry 97 01/29/24 07:46 Respiratory End-tidal CO2 25 01/28/24 15:32 Oxygen Delivery Method Room Air 01/29/24 07:46 Oxygen Flow Rate 0 01/29/24 07:46 Pain Level 0 01/29/24 07:46 Comment RN Notified 01/28/24 02:23 Comment PT ARRIVES IN PACU. TUBULAR SPLITTING MACHINE TENDER KAPPLAN AWARE OF PT'S DIASTOLIC VALUE PRESENTLY. 01/28/24 14:48 Intake & Output 01/28/24 01/28/24 01/29/24 11:59 23:59 11:59 Intake Total 240 / 240 Output Total 250 / 250 Balance - Weight 82.7 kg 82.7 kg 83 kg Intake: IV Oral 240 / 240 Output: Urine 250 / 250 Other: Urine Color Yellow Yellow Yellow Urine Appearance Cloudy Clear Clear Urine Odor Normal Normal Comment patient voided in toilet. no hat unclear color or amount. Voided in toilet, no hat Patient calls appropriately for assistance Emesis Description None Data Completed and Pending Labs on day of discharge: Labs from last 24 hours 01/29/24 01/28/24 06:32 11:10 WBC 5.00 6.27 RBC 3.26 L 3.51 L Hgb 8.5 L 9.0 L Hct 27.3 L 29.4 L MCV 84 84 MCH 26.1 L 25.6 L MCHC 31.1 L 30.6 L RDW 17.1 H 17.1 H Plt Count 192 194 MPV 11.3 H 11.5 H Immature Gran % 0.3 Neutrophils % 61.6 Lymphocytes % 22.0 Monocytes % 11.0 Eosinophils % 4.5 Basophils % 0.6 Nucleated RBC % 0.0 Absolute Neutrophils 3.86 Absolute Lymphocytes 1.38 Absolute Monocytes 0.69 Absolute Eosinophils 0.28 Absolute Basophils 0.04 Sodium 142 142 Potassium 5.1 4.5 Chloride 106 107 Carbon Dioxide 24.2 23.3 Anion Gap 11.8 H 11.7 H BUN 82 H* 76 H Creatinine 2.3 H 2.3 H Est GFR (CKD-EPI 2020) 26.81 26.81 Glucose 142 H 142 H Calcium 8.6 9.1 Magnesium 1.8 PFSH All Active Problems (Updated 01/29/24 @ 10:06 by Lisa Valladares APRN) Anemia (Chronic) Hypomagnesemia (Acute) Elevated troponin level not due to acute coronary syndrome (Acute) CKD (chronic kidney disease) (Chronic) CHF exacerbation (Acute) Shortness of breath (Acute) Osteoarthritis of knees, bilateral (Acute) Heart failure (Chronic) Skin lesion of face (Acute) Anemia (Chronic) NSTEMI (non-ST elevated myocardial infarction) (Acute) Acute on chronic kidney failure (Acute) Heart failure, chronic, with acute decompensation (Acute) Hyperkalemia (Acute) Pleural effusion (Chronic) Memory change (Acute) Paralysis of left upper extremity (Acute) Third degree burn of finger of left hand excluding thumb (Acute) Burn of finger (Acute) Sick sinus syndrome (Chronic) pt. unsure of this medical hx Essential hypertension (Chronic) Hyperlipidemia (Chronic) DM2 (diabetes mellitus, type 2) (Chronic) Mild aortic stenosis (Chronic) Cardiac pacemaker (Chronic 08/17/17) Medtronic Lola XT DR MRI model # [id number] serial # [id number] (pulse generator) Ventricular electrodes: Medtronic CapsureFix Model # 5076-58 cm Serial # [id number] Atrial electrodes: Medtronic CapsureFix model # 5076-52 cm serial # [id number] Right rotator cuff tendinitis (Acute) Corticosteroid injection: 07/16/18 Persistent atrial fibrillation (Chronic) Onset mid May 2019 - ongoing as of 06/25/2019 - sinus restored Onset again January 2021 - ongoing as of 10/26/2021 DC cardioversion [facility] 10/2021 - on amiodarone; recurrent in February 2022 - amiodarone stopped Osteoarthritis of carpometacarpal joint of right thumb (Acute) Trochanteric bursitis, left hip (Acute) Steroid injection: 12/07/2020; 03/17/2020 Trochanteric bursitis, right hip (Acute) Steroid injection: 12/07/2020; 03/17/2020 Traumatic arthropathy, right shoulder (Acute) Most recent Depo-Medrol injection: 11/22/2021; 05/24/2022 Medical History 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 states he doesn't remember ever having any History of TIA (transient ischemic attack) and stroke Per pt. in 2003 had carotid artery surgery, after procedure pt. suffered a stroke, pt. states full forearm numbness and parts of left leg Surgical History History of thoracentesis (~04/2023) FH: carotid endarterectomy History of permanent cardiac pacemaker placement Family History Brother Family history of premature coronary heart disease Sister Family history of premature coronary heart disease Social History Smoking/Tobacco Use Status: Former Tobacco Use Quit Date: 04/09/84 Pack-years: 30 Second Hand Exposure: No Smoking risk assessment performed?: Yes Alcohol Intake: never Drug use: Never Substance use type: does not use Housing: house Current gender identity: male Do you feel safe at home: Yes (lives alone) Do you feel safe in your relationship?: Yes Time Spent with Patient Time Spent with Patient: 70-84 minutes4 Time was spent: preparing to see the patient(eg.review tests), obtaining and/or reviewing separately otained hiistory, ordering medications,tests, procedures, referring, communicating with other health adult care provider, indepentently interpreting results, counseling the patient and care coordination
[2024-01-29 11:33] VITALS: BP 128/58; PULSE 66; RESP 16; TEMP 36.2; O2SAT 99
--- NOTE | 2024-01-29 12:01 | PT.INIE ---
PT Notes Visit Reasons: Dyspnea Upon Exertion, Chronic anemia acute worsen Physical Therapy Initial Evaluation Date: 01-29-2024 Referring Doctor: Lisa Valladares PT Orders: PT CONSULT: Safety Consult for dscharge Precautions: Standard Patient Profile/Admitting Diagnosis: Pt is 88 yo male presented to ED with fatigue, SOB. work up in the ED resulted in diagnosis of Anemia, Hypomagnesemia, Elevated Troponin level not related to acute coronary syndrome, CKD and CHF exacerbation. PMHX: Anemia (Chronic) Hypomagnesemia (Acute) Elevated troponin level not due to acute coronary syndrome (Acute) CKD (chronic kidney disease) (Chronic) CHF exacerbation (Acute) Shortness of breath (Acute) Osteoarthritis of knees, bilateral (Acute) Heart failure (Chronic) Skin lesion of face (Acute) Anemia (Chronic) NSTEMI (non-ST elevated myocardial infarction) (Acute) Acute on chronic kidney failure (Acute) Heart failure, chronic, with acute decompensation (Acute) Hyperkalemia (Acute) Pleural effusion (Chronic) Memory change (Acute) Paralysis of left upper extremity (Acute) Third degree burn of finger of left hand excluding thumb (Acute) Burn of finger (Acute) Sick sinus syndrome (Chronic) pt. unsure of this medical hxEssential hypertension (Chronic) Hyperlipidemia (Chronic) DM2 (diabetes mellitus, type 2) (Chronic) Mild aortic stenosis (Chronic) Cardiac pacemaker (Chronic 08/17/17) Medtronic Mabie XT DR MRI model # [id number] serial # [id number] (pulse generator) Ventricular electrodes: Medtronic CapsureFix Model # 5076-58 cm Serial # [id number] Atrial electrodes: Medtronic CapsureFix model # 5076-52 cm serial # [id number] Right rotator cuff tendinitis (Acute) Corticosteroid injection: 07/16/18Persistent atrial fibrillation (Chronic) Onset mid May 2019 - ongoing as of 06/25/2019 - sinus restored Onset again January 2021 - ongoing as of 10/26/2021 DC cardioversion [facility] 10/2021 - on amiodarone; recurrent in February 2022 - amiodarone stoppedOsteoarthritis of carpometacarpal joint of right thumb (Acute) Trochanteric bursitis, left hip (Acute) Steroid injection: 12/07/2020; 03/17/2020Trochanteric bursitis, right hip (Acute) Steroid injection: 12/07/2020; 03/17/2020Traumatic arthropathy, right shoulder (Acute) Most recent Depo-Medrol injection: 11/22/2021; 05/24/2022 Medical History 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 states he doesn't remember ever having anyHistory of TIA (transient ischemic attack) and stroke Per pt. in 2003 had carotid artery surgery, after procedure pt. suffered a stroke, pt. states full forearm numbness and parts of left leg Surgical History History of thoracentesis (~04/2023) FH: carotid endarterectomy History of permanent cardiac pacemaker placement Social History/Home Situation: Lives alone in single level home with 1 step to enter with rail. RESPITE COORDINATOR he was independent with ADL, iADL, meal prep, ambulation without a device. He has supportive family that also assists with meal prep, shopping and household tasks as he needs. Equipment Owned/DME:SPC Subjective: Pt reports he has a SPC which he uses intermittently when he leaves his home. His Dtr in [facility] reports family will stay with him when he first goes home. Objective: General Observation: pt awake seated in chair with his daughter in law visiting. Pt agreeable to participate in assessment Mental Status: alert and oriented Pain: denies ROM: [] Right Upper Extremity: WFL except thumb opposition unable to oppose to 4th and 5th digit. Left Upper Extremity: shoulder flexion and abduction to 45degrees, ER to neutral, elbow 0-85degrees, no supination, wrist extension to neutral, flexion 5 degrees, absent finger flexion. Right Lower Extremity: hip extension -5 degrees, flexion to 100, knee 5-115, ankle DF neutral with knee extension, 5degrees with knee flexion. ( impaired hamstring and gastroch length) Left Lower Extremity: hip extension -5 degrees, flexion to 100, knee 5-110, ankle DF neutral with knee extension, 5 degrees with knee flexion( impaired hamstring and gastroch length) Strength: Right Upper Extremity: 4/5 Left Upper Extremity: Active shoulder flexion and abduction 40degrees elbow flexion 2-/5 wrist and hand flaccid Right Lower Extremity: hip extension 3-/5, hip abduction 3-/5, hip flexion 3-/5, knee extension 3/5, flexion 3-/5, ankle 3/5 Left Lower Extremity: hip extension 3-/5, hip abduction 3-/5, hip flexion 3-/5, knee extension 3/5, flexion 3-/5, ankle 3/5 Sensation: intact RUE, BLE, absent LUE Bed Mobility/Transfers: Supine to sit independent Sit to stand supervision Stand to sit supervision Bed to chair supervision without device Gait: ambulate 120 feet without AD supervision level surfaces, including turns. Pt demonstrates safe steady gait pattern with the following deviations, B knee flexion during mid stance d/t hamstring and calf tightness, increased forward flexed trunk d/t hip extension limitations. Attempted ambulation with SPC which did not change his gait pattern. Pt required 1 stand rest after 90 feet d/t report of legs beginning to fatigue. Stairs: 1 step with rail with supervision Balance: [] Static Sitting:Normal Dynamic Sitting: Good Static Standing: Fair + Dynamic Standing: Fair Special Tests: [] Mobility Limitations Standardized Measure [] [facility] AM-PAC 6 clicks Basic Mobility Inpatient Short Form: [] Raw Score: 23 CMS Score: 11.20% Informed Consent/Education: Patient instructed in purpose of PT consult. Assessment: Pt is 88 yo male presents with impaired AROM LUE, impaired strength BLE major muscle groups, impaired balance reactions and decline in functional activity tolerance resulting in decline in functional mobility including need for supervision with transfers, ambulation including stairs and increased risk for falls. Patient is assessed as a moderate complexity based on the following: History: 88-year-old male with impairment level findings, functional limitations, and past medical history as indicated above Examination: Demonstrable impairment in strength, balance, and mobility level with underlying impairments and functional limitations as documented above Presentation: stable Decision Making: moderate Goals: N/A. Plan of Care/Treatment Plan: N/A. DISCHARGE RECOMMENDATIONS: PIPPA PT TREATMENT CODE/TIME: 96732 x 1 unit / [id number] Thank you for the opportunity to participate in the care of this patient. Ashly Heath PT [facility] Please sign an return this page within 30 days if you agree with the above POC. Thank you! Physician Signature Date
[2024-01-29] MEDS: Sucralfate 1 GM TAB PO (12:20)
[2024-01-29] MEDS: Insulin Aspart 300 UNITS/3 ML PEN SC (12:22)
--- NOTE | 2024-01-29 19:00 | PDOC.HHF2F_ITS ---
Home Health Referral Home Health Orders Clinical synopsis of why skilled professionals are needed: This 88-year-old male patient with a past medical history of atrial fibrillation rivaroxaban,CVA, sick sinus syndrome with pacemaker, congestive heart failure, anemia, chronic kidney disease,presented with progressive shortness of breath with exertion over the last 3 weeks. Patient reported chest pressure which was relieved by belching and no other associated symptoms prior to presentation; also reported melana a month prior to admission and daily intake of naproxen rather than as needed as er order as per his family member who is prefilling his medications. Workup in the ED included an EKG showing ventricular paced rhythm, with no changes consistent with acute ischemia, unchanged from previous. Troponins elevated, 420 and trending up to 697 at 3 hour. Worsening of acute anemia without thrombocytopenia noted, at H&H 6.1 and 20.1 today versus 7.6 and 25.3 on 01/07/2024; creatinine and BUN of 3.1 & 89 and higher than baseline, magnesium of 1.7. 1 unit of packed red blood cells was given in the ED with his hemoglobin improving to just above 7 g/dL with no symptoms at rest. The hospitalist was consulted and the patient admitted for gastrointestinal bleeding , acute kidney injury superimposed on chronic kidney disease, hypomagnesemia, and elevated troponin not due to acute coronary syndrome but most likely to demand ischemia. During the stay, Rivaroxaban was held. [facility] and recommended troponin at 3 hours, treating the gastrointestinal bleed as most likley cause demand ischemia and the elevation in the troponins; also considered the slow trend as flat on an asymptomatic patient. Other recommendation included trial of aspirin 81 mg EC in agreement while holding the rivaroxaban. The elevation troponin reaching a maximum of 1021 then down-trended. A second unit of packed red blood cells was transfused with H&H 9.0 & 29.4. Surgery was consulted and an EGD was completed on 01/28/2024 with findings of a simple ulcer with resolution 360 clip was application; small amount of old blood also irrigated clean. Magnesium was supplemented and is now stable. Cardiology consult completed and as per Dr. Herring recommendations will hold Rivaroxaban for at least 2 weeks in the setting of persistent atrial fibrillation and Type II non-ST elevation myocardial infarction precipitated by GI bleeding, consideration for referral for a Watchman procedure not emergently. The patient should reconvey with cardiology for decision regarding the resumption of Rivaroxaban upon referral or follow-up. The patient will be discharge home today on PPI and sucralfate and his home medicine should be resumed without taking NSAID's. Aspirin will need to be resumed as per the primary care practitioner discretion after CBC results from 02/01/2024. BMP should also be drawn on 02/01/2024 with follow-up with PCP.Follow-up with PCP recommended with 7 days of discharge with consideration of resumption/trial of Aspirin 81 mg EC at PCP's and patient shared decision making. The patient has been on Dilantin and reporting not having seen a neurologist since his CVA, recommendation for neurology f/u as provider's decision. Upon patient's discharge day around 16:28 CM informed provider that patient would want nursing for new medicine management and PT. Discussed with Medical diagnosis necessitation home health referral: GI bleed, Type II NSTEMI Registered Nurse: Check all that apply Instruct on new or changed medication(s)/assess compliance: Ordered Assess for exacerbation of medical condition, instruct patient/caregivers on signs and symptoms to report for early detection: Ordered Physical Therapist: Check all that apply Increase strength & endurance for safe mobility at home: Ordered To design/establish home maintenance program: Ordered Fall reduction therapy program for patient with history of frequent falls: Ordered Home safety evaluation and teaching/gait training including stair management (if applicable): Ordered Encounter Date and Reason: I certify that a FTF encounter for this patient was performed on January 30, 2024 and that such encounter was related to the primary reason the patient requires home health services. The encounter was conducted in the following manner: * By me as the certifying physician, NUCLEAR POWER REACTOR OPERATOR, PA or * By an inpatient physician, NUCLEAR POWER REACTOR OPERATOR or PA during an inpatient stay who communicated findings to me, Certification And Authentication I certify that I composed the above information based on my clinical judgment relating to this patient's medical condition and, if applicable, clinical findings communicated to me by the NPP or inpatient physician who performed the FTF encounter. Name of Provider that will be monitoring home health services: Nel Cabrera
== END 2024-01-29 14:55 | disposition home or self-care (01) | DRG 377 ==
LOC: ER 18:07 → MS 22:02
PROVIDERS: Nurse Practitioner Acute Care; Surgery; Admitting Provider Family Medicine; Emergency Provider Nurse Practitioner Family; PCP Family Medicine; Visit Provider Family Medicine
PROC: 0DJ68ZZ Inspection of Stomach, Via Natural or Artificial Opening Endoscopic (ICD-10-PCS; CPT 43235; principal; 2024-01-28 13:15)
DX: K25.4 Chronic or unspecified gastric ulcer with hemorrhage (principal); I21.A1 Myocardial infarction type 2; D62 Acute posthemorrhagic anemia; N18.4 Chronic kidney disease, stage 4 (severe); I50.30 Unspecified diastolic (congestive) heart failure; I48.19 Other persistent atrial fibrillation; I13.0 Hypertensive heart and chronic kidney disease with heart failure and stage 1 through stage 4 chronic kidney disease, or unspecified chronic kidney disease; N17.9 Acute kidney failure, unspecified; E83.42 Hypomagnesemia; I25.10 Atherosclerotic heart disease of native coronary artery without angina pectoris; E11.22 Type 2 diabetes mellitus with diabetic chronic kidney disease; E78.2 Mixed hyperlipidemia; R53.1 Weakness; R06.02 Shortness of breath; M17.0 Bilateral primary osteoarthritis of knee; I49.5 Sick sinus syndrome; G47.00 Insomnia, unspecified; E78.00 Pure hypercholesterolemia, unspecified; Z86.718 Personal history of other venous thrombosis and embolism; Z86.73 Personal history of transient ischemic attack (TIA), and cerebral infarction without residual deficits; I25.2 Old myocardial infarction; Z86.711 Personal history of pulmonary embolism; Z95.0 Presence of cardiac pacemaker; Z79.01 Long term (current) use of anticoagulants; Z79.1 Long term (current) use of non-steroidal anti-inflammatories (NSAID)
CPT/HCPCS: 43255; 00123; 36410; 36415; 36430; 80048; 80053; 84145; 85027; 86850; 86900; 86901; 86920; 87637; 93005; 93306; 97162; 99222; 99231; 99232; 99285; 71046; 81003; 82272; 82607; 82728; 82746; 83540; 83735; 83880; 84443; 84484; 85025; 93010; 99223; 99233; 99239; J1815; J2371; J2470; J2704; J3475; J3490; P9016

== ENCOUNTER → 2024-01-28 14:48 | Outpatient (BNVA) | payer MEDICARE, SELFPAY | PROVIDERS: PCP Family Medicine; Referring Provider Family Medicine; Visit Provider Internal Medicine Cardiovascular Disease ==

== ENCOUNTER → 2024-01-29 11:05 | Outpatient (BNVA) | payer MEDICARE, SELFPAY | PROVIDERS: PCP Family Medicine; Referring Provider Family Medicine; Visit Provider Internal Medicine Cardiovascular Disease ==

== ENCOUNTER 2024-02-01 01:40 | Outpatient (CLI) | payer MEDICARE, SELFPAY ==
[2024-02-01 12:28] LABS: Abs Immature Grans 0.01 10^3/uL (0.0-0.06); Absolute Basophil Count 0.04 10^3/uL (0.0-0.2); Absolute Eosinophil Count 0.17 10^3/uL (0.0-0.7); Absolute Lymphocyte Count 1.35 10^3/uL (1.2-3.4); Absolute Monocyte Count 0.47 10^3/uL (0.1-0.8); Absolute Neutrophil Count 2.93 10^3/uL (1.2-6.7); Basophils % 0.8 %; Eosinophils % 3.4 %; HCT 28.1 % (40.0-50.0); HGB 8.5 g/dL (13.5-17.5); Immature Grans % 0.2 %; Lymphocytes % 27.2 %; MCH 25.9 pg (27.0-33.0); MCHC 30.2 % (32.0-36.0); MCV 86 fL (80-95); MPV 10.7 fL (8.0-11.0); Monocytes % 9.5 %; Neutrophils % 58.9 %; Platelet Count 184 10^3/uL (130-400); RBC 3.28 10^6/uL (4.36-5.78); RDW-SD 52.5 fL; WBC 4.97 10^3/uL (4.4-10.8)
[2024-02-01 13:21] LABS: Anion Gap 11.1 mmol/L (3-11); CO2 23.9 mmol/L (21.0-32.0); Calcium 8.8 mg/dL (8.5-10.1); Chloride 104 mmol/L (98-107); Estimated GFR 19.49 (mL/min/1.73m2); Glucose 183 mg/dL (74-106); Potassium 5.3 mmol/L (3.5-5.1); Sodium 139 mmol/L (136-145)
[2024-02-01 13:27] LABS: BUN 91 mg/dL (7-18)
== END 2024-02-01 01:41 | disposition home or self-care (01) ==
LOC: LBO 01:41
PROVIDERS: PCP Family Medicine; Visit Provider Nurse Practitioner Acute Care
DX: N18.9 Chronic kidney disease, unspecified (principal); D64.9 Anemia, unspecified
CPT/HCPCS: 36415; 80048; 99283; 85025

== ENCOUNTER 2024-02-01 19:23 | Emergency (ER) | payer MEDICARE, SELFPAY ==
[2024-02-01] VITALS (13 sets, daily range): BP systolic 97–137; BP diastolic 37–67; PULSE 59–84; RESP 12–19; TEMP 36.3; O2SAT 99–100
--- NOTE | 2024-02-01 19:46 | ED.GENADUL_ITS ---
Discharge Plan Disposition Patient Disposition: Home Condition: Stable Discharge Details Clinical Impression: CKD (chronic kidney disease) Primary Care Provider: Nel Cabrera ED Provider: Adolfo Lobo Home Meds and New Rx's Prescriptions: Continued Xarelto 15 mg tablet 15 mg PO QPM glimepiride 1 mg tablet 1 mg PO QAM furosemide 80 mg tablet 80 mg PO BID Rx Instructions: take 80 mg in AM, take second pill no later than 3PM paroxetine HCl 10 mg/5 mL suspension 10 mg PO QAM phenytoin sodium extended [Dilantin Extended] 100 mg capsule 100 mg PO BID albuterol sulfate [Ventolin HFA] 90 mcg/actuation HFA aerosol inhaler 2 inh inhalation 6XD PRN atorvastatin 80 MG tablet 80 mg PO DAILY Qty: 90 Rx Instructions: 1 TAB DAILY amlodipine [Norvasc] 10 MG tablet 10 mg PO DAILY trazodone 50 mg tablet 50 mg PO QHS PRN mirtazapine 7.5 mg tablet 7.5 mg PO DAILY aspirin 81 mg tablet,delayed release (DR/EC) 81 mg PO DAILY Patient Comments: TAKE ONE TABLET BY MOUTH EVERY DAY multivitamin with folic acid [Tab-A-Chris] 400 mcg tablet 1 tab PO DAILY Patient Comments: TAKE ONE TABLET BY MOUTH ONCE DAILY sucralfate 1 gram Tablet 1 g PO AC & HS Qty: 120 0RF polyethylene glycol 3350 17 gram Powder In Packet 17 g PO DAILY Qty: 30 0RF melatonin 3 mg Tablet 9 mg PO HS Qty: 90 0RF docusate sodium [Colace] 100 mg Capsule 100 mg PO DAILY Qty: 30 0RF pantoprazole [Protonix] 40 mg tablet,delayed release (DR/EC) 40 mg PO DAILY Qty: 60 0RF acetaminophen 500 mg capsule 1,000 mg PO Q8H PRN PRNQty: 60 0RF lisinopril 5 MG tablet 5 mg PO DAILY Januvia 100 MG tablet 100 mg PO DAILY Discharge Instructions Additional Instructions: Your BUN levels are slightly above your baseline. This is likely due to your kidney disease. Make sure you are drinking adequate water to stay hydrated. Try to limit your exertion levels as well. Trying to limit protein intake to 20 g or so a day can help lower this number. Follow-up as scheduled with your primary care provider If you feel more ill or have new symptoms such as chest pain, difficulty breathing, fevers or severe weakness return to the emergency department for reevaluation HPI General Date/Time Provider Initiated Documentation: 02/01/24 19:24 . Limitations to Documentation: no limitations . Information obtained by: patient . History of Present Illness 88 year old M presents to the emergency department with the chief complaint of sent here due to lab abnormalities, Patient started experiencing this hour(s) (1) and it has been constant. No relieving factors improve symptom(s), No exacerbating factors reported . Patient notes no other symptoms.. Patient did receive the following treatments prior to arrival, none Related Data Home Medications ?Medication ?Instructions ?Recorded ?Confirmed atorvastatin 80 mg tablet 80 mg PO DAILY #90 tab-caps 09/28/13 02/01/24 amlodipine 10 mg tablet (Norvasc) 10 mg PO DAILY 10/21/14 02/01/24 lisinopril 5 mg tablet 5 mg PO DAILY 03/15/17 02/01/24 sitagliptin phosphate 100 mg 100 mg PO DAILY 03/15/17 02/01/24 tablet (Januvia) glimepiride 1 mg tablet 1 mg PO QAM 07/16/18 02/01/24 rivaroxaban 15 mg tablet (Xarelto) 15 mg PO QPM 07/16/18 02/01/24 phenytoin sodium extended 100 mg 100 mg PO BID 04/15/20 02/01/24 capsule (Dilantin Extended) trazodone 50 mg tablet 50 mg PO QHS PRN 05/02/22 02/01/24 mirtazapine 7.5 mg tablet 7.5 mg PO DAILY 04/26/23 02/01/24 albuterol sulfate 90 mcg/actuation 2 inh inhalation 6XD PRN 10/24/23 02/01/24 aerosol inhaler (Ventolin HFA) furosemide 80 mg tablet 80 mg PO BID 11/22/23 02/01/24 paroxetine HCl 10 mg/5 mL oral 10 mg PO QAM 11/22/23 02/01/24 suspension acetaminophen 500 mg capsule 1,000 mg (2 x 500 mg) PO Q8H PRN 01/29/24 02/01/24 PRN #60 caps aspirin 81 mg tablet,delayed 81 mg PO DAILY 01/29/24 02/01/24 release docusate sodium 100 mg capsule 100 mg PO DAILY #30 caps 01/29/24 02/01/24 (Colace) melatonin 3 mg tablet 9 mg (3 x 3 mg) PO HS #90 tabs 01/29/24 02/01/24 multivitamin with folic acid 400 1 tab PO DAILY 01/29/24 02/01/24 mcg tablet (Tab-A-Chris) pantoprazole 40 mg tablet,delayed 40 mg PO DAILY #60 tabs 01/29/24 02/01/24 release (Protonix) polyethylene glycol 3350 17 gram 17 g PO DAILY #30 ea 01/29/24 02/01/24 oral powder packet sucralfate 1 gram tablet 1 g PO AC & HS #120 tabs 01/29/24 02/01/24 Previous Rx's ?Medication ?Instructions ?Recorded acetaminophen 500 mg capsule 1,000 mg (2 x 500 mg) PO Q8H PRN 01/29/24 PRN #60 caps docusate sodium 100 mg capsule 100 mg PO DAILY #30 caps 01/29/24 (Colace) melatonin 3 mg tablet 9 mg (3 x 3 mg) PO HS #90 tabs 01/29/24 pantoprazole 40 mg tablet,delayed 40 mg PO DAILY #60 tabs 01/29/24 release (Protonix) polyethylene glycol 3350 17 gram 17 g PO DAILY #30 ea 01/29/24 oral powder packet sucralfate 1 gram tablet 1 g PO AC & HS #120 tabs 01/29/24 Allergies Allergy/AdvReac Type Severity Reaction Status Date / Time metformin Allergy Unknown Diarrhea Verified 02/01/24 19:51 ezetimibe (From Vytorin) AdvReac FAILED Verified 02/01/24 19:51 lisinopril AdvReac Hyperkalemi Verified 02/01/24 19:51 a simvastatin (From Vytorin) AdvReac FAILED Verified 02/01/24 19:51 General Stated Complaint: Recheck DEENA: 3 Review of Systems All systems reviewed & are unremarkable except as noted in HPI and below Constitutional Constitutional: Denies chills, Denies fever(s) and Denies weakness Cardiovascular Cardiovascular: Denies chest pain and Denies dyspnea Respiratory Respiratory: Denies cough and Denies dyspnea Gastrointestinal Gastrointestinal: Denies abdominal pain, Denies nausea and Denies vomiting Musculoskeletal Musculoskeletal: Denies joint swelling Neurologic Neurologic: Denies weakness Exam Const General: no acute distress Orientation: alert [facility] Head: normal to inspection Ears: external ears normal General nose exam: external nose normal Mouth: moist mucous membranes Eyes General: appearance normal, both eyes and all related structures Neck Neck: normal visual inspection Resp Effort & Inspection: normal respiratory effort and able to speak in complete sentences Cardio Rate: regular rate Skin General skin exam: no rashes or lesions noted Neuro General: patient alert and patient oriented x3 Extrem General: normal to inspection Psych Mental Status: mental status grossly normal Course Vital Signs Vital signs: Vital Signs Temperature 36.3 C L 02/01/24 19:28 Pulse 79 02/01/24 19:28 Respiratory Rate 16 02/01/24 19:28 Blood Pressure 137/67 02/01/24 19:28 Pulse Oximetry 99 02/01/24 19:28 Temperature 36.3 C L 02/01/24 19:28 Pulse 79 02/01/24 19:28 Respiratory Rate 16 02/01/24 19:28 Respiratory Effort Normal 02/01/24 19:32 Blood Pressure 137/67 02/01/24 19:28 Blood Pressure Position Sitting 02/01/24 19:28 Pulse Oximetry 99 02/01/24 19:28 Oxygen Delivery Method Room Air 02/01/24 19:28 Oxygen Flow Rate 0 02/01/24 19:28 Pain Level 0 02/01/24 19:28 Medical Decision Making 88-year-old male patient with a past medical history of atrial fibrillation rivaroxaban,CVA, sick sinus syndrome with pacemaker, congestive heart failure, anemia, chronic kidney disease who was recently admitted for anemia question of GI bleed, who comes in after he had lab work done today and got a call prior to his PCPs office closing that his lab work showed some abnormalities and was told to come here for an evaluation. The patient states that he feels well, has no feeling of symptoms and states he actually went hunting today. He denies any fevers, abdominal pain, chest pain, difficulty breathing, weakness, difficulty urinating or change in bowel habits. Upon lab review he has chronic anemia that was stable on labs today, his BUN was 91 but looks like when he was here earlier this week he was in the 80s so no significant change. His creatinine is 3.0 looks like it has ranged from anywhere from 2.3-3.1 over the last month. I do not feel any of these lab abnormalities are significantly changed from his baseline, I will repeat a BMP to make sure his potassium is not significantly elevated and reassess. Given lack of other symptoms do not feel other testing indicated. Labs at baseline BUN mildly elevated above baseline at 94. He is still asymptomatic. Do not feel other further testing indicated. I did recommend that he try and increase his hydration and maybe reduce the amount of protein that he eats in his diet. He will have this rechecked when he follows up with his PCP, return precautions given Differential Diagnosis Differential Diagnosis: ckd, dehydration, chf Quality:SDOH Health Related Social Needs: No Data to Display PFSH All Active Problems (Updated 02/01/24 @ 20:33 by Adolfo Lobo MD) Anemia (Chronic) CKD (chronic kidney disease) (Chronic) CHF exacerbation (Acute) Shortness of breath (Acute) Osteoarthritis of knees, bilateral (Acute) Heart failure (Chronic) Skin lesion of face (Acute) NSTEMI (non-ST elevated myocardial infarction) (Acute) Hyperkalemia (Acute) Memory change (Acute) Paralysis of left upper extremity (Acute) Third degree burn of finger of left hand excluding thumb (Acute) Burn of finger (Acute) Sick sinus syndrome (Chronic) pt. unsure of this medical hx Essential hypertension (Chronic) Hyperlipidemia (Chronic) DM2 (diabetes mellitus, type 2) (Chronic) Mild aortic stenosis (Chronic) Cardiac pacemaker (Chronic 08/17/17) [employer] [place] XT DR MRI model # [id number] serial # [id number] (pulse generator) Ventricular electrodes: [employer]tronic CapsureFix Model # 5076-58 cm Serial # [id number] Atrial electrodes: [employer]tronic CapsureFix model # 5076-52 cm serial # [id number] Right rotator cuff tendinitis (Acute) Corticosteroid injection: 07/16/18 Persistent atrial fibrillation (Chronic) Onset mid May 2019 - ongoing as of 06/25/2019 - sinus restored Onset again January 2021 - ongoing as of 10/26/2021 DC cardioversion [facility] 10/2021 - on amiodarone; recurrent in February 2022 - amiodarone stopped Osteoarthritis of carpometacarpal joint of right thumb (Acute) Trochanteric bursitis, left hip (Acute) Steroid injection: 12/07/2020; 03/17/2020 Trochanteric bursitis, right hip (Acute) Steroid injection: 12/07/2020; 03/17/2020 Traumatic arthropathy, right shoulder (Acute) Most recent Depo-Medrol injection: 11/22/2021; 05/24/2022 Medical History 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 states he doesn't remember ever having any History of TIA (transient ischemic attack) and stroke Per pt. in 2003 had carotid artery surgery, after procedure pt. suffered a stroke, pt. states full forearm numbness and parts of left leg Surgical History History of thoracentesis (~04/2023) FH: carotid endarterectomy History of permanent cardiac pacemaker placement Family History Brother Family history of premature coronary heart disease Sister Family history of premature coronary heart disease Social History Smoking/Tobacco Use Status: Former Tobacco Use Quit Date: 04/09/84 Pack-years: 30 Second Hand Exposure: No Smoking risk assessment performed?: Yes Alcohol Intake: never Drug use: Never Substance use type: does not use Housing: house Current gender identity: male Do you feel safe at home: Yes (lives alone) Do you feel safe in your relationship?: Yes
[2024-02-01 20:20] LABS: Anion Gap 9.8 mmol/L (3-11); CO2 23.2 mmol/L (21.0-32.0); CREATININE 2.9 mg/dL (0.70-1.30); Calcium 8.9 mg/dL (8.5-10.1); Chloride 104 mmol/L (98-107); Glucose 119 mg/dL (74-106); Potassium 5.2 mmol/L (3.5-5.1); Sodium 137 mmol/L (136-145)
[2024-02-01 20:22] LABS: BUN 94 mg/dL (7-18)
== END 2024-02-01 20:45 | disposition home or self-care (01) ==
PROVIDERS: Emergency Provider Emergency Medicine; PCP Family Medicine
DX: I13.0 Hypertensive heart and chronic kidney disease with heart failure and stage 1 through stage 4 chronic kidney disease, or unspecified chronic kidney disease (principal); N18.30 Chronic kidney disease, stage 3 unspecified; I50.9 Heart failure, unspecified; I69.351 Hemiplegia and hemiparesis following cerebral infarction affecting right dominant side; I25.2 Old myocardial infarction; I25.10 Atherosclerotic heart disease of native coronary artery without angina pectoris; I48.91 Unspecified atrial fibrillation; Z86.711 Personal history of pulmonary embolism; Z86.718 Personal history of other venous thrombosis and embolism; Z79.82 Long term (current) use of aspirin; Z79.01 Long term (current) use of anticoagulants; Z95.0 Presence of cardiac pacemaker; Z87.891 Personal history of nicotine dependence
CPT/HCPCS: 80048; 99283

== ENCOUNTER → 2024-02-07 10:15 | Outpatient (BNVA) | payer MEDICARE, SELFPAY | PROVIDERS: PCP Family Medicine; Referring Provider Family Medicine; Visit Provider Internal Medicine Cardiovascular Disease | DX: I48.19 Other persistent atrial fibrillation (principal); N18.4 Chronic kidney disease, stage 4 (severe); D64.9 Anemia, unspecified; Z95.0 Presence of cardiac pacemaker | CPT/HCPCS: 99213 ==

== ENCOUNTER 2024-02-19 12:02 | Emergency (ER) | payer MEDICARE, SELFPAY ==
[2024-02-19] VITALS (18 sets, daily range): BP systolic 130–151; BP diastolic 77–90; PULSE 59–75; RESP 10–22; TEMP 36.3–36.8; O2SAT 95–99
--- NOTE | 2024-02-19 12:00 | RT.EKG_ITS ---
APPROVED REPORT Exam: Resting ECG Reason for Exam: sob Patient Location: E HR:69 bpm ECG Measurements Heart Rate 69 AXIS OR [id number] P [id number] QRSd 187 QRS -49 QT 476 T 116 QTc 512 Conclusion Afib/flutter and ventricular-paced rhythm...V-paced rhythm, A-rate>240
--- NOTE | 2024-02-19 12:15 | DI.RAD_ITS ---
Exam(s) XR PORTABLE CHEST AP EXAM: XR PORTABLE CHEST AP CLINICAL HISTORY: dyspnea TECHNIQUE: 2D digital imaging was performed. COMPARISON: CR,XR XR CHEST 2V PA LATERAL from 01/25/2024 FINDINGS: LUNGS: Clear. No pleural abnormality seen. HEART: Normal size. Pacemaker. AORTA: Normal diameter. BONES: Unremarkable for age. Soft tissues: Unremarkable. IMPRESSION: No acute findings. DATA REPOSITORY: RADIATION DOSE DELIVERED:
--- NOTE | 2024-02-19 12:20 | W.ED.GENAD ---
Discharge Plan Disposition Patient Disposition: Home Condition: Stable Discharge Details Clinical Impression: Shortness of breath Primary Care Provider: Nel Cabrera ED Provider: Adolfo Lobo Home Meds and New Rx's Prescriptions: Continued Xarelto 15 mg tablet 15 mg PO QPM glimepiride 1 mg tablet 1 mg PO QAM furosemide 80 mg tablet 80 mg PO BID Rx Instructions: take 80 mg in AM, take second pill no later than 3PM phenytoin sodium extended [Dilantin Extended] 100 mg capsule 100 mg PO BID albuterol sulfate [Ventolin HFA] 90 mcg/actuation HFA aerosol inhaler 2 inh inhalation 6XD PRN atorvastatin 80 MG tablet 80 mg PO DAILY Qty: 90 Rx Instructions: 1 TAB DAILY amlodipine [Norvasc] 10 MG tablet 10 mg PO DAILY trazodone 50 mg tablet 50 mg PO QHS PRN mirtazapine 7.5 mg tablet 7.5 mg PO DAILY aspirin 81 mg tablet,delayed release (DR/EC) 81 mg PO DAILY Patient Comments: TAKE ONE TABLET BY MOUTH EVERY DAY multivitamin with folic acid [Tab-A-Chris] 400 mcg tablet 1 tab PO DAILY Patient Comments: TAKE ONE TABLET BY MOUTH ONCE DAILY sucralfate 1 gram Tablet 1 g PO AC & HS Qty: 120 0RF polyethylene glycol 3350 17 gram Powder In Packet 17 g PO DAILY Qty: 30 0RF melatonin 3 mg Tablet 9 mg PO HS Qty: 90 0RF docusate sodium [Colace] 100 mg Capsule 100 mg PO DAILY Qty: 30 0RF pantoprazole [Protonix] 40 mg tablet,delayed release (DR/EC) 40 mg PO DAILY Qty: 60 0RF acetaminophen 500 mg capsule 1,000 mg PO Q8H PRN PRNQty: 60 0RF lisinopril 5 MG tablet 5 mg PO DAILY Januvia 100 MG tablet 100 mg PO DAILY Discharge Instructions Additional Instructions: Your blood work today did not show any significant changes from your baseline Follow-up with your primary care provider and specialist as scheduled If you feel more ill, have severe worsening shortness of breath or symptoms such as severe abdominal pain return to the emergency department for reevaluation HPI General Date/Time Provider Initiated Documentation: 02/19/24 12:03. Limitations to Documentation: no limitations. Information obtained by: patient. History of Present Illness 89 year old M presents to the emergency department with the chief complaint of dyspnea, described as moderate, and it has been constant. No relieving factors improve symptom(s), No exacerbating factors reported . Patient notes shortness of breath; denies chest pain and fever/chills. Patient did receive the following treatments prior to arrival, none Related Data Home Medications ?Medication ?Instructions ?Recorded ?Confirmed atorvastatin 80 mg tablet 80 mg PO DAILY #90 tab-caps 09/28/13 02/19/24 amlodipine 10 mg tablet (Norvasc) 10 mg PO DAILY 10/21/14 02/19/24 lisinopril 5 mg tablet 5 mg PO DAILY 03/15/17 02/19/24 sitagliptin phosphate 100 mg 100 mg PO DAILY 03/15/17 02/19/24 tablet (Januvia) glimepiride 1 mg tablet 1 mg PO QAM 07/16/18 02/19/24 rivaroxaban 15 mg tablet (Xarelto) 15 mg PO QPM 07/16/18 02/19/24 phenytoin sodium extended 100 mg 100 mg PO BID 04/15/20 02/19/24 capsule (Dilantin Extended) trazodone 50 mg tablet 50 mg PO QHS PRN 05/02/22 02/19/24 mirtazapine 7.5 mg tablet 7.5 mg PO DAILY 04/26/23 02/19/24 albuterol sulfate 90 mcg/actuation 2 inh inhalation 6XD PRN 10/24/23 02/19/24 aerosol inhaler (Ventolin HFA) furosemide 80 mg tablet 80 mg PO BID 11/22/23 02/19/24 acetaminophen 500 mg capsule 1,000 mg (2 x 500 mg) PO Q8H PRN 01/29/24 02/19/24 PRN #60 caps aspirin 81 mg tablet,delayed 81 mg PO DAILY 01/29/24 02/19/24 release docusate sodium 100 mg capsule 100 mg PO DAILY #30 caps 01/29/24 02/19/24 (Colace) melatonin 3 mg tablet 9 mg (3 x 3 mg) PO HS #90 tabs 01/29/24 02/19/24 multivitamin with folic acid 400 1 tab PO DAILY 01/29/24 02/19/24 mcg tablet (Tab-A-Chris) pantoprazole 40 mg tablet,delayed 40 mg PO DAILY #60 tabs 01/29/24 02/19/24 release (Protonix) polyethylene glycol 3350 17 gram 17 g PO DAILY #30 ea 01/29/24 02/19/24 oral powder packet sucralfate 1 gram tablet 1 g PO AC & HS #120 tabs 01/29/24 02/19/24 Previous Rx's ?Medication ?Instructions ?Recorded acetaminophen 500 mg capsule 1,000 mg (2 x 500 mg) PO Q8H PRN 01/29/24 PRN #60 caps docusate sodium 100 mg capsule 100 mg PO DAILY #30 caps 01/29/24 (Colace) melatonin 3 mg tablet 9 mg (3 x 3 mg) PO HS #90 tabs 01/29/24 pantoprazole 40 mg tablet,delayed 40 mg PO DAILY #60 tabs 01/29/24 release (Protonix) polyethylene glycol 3350 17 gram 17 g PO DAILY #30 ea 01/29/24 oral powder packet sucralfate 1 gram tablet 1 g PO AC & HS #120 tabs 01/29/24 Allergies Allergy/AdvReac Type Severity Reaction Status Date / Time metformin Allergy Unknown Diarrhea Verified 02/19/24 12:09 ezetimibe (From Vytorin) AdvReac FAILED Verified 02/19/24 12:09 lisinopril AdvReac Hyperkalemi Verified 02/19/24 12:09 a simvastatin (From Vytorin) AdvReac FAILED Verified 02/19/24 12:09 General Stated Complaint: SOB DEENA: 3 Review of Systems All systems reviewed & are unremarkable except as noted in HPI and below Constitutional Constitutional: Denies chills, Denies fever(s) and Denies weakness Cardiovascular Cardiovascular: Denies chest pain and Reports dyspnea Respiratory Respiratory: Denies cough and Reports dyspnea Gastrointestinal Gastrointestinal: Denies abdominal pain, Denies nausea and Denies vomiting Musculoskeletal Musculoskeletal: Denies joint swelling Neurologic Neurologic: Denies weakness Exam Const General: no acute distress Orientation: alert [facility] Head: normal to inspection Ears: external ears normal General nose exam: external nose normal Mouth: moist mucous membranes Eyes General: appearance normal, both eyes and all related structures Neck Neck: normal visual inspection Resp Effort & Inspection: normal respiratory effort and able to speak in complete sentences Auscultation: clear to auscultation bilaterally Cardio Jugular venous pressure: no JVD Rate: regular rate GI Palpation: soft and nontender Skin General skin exam: no rashes or lesions noted Neuro General: patient alert and patient oriented x3 Extrem General: normal to inspection Psych Mental Status: mental status grossly normal Course Vital Signs Vital signs: Vital Signs Temperature 36.3 C L 02/19/24 12:04 Pulse 74 02/19/24 12:04 Respiratory Rate 20 02/19/24 12:04 Blood Pressure 151/77 H 02/19/24 12:04 Pulse Oximetry 98 02/19/24 12:04 Temperature 36.3 C L 02/19/24 12:04 Pulse 74 02/19/24 12:04 Respiratory Rate 20 02/19/24 12:04 Respiratory Effort Short of Breath 02/19/24 12:10 Blood Pressure 151/77 H 02/19/24 12:04 Pulse Oximetry 98 02/19/24 12:04 Oxygen Delivery Method Room Air 02/19/24 12:04 Oxygen Flow Rate 0 02/19/24 12:04 Medical Decision Making 89-year-old male with a history of CHF, CKD, pacemaker, A-fib who was recently admitted for GI bleed with elevated troponins thought secondary to the GI bleed and had his rivaroxaban held and resumed this on February 10 comes in with an x-ray of breath since this morning and noticing diarrhea as well. He denies any abdominal pain, chest pain, vomiting, fevers. He is well-appearing on exam, has clear lung sounds, no JVD, soft nontender abdomen, no edema of his ankles bilaterally, no calf tenderness. given his history will check CBC, CMP, troponins, proBNP and if he has a bowel movement check a guaiac stool sample. Will obtain a chest x-ray to evaluate for pulmonary edema and pleural effusion. There is no evidence of DVT on exam and no pleuritic chest pain and no significant hypoxia or tachycardia so doubt PE Patient's labs show no significant acute abnormalities, has 2 negative troponins. Hemoglobin 7.5 and ranges anywhere from 7 to low to mid 8 range. He is hemodynamically stable and is currently asymptomatic without complaints. Given reassuring workup discussed with him discharge with outpatient follow-up and he is comfortable with this and I feel this is reasonable given the reassuring workup Differential Diagnosis Differential Diagnosis: Anemia, GI bleed, CHF Medical Records Medical records reviewed: Yes I reviewed the patient's medical records. Lab Data Lab results reviewed: Yes I reviewed the patient's lab results. ECG Data Attestation: I personally reviewed and interpreted this ECG (s) as follows: Prior ECG tracings: available for review Interpretation: paced, rate of 69 no stemi Quality:SDOH Health Related Social Needs: No Data to Display PFSH All Active Problems (Updated 02/19/24 @ 14:42 by Adolfo Lobo MD) Shortness of breath (Acute) Anemia (Chronic) CKD (chronic kidney disease) (Chronic) CHF exacerbation (Acute) Shortness of breath (Acute) Osteoarthritis of knees, bilateral (Acute) Heart failure (Chronic) Skin lesion of face (Acute) NSTEMI (non-ST elevated myocardial infarction) (Acute) Hyperkalemia (Acute) Memory change (Acute) Paralysis of left upper extremity (Acute) Third degree burn of finger of left hand excluding thumb (Acute) Burn of finger (Acute) Sick sinus syndrome (Chronic) pt. unsure of this medical hx Essential hypertension (Chronic) Hyperlipidemia (Chronic) DM2 (diabetes mellitus, type 2) (Chronic) Mild aortic stenosis (Chronic) Cardiac pacemaker (Chronic 08/17/17) [employer] [place] XT DR MRI model # [id number] serial # [id number] (pulse generator) Ventricular electrodes: [employer]tronic CapsureFix Model # 5076-58 cm Serial # [id number] Atrial electrodes: [employer] CapsureFix model # 5076-52 cm serial # [id number] Right rotator cuff tendinitis (Acute) Corticosteroid injection: 07/16/18 Persistent atrial fibrillation (Chronic) Onset mid May 2019 - ongoing as of 06/25/2019 - sinus restored Onset again January 2021 - ongoing as of 10/26/2021 DC cardioversion [facility] 10/2021 - on amiodarone; recurrent in February 2022 - amiodarone stopped Osteoarthritis of carpometacarpal joint of right thumb (Acute) Trochanteric bursitis, left hip (Acute) Steroid injection: 12/07/2020; 03/17/2020 Trochanteric bursitis, right hip (Acute) Steroid injection: 12/07/2020; 03/17/2020 Traumatic arthropathy, right shoulder (Acute) Most recent Depo-Medrol injection: 11/22/2021; 05/24/2022 Medical History Elevated troponin level not due to acute coronary syndrome Anemia Acute on chronic kidney failure Heart failure, chronic, with acute decompensation Pleural effusion 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 states he doesn't remember ever having any History of TIA (transient ischemic attack) and stroke Per pt. in 2003 had carotid artery surgery, after procedure pt. suffered a stroke, pt. states full forearm numbness and parts of left leg Surgical History History of thoracentesis (~04/2023) FH: carotid endarterectomy History of permanent cardiac pacemaker placement Family History Brother Family history of premature coronary heart disease Sister Family history of premature coronary heart disease Social History Smoking/Tobacco Use Status: Former Tobacco Use Quit Date: 04/09/84 Pack-years: 30 Second Hand Exposure: No Smoking risk assessment performed?: Yes Alcohol Intake: never Drug use: Never Substance use type: does not use Housing: house Current gender identity: male Do you feel safe at home: Yes (lives alone) Do you feel safe in your relationship?: Yes
[2024-02-19 12:47] LABS: Abs Immature Grans 0.02 10^3/uL (0.0-0.06); Absolute Basophil Count 0.03 10^3/uL (0.0-0.2); Absolute Eosinophil Count 0.05 10^3/uL (0.0-0.7); Absolute Lymphocyte Count 0.63 10^3/uL (1.2-3.4); Absolute Monocyte Count 0.37 10^3/uL (0.1-0.8); Absolute Neutrophil Count 4.47 10^3/uL (1.2-6.7); Basophils % 0.5 %; Eosinophils % 0.9 %; HCT 24.2 % (40.0-50.0); HGB 7.5 g/dL (13.5-17.5); Immature Grans % 0.4 %; Lymphocytes % 11.3 %; MCH 26.3 pg (27.0-33.0); MCV 85 fL (80-95); MPV 11.6 fL (8.0-11.0); Monocytes % 6.6 %; Neutrophils % 80.3 %; Platelet Count 168 10^3/uL (130-400); RBC 2.85 10^6/uL (4.36-5.78); RDW 16.8 % (11.8-14.1); RDW-SD 50.8 fL; WBC 5.57 10^3/uL (4.4-10.8)
[2024-02-19 12:51] LABS: BE (Venous) -6 mmol/L (-2-3); HCO3 (Venous) 21 mmol/L (23-28); O2 Sat (Venous) 47 %; TCO2 (Venous) 21 mmol/L (24-29); pCO2 (Venous) 45 mmHg (41-51); pH (Venous) 7.28 (7.31-7.41); pO2 (Venous) 30 mmHg
[2024-02-19 13:09] LABS: INR 1.1 (0.9-1.1); PTT Activated 24.6 sec (23.6-32.8); Prothrombin Time 11.3 sec (9.1-11.1)
[2024-02-19 13:26] LABS: ALT 16 U/L (16-63); AST 35 U/L (15-37); Albumin 3.5 g/dL (3.4-5.0); Alkaline Phosphatase 173 U/L (46-116); Anion Gap 11.2 mmol/L (3-11); Bilirubin, Total 0.29 mg/dL (0.2-1.0); CO2 23.8 mmol/L (21.0-32.0); CREATININE 3.1 mg/dL (0.70-1.30); Calcium 8.7 mg/dL (8.5-10.1); Chloride 106 mmol/L (98-107); Estimated GFR 18.62 (mL/min/1.73m2); Glucose 150 mg/dL (74-106); Magnesium 2.1 mg/dL (1.8-2.4); NT-proBNP 4342 pg/mL (<300); Sodium 141 mmol/L (136-145); Total Protein 7.2 g/dL (6.4-8.2); Troponin I 63 ng/L (<or=76)
[2024-02-19 13:27] LABS: BUN 86 mg/dL (7-18)
[2024-02-19 13:43] LABS: Procalcitonin < 0.10 ng/mL
[2024-02-19 13:57] LABS: COVID-19 PCR Negative (Negative); Influenza A PCR Negative (Negative); Influenza B PCR Negative (Negative); RSV PCR Negative (Negative); Source Nasopharynx
[2024-02-19 14:13] LABS: Troponin I 56 ng/L (<or=76)
== END 2024-02-19 15:05 | disposition home or self-care (01) ==
PROVIDERS: Emergency Provider Emergency Medicine; PCP Family Medicine
DX: R06.02 Shortness of breath (principal); I50.9 Heart failure, unspecified; N18.9 Chronic kidney disease, unspecified; I48.91 Unspecified atrial fibrillation; Z95.0 Presence of cardiac pacemaker
CPT/HCPCS: 80053; 82805; 84145; 87637; 93005; 99285; 71045; 83735; 83880; 84484; 85025; 85610; 85730; 93010; 99284

== ENCOUNTER 2024-04-21 18:11 | Outpatient (REF) | payer MEDICARE, SELFPAY ==
[2024-04-21 21:01] LABS: Abs Immature Grans 0.01 10^3/uL (0.0-0.06); Absolute Basophil Count 0.06 10^3/uL (0.0-0.2); Absolute Eosinophil Count 0.11 10^3/uL (0.0-0.7); Absolute Lymphocyte Count 1.15 10^3/uL (1.2-3.4); Absolute Monocyte Count 0.44 10^3/uL (0.1-0.8); Absolute Neutrophil Count 4.49 10^3/uL (1.2-6.7); Eosinophils % 1.8 %; HCT 31.6 % (40.0-50.0); HGB 9.7 g/dL (13.5-17.5); Immature Grans % 0.2 %; Lymphocytes % 18.4 %; MCH 27.1 pg (27.0-33.0); MCHC 30.7 % (32.0-36.0); MCV 88 fL (80-95); Neutrophils % 71.6 %; Platelet Count 134 10^3/uL (130-400); RBC 3.58 10^6/uL (4.36-5.78); RDW 14.8 % (11.8-14.1); RDW-SD 47.8 fL; WBC 6.26 10^3/uL (4.4-10.8)
== END 2024-04-21 18:12 | disposition home or self-care (01) ==
LOC: NCHCN 18:11
PROVIDERS: PCP Family Medicine; Visit Provider Family Medicine
DX: D64.9 Anemia, unspecified (principal)
CPT/HCPCS: 85025

== ENCOUNTER → 2024-04-23 11:22 | Outpatient (BNVA) | payer MEDICARE, SELFPAY | PROVIDERS: PCP Family Medicine; Referring Provider Family Medicine; Visit Provider Student in an Organized Health Care Education/Training Program | DX: Z95.810 Presence of automatic (implantable) cardiac defibrillator (principal); I49.5 Sick sinus syndrome | CPT/HCPCS: 93280 ==

== ENCOUNTER 2024-08-21 15:43 | Outpatient (REF) | payer MEDICARE, SELFPAY ==
[2024-08-21 16:08] LABS: Abs Immature Grans 0.01 10^3/uL (0.0-0.06); Absolute Basophil Count 0.05 10^3/uL (0.0-0.2); Absolute Eosinophil Count 0.17 10^3/uL (0.0-0.7); Absolute Lymphocyte Count 2.11 10^3/uL (1.2-3.4); Absolute Monocyte Count 0.66 10^3/uL (0.1-0.8); Absolute Neutrophil Count 3.88 10^3/uL (1.2-6.7); Basophils % 0.7 %; Eosinophils % 2.5 %; HCT 33.5 % (40.0-50.0); Immature Grans % 0.1 %; Lymphocytes % 30.7 %; MCH 28.8 pg (27.0-33.0); MCHC 32.8 % (32.0-36.0); MCV 88 fL (80-95); Monocytes % 9.6 %; Neutrophils % 56.4 %; Platelet Count 165 10^3/uL (130-400); RBC 3.82 10^6/uL (4.36-5.78); RDW 13.5 % (11.8-14.1); RDW-SD 43.6 fL; WBC 6.88 10^3/uL (4.4-10.8)
== END 2024-08-21 15:44 | disposition home or self-care (01) ==
LOC: NCHCN 15:43
PROVIDERS: PCP Family Medicine; Visit Provider Family Medicine
DX: D64.9 Anemia, unspecified (principal)
CPT/HCPCS: 85025

== ENCOUNTER 2024-08-31 10:19 | Inpatient (IN) | payer MEDICARE, SELFPAY ==
[2024-08-31] VITALS (63 sets, daily range): BP systolic 122–232; BP diastolic 47–111; PULSE 48–83; RESP 16–43; TEMP 36.7–36.8; O2SAT 93–100
--- NOTE | 2024-08-31 10:15 | RT.EKG_ITS ---
APPROVED REPORT Exam: Resting ECG Reason for Exam: chest pain Patient Location: E HR:78 bpm ECG Measurements Heart Rate 78 AXIS MD [id number] P [id number] QRSd 148 QRS 46 QT 433 T 202 QTc 495 Conclusion Afib paced 78 no stemi
--- NOTE | 2024-08-31 10:30 | DI.RAD_ITS ---
Exam(s) XR PORTABLE CHEST AP EXAM: XR PORTABLE CHEST AP CLINICAL HISTORY: Chest pain TECHNIQUE: 2D digital imaging was performed. COMPARISON: CR XR PORTABLE CHEST AP from 02/19/2024 FINDINGS: LUNGS: Suboptimal pulmonary inflation. Small bilateral pleural effusions. Pulmonary vascular promin ence and peribronchial thickening. Increased densities at lung bases consistent with pulmonary edema . HEART: Partially obscured by fusions. Pacemaker. Left atrial appendage occlusion device. AORTA: Normal diameter. BONES: Unremarkable for age. Soft tissues: Unremarkable. IMPRESSION: Small bilateral pleural effusions and increased basilar densities could represent CHF versus bibasila r atelectasis or infiltrates. The preliminary [facility] report was reviewed. DATA REPOSITORY: RADIATION DOSE DELIVERED:
[2024-08-31 10:45] LABS: Abs Immature Grans 0.02 10^3/uL (0.0-0.06); Absolute Basophil Count 0.05 10^3/uL (0.0-0.2); Absolute Eosinophil Count 0.12 10^3/uL (0.0-0.7); Absolute Monocyte Count 0.47 10^3/uL (0.1-0.8); Absolute Neutrophil Count 5.58 10^3/uL (1.2-6.7); Basophils % 0.7 %; Eosinophils % 1.6 %; HCT 33.7 % (40.0-50.0); HGB 10.8 g/dL (13.5-17.5); Immature Grans % 0.3 %; Lymphocytes % 18.3 %; MCH 28.3 pg (27.0-33.0); MCV 88 fL (80-95); MPV 12.3 fL (8.0-11.0); Monocytes % 6.2 %; Neutrophils % 72.9 %; Platelet Count 173 10^3/uL (130-400); RBC 3.82 10^6/uL (4.36-5.78); RDW 13.5 % (11.8-14.1); RDW-SD 43.5 fL; WBC 7.64 10^3/uL (4.4-10.8)
[2024-08-31] MEDS: Aspirin 81 MG CHEW 324 MG CH (10:48)
[2024-08-31] MEDS: nitroGLYcerin 0.4 MG TAB SL ×5 (10:49→12:56)
[2024-08-31 10:59] LABS: INR 1.2 (0.9-1.1); PTT Activated 25.6 sec (20.6-30.2); Prothrombin Time 11.5 sec (9.1-11.1)
[2024-08-31 11:08] LABS: ALT 16 U/L (16-63); AST 46 U/L (15-37); Albumin 3.6 g/dL (3.4-5.0); Alkaline Phosphatase 244 U/L (46-116); Anion Gap 10.6 mmol/L (3-11); BUN 27 mg/dL (7-18); Bilirubin, Total 0.4 mg/dL (0.2-1.0); CO2 25.4 mmol/L (21.0-32.0); CREATININE 1.8 mg/dL (0.70-1.30); Calcium 8.7 mg/dL (8.5-10.1); Chloride 104 mmol/L (98-107); Estimated GFR 35.76 (mL/min/1.73m2); Glucose 204 mg/dL (74-106); Magnesium 1.4 mg/dL (1.8-2.4); NT-proBNP 5290 pg/mL (<300); Potassium 3.7 mmol/L (3.5-5.1); Sodium 140 mmol/L (136-145); Total Protein 7.4 g/dL (6.4-8.2)
[2024-08-31 11:10] LABS: Troponin I 95 ng/L (<or=76)
--- NOTE | 2024-08-31 11:14 | DI.[facility]_ITS ---
PROCEDURE INFORMATION: Exam: XR Chest Exam date and time: 08/31/2024 11:07 AM Age: 89 years old Clinical indication: Other: Chest pain TECHNIQUE: Imaging protocol: Radiologic exam of the chest. Views: 1 view. COMPARISON: CR XR PORTABLE CHEST AP 02/19/2024 12:47 PM FINDINGS: Tubes, catheters and devices: A pacemaker device is present, and its leads are in appropriate position. Cardiac device is seen. Lungs: Bilateral lower lobe consolidation/collapse. Pleural spaces: Bilateral small pleural effusions. Heart/Mediastinum: Unremarkable. No cardiomegaly. Vasculature: There are aortic arch calcifications. There is unfolding of the thoracic aorta. Bones/joints: There are mild degenerative changes of the glenohumeral joint. IMPRESSION: Bilateral pleural effusions with lower lobe consolidation/collapse. Dictated and Authenticated by: Jordan Richter MD. Orderin Akira Jarvis MD
--- NOTE | 2024-08-31 11:22 | W.ED.GENAD ---
Discharge Plan Disposition Patient Disposition: Admit to [facility] Condition: Fair Discharge Details Chief Complaint: Chest Pain Clinical Impression: CHF exacerbation, CKD (chronic kidney disease), Chest pain Primary Care Provider: Nel Cabrera ED Provider: Vargas Champion Home Meds and New Rx's Prescriptions: No Action phenytoin sodium extended [Dilantin Extended] 100 mg capsule 100 mg PO BID albuterol sulfate [Ventolin HFA] 90 mcg/actuation HFA aerosol inhaler 2 inh inhalation 6XD PRN atorvastatin 80 MG tablet 80 mg PO DAILY Qty: 90 Rx Instructions: 1 TAB DAILY ferrous sulfate [FeroSul] 325 mg (65 mg iron) tablet 325 mg PO DAILY tamsulosin 0.4 mg capsule 0.4 mg PO DAILY Patient Comments: 03/25/24 per [facility] d/c summary 03/21/24 RH furosemide 40 mg tablet 40 mg PO BID Patient Comments: 03/25/24 per [facility] d/c summary 03/21/24 RH sucralfate 1 gram Tablet 1 g PO AC & HS Qty: 120 0RF polyethylene glycol 3350 17 gram Powder In Packet 17 g PO DAILY Qty: 30 0RF pantoprazole [Protonix] 40 mg tablet,delayed release (DR/EC) 40 mg PO DAILY Qty: 60 0RF acetaminophen 500 mg capsule 1,000 mg PO Q8H PRN PRNQty: 60 0RF clopidogrel 75 mg tablet 75 mg PO DAILY Patient Comments: TAKE ONE TABLET BY MOUTH EVERY DAY amlodipine 5 mg tablet 5 mg PO DAILY Patient Comments: TAKE ONE TABLET BY MOUTH EVERY DAY Januvia 25 mg tablet 25 mg PO DAILY melatonin 3 mg capsule 6 mg PO HS PRN mirtazapine 15 mg tablet 15 mg PO HS Patient Comments: TAKE ONE TABLET BY MOUTH EVERY EVENING TO IMPROVE MOOD AND SLEEP multivitamin with folic acid [Tab-A-Chris] 400 mcg tablet 1 tab PO DAILY Patient Comments: TAKE ONE TABLET BY MOUTH ONCE DAILY HPI General Date/Time Provider Initiated Documentation: 08/31/24 10:33. Limitations to Documentation: no limitations. Information obtained by: patient and family. HPI Narrative: 89-year-old gentleman with past medical history of heart failure, CKD, CHF, diabetes, A-fib with Watchman procedure presents for evaluation of chest pain. Reports that the chest pain started at 5 AM and woke him up from sleep. He localizes the pain to his left shoulder blade radiating into the center of his chest. He does report shortness of breath. He denies any fever or chills, denies any cough. When asked about his lower extremity edema, he states that he has not noticed it. Related Data Home Medications ?Medication ?Instructions ?Recorded ?Confirmed atorvastatin 80 mg tablet 80 mg PO DAILY #90 tab-caps 09/28/13 08/31/24 phenytoin sodium extended 100 mg 100 mg PO BID 04/15/20 08/31/24 capsule (Dilantin Extended) albuterol sulfate 90 mcg/actuation 2 inh inhalation 6XD PRN 10/24/23 08/31/24 aerosol inhaler (Ventolin HFA) acetaminophen 500 mg capsule 1,000 mg (2 x 500 mg) PO Q8H PRN 01/29/24 08/31/24 PRN #60 caps pantoprazole 40 mg tablet,delayed 40 mg PO DAILY #60 tabs 01/29/24 08/31/24 release (Protonix) polyethylene glycol 3350 17 gram 17 g PO DAILY #30 ea 01/29/24 08/31/24 oral powder packet sucralfate 1 gram tablet 1 g PO AC & HS #120 tabs 01/29/24 08/31/24 ferrous sulfate 325 mg (65 mg 325 mg PO DAILY 03/17/24 08/31/24 iron) tablet (FeroSul) furosemide 40 mg tablet 40 mg PO BID 03/25/24 08/31/24 tamsulosin 0.4 mg capsule 0.4 mg PO DAILY 03/25/24 08/31/24 amlodipine 5 mg tablet 5 mg PO DAILY 08/31/24 08/31/24 clopidogrel 75 mg tablet 75 mg PO DAILY 08/31/24 08/31/24 melatonin 3 mg capsule 6 mg PO HS PRN 08/31/24 08/31/24 mirtazapine 15 mg tablet 15 mg PO HS 08/31/24 08/31/24 multivitamin with folic acid 400 1 tab PO DAILY 08/31/24 08/31/24 mcg tablet (Tab-A-Chris) sitagliptin phosphate 25 mg tablet 25 mg PO DAILY 08/31/24 08/31/24 (Januvia) Previous Rx's ?Medication ?Instructions ?Recorded acetaminophen 500 mg capsule 1,000 mg (2 x 500 mg) PO Q8H PRN 01/29/24 PRN #60 caps pantoprazole 40 mg tablet,delayed 40 mg PO DAILY #60 tabs 01/29/24 release (Protonix) polyethylene glycol 3350 17 gram 17 g PO DAILY #30 ea 01/29/24 oral powder packet sucralfate 1 gram tablet 1 g PO AC & HS #120 tabs 01/29/24 Allergies Allergy/AdvReac Type Severity Reaction Status Date / Time metformin Allergy Unknown Diarrhea Verified 04/23/24 11:36 ezetimibe (From Vytorin) AdvReac FAILED Verified 04/23/24 11:36 lisinopril AdvReac Hyperkalemi Verified 04/23/24 11:36 a simvastatin (From Vytorin) AdvReac FAILED Verified 04/23/24 11:36 General Stated Complaint: Chest Pain DEENA: 3 Exam Narrative Exam Narrative: Review of Systems: All systems reviewed & are unremarkable except as noted in HPI and below Elderly frail appears uncomfortable NCAT RRR, hypertensive No tachypnea or hypoxia, crackles in the left lower base noted Nondistended abdomen Bilateral lower extremities with 1+ edema no focal neurologic deficits Appropriate mood and affect Course Vital Signs Vital signs: Vital Signs Temperature 36.8 C 08/31/24 10:21 Pulse 81 08/31/24 10:21 Respiratory Rate 22 08/31/24 10:21 Blood Pressure 232/80 H 08/31/24 10:21 Pulse Oximetry 95 08/31/24 10:21 Temperature 36.8 C 08/31/24 10:21 Temperature Source Oral 08/31/24 10:21 Pulse 81 08/31/24 10:21 Respiratory Rate 22 08/31/24 10:21 Blood Pressure 232/80 H 08/31/24 10:21 Blood Pressure Position Sitting 08/31/24 10:21 Pulse Oximetry 95 08/31/24 10:21 Oxygen Delivery Method Room Air 08/31/24 10:21 Oxygen Flow Rate 0 08/31/24 10:21 Pain Level 10 08/31/24 10:21 Lab/Test Results Lab/Test Results: Laboratory Tests Range/Units 08/31/24 10:40 WBC (4.4-10.8) 10^3/uL 7.64 RBC (4.36-5.78) 10^6/uL 3.82 L Hgb (13.5-17.5) g/dL 10.8 L Hct (40.0-50.0) % 33.7 L MCV (80-95) fL 88 MCH (27.0-33.0) pg 28.3 MCHC (32.0-36.0) % 32.0 RDW (11.8-14.1) % 13.5 Plt Count (130-400) 10^3/uL 173 MPV (8.0-11.0) fL 12.3 H Immature Gran % % 0.3 Neutrophils % % 72.9 Lymphocytes % % 18.3 Monocytes % % 6.2 Eosinophils % % 1.6 Basophils % % 0.7 Nucleated RBC % (0.0-0.3) % 0.0 Absolute Neutrophils (1.2-6.7) 10^3/uL 5.58 Absolute Lymphocytes (1.2-3.4) 10^3/uL 1.40 Absolute Monocytes (0.1-0.8) 10^3/uL 0.47 Absolute Eosinophils (0.0-0.7) 10^3/uL 0.12 Absolute Basophils (0.0-0.2) 10^3/uL 0.05 PT (9.1-11.1) sec 11.5 H INR (0.9-1.1) 1.2 H APTT (20.6-30.2) sec 25.6 Sodium (136-145) mmol/L 140 Potassium (3.5-5.1) mmol/L 3.7 Chloride (98-107) mmol/L 104 Carbon Dioxide (21.0-32.0) mmol/L 25.4 Anion Gap (3-11) mmol/L 10.6 BUN (7-18) mg/dL 27 H Creatinine (0.70-1.30) mg/dL 1.8 H Est GFR (CKD-EPI 2020) (mL/min/1.73m2) 35.76 Glucose (74-106) mg/dL 204 H Calcium (8.5-10.1) mg/dL 8.7 Magnesium (1.8-2.4) mg/dL 1.4 L Total Bilirubin (0.2-1.0) mg/dL 0.4 AST (15-37) U/L 46 H ALT (16-63) U/L 16 Alkaline Phosphatase (46-116) U/L 244 H Troponin I (<or=76) ng/L 95 H* NT-Pro-B Natriuret Pep (<300) pg/mL 5290 H Total Protein (6.4-8.2) g/dL 7.4 Albumin (3.4-5.0) g/dL 3.6 Medical Decision Making Emergent evaluation of chest pain and some slight shortness of breath. Patient is noted to be hypertensive on arrival, but otherwise hemodynamically stable. He had a recent Watchman procedure due to A-fib and has been taken off of his anticoagulation. Initial differential includes ACS, CHF, less likely acute aortic injury. The patient EKG was reviewed and independently interpreted: A-fib 78 paced. No acute changes from prior. The patient will be given a full dose aspirin, nitro for pain relief and will continue to monitor closely. Patient's blood pressure has come down, he has not developed hypoxia or other signs of significant respiratory distress. Lab work reviewed. He has anemia that is improved from prior though still not great. Hemoglobin 10. No leukocytosis. Normal platelet count. INR slightly elevated at 1.2. BUN and creatinine improved from prior. His magnesium level is low at 1.4 and I will give IV replacement of this. Potassium is 3.7, will give an oral dose of potassium as well given his cardiac history. He has received 3 doses of sublingual nitroglycerin without any change in his chest pain. His troponin level was noted to be elevated at 95, however unclear the significance of this given his renal disease and prior elevations in troponins. Will continue to trend. BNP is noted to be elevated over 5000. IV Lasix will be given as well. Chest x-ray was reviewed, there is the hardware noted. Pleural effusions bilaterally with some signs of pulmonary edema. Concern for possible consolidation in the left lower lobe. This may be the etiology of the patient's pain symptoms. Procalcitonin was obtained to evaluate for possible bacterial etiology, but this is not elevated, so I doubt the area concerning for possible consolidation in the chest x-ray is an actual pneumonia. Patient has had persistentchest pain in the emergency department, though his troponin is downtrending he has had no rhythm change. Will get CT scan to evaluate for other etiologies of the severe pain. CTA was obtained, there is no acute aortic etiology of the symptoms. Also the CTA is not very concerning for a consolidative process, more just pulmonary edema. The patient is still complaining of 10 out of 10 pain despite multiple doses of nitroglycerin, Tylenol and oral morphine. There does not appear to be a musculoskeletal component to this and it is not recent reproducible on examination. I do not see any rash consistent with zoster lesions. Gabapentin was given as well as a GI cocktail, but neither of these medications made any adjustment in the patient's 10 out of 10 pain. He is still endorsing difficulty with breathing however he is not hypoxic. There is some mild tachypnea while he is speaking. He was placed on 2 L to see if this does make him slightly more comfortable. At this point I do not have a etiology of the patient's severe pain, though I do not suspect it is ACS. Feel he would benefit from hospital admission for IV diuresis for his CHF exacerbation. Quality:SDOH Health Related Social Needs: No Data to Display PFSH All Active Problems (Updated 08/31/24 @ 15:21 by Vargas Champion MD) Chest pain (Acute) DNR (do not resuscitate) (Acute) COLST 04/10/2024: DNR/DNI, + transfer, antibiotics, IV fluids, transfusions. See form for additional discussion Advanced care planning/counseling discussion (Acute) Palliative care encounter (Acute) Chronic anticoagulation (Acute) Heart failure with preserved ejection fraction (Acute) Anemia (Chronic) Multifactorial: CKD 4, GI bleed/peptic ulcer CKD (chronic kidney disease) (Chronic) Stage IV CHF exacerbation (Acute) Shortness of breath (Acute) Osteoarthritis of knees, bilateral (Acute) Heart failure (Chronic) Skin lesion of face (Acute) NSTEMI (non-ST elevated myocardial infarction) (Acute) Hyperkalemia (Acute) Memory change (Acute) Paralysis of left upper extremity (Acute) Third degree burn of finger of left hand excluding thumb (Acute) Burn of finger (Acute) Sick sinus syndrome (Chronic) pt. unsure of this medical hx Essential hypertension (Chronic) Hyperlipidemia (Chronic) DM2 (diabetes mellitus, type 2) (Chronic) Mild aortic stenosis (Chronic) Cardiac pacemaker (Chronic 08/17/17) [employer] [place] XT DR MRI model # W1DR01 serial # [id number] (pulse generator) Ventricular electrodes: Medtronic CapsureFix Model # 5076-58 cm Serial # [id number] Atrial electrodes: [employer]tronic CapsureFix model # 5076-52 cm serial # [id number] Right rotator cuff tendinitis (Acute) Corticosteroid injection: 07/16/18 Persistent atrial fibrillation (Chronic) Onset mid May 2019 - ongoing as of 06/25/2019 - sinus restored Onset again January 2021 - ongoing as of 10/26/2021 DC cardioversion [facility] 10/2021 - on amiodarone; recurrent in February 2022 - amiodarone stopped Osteoarthritis of carpometacarpal joint of right thumb (Acute) Trochanteric bursitis, left hip (Acute) Steroid injection: 12/07/2020; 03/17/2020 Trochanteric bursitis, right hip (Acute) Steroid injection: 12/07/2020; 03/17/2020 Traumatic arthropathy, right shoulder (Acute) Most recent Depo-Medrol injection: 11/22/2021; 05/24/2022 Medical History Elevated troponin level not due to acute coronary syndrome Anemia Acute on chronic kidney failure Heart failure, chronic, with acute decompensation Pleural effusion 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 states he doesn't remember ever having any History of TIA (transient ischemic attack) and stroke Per pt. in 2003 had carotid artery surgery, after procedure pt. suffered a stroke, pt. states full forearm numbness and parts of left leg Surgical History History of thoracentesis (~04/2023) FH: carotid endarterectomy History of permanent cardiac pacemaker placement Family History Brother Family history of premature coronary heart disease Sister Family history of premature coronary heart disease Social History Smoking/Tobacco Use Status: Former Tobacco Use Quit Date: 04/09/84 Pack-years: 30 Second Hand Exposure: No Smoking risk assessment performed?: Yes Alcohol Intake: never Drug use: Never Substance use type: does not use Housing: house Current gender identity: male Do you feel safe at home: Yes (lives alone) Do you feel safe in your relationship?: Yes
[2024-08-31] MEDS: Acetaminophen 500 MG TAB 1000 MG PO ×2 (11:33→18:17)
[2024-08-31] MEDS: Furosemide 40 MG/4 ML VIAL IVP (11:33)
[2024-08-31] MEDS: MAGNESIUM SULFATE 2 GM/50 ML BAG IVINF (11:34)
[2024-08-31 12:03] LABS: Troponin I 82 ng/L (<or=76)
[2024-08-31] MEDS: Potassium Chloride Liquid 20 MEQ PKT 40 MEQ PO (12:23)
--- NOTE | 2024-08-31 12:45 | DI.CT_ITS ---
Exam(s) CT THORAX ABDOMEN CTA EXAM: CT THORAX ABDOMEN CTA CLINICAL HISTORY: chest pain. TECHNIQUE: Imaging Protocol: Axial CT angiography was performed with multi-slice acquisition and mu lti-planar reconstructions as well as axial, coronal and sagittal MIP reconstructions. Computer aided detection (CAD) was utilized. CONTRAST MATERIAL: Intravenous: Omnipaque 350 Contrast volume:100 ml COMPARISON: CT CT CHEST WO from 04/13/2023 CR,XR XR PORTABLE CHEST AP from 08/31/2024 FINDINGS: Pulmonary Arteries: No evidence of filling defect to suggest pulmonary emboli. Mediastinum and [place]: No dominant adenopathy or fluid collection. Pulmonary parenchyma: No consolidation or dominant measurable mass. Basilar atelectasis. Pleura: There are moderate bilateral pleural effusions. There is a tiny left pneumothorax seen at the left lung apex and medial anterior left upper lobe. Heart: The heart is moderately dilated. No pericardial effusion. Aorta: Thoracic aorta non-dilated. No dissection. Moderate atherosclerotic changes. Upper abdomen: No acute findings. Bones: Flowing osteophytes consistent with DISH. Tubes, Catheters, and Lines: Pacemaker over the left pectoral muscle. Soft tissues: Unremarkable. IMPRESSION: No evidence of pulmonary embolism. Moderate sized bilateral pleural effusions Small Left pneumothorax. Findings of pneumothorax discussed with hospitalist Lisa Valladares, 5:50 p.m. August 31 The preliminary [facility] report was reviewed. RADIATION DOSE DELIVERED: Total DLP DATA REPOSITORY: All CT scans at this facility are submitted to the National Radiology Data Registry (NRDR) Dose Index Registry (DIR) with the [employer] (ACR). RADIATION OPTIMIZATION: All CT scans at this facility use at least one of these dose optimization te chniques: automated exposure control; mA and/or kV adjustment per patient size (includes targeted exa ms where dose is matched to clinical indication); or iterative reconstruction.
[2024-08-31 12:46] LABS: Procalcitonin < 0.10 ng/mL
[2024-08-31] MEDS: amLODIPine 5 MG TAB PO (12:56)
[2024-08-31] MEDS: Normal Saline - Diluent 50 ML VIAL IJ (13:05)
[2024-08-31] MEDS: Omnipaque 350 MG/ML 100 ML BTL IJ (13:05)
[2024-08-31] MEDS: MORPHine IR 15 MG TAB PO (13:41)
--- NOTE | 2024-08-31 14:06 | DI.[facility]_ITS ---
PROCEDURE INFORMATION: Exam: CTA Chest With Contrast CTA Abdomen With Contrast Exam date and time: 08/31/2024 1:03 PM Age: 89 years old Clinical indication: Other: Chest pain TECHNIQUE: Imaging protocol: Computed tomographic angiography of the chest with contrast. Exam focused on the arteries. Computed tomographic angiography of the abdomen with contrast. Exam focused on the arteries. 3D rendering (Not supervised by radiologist): MIP and/or 3D reconstructed images were created by the technologist. Radiation optimization: All CT scans at this facility use at least one of these dose optimization techniques: automated exposure control; mA and/or kV adjustment per patient size (includes targeted exams where dose is matched to clinical indication); or iterative reconstruction. Contrast material: OMNI 350; Contrast volume: 100 ml; Contrast route: INTRAVENOUS (IV); COMPARISON: CT CHEST WO 04/13/2023 4:14 PM FINDINGS: Tubes, catheters and devices: A pacemaker device is present, and its leads are in appropriate position. VASCULATURE: Pulmonary arteries: Normal. No pulmonary emboli. Aorta: No aortic aneurysm. No aortic dissection. Celiac trunk and mesenteric arteries: Moderate stenosis at the origin of the celiac artery by calcified atheroma. Mild stenosis at the origin of the superior mesenteric artery by calcified atheroma. Renal arteries: Moderate stenosis at the origin of the right renal artery by calcified atheroma. [id number] stenosis at the origin of the left renal artery. Right iliac arteries: Calcified atheromas of the right common iliac artery but no significant stenosis. Left iliac arteries: Calcified atheroma of the left common iliac artery but no significant stenosis. CHEST: Lungs: Bilateral lower lobe compressive atelectasis. Calcified granulomas in the right middle lobe. Pleural spaces: Moderate bilateral pleural effusions. Heart: Unremarkable. No cardiomegaly. No pericardial effusion. Coronary arteries: There is mild atherosclerotic calcification of the coronary arteries. ABDOMEN AND PELVIS: Liver: No mass. Gallbladder and biliary ducts: Unremarkable. No calcified stones. No ductal dilation. Pancreas: Unremarkable. No mass. No ductal dilation. Spleen: Unremarkable. No splenomegaly. Adrenal glands: Unremarkable. No mass. Kidneys: Bilateral simple renal cysts measuring up to 2.1 cm in the interpolar region of the right kidney. Bilateral perinephric fat stranding. There is no evidence of hydronephrosis. Stomach and bowel: Unremarkable. No obstruction. No mucosal thickening. Intraperitoneal space: Unremarkable. No free air. No significant fluid collection. Lymph nodes: Unremarkable. No enlarged lymph nodes. Bones/joints: There are moderate degenerative changes of the sacroiliac joints. There are diffuse enthesopathic changes consistent with benign diffuse idiopathic skeletal hyperostosis (DISH). The lumbar spine demonstrates moderate degenerative changes at multiple levels. Soft tissues: Unremarkable. Other findings: The vasculature demonstrates diffuse mild atherosclerotic calcification. IMPRESSION: 1. Bilateral pleural effusions with lower lobe compressive atelectasis. 2. No pulmonary embolism. 3. No aortic dissection. Dictated and Authenticated by: Jordan Richter MD. Orderin Akira Jarvis MD
[2024-08-31 14:11] LABS: Troponin I 87 ng/L (<or=76)
[2024-08-31] MEDS: Gabapentin 300 MG CAP 900 MG PO (14:34)
[2024-08-31] MEDS: MYLANTA 30 ML, LIDOCAINE 2% VISCOUS UD 15 ML PO (14:34)
--- NOTE | 2024-08-31 16:13 | W.PM.HP.N ---
Date of service: 08/31/24 Time of Service: 16:13 Assessment and Plan Assessment and plan (1) Chest pain: Status: Acute Assessment and plan: Troponin initially at 95 trending down to 82. Will repeat one in a.m. or sooner if chest pain is exacerbated EKG was negative for coronary occlusion and appears similar to previous Will treat with morphine and adjust as needed Will continue acetaminophen but As been ineffective so far (2) Acute on chronic heart failure with preserved ejection fraction (HFpEF): Status: Acute Assessment and plan: Last LVEF 50-55% with RVSP at 42 mmHg Will continue IV lasix BID (3) Bilateral pleural effusion: Status: Acute Assessment and plan: As per chest imaging in the setting of point 2?which is most likely the etiology Surgical consult pending as patient mention thoracentesis 1 to 2 years ago for similar presentation Ongoing chest pain with attempted deep breathing and coughing New findings when compared to chest x-ray from 02/19/2024 Denies history of neoplasm except for 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 Giron at 18:50 re: small left sided pneumothorax finding No additional O2 requirement, no reported mediastinal shift and hemodynamically stable Will continue to monitor Dr. Edwards aware (5) CKD (chronic kidney disease): Status: Chronic Assessment and plan: Since starting up to CKD stage IV, CR 1.8 today we will continue monitor. This might worsen in the setting of IV Lasix regimen (6) Hyperlipidemia: Status: Chronic Assessment and plan: Continue home dose statin (7) Persistent atrial fibrillation: Status: Chronic Assessment and plan: MVR as per cardiac monitoring No beta-aruna or non-dihydropyridine CCB listed on home meds Will continue to monitor (8) HTN (hypertension): Status: Chronic Assessment and plan: Continue amlodipine with parameters (9) DM II (diabetes mellitus, type II), controlled: Status: Acute Assessment and plan: Will hold home meds Gluc AC and HS with SSI coverage (10) Contraindication to deep vein thrombosis (DVT) prophylaxis: Status: Acute Assessment and plan: Recent GIB with PRBC transfusion and instrumentation for which Watchman was initially completed and anticoagulation for atrial -fibrillation discontinued TEDS Discussed with Dr. Quiñones History of Present Illness History of Present Illness Chief Complaint: Chest pain , shortness of breath Narrative: This 89 years old male patient with a past medical history of HFpEF with last LEVF 50-55% with RVSP 42 mmHg oin 02/2024, CKD stage IV, A-fib s/p Watchman, GI bleed presented to the ED for evaluation of chest pain and shortness of breath starting at 5 AM this morning. EKG is showing A-fib with MRV with BBB similar to previous. Chest pain did not resolve with nitroglycerin, or morphine. Chest imaging was positive for bilateral pleural effusion, no PE; pulmonary edema and peribronchial thickening. . Blood work was unremarkable except for down trend in troponin with max 95 and now 82, stable anemia.In the ED the patient received IV lasix. The patient was admitted to the medical surgical floor with telemetry for evaluation and managemnt of chest pain, CHF exacerbation, bilateral pleural effusion. Surgical consult placed as the patient reported thoracentesis 1-2 years ago. The patient confirmed DNR/DNI status. The patient denied chills, fever, dizziness, nausea, vomiting, diarrhea ,constipation or dysuria. Reporting difficulty with deep breathing, coughing with increase in the intensity of the chest pain when doing so. Review of Systems All systems reviewed & are unremarkable except as noted in HPI and below PFSH All Active Problems (Updated 08/31/24 @ 18:03 by Lisa Valladares APRN) DM II (diabetes mellitus, type II), controlled (Acute) Pneumothorax (Acute) HTN (hypertension) (Chronic) Bilateral pleural effusion (Acute) Contraindication to deep vein thrombosis (DVT) prophylaxis (Acute) Acute on chronic heart failure with preserved ejection fraction (HFpEF) (Acute) Chest pain (Acute) DNR (do not resuscitate) (Acute) COLST 04/10/2024: DNR/DNI, + transfer, antibiotics, IV fluids, transfusions. See form for additional discussion Advanced care planning/counseling discussion (Acute) Palliative care encounter (Acute) Chronic anticoagulation (Acute) Heart failure with preserved ejection fraction (Acute) Anemia (Chronic) Multifactorial: CKD 4, GI bleed/peptic ulcer CKD (chronic kidney disease) (Chronic) Stage IV CHF exacerbation (Acute) Shortness of breath (Acute) Osteoarthritis of knees, bilateral (Acute) Heart failure (Chronic) Skin lesion of face (Acute) NSTEMI (non-ST elevated myocardial infarction) (Acute) Hyperkalemia (Acute) Memory change (Acute) Paralysis of left upper extremity (Acute) Third degree burn of finger of left hand excluding thumb (Acute) Burn of finger (Acute) Sick sinus syndrome (Chronic) pt. unsure of this medical hx Essential hypertension (Chronic) Hyperlipidemia (Chronic) DM2 (diabetes mellitus, type 2) (Chronic) Mild aortic stenosis (Chronic) Cardiac pacemaker (Chronic 08/17/17) [employer] [place] XT DR MRI model # [id number] serial # [id number] (pulse generator) Ventricular electrodes: [employer]onic CapsureFix Model # 5076-58 cm Serial # [id number] Atrial electrodes: [employer] CapsureFix model # 5076-52 cm serial # [id number] Right rotator cuff tendinitis (Acute) Corticosteroid injection: 07/16/18 Persistent atrial fibrillation (Chronic) Onset mid May 2019 - ongoing as of 06/25/2019 - sinus restored Onset again January 2021 - ongoing as of 10/26/2021 DC cardioversion [facility] 10/2021 - on amiodarone; recurrent in February 2022 - amiodarone stopped Osteoarthritis of carpometacarpal joint of right thumb (Acute) Trochanteric bursitis, left hip (Acute) Steroid injection: 12/07/2020; 03/17/2020 Trochanteric bursitis, right hip (Acute) Steroid injection: 12/07/2020; 03/17/2020 Traumatic arthropathy, right shoulder (Acute) Most recent Depo-Medrol injection: 11/22/2021; 05/24/2022 Medical History Elevated troponin level not due to acute coronary syndrome Anemia Acute on chronic kidney failure Heart failure, chronic, with acute decompensation Pleural effusion 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 states he doesn't remember ever having any History of TIA (transient ischemic attack) and stroke Per pt. in 2003 had carotid artery surgery, after procedure pt. suffered a stroke, pt. states full forearm numbness and parts of left leg Surgical History History of thoracentesis (~04/2023) FH: carotid endarterectomy History of permanent cardiac pacemaker placement Family History Brother Family history of premature coronary heart disease Sister Family history of premature coronary heart disease Social History Smoking/Tobacco Use Status: Former Tobacco Use Quit Date: 04/09/84 Pack-years: 30 Second Hand Exposure: No Smoking risk assessment performed?: Yes Alcohol Intake: never Drug use: Never Substance use type: does not use Housing: house Current gender identity: male Do you feel safe at home: Yes (lives alone) Do you feel safe in your relationship?: Yes Meds Allergies and Home Medications Allergies Allergy/AdvReac Type Severity Reaction Status Date / Time metformin Allergy Unknown Diarrhea Verified 04/23/24 11:36 ezetimibe (From Vytorin) AdvReac FAILED Verified 04/23/24 11:36 lisinopril AdvReac Hyperkalemi Verified 04/23/24 11:36 a simvastatin (From Vytorin) AdvReac FAILED Verified 04/23/24 11:36 Home Medications ?Medication ?Instructions ?Recorded ?Confirmed ?Type atorvastatin 80 mg tablet 80 mg PO DAILY #90 tab-caps 09/28/13 08/31/24 History phenytoin sodium extended 100 mg 100 mg PO BID 04/15/20 08/31/24 History capsule (Dilantin Extended) albuterol sulfate 90 mcg/actuation 2 inh inhalation 6XD PRN 10/24/23 08/31/24 History aerosol inhaler (Ventolin HFA) acetaminophen 500 mg capsule 1,000 mg (2 x 500 mg) PO Q8H PRN 01/29/24 08/31/24 Rx PRN #60 caps pantoprazole 40 mg tablet,delayed 40 mg PO DAILY #60 tabs 01/29/24 08/31/24 Rx release (Protonix) polyethylene glycol 3350 17 gram 17 g PO DAILY #30 ea 01/29/24 08/31/24 Rx oral powder packet sucralfate 1 gram tablet 1 g PO AC & HS #120 tabs 01/29/24 08/31/24 Rx ferrous sulfate 325 mg (65 mg 325 mg PO DAILY 03/17/24 08/31/24 History iron) tablet (FeroSul) furosemide 40 mg tablet 40 mg PO BID 03/25/24 08/31/24 History tamsulosin 0.4 mg capsule 0.4 mg PO DAILY 03/25/24 08/31/24 History amlodipine 5 mg tablet 5 mg PO DAILY 08/31/24 08/31/24 History clopidogrel 75 mg tablet 75 mg PO DAILY 08/31/24 08/31/24 History melatonin 3 mg capsule 6 mg PO HS PRN 08/31/24 08/31/24 History mirtazapine 15 mg tablet 15 mg PO HS 08/31/24 08/31/24 History multivitamin with folic acid 400 1 tab PO DAILY 08/31/24 08/31/24 History mcg tablet (Tab-A-Chris) sitagliptin phosphate 25 mg tablet 25 mg PO DAILY 08/31/24 08/31/24 History (Januvia) Exam Narrative Exam Narrative: 89-year-old male patient appearing of stated age, increased work of breathing, shortness of breath at rest and with minimal mobilization, , alert and oriented x 4, no neurological focal deficit, R sided basilar crackles and diminished left based, speak w short sentences with increased WOB,slight diffused expiratory wheezing, atrial fibrillation with moderate ventricular response, S1-S2, positive pedal and radial pulses, pain reproducible with deep breathing and cough, no murmur, bilateral lower extremity pitting edema, abdomen is nondistended, soft, nontender, no CVA tenderness Results Labs 08/31/24 10:40 08/31/24 10:40 Labs: Laboratory Results - last 24 hr 08/31/24 08/31/24 08/31/24 10:40 11:32 13:45 WBC 7.64 RBC 3.82 L Hgb 10.8 L Hct 33.7 L MCV 88 MCH 28.3 MCHC 32.0 RDW 13.5 Plt Count 173 MPV 12.3 H Immature Gran % 0.3 Neutrophils % 72.9 Lymphocytes % 18.3 Monocytes % 6.2 Eosinophils % 1.6 Basophils % 0.7 Nucleated RBC % 0.0 Absolute Neutrophils 5.58 Absolute Lymphocytes 1.40 Absolute Monocytes 0.47 Absolute Eosinophils 0.12 Absolute Basophils 0.05 PT 11.5 H INR 1.2 H APTT 25.6 Sodium 140 Potassium 3.7 Chloride 104 Carbon Dioxide 25.4 Anion Gap 10.6 BUN 27 H Creatinine 1.8 H Est GFR (CKD-EPI 2020) 35.76 Glucose 204 H Calcium 8.7 Magnesium 1.4 L Total Bilirubin 0.4 AST 46 H ALT 16 Alkaline Phosphatase 244 H Troponin I 95 H* 82 H* 87 H* NT-Pro-B Natriuret Pep 5290 H Total Protein 7.4 Albumin 3.6 Procalcitonin < 0.10 Last Vital Signs Temp 36.8 C 08/31/24 10:21 Pulse 75 08/31/24 15:50 Resp 24 08/31/24 15:50 BP 159/53 H 08/31/24 15:45 Pulse Ox 99 08/31/24 15:50 Time Spent Time spent with Patient: 55-74 minutes Time was spent: preparing to see the patient(eg.review tests), obtaining and/or reviewing separately otained hiistory, ordering medications,tests, procedures, referring, communicating with other health wound care nurse, indepentently interpreting results, counseling the patient and care coordination
[2024-08-31] MEDS: MORPHine 4 MG/ML SYR 2 MG IVP (16:18)
--- NOTE | 2024-08-31 16:18 | NUR.NOTE ---
Patient's Granddaughter Zelda called requesting an update on patient
--- NOTE | 2024-08-31 16:19 | W.PC.ACHO ---
Registration Status: Primary Language: Preferred Language: ED Information & Data Chief Complaint Chest Pain 08/31/24 12:15 Chief Complaint Chest Pain 08/31/24 11:23 Other Complaint SOB 08/31/24 10:21 Triage Note Pt reports CP that began 08/31/24 10:21 this morning at around 0500 this morning. Reports pain is 10/10, shooting pain from left arm into center of chest. Has pacemaker. Also complaining of SOB, hurts to breathe. Started all of a sudden, woke up out of sleep . 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 Pain in right wrist Pain, joint, shoulder, right Atherosclerosis of coronary artery without angina pectoris History of pulmonary embolus (PE) Burn Contusion of hand Dyspnea on exertion Abnormal weight loss Unintentional weight loss Seizure Low back pain Hip pain Skin lesion Senile hyperkeratosis Chronic kidney disease, stage 3 Atrial fibrillation Hearing loss Cataract 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 Hemiplegia Insomnia Depressive disorder Nicotine dependence Pure hypercholesterolemia Paroxysmal atrial fibrillation Pulmonary embolus Seizure disorder History of TIA (transient ischemic attack) and stroke (Last Reviewed 02/07/24 @ 11:15 by Stefanie Herring MD) History of thoracentesis (~04/2023) FH: carotid endarterectomy History of permanent cardiac pacemaker placement Most Recent Vital Signs Temperature 36.8 C 08/31/24 10:21 Temperature Source Oral 08/31/24 10:21 Pulse 75 08/31/24 15:50 Pulse 72 08/31/24 15:50 Respiratory Rate 24 08/31/24 15:50 Respiratory Effort Normal, Non-Labored 08/31/24 13:46 Respiratory Depth Normal 08/31/24 13:46 Respiratory Pattern Normal 08/31/24 13:46 Blood Pressure 159/53 H 08/31/24 15:45 Blood Pressure Mean 84 08/31/24 15:45 Blood Pressure Position Sitting 08/31/24 10:21 Pulse Oximetry 99 08/31/24 15:50 Oxygen Delivery Method Room Air 08/31/24 10:21 Oxygen Flow Rate 0 08/31/24 10:21 Pain Level 10 08/31/24 13:46 Allergies metformin Allergy (Unknown, Verified 04/23/24 11:36) Diarrhea ezetimibe (From Vytorin) Adverse Reaction (Verified 04/23/24 11:36) FAILED lisinopril Adverse Reaction (Verified 04/23/24 11:36) Hyperkalemia simvastatin (From Vytorin) Adverse Reaction (Verified 04/23/24 11:36) FAILED Active Medications Generic Name Dose Route Start Last Admin Trade Name Freq PRN Reason Stop Dose Admin Iohexol 100 ml 08/31/24 13:15 08/31/24 13:05 Omnipaque 350 Mg/Ml 100 Ml Btl IJ 09/30/24 23:59 100 ml DIRECTED RAMÍREZ Administration Nitroglycerin 0.4 mg 08/31/24 10:33 08/31/24 12:56 Nitroglycerin 0.4 Mg Tab SL 0.4 mg Q5 MIN PRN X3 PRN Administration Sodium Chloride 50 ml 08/31/24 13:15 08/31/24 13:05 Normal Saline - Diluent 50 Ml Vial IJ 50 ml .FOR DI USE RAMÍREZ Administration IV IV Catheter Type [Right Saline Lock Forearm] IV Catheter Gauge [Right 18 Forearm] Diagnostics 08/31/24 08/31/24 08/31/24 Range/Units 13:45 11:32 10:40 WBC 7.64 (4.4-10.8) 10^3/uL RBC 3.82 L (4.36-5.78) 10^6/uL Hgb 10.8 L (13.5-17.5) g/dL Hct 33.7 L (40.0-50.0) % MCV 88 (80-95) fL MCH 28.3 (27.0-33.0) pg MCHC 32.0 (32.0-36.0) % RDW 13.5 (11.8-14.1) % Plt Count 173 (130-400) 10^3/uL MPV 12.3 H (8.0-11.0) fL Immature Gran % 0.3 % Neutrophils % 72.9 % Lymphocytes % 18.3 % Monocytes % 6.2 % Eosinophils % 1.6 % Basophils % 0.7 % Nucleated RBC % 0.0 (0.0-0.3) % Absolute Neutrophils 5.58 (1.2-6.7) 10^3/uL Absolute Lymphocytes 1.40 (1.2-3.4) 10^3/uL Absolute Monocytes 0.47 (0.1-0.8) 10^3/uL Absolute Eosinophils 0.12 (0.0-0.7) 10^3/uL Absolute Basophils 0.05 (0.0-0.2) 10^3/uL PT 11.5 H (9.1-11.1) sec INR 1.2 H (0.9-1.1) APTT 25.6 (20.6-30.2) sec Sodium 140 (136-145) mmol/L Potassium 3.7 (3.5-5.1) mmol/L Chloride 104 (98-107) mmol/L Carbon Dioxide 25.4 (21.0-32.0) mmol/L Anion Gap 10.6 (3-11) mmol/L BUN 27 H (7-18) mg/dL Creatinine 1.8 H (0.70-1.30) mg/dL Est GFR (CKD-EPI 2020) 35.76 (mL/min/1.73m2) Glucose 204 H (74-106) mg/dL Calcium 8.7 (8.5-10.1) mg/dL Magnesium 1.4 L (1.8-2.4) mg/dL Total Bilirubin 0.4 (0.2-1.0) mg/dL AST 46 H (15-37) U/L ALT 16 (16-63) U/L Alkaline Phosphatase 244 H (46-116) U/L Troponin I 87 H* 82 H* 95 H* (<or=76) ng/L NT-Pro-B Natriuret Pep 5290 H (<300) pg/mL Total Protein 7.4 (6.4-8.2) g/dL Albumin 3.6 (3.4-5.0) g/dL Procalcitonin < 0.10 ng/mL Intake and Output - 24 Hour Total 08/31/24 10:19 thru 08/31/24 14:33 Output Total 700 Balance -700 Weight 87 kg Output: Urine 700 Falls Risk Assessment History of Falls No History 08/31/24 13:52 Contributing Factors No Factors 08/31/24 13:52 Ambulatory Aids Independent 08/31/24 13:52 Tubes/Lines None 08/31/24 13:52 Gait Evaluation No gait disturbance 08/31/24 13:52 Cognition No cognitive impairment 08/31/24 13:52 Fall Total Score 0 08/31/24 13:52 Level of Risk Standard/Low Risk 08/31/24 13:52 Problems (Last Reviewed 02/07/24 @ 11:15 by Stefanie Herring MD) Chest pain (Acute) CKD (chronic kidney disease) (Chronic) CHF exacerbation (Acute) v v v v v v v v v Sending and/or Receiving Nurses: Please use comment section below to note any information pertinent to the patient hand-off not included above. Information / Comments: report recieved all questions answered. Report received from: LA Garcia at [phone]
[2024-08-31] MEDS: Furosemide 100 MG/10 ML VIAL 80 MG IVP (18:08)
[2024-08-31] MEDS: Insulin Aspart 300 UNITS/3 ML PEN SC ×2 (18:18→23:12)
[2024-08-31] MEDS: Mirtazapine 15 MG TAB PO (19:59)
[2024-08-31] MEDS: Atorvastatin 40 MG TAB 80 MG PO (19:59)
--- NOTE | 2024-08-31 20:00 | SCONE_ITS ---
Date of service: 08/31/24 Time of Service: 20:00 Assessment and Plan Assessment and plan (1) Bilateral pleural effusion: Status: Acute Assessment and plan: There are moderate bilateral pleural effusions, and I do appreciate the small element of pneumothorax seen on the left side, which I suspect this the source of his left-sided pleuritic chest pain. It is hard to decipher the source of the pleural effusions. Certainly, given his age, and the recurrent nature of them, malignancy should be within the differential. However, at least radiographically, there are not a whole lot different than what was seen in April 2023. The thoracentesis back then seemed most consistent with simple pleural effusions, probably secondary to his heart. He has had a few other chest x-rays through 2023 which show waxing and waning pleural effusions, again, supporting the diagnosis of congestive heart failure as the likely source here. In that regard, I suspect there would be little diagnostic benefit to a repeat thoracentesis. Perhaps an echocardiogram would be more useful to quantify his cardiac function and compared to that of about a year ago. With regards to therapeutic thoracentesis, there may be some value there. Although he denies shortness of breath, he does report a fair amount of difficulty sleeping, and I suspect this is probably related to some postural changes associated with the effusions. Unless the underlying source can be resolved, however, then those effusions are almost certain to come back. And he has really minimal oxygen requirement (room air through most of the night, and only 2 L this morning), so I am not sure that thoracentesis would be very useful in that regards as well. For now, I would continue with aggressive diuresis, and see how that augments these effusions. Certainly, we do not lose any ground with that. If you cannot make much progress after that, then we could give reconsideration to drainage. History of Present Illness History of Present Illness Chief Complaint: Chest pain Narrative: Ilya is 89 years old. He came to the ED today after waking from sleep with sharp left sided chest pain. He says he feels it in the front of his chest when he takes deep breaths. He does not feel short of breath. It does not hurt when he moves or when he presses on his chest. He has been coughing, but that has been going on for several weeks. He denies any chest trauma such as falls. Symptoms are little bit similar to when he was diagnosed with a pleural effusion about a year ago, although he cannot recall much pain associated with that. In the emergency department, he had mild elevation of his troponins, and he underwent a CT scan that demonstrated mild bilateral pleural effusions, with a small component of pneumothorax on the left side. Review of Systems Constitutional Constitutional: Reports fatigue, Denies fever(s) and Reports lethargy Eyes Eyes: Reports system reviewed and no additional complaints, except as documented ENT Ears, Nose, Mouth, and Throat: Reports system reviewed and no additional complaints, except as documented Cardiovascular Cardiovascular: Reports chest pain and Reports orthopnea Comments: Difficulty sleeping Respiratory Respiratory: Denies chest congestion and Denies cough Gastrointestinal Gastrointestinal: Denies abdominal pain, Denies nausea and Denies vomiting Genitourinary Genitourinary: Reports system reviewed and no additional complaints, except as documented Musculoskeletal Musculoskeletal: Denies myalgias and Reports muscle weakness Endocrine Endocrine: Reports fatigue PFSH All Active Problems (Updated 08/31/24 @ 18:03 by Lisa Valladares APRN) DM II (diabetes mellitus, type II), controlled (Acute) Pneumothorax (Acute) HTN (hypertension) (Chronic) Bilateral pleural effusion (Acute) Contraindication to deep vein thrombosis (DVT) prophylaxis (Acute) Acute on chronic heart failure with preserved ejection fraction (HFpEF) (Acute) Chest pain (Acute) DNR (do not resuscitate) (Acute) COLST 04/10/2024: DNR/DNI, + transfer, antibiotics, IV fluids, transfusions. See form for additional discussion Advanced care planning/counseling discussion (Acute) Palliative care encounter (Acute) Chronic anticoagulation (Acute) Heart failure with preserved ejection fraction (Acute) Anemia (Chronic) Multifactorial: CKD 4, GI bleed/peptic ulcer CKD (chronic kidney disease) (Chronic) Stage IV CHF exacerbation (Acute) Shortness of breath (Acute) Osteoarthritis of knees, bilateral (Acute) Heart failure (Chronic) Skin lesion of face (Acute) NSTEMI (non-ST elevated myocardial infarction) (Acute) Hyperkalemia (Acute) Memory change (Acute) Paralysis of left upper extremity (Acute) Third degree burn of finger of left hand excluding thumb (Acute) Burn of finger (Acute) Sick sinus syndrome (Chronic) pt. unsure of this medical hx Essential hypertension (Chronic) Hyperlipidemia (Chronic) DM2 (diabetes mellitus, type 2) (Chronic) Mild aortic stenosis (Chronic) Cardiac pacemaker (Chronic 08/17/17) [employer] [place] XT DR MRI model # [id number] serial # [id number] (pulse generator) Ventricular electrodes: Medtronic CapsureFix Model # 5076-58 cm Serial # [id number] Atrial electrodes: Medtronic CapsureFix model # 5076-52 cm serial # [id number] Right rotator cuff tendinitis (Acute) Corticosteroid injection: 07/16/18 Persistent atrial fibrillation (Chronic) Onset mid May 2019 - ongoing as of 06/25/2019 - sinus restored Onset again January 2021 - ongoing as of 10/26/2021 DC cardioversion [facility] 10/2021 - on amiodarone; recurrent in February 2022 - amiodarone stopped Osteoarthritis of carpometacarpal joint of right thumb (Acute) Trochanteric bursitis, left hip (Acute) Steroid injection: 12/07/2020; 03/17/2020 Trochanteric bursitis, right hip (Acute) Steroid injection: 12/07/2020; 03/17/2020 Traumatic arthropathy, right shoulder (Acute) Most recent Depo-Medrol injection: 11/22/2021; 05/24/2022 Medical History Elevated troponin level not due to acute coronary syndrome Anemia Acute on chronic kidney failure Heart failure, chronic, with acute decompensation Pleural effusion 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 states he doesn't remember ever having any History of TIA (transient ischemic attack) and stroke Per pt. in 2003 had carotid artery surgery, after procedure pt. suffered a stroke, pt. states full forearm numbness and parts of left leg Surgical History History of thoracentesis (~04/2023) FH: carotid endarterectomy History of permanent cardiac pacemaker placement Family History Brother Family history of premature coronary heart disease Sister Family history of premature coronary heart disease Social History Smoking/Tobacco Use Status: Former Tobacco Use Quit Date: 04/09/84 Pack-years: 30 Second Hand Exposure: No Smoking risk assessment performed?: Yes Alcohol Intake: never Drug use: Never Substance use type: does not use Housing: house Current gender identity: male Do you feel safe at home: Yes (lives alone) Do you feel safe in your relationship?: Yes Exam Const General: cooperative, comfortable and no acute distress Orientation: alert, awake and oriented x3 HENMT Head: normal to inspection Eyes General: appearance normal, both eyes and all related structures Neck Neck: normal visual inspection, full ROM and no lymphadenopathy Chest Chest: normal inspection of the chest and no localized rib tenderness Resp Auscultation: diminished lung sounds (Lung sounds are absent on both the right and left posterior) Cardio Rate: regular rate Rhythm: regular rhythm GI Inspection: normal to inspection and non-distended Extrem Right upper extremity: edema Left upper extremity: edema Results Last Vital Signs Temp 98.2 F 08/31/24 16:46 Pulse 70 08/31/24 16:46 Resp 18 08/31/24 16:46 BP 150/79 H 08/31/24 16:46 Pulse Ox 93 08/31/24 18:27 Labs 09/01/24 06:50 09/01/24 06:50 Labs: Laboratory Results - last 24 hr 08/31/24 08/31/24 08/31/24 10:40 11:32 13:45 WBC 7.64 RBC 3.82 L Hgb 10.8 L Hct 33.7 L MCV 88 MCH 28.3 MCHC 32.0 RDW 13.5 Plt Count 173 MPV 12.3 H Immature Gran % 0.3 Neutrophils % 72.9 Lymphocytes % 18.3 Monocytes % 6.2 Eosinophils % 1.6 Basophils % 0.7 Nucleated RBC % 0.0 Absolute Neutrophils 5.58 Absolute Lymphocytes 1.40 Absolute Monocytes 0.47 Absolute Eosinophils 0.12 Absolute Basophils 0.05 PT 11.5 H INR 1.2 H APTT 25.6 Sodium 140 Potassium 3.7 Chloride 104 Carbon Dioxide 25.4 Anion Gap 10.6 BUN 27 H Creatinine 1.8 H Est GFR (CKD-EPI 2020) 35.76 Glucose 204 H Calcium 8.7 Magnesium 1.4 L Total Bilirubin 0.4 AST 46 H ALT 16 Alkaline Phosphatase 244 H Troponin I 95 H* 82 H* 87 H* NT-Pro-B Natriuret Pep 5290 H Total Protein 7.4 Albumin 3.6 Procalcitonin < 0.10 Imaging Chest x-ray: report reviewed and image reviewed CT scan - chest: report reviewed and image reviewed
[2024-08-31] MEDS: Melatonin 3 MG TAB 6 MG PO (22:23)
[2024-08-31] MEDS: MORPHine 2 MG/ML SYR IVP (22:23)
[2024-08-31] MEDS: Sucralfate 1 GM TAB PO (22:23)
[2024-08-31] MEDS: Normal Saline Flush 10 ML SYR IVP (22:24)
[2024-09-01] VITALS (7 sets, daily range): BP systolic 115–164; BP diastolic 39–70; PULSE 60–85; RESP 12–19; TEMP 36–38; O2SAT 93–98
[2024-09-01] MEDS: MORPHine 2 MG/ML SYR IVP ×2 (06:36→15:30)
[2024-09-01] MEDS: Normal Saline Flush 10 ML SYR (06:48)
[2024-09-01 07:07] LABS: Abs Immature Grans 0.03 10^3/uL (0.0-0.06); Absolute Basophil Count 0.06 10^3/uL (0.0-0.2); Absolute Eosinophil Count 0.19 10^3/uL (0.0-0.7); Absolute Lymphocyte Count 3.76 10^3/uL (1.2-3.4); Absolute Monocyte Count 1.36 10^3/uL (0.1-0.8); Basophils % 0.5 %; Eosinophils % 1.6 %; HCT 32.8 % (40.0-50.0); HGB 10.5 g/dL (13.5-17.5); Immature Grans % 0.3 %; MCH 28.8 pg (27.0-33.0); MCV 90 fL (80-95); MPV 12.3 fL (8.0-11.0); Monocytes % 11.6 %; Platelet Count 201 10^3/uL (130-400); RBC 3.65 10^6/uL (4.36-5.78); RDW 13.5 % (11.8-14.1); RDW-SD 44.4 fL; WBC 11.76 10^3/uL (4.4-10.8)
[2024-09-01 07:23] LABS: Absolute Neutrophil Count 6.35 10^3/uL (1.2-6.7)
[2024-09-01 07:27] LABS: Anion Gap 11.8 mmol/L (3-11); BUN 32 mg/dL (7-18); CO2 24.2 mmol/L (21.0-32.0); CREATININE 2.1 mg/dL (0.70-1.30); Calcium 8.9 mg/dL (8.5-10.1); Chloride 101 mmol/L (98-107); Estimated GFR 29.72 (mL/min/1.73m2); Glucose 159 mg/dL (74-106); Magnesium 1.9 mg/dL (1.8-2.4); Potassium 4.3 mmol/L (3.5-5.1); Sodium 137 mmol/L (136-145)
[2024-09-01 07:34] LABS: Troponin I 126 ng/L (<or=76)
[2024-09-01] MEDS: Normal Saline Flush 10 ML SYR IVP ×2 (08:50→20:10)
[2024-09-01] MEDS: Polyethylene Glycol 3350 17 GM PACKET PO (08:50)
[2024-09-01] MEDS: Sucralfate 1 GM TAB PO ×4 (08:51→21:25)
[2024-09-01] MEDS: amLODIPine 5 MG TAB PO (08:51)
[2024-09-01] MEDS: Tamsulosin 0.4 MG CAPCR 0.8 MG PO (08:51)
[2024-09-01] MEDS: Multivitamin w/Minerals TAB 1 TAB PO (08:51)
[2024-09-01] MEDS: Pantoprazole 40 MG TABCR PO (08:51)
[2024-09-01] MEDS: Clopidogrel 75 MG TAB PO (08:52)
[2024-09-01] MEDS: Ferrous Sulfate 325 MG TAB PO (08:52)
[2024-09-01] MEDS: Lidocaine 2% Jelly 6 ML SYR (08:53)
[2024-09-01] MEDS: Insulin Aspart 300 UNITS/3 ML PEN SC ×3 (09:01→21:25)
--- NOTE | 2024-09-01 09:46 | PGE_ITS ---
Date of Service Date of service: 09/01/24 Time of Service: 09:46 Assessment and Plan Assessment and plan (1) Chest pain: Status: Acute Assessment and plan: Troponin initially at 95 trended down to 82 at 126 this AM - will trend 135 then 189- [place] [facility] [place] and send EKG's Initial EKG was negative for coronary occlusion and appears similar to previous -ASa X1 given in ED Will treat with morphine and adjust as needed Will continue acetaminophen Spoke to [facility] [place] - AMY Fish and determination made after review that if the next troponin - below 200 - to stop trending in delta VS number of hours between troponin and symtomatolgy does not resemble ACS 18:30 troponin pending (2) Acute on chronic heart failure with preserved ejection fraction (HFpEF): Status: Acute Assessment and plan: Last LVEF 50-55% with RVSP at 42 mmHg in 02/2024 Continue IV lasix BID Jardiance added to medicine regimen Repeat echocardiogram in AM BMP, CBC, mag in AM (3) Bilateral pleural effusion: Status: Acute Assessment and plan: As per chest imaging in the setting of point 2?which is most likely the etiology Surgical consultation byt Dr. 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 Giron at 18:50 on 08/31/24 -re: small left sided pneumothorax finding New additional O2 requirement at 2l/min - no reported mediastinal shift and remains hemodynamically stable Will continue to monitor Dr. Edwards consultation completed: please read notes (6) CKD (chronic kidney disease): Status: Chronic Assessment and plan: Since starting up to CKD stage IV, CR 1.8 today we will continue monitor. This might worsen in the setting of IV Lasix regimen Cr 2.1 this AM - GFR 29 - baseline The patient reported with palliative care in the past that he did not want HD- (7) Hyperlipidemia: Status: Chronic Assessment and plan: On home dose statin (8) Persistent atrial fibrillation: Status: Chronic Assessment and plan: MVR as per cardiac monitoring initially RVR at 105 this AM -in the setting of up trend in troponin and new hypoxia resolving with O2 supplementation - will continue to monitor - might have to consider rate control if up-trend in RVR noted despite diuresis No beta-aruna or non-dihydropyridine CCB listed on home meds Will continue to monitor (9) HTN (hypertension): Status: Chronic Assessment and plan: Hold amlodipine while on aggressive diuresis (10) DM II (diabetes mellitus, type II), controlled: Status: Acute Assessment and plan: Will hold home meds Continue Gluc AC and HS with SSI coverage Jardiance for CHF (11) Urinary retention: Status: Acute Assessment and plan: Already on flomax - increased Young inserted Most likely d/t opioids to treat chest pain (12) Hypomagnesemia: Status: Resolved Assessment and plan: Initially 1.4 - supplementation given in the Ed now resolved Will continue to monitor (13) Contraindication to deep vein thrombosis (DVT) prophylaxis: Status: Acute Assessment and plan: Recent GIB with PRBC transfusion and instrumentation for which Watchman was initially completed and anticoagulation for atrial -fibrillation discontinued TEDS Discussed with Dr. Graves Subjective Subjective Patient reports: pain is less (sleepy but arousable ), tolerating liquids well, tolerating a regular diet, no bowel movement and shortness of breath; denies diarrhea, nausea, vomiting or fever Exam Narrative Exam Narrative: 89-year-old male patient appearing of stated age, increased work of breathing and shortness of breath at rest and with minimal mobilization now with oxygen requirement of 2l/min d/t hypoxia overnight, , alert and oriented x 4, no neurological focal deficit, R sided basilar crackles and diminished left based, speak w short sentences with increased WOB,slight diffused expiratory wheezing, atrial fibrillation with moderate ventricular - V-paced at time response,no murmur S1- S2 distant , positive pedal and radial pulses, pain reproducible with deep breathing and cough improved with pain Rx, improved bilateral lower extremity pitting edema, abdomen is nondistended, soft, nontender, no CVA tenderness Young in palce for urinary retention Objective Last Vital Signs Temp 36.0 C L 09/01/24 07:06 Pulse 85 09/01/24 07:06 Resp 16 09/01/24 07:06 BP 124/46 L 09/01/24 07:06 Pulse Ox 93 09/01/24 07:06 Laboratory Results - last 24 hr 08/31/24 08/31/24 08/31/24 10:40 11:32 13:45 WBC 7.64 RBC 3.82 L Hgb 10.8 L Hct 33.7 L MCV 88 MCH 28.3 MCHC 32.0 RDW 13.5 Plt Count 173 MPV 12.3 H Immature Gran % 0.3 Neutrophils % 72.9 Lymphocytes % 18.3 Monocytes % 6.2 Eosinophils % 1.6 Basophils % 0.7 Nucleated RBC % 0.0 Absolute Neutrophils 5.58 Absolute Lymphocytes 1.40 Absolute Monocytes 0.47 Absolute Eosinophils 0.12 Absolute Basophils 0.05 PT 11.5 H INR 1.2 H APTT 25.6 Sodium 140 Potassium 3.7 Chloride 104 Carbon Dioxide 25.4 Anion Gap 10.6 BUN 27 H Creatinine 1.8 H Est GFR (CKD-EPI 2020) 35.76 Glucose 204 H Calcium 8.7 Magnesium 1.4 L Total Bilirubin 0.4 AST 46 H ALT 16 Alkaline Phosphatase 244 H Troponin I 95 H* 82 H* 87 H* NT-Pro-B Natriuret Pep 5290 H Total Protein 7.4 Albumin 3.6 Procalcitonin < 0.10 09/01/24 06:50 WBC 11.76 H RBC 3.65 L Hgb 10.5 L Hct 32.8 L MCV 90 MCH 28.8 MCHC 32.0 RDW 13.5 Plt Count 201 MPV 12.3 H Immature Gran % 0.3 Neutrophils % 54.0 Lymphocytes % 32.0 Monocytes % 11.6 Eosinophils % 1.6 Basophils % 0.5 Nucleated RBC % 0.0 Absolute Neutrophils 6.35 Absolute Lymphocytes 3.76 H Absolute Monocytes 1.36 H Absolute Eosinophils 0.19 Absolute Basophils 0.06 PT INR APTT Sodium 137 Potassium 4.3 Chloride 101 Carbon Dioxide 24.2 Anion Gap 11.8 H BUN 32 H Creatinine 2.1 H Est GFR (CKD-EPI 2020) 29.72 Glucose 159 H Calcium 8.9 Magnesium 1.9 Total Bilirubin AST ALT Alkaline Phosphatase Troponin I 126 H* NT-Pro-B Natriuret Pep Total Protein Albumin Procalcitonin Time Spent with Patient Time Spent with Patient: >50 minutes Time was spent: preparing to see the patient(eg.review tests), obtaining and/or reviewing separately otained hiistory, ordering medications,tests, procedures, referring, communicating with other health healthcare financial analyst, indepentently interpreting results, counseling the patient and care coordination
[2024-09-01] MEDS: Acetaminophen 500 MG TAB 1000 MG PO ×2 (10:16→20:10)
[2024-09-01] MEDS: Empaglifozin 10 MG TAB PO (10:16)
[2024-09-01] MEDS: Furosemide 100 MG/10 ML VIAL 80 MG IVP ×2 (10:16→16:51)
[2024-09-01 10:30] LABS: Troponin I 135 ng/L (<or=76)
--- NOTE | 2024-09-01 15:45 | RT.EKG_ITS ---
APPROVED REPORT Exam: Resting ECG Reason for Exam: elevated troponin chest pain Patient Location: I HR:68 bpm ECG Measurements Heart Rate 68 AXIS AR [id number] P [id number] QRSd 153 QRS -25 QT 409 T 148 QTc 436 Conclusion Afib/flut and V-paced complexes...other complexes, A-rate>240 No further rhythm analysis attempted due to paced rhythm Left bundle branch block...QRSd>120, broad/notched R
[2024-09-01 15:49] LABS: Troponin I 189 ng/L (<or=76)
[2024-09-01] MEDS: Docusate Sodium 100 MG CAP PO ×2 (16:51→20:10)
[2024-09-01 19:11] LABS: Troponin I 190 ng/L (<or=76)
[2024-09-01] MEDS: Atorvastatin 40 MG TAB 80 MG PO (20:10)
[2024-09-01] MEDS: Mirtazapine 15 MG TAB PO (20:11)
[2024-09-01] MEDS: Melatonin 3 MG TAB 6 MG PO (21:25)
[2024-09-02] VITALS (7 sets, daily range): BP systolic 132–157; BP diastolic 48–66; PULSE 65–71; RESP 16–20; TEMP 36.5–37.6; O2SAT 95–98
[2024-09-02 06:46] LABS: Abs Immature Grans 0.02 10^3/uL (0.0-0.06); Absolute Basophil Count 0.04 10^3/uL (0.0-0.2); Absolute Eosinophil Count 0.16 10^3/uL (0.0-0.7); Absolute Lymphocyte Count 1.69 10^3/uL (1.2-3.4); Absolute Monocyte Count 0.75 10^3/uL (0.1-0.8); Absolute Neutrophil Count 3.96 10^3/uL (1.2-6.7); Basophils % 0.6 %; Eosinophils % 2.4 %; HCT 28.6 % (40.0-50.0); HGB 9.2 g/dL (13.5-17.5); Immature Grans % 0.3 %; Lymphocytes % 25.5 %; MCH 28.9 pg (27.0-33.0); MCHC 32.2 % (32.0-36.0); MCV 90 fL (80-95); MPV 12.4 fL (8.0-11.0); Monocytes % 11.3 %; Neutrophils % 59.9 %; Platelet Count 146 10^3/uL (130-400); RBC 3.18 10^6/uL (4.36-5.78); RDW 13.4 % (11.8-14.1); RDW-SD 44.4 fL; WBC 6.62 10^3/uL (4.4-10.8)
[2024-09-02 07:00] LABS: Anion Gap 6.3 mmol/L (3-11); BUN 49 mg/dL (7-18); CO2 27.7 mmol/L (21.0-32.0); CREATININE 3.5 mg/dL (0.70-1.30); Calcium 8.7 mg/dL (8.5-10.1); Chloride 101 mmol/L (98-107); Glucose 146 mg/dL (74-106); Magnesium 1.9 mg/dL (1.8-2.4); Potassium 4.9 mmol/L (3.5-5.1); Sodium 135 mmol/L (136-145)
[2024-09-02] MEDS: Furosemide 100 MG/10 ML VIAL 80 MG IVP (07:46)
[2024-09-02] MEDS: Sucralfate 1 GM TAB PO ×4 (07:47→21:11)
[2024-09-02] MEDS: Pantoprazole 40 MG TABCR PO (07:47)
[2024-09-02] MEDS: Insulin Aspart 300 UNITS/3 ML PEN SC ×4 (07:47→21:13)
[2024-09-02] MEDS: Normal Saline Flush 10 ML SYR IVP ×2 (07:50→21:12)
[2024-09-02] MEDS: Empaglifozin 10 MG TAB PO (08:58)
[2024-09-02] MEDS: Multivitamin w/Minerals TAB 1 TAB PO (08:58)
[2024-09-02] MEDS: Docusate Sodium 100 MG CAP PO ×3 (08:58→21:11)
[2024-09-02] MEDS: Polyethylene Glycol 3350 17 GM PACKET PO (08:58)
[2024-09-02] MEDS: Ferrous Sulfate 325 MG TAB PO (08:58)
[2024-09-02] MEDS: Clopidogrel 75 MG TAB PO (08:58)
[2024-09-02] MEDS: Tamsulosin 0.4 MG CAPCR 0.8 MG PO (08:58)
--- NOTE | 2024-09-02 09:51 | PDOC.CMIN ---
Date of service: 09/02/24 Time of Service: 09:51 Care Management Initial Assmt Initial Assessment Reason for Hospitalization: Chest pain Functional Status/Living Situation Town of Residence: [place] Resides with: Alone Significant Other/Family: Local Employment Status: Retired Medications Medication Management: No Issues/Barriers identified Advance Directives Advance Directives: Do you have an Advance Directive: Y 12/24/23 16:24 AD On File at [facility]: N 12/24/23 16:24 Date Asked 08/31/24 08/31/24 10:24 AD Date Reviewed COLST On File at [facility] Yes 08/31/24 16:25 COLST Date Scanned 04/11/24 08/31/24 16:25 Code Status Resuscitation Status DNR/DNI Portal Pt does not currently have a portal and education provided: Yes Insurance Coverage/Financial Issues Insurance: Medicare [facility] Care Team Visit Care Team Role Provider Type Kaylie Curtis NP NURSE PRACTITIONER Nel Cabrera Primary Care Provider NON-[facility] STAFF PHYSICIAN Jeison Edwards MD Other Providers [facility] STAFF PHYSICIAN Vargas Champion MD Emergency Provider [facility] STAFF PHYSICIAN Seamus Quiñones MD Admit Provider [facility] STAFF PHYSICIAN Attending Provider Discharge Potential Discharge Needs: PCP F/U Appt Anticipated Barriers to Discharge: None Identified Patient/Family Education Needs: Review discharge instructions, discuss Ask Me Three Transportation: Private vehicle Plan: Anticipate Ilya will be discharged home, possibly with new home health services, when medically cleared. He will follow up with his PCP and plan of care and transport with family. CM will follow. Social Determinants of Health Screening Social Determinants of health last assessed in clinic: 08/31/24 Will the Patient Participate in the Screening?: Yes Do you worry about having a steady place to live?: no Problems where you live: no known problems In the past 12 months, have you had to go without electric, gas, oil or water in your home?: no Has lack of transportation kept you from medical appointments or from doing things needed for daily living?: no Has anyone in your life made you feel unsafe or unsupported?: no How hard is it for you to pay for the very basics like food, housing, medical care, and heating? Would you say it is:: Not hard at all Do you want help finding or keeping work or a job?: I do not need or want help If for any reason you need help with day-to-day activities such as bathing, preparing meals, shopping, managing finances, etc., do you get the help you need?: I don?t need any help How often do you feel lonely or isolated from those around you?: Never Do you speak a language other than German at home?: No PFSH All Active Problems (Updated 09/01/24 @ 11:05 by Lisa Valladares APRN) Hypoxic respiratory failure (Acute) Urinary retention (Acute) DM II (diabetes mellitus, type II), controlled (Acute) Pneumothorax (Acute) HTN (hypertension) (Chronic) Bilateral pleural effusion (Acute) Contraindication to deep vein thrombosis (DVT) prophylaxis (Acute) Acute on chronic heart failure with preserved ejection fraction (HFpEF) (Acute) Chest pain (Acute) DNR (do not resuscitate) (Acute) COLST 04/10/2024: DNR/DNI, + transfer, antibiotics, IV fluids, transfusions. See form for additional discussion Advanced care planning/counseling discussion (Acute) Palliative care encounter (Acute) Chronic anticoagulation (Acute) Heart failure with preserved ejection fraction (Acute) Anemia (Chronic) Multifactorial: CKD 4, GI bleed/peptic ulcer CKD (chronic kidney disease) (Chronic) Stage IV CHF exacerbation (Acute) Shortness of breath (Acute) Osteoarthritis of knees, bilateral (Acute) Heart failure (Chronic) Skin lesion of face (Acute) NSTEMI (non-ST elevated myocardial infarction) (Acute) Hyperkalemia (Acute) Memory change (Acute) Paralysis of left upper extremity (Acute) Third degree burn of finger of left hand excluding thumb (Acute) Burn of finger (Acute) Sick sinus syndrome (Chronic) pt. unsure of this medical hx Essential hypertension (Chronic) Hyperlipidemia (Chronic) DM2 (diabetes mellitus, type 2) (Chronic) Mild aortic stenosis (Chronic) Cardiac pacemaker (Chronic 08/17/17) [employer]onic [place] XT DR MRI model # [id number] serial # [id number] (pulse generator) Ventricular electrodes: [employer]tronic CapsureFix Model # 5076-58 cm Serial # [id number] Atrial electrodes: [employer]tronic CapsureFix model # 5076-52 cm serial # [id number] Right rotator cuff tendinitis (Acute) Corticosteroid injection: 07/16/18 Persistent atrial fibrillation (Chronic) Onset mid May 2019 - ongoing as of 06/25/2019 - sinus restored Onset again January 2021 - ongoing as of 10/26/2021 DC cardioversion [facility] 10/2021 - on amiodarone; recurrent in February 2022 - amiodarone stopped Osteoarthritis of carpometacarpal joint of right thumb (Acute) Trochanteric bursitis, left hip (Acute) Steroid injection: 12/07/2020; 03/17/2020 Trochanteric bursitis, right hip (Acute) Steroid injection: 12/07/2020; 03/17/2020 Traumatic arthropathy, right shoulder (Acute) Most recent Depo-Medrol injection: 11/22/2021; 05/24/2022 Medical History Elevated troponin level not due to acute coronary syndrome Anemia Acute on chronic kidney failure Heart failure, chronic, with acute decompensation Pleural effusion 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 states he doesn't remember ever having any History of TIA (transient ischemic attack) and stroke Per pt. in 2003 had carotid artery surgery, after procedure pt. suffered a stroke, pt. states full forearm numbness and parts of left leg Surgical History History of thoracentesis (~04/2023) FH: carotid endarterectomy History of permanent cardiac pacemaker placement Family History Brother Family history of premature coronary heart disease Sister Family history of premature coronary heart disease Social History Smoking/Tobacco Use Status: Former Tobacco Use Quit Date: 04/09/84 Pack-years: 30 Second Hand Exposure: No Smoking risk assessment performed?: Yes Alcohol Intake: never Drug use: Never Substance use type: does not use Housing: house Current gender identity: male Do you feel safe at home: Yes (lives alone) Do you feel safe in your relationship?: Yes
[2024-09-02] MEDS: Acetaminophen 500 MG TAB 1000 MG PO ×2 (10:59→18:41)
--- NOTE | 2024-09-02 11:24 | CHAPLAIN ---
Jesusgregg was up in the chair when I stopped in. His daughter in law was visiting with him. He was pleasant and engaged in a short conversation. I explained my role and offered support.
[2024-09-02] MEDS: guaiFENesin 600 MG TABCR PO ×2 (12:24→21:12)
[2024-09-02] MEDS: Albuterol HFA 8 GM 60 PUFF INH IH (12:38)
--- NOTE | 2024-09-02 12:48 | INITIAL_ITS ---
Date of service: 09/02/24 Time of Service: 12:48 Care Management Initial Assmt Initial Assessment Reason for Hospitalization: CHF, chest pain Functional Status/Living Situation Patient Presentation: Roberta was sitting up in a chair visiting with his [id number] Nat and long time friend Nicole when CM met with him. He was pleasant in manner and engaged well with CM, although he is hard of hearing. Roberta lives alone in a single family home in [place]. He has 3 sons; 2 live locally and the 3rd is in [place]. 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 He is independent at baseline and does not receive any community services. Roberta was admitted with CHF and chest pain. His troponins gradually increased over the past few days. On 08/31 they were: 95, 82, 87 and on 09/01 were 126, 135 then 190. The provider discussed the results with Cardiology who felt it represented type 2 NSTEMI from the HF and did not recommend any further monitoring. He was given IV lasix for the CHF for a couple of days however it has been discontinued, possibly because of a rise in his creatinine from 1.8 to 3.5 this admission. Roberta was scheduled to have an Echocardiogram today however it was postponed until tomorrow. Town of Residence: [place] Resides with: Alone Significant Other/Family: Local (2 sons live locally, one lives in [place]) Natural Supports: son Calista and [id number] Nat ([employer]) Employment Status: Retired Instrumental Activities of Daily Living (ADLs): Independent Medications Medication Management: No Issues/Barriers identified Advance Directives Advance Directives: Do you have an Advance Directive: Y 12/24/23 16:24 AD On File at [facility]: N 12/24/23 16:24 Date Asked 08/31/24 08/31/24 10:24 AD Date Reviewed COLST On File at [facility] Yes 08/31/24 16:25 COLST Date Scanned 04/11/24 08/31/24 16:25 Code Status Resuscitation Status DNR/DNI Portal Pt does not currently have a portal and education provided: Yes Insurance Coverage/Financial Issues Insurance: Medicare [facility] Care Team Visit Care Team Role Provider Type Kaylie Curtis NP NURSE PRACTITIONER Nel Cabrera Primary Care Provider NON-[facility] STAFF P RAMONA Edwards MD Other Providers [facility] STAFF PHYSICIAN Vargas Champion MD Emergency Provider [facility] STAFF PHYSICIAN Seamus Quiñones MD Admit Provider [facility] STAFF PHYSICIAN Attending Provider Discharge Potential Discharge Needs: PCP F/U Appt Anticipated Barriers to Discharge: None Identified Patient/Family Education Needs: Review discharge instructions, discuss Ask Me Three Transportation: Private vehicle Plan: Anticipate roberta will be discharged home with new home health services for nursing, PT, 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 He will follow up with his community providers and plan of care and transport with family. CM will follow and continue to support discharge planning efforts. Social Determinants of Health Screening Social Determinants of health last assessed in clinic: 09/02/24 Will the Patient Participate in the Screening?: Yes Do you worry about having a steady place to live?: no Problems where you live: no known problems In the past 12 months, have you had to go without electric, gas, oil or water in your home?: no 1. Within the past 12 months, we worried whether our food would run out before we got money to buy more.: Never true 2. Within the past 12 months, the food we bought just didn't last and we didn't have money to get more.: Never true Has lack of transportation kept you from medical appointments or from doing things needed for daily living?: no Has anyone in your life made you feel unsafe or unsupported?: no How hard is it for you to pay for the very basics like food, housing, medical care, and heating? Would you say it is:: Not hard at all Do you want help finding or keeping work or a job?: I do not need or want help If for any reason you need help with day-to-day activities such as bathing, preparing meals, shopping, managing finances, etc., do you get the help you need?: I don?t need any help How often do you feel lonely or isolated from those around you?: Never Do you speak a language other than Sinhala at home?: No PFSH All Active Problems (Updated 09/02/24 @ 14:23 by Kaylie Curtis NP) Hypoxic respiratory failure (Acute) Urinary retention (Acute) DM II (diabetes mellitus, type II), controlled (Acute) Pneumothorax (Acute) HTN (hypertension) (Chronic) Bilateral pleural effusion (Acute) Contraindication to deep vein thrombosis (DVT) prophylaxis (Acute) Acute on chronic heart failure with preserved ejection fraction (HFpEF) (Acute) DNR (do not resuscitate) (Acute) COLST 04/10/2024: DNR/DNI, + transfer, antibiotics, IV fluids, transfusions. See form for additional discussion Advanced care planning/counseling discussion (Acute) Palliative care encounter (Acute) Chronic anticoagulation (Acute) Heart failure with preserved ejection fraction (Acute) Anemia (Chronic) Multifactorial: CKD 4, GI bleed/peptic ulcer CKD (chronic kidney disease) (Chronic) Stage IV CHF exacerbation (Acute) Shortness of breath (Acute) Osteoarthritis of knees, bilateral (Acute) Heart failure (Chronic) Skin lesion of face (Acute) NSTEMI (non-ST elevated myocardial infarction) (Acute) Hyperkalemia (Acute) Memory change (Acute) Paralysis of left upper extremity (Acute) Third degree burn of finger of left hand excluding thumb (Acute) Burn of finger (Acute) Sick sinus syndrome (Chronic) pt. unsure of this medical hx Essential hypertension (Chronic) Hyperlipidemia (Chronic) DM2 (diabetes mellitus, type 2) (Chronic) Mild aortic stenosis (Chronic) Cardiac pacemaker (Chronic 08/17/17) [employer] [place] XT DR MRI model # W1DR01 serial # [id number] (pulse generator) Ventricular electrodes: Medtronic CapsureFix Model # 5076-58 cm Serial # [id number] Atrial electrodes: Medtronic CapsureFix model # 5076-52 cm serial # [id number] Right rotator cuff tendinitis (Acute) Corticosteroid injection: 07/16/18 Persistent atrial fibrillation (Chronic) Onset mid May 2019 - ongoing as of 06/25/2019 - sinus restored Onset again January 2021 - ongoing as of 10/26/2021 DC cardioversion [facility] 10/2021 - on amiodarone; recurrent in February 2022 - amiodarone stopped Osteoarthritis of carpometacarpal joint of right thumb (Acute) Trochanteric bursitis, left hip (Acute) Steroid injection: 12/07/2020; 03/17/2020 Trochanteric bursitis, right hip (Acute) Steroid injection: 12/07/2020; 03/17/2020 Traumatic arthropathy, right shoulder (Acute) Most recent Depo-Medrol injection: 11/22/2021; 05/24/2022 Medical History Elevated troponin level not due to acute coronary syndrome Anemia Acute on chronic kidney failure Heart failure, chronic, with acute decompensation Pleural effusion 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 states he doesn't remember ever having any History of TIA (transient ischemic attack) and stroke Per pt. in 2003 had carotid artery surgery, after procedure pt. suffered a stroke, pt. states full forearm numbness and parts of left leg Surgical History History of thoracentesis (~04/2023) FH: carotid endarterectomy History of permanent cardiac pacemaker placement Family History Brother Family history of premature coronary heart disease Sister Family history of premature coronary heart disease Social History Smoking/Tobacco Use Status: Former Tobacco Use Quit Date: 04/09/84 Pack-years: 30 Second Hand Exposure: No Smoking risk assessment performed?: Yes Alcohol Intake: never Drug use: Never Substance use type: does not use Housing: house Current gender identity: male Do you feel safe at home: Yes (lives alone) Do you feel safe in your relationship?: Yes
--- NOTE | 2024-09-02 13:45 | DI.US_ITS ---
APPROVED REPORT EXAM: Comprehensive 2D, Doppler, and color-flow Echocardiogram Patient Location: In-Patient Room/Bed: 211 Media Analyst: Rosanna Dominguez RDCS (AE) Indications: CHF, Pleural effusion, Elevated troponine Other Information Study Quality: Fair. Technically limited study due to body habitus. Conclusion Mild concentric left ventricular hypertrophy. Ejection fraction is 45 to 50%. There is mild global hypokinesis Normal right ventricular size and function Both atria are normal in size Device lead noted in the right heart The aortic valve is sclerotic without stenosis or regurgitation Normal mitral valve, mild regurgitation Trace to mild tricuspid regurgitation. Estimated right ventricular systolic pressure is 41 mmHg There was no significant change compared to echocardiograms from August and June (2) performed at [facility] Wall motion Left Ventricle The left ventricle is normal size. Left ventricular systolic function is mildly decreased. Mild micheal ntric left ventricular hypertrophy. There is global hypokinesis of the left ventricle. There is no ve ntricular septal defect visualized. LVEF is 45-50%. Right Ventricle The right ventricle is normal size. The right ventricular systolic function is normal. Pacemaker lead is present in the right ventricle. Patient has a watchman. Atria The left atrium size is normal. The right atrium size is normal. Doppler suggests left to right inter atrial shunt. Aortic Valve The Aortic valve is sclerotic. Aortic valve is trileaflet. There is no aortic valvular stenosis. No a ortic regurgitation is present. Mitral Valve The mitral valve is normal in structure. No evidence of mitral valve stenosis. Mild mitral regurgitat ion. Tricuspid Valve The tricuspid valve is normal in structure. There is no tricuspid valve stenosis. Trace to mild tricu spid regurgitation. The RVSP is 40.9 mmHg. Pulmonic Valve The pulmonary valve is normal in structure. There is no pulmonic valvular stenosis. Trace to mild pul gio regurgitation. Great Vessels The aortic root is normal in size. Ascending aorta is not well visualized. Aortic arch is not well vi sualized. The IVC collapses <50% with inspiration. Pericardium There is no pericardial effusion. Pleural effusion is noted. 2D Dimensions IVSD d PLAX 1.34 cm M: 0.6-1.2 Ao Root d 3.28 cm M: 3.1 - 3.7 LVPW d PLAX 1.32 cm M: 0.6 - 1.2 LVID d PLAX 4.54 cm M: 4.2 - 5.8 LVDs 3.54 cm M: 2.5 - 4.0 LV EF Teichholz 44.7 % FS 22.07 % LV EDV (Teich) 94.4 mL LV ESV (Teich) 52.2 mL M-Mode TAPSE 1.30 cm (M/F) >1.7 Auto EF LV EDV A4C 115.0 mL LV EDV A2C 152.4 mL LV EDV BP 132.5 mL LV ESV A4C 63.2 mL LV ESV A2C 82.4 mL LV ESV BP 73.5 mL LVEF(%) A4C 45.0 % LVEF(%) A2C 45.9 % LVEF(%) BP 44.6 % LV SV A4C 51.8 ml LV SV A2C 70.0 ml LV SV BP 59.1 ml LV CO A4C 3.9 L/min LV CO A2C 4.5 L/min LV CO BP 4.2 L/min HR A4C 75.64 BPM HR A2C 64.17 BPM LV EDV Index (BP) LA Volume LA Length A4C 5.3 cm LA Length A2C 5.0 cm LA Area A4C s 18.83 cm2 LA Area A2C s 18.23 cm2 LA Vol A4C A-L 57.02 mL LA Vol A2C A-L 56.87 mL LA Vol Biplane A-L 58.7 mL LA Vol/BSA A4C A-L LA Vol/BSA A2C A-L LA Vol/BSA BP A-L 28.9 mL/m2 LA Vol A4C MOD 52.0 mL LA Vol A2C MOD 54.7 mL LA Vol BP MOD 54.5 mL RA Volume RA Area A4C 16.0 cm2 RA ESV A4C (A-L) 40.1mL RA Vol/BSA A4C A-L RA Length A4C 5.4 cm RA ESV A4C (MOD) 39.8mL LV Diastology MV E' medial 0.078 (>0.07 m/s) MV E Vmax 1.04 (0.4-1.3 m/s) MV E/E' MED 13.22 (<14) Aortic Valve AoV Vmax 1.53 m/s LVOT Vmax 0.75 m/s AoV Peak Grad 9.4 mmHg LVOT Peak Grad 2.2 mmHg AoV Area (Vmax) 1.47 cm2 LVOT VTI 0.146 m AoV VTI 0.318 m LVOT Mean Grad 1.2 mmHg AoV Mean Kyle. 0.99 m/s LVOT SV 44.16 mL AoV Mean Grad 4.7 mmHg LVOT Diam s 1.95 cm AoV Area (VTI) 1.39 cm2 AV Regurg Peak Gr. 9.36 mmHg Velocity Ratio 0.49 Mitral Valve MV DT 289 (160-240 msec) MV Vmax TIPS 0.95 m/s MV Mean Grad 0.9 (<2mmHg) MV VTI 0.244 m Pulmonary Valve PV Vmax 1.10 (0.5-1.5 m/s) RVOT Vmax 0.82 m/s PV Peak Grad 4.8 mmHg RVOT Peak Gr. 2.7 mmHg PV Mean Kyle 0.75 m/s RVOT VTI 0.195 m PV Mean Grad 2.6 mmHg RVOT Mean Gr. 1.3 mmHg Tricuspid Valve RA Pressure 3.00 mmHg TR Vmax 3.08 m/s TV S' 0.09 m/s TR Peak Grad 37.8 mmHg RVSP (TR) 40.9 mmHg
--- NOTE | 2024-09-02 14:15 | W.PM.PROGNOT ---
Date of Service Date of service: 09/02/24 Time of Service: 14:15 Assessment and Plan Assessment and plan (1) Chest pain: Status: Acute Assessment and plan: pain is constant and worsened with deep breath, etiology is left sided small pneumothorax surgical consult place, see note, no intervention for now, continue close monitoring. will repeat cxr in am continue oxygen to keep sats above 90 (2) Acute on chronic heart failure with preserved ejection fraction (HFpEF): Status: Acute Assessment and plan: Last LVEF 50-55% with RVSP at 42 mmHg in 02/2024 echo results pending Jardiance was added to medicine regimen creatinine up to 3.5 from 2.1 yesterday, hold lasix for now, consider gentle IV fluids follow BMP, CBC, mag in AM does not appear fluid overloaded. (3) Bilateral pleural effusion: Status: Acute Assessment and plan: Echocardiogram pending in AM (4) Hypoxic respiratory failure: Status: Acute Assessment and plan: In the setting pleural effusion / small left sided pneumothorax No PE per CTA surgery consulted, no surgical intervention for now Continue O2 to maintain sat at 92-95% (5) Pneumothorax: Status: Acute Assessment and plan: repeat cxr in am clinically stable (6) Hyperlipidemia: Status: Chronic Assessment and plan: On home dose statin (7) Persistent atrial fibrillation: Status: Chronic Assessment and plan: s/p watchman rate controlled. (8) HTN (hypertension): Status: Chronic Assessment and plan: routine monitoring (9) DM II (diabetes mellitus, type II), controlled: Status: Acute Assessment and plan: Will hold home meds Continue Gluc AC and HS with SSI coverage Jardiance for CHF (10) Urinary retention: Status: Acute Assessment and plan: Already on flomax - increased Young inserted Most likely d/t opioids to treat chest pain (11) Hypomagnesemia: Status: Resolved Assessment and plan: Initially 1.4 - supplementation given in the Ed now resolved Will continue to monitor (12) Contraindication to deep vein thrombosis (DVT) prophylaxis: Status: Acute Assessment and plan: Recent GIB with PRBC transfusion and instrumentation for which Watchman was initially completed and anticoagulation for atrial -fibrillation discontinued TEDS Discussed with Dr. Graves Subjective Subjective Interval history since last seen: cough, having difficulty raising sputum. no fever. eating and drinking ok. Objective Last Vital Signs Temp 37.1 C 09/02/24 11:03 Pulse 71 09/02/24 11:03 Resp 16 09/02/24 07:07 BP 157/54 H 09/02/24 11:03 Pulse Ox 98 09/02/24 07:07 Laboratory Results - last 24 hr 09/01/24 09/01/24 09/02/24 15:15 18:30 06:00 WBC 6.62 RBC 3.18 L Hgb 9.2 L Hct 28.6 L MCV 90 MCH 28.9 MCHC 32.2 RDW 13.4 Plt Count 146 MPV 12.4 H Immature Gran % 0.3 Neutrophils % 59.9 Lymphocytes % 25.5 Monocytes % 11.3 Eosinophils % 2.4 Basophils % 0.6 Nucleated RBC % 0.0 Absolute Neutrophils 3.96 Absolute Lymphocytes 1.69 Absolute Monocytes 0.75 Absolute Eosinophils 0.16 Absolute Basophils 0.04 Sodium 135 L Potassium 4.9 Chloride 101 Carbon Dioxide 27.7 Anion Gap 6.3 BUN 49 H Creatinine 3.5 H D Est GFR (CKD-EPI 2020) 16.10 Glucose 146 H Calcium 8.7 Magnesium 1.9 Troponin I 189 H* 190 H* Time Spent with Patient Time Spent with Patient: 35-49 minutes Time was spent: preparing to see the patient(eg.review tests), obtaining and/or reviewing separately otained hiistory, ordering medications,tests, procedures, referring, communicating with other health hospice home care coordinator, indepentently interpreting results and counseling the patient
--- NOTE | 2024-09-02 16:09 | PHA.REVIEW2 ---
Pharmacy Admission Review Admission Clinical Review Admission Pharmacy Review: Hypoxic respiratory failure (Acute) Urinary retention (Acute) DM II (diabetes mellitus, type II), controlled (Acute) Pneumothorax (Acute) Bilateral pleural effusion (Acute) Contraindication to deep vein thrombosis (DVT) prophylaxis (Acute) Acute on chronic heart failure with preserved ejection fraction (HFpEF) (Acute) CHF exacerbation (Acute) metformin Allergy (Unknown, Verified 04/23/24 11:36) Diarrhea ezetimibe (From Vytorin) Adverse Reaction (Verified 04/23/24 11:36) FAILED lisinopril Adverse Reaction (Verified 04/23/24 11:36) Hyperkalemia simvastatin (From Vytorin) Adverse Reaction (Verified 04/23/24 11:36) FAILED Resuscitation Status DNR/DNI Height 5 ft 10 in Weight 82.71 kg Comments Comments/Follow Ups: monitor Scr Pharmacy Admission Review Renal Dosing Renal Dosing: Scr increased from 2.1 to 3.5. Lasix held today. may resume 09/03 at a lower dose per provider note. BUN 49 mg/dL (7-18) H 09/02/24 06:00 Creatinine 3.5 mg/dL (0.70-1.30) H D 09/02/24 06:00 Medications needing adjustments: Reviewed List of meds needing interventions: Jardiance just started for heart failure-may need to hold if renal fx continues to worsen Anticoagulation Anticoagulation: dvt prophylaxis held due to recent GI bleed Hgb 9.2 g/dL (13.5-17.5) L 09/02/24 06:00 Hct 28.6 % (40.0-50.0) L 09/02/24 06:00 Plt Count 146 10^3/uL (130-400) 09/02/24 06:00 INR 1.2 (0.9-1.1) H 08/31/24 10:40 Creatinine 3.5 mg/dL (0.70-1.30) H D 09/02/24 06:00 DVT Prophylaxis: Reviewed Opiate Usage Evaluate Pain Scale/Pains Meds: Reviewed Relevant Labs Relevant Labs: morphine prn given x1 yesterday Sodium 135 mmol/L (136-145) L 09/02/24 06:00 Potassium 4.9 mmol/L (3.5-5.1) 09/02/24 06:00 Chloride 101 mmol/L (98-107) 09/02/24 06:00 Magnesium 1.9 mg/dL (1.8-2.4) 09/02/24 06:00 DM Control DM Control: serum glucose 146, finger stick 197. On sliding scale insulin coverage. DM Control: Reviewed Cardiac Review Cardiac Review: Troponin I 190 ng/L (<or=76) H* 09/01/24 18:30 NT-Pro-B Natriuret Pep 5290 pg/mL (<300) H 08/31/24 10:40 BP, HR, EF%: Reviewed QTc Review QTc: Reviewed List meds needing interventions: [id number] IV to PO Switch IV Medications: Reviewed Home Meds Relevent Home Meds Not ordered & why?: lasix held due to increase in Scr Comments Comments/Follow Ups: monitor Scr
[2024-09-02] MEDS: Mirtazapine 15 MG TAB PO (21:11)
[2024-09-02] MEDS: Atorvastatin 40 MG TAB 80 MG PO (21:12)
[2024-09-03] VITALS (10 sets, daily range): BP systolic 127–156; BP diastolic 39–59; PULSE 62–67; RESP 15–20; TEMP 36.7–38.2; O2SAT 89–98
--- NOTE | 2024-09-03 | DI.RAD_ITS ---
Exam(s) XR CHEST 2V PA LATERAL EXAM: XR CHEST 2V PA LATERAL CLINICAL HISTORY: hypoxia, pneumo, chest pain TECHNIQUE: 2D digital imaging was performed. Two views. COMPARISON: CT CT THORAX ABDOMEN CTA from 08/31/2024 CR,XR XR PORTABLE CHEST AP from 08/31/2024 FINDINGS: HEART: Cardiac worse are partially obscured by pleural effusions. Aorta: Not dilated. PULMONARY VASCULATURE: Normal. MEDIASTINUM: Unremarkable. LUNGS: Bilateral pleural effusions. Visible infiltrate or pulmonary edema. PLEURAL SPACE: Small to moderate pleural effusions, left greater than right. No pneumothorax is visi ble. BONE:Unremarkable for age. SOFT TISSUES: Unremarkable. IMPRESSION: Bilateral pleural effusions. No pneumothorax is visible. DATA REPOSITORY: RADIATION DOSE DELIVERED:
[2024-09-03] MEDS: Acetaminophen 500 MG TAB 1000 MG PO ×3 (02:59→18:37)
--- NOTE | 2024-09-03 07:00 | RT.EKG_ITS ---
APPROVED REPORT Exam: Resting ECG Reason for Exam: left sided chest pain Patient Location: I HR:65 bpm ECG Measurements Heart Rate 65 AXIS MD [id number] P [id number] QRSd 156 QRS -20 QT 423 T 138 QTc 439 Conclusion Ventricular paced rhythm
[2024-09-03] MEDS: MORPHine 2 MG/ML SYR IVP (07:14)
[2024-09-03] MEDS: Insulin Aspart 300 UNITS/3 ML PEN SC ×4 (08:11→21:25)
[2024-09-03] MEDS: Empaglifozin 10 MG TAB PO (08:37)
[2024-09-03] MEDS: Multivitamin w/Minerals TAB 1 TAB PO (08:38)
[2024-09-03] MEDS: Docusate Sodium 100 MG CAP PO ×3 (08:38→20:28)
[2024-09-03] MEDS: Pantoprazole 40 MG TABCR PO (08:38)
[2024-09-03] MEDS: Clopidogrel 75 MG TAB PO (08:38)
[2024-09-03] MEDS: Sucralfate 1 GM TAB PO ×4 (08:39→21:25)
[2024-09-03] MEDS: guaiFENesin 600 MG TABCR PO ×2 (08:39→20:26)
[2024-09-03] MEDS: Ferrous Sulfate 325 MG TAB PO (08:39)
[2024-09-03] MEDS: Tamsulosin 0.4 MG CAPCR 0.8 MG PO (08:39)
[2024-09-03] MEDS: Normal Saline Flush 10 ML SYR IVP ×2 (08:39→20:27)
[2024-09-03] MEDS: Polyethylene Glycol 3350 17 GM PACKET PO (08:40)
[2024-09-03 09:53] LABS: Abs Immature Grans 0.04 10^3/uL (0.0-0.06); Absolute Basophil Count 0.03 10^3/uL (0.0-0.2); Absolute Eosinophil Count 0.09 10^3/uL (0.0-0.7); Absolute Lymphocyte Count 0.95 10^3/uL (1.2-3.4); Absolute Monocyte Count 0.84 10^3/uL (0.1-0.8); Absolute Neutrophil Count 6.43 10^3/uL (1.2-6.7); Basophils % 0.4 %; Eosinophils % 1.1 %; HGB 9.3 g/dL (13.5-17.5); Immature Grans % 0.5 %; Lymphocytes % 11.3 %; MCHC 33.2 % (32.0-36.0); MCV 87 fL (80-95); MPV 11.7 fL (8.0-11.0); Neutrophils % 76.7 %; Platelet Count 161 10^3/uL (130-400); RBC 3.21 10^6/uL (4.36-5.78); RDW 13.2 % (11.8-14.1); RDW-SD 41.9 fL; WBC 8.38 10^3/uL (4.4-10.8)
[2024-09-03 10:10] LABS: Anion Gap 9.3 mmol/L (3-11); BUN 67 mg/dL (7-18); CO2 24.7 mmol/L (21.0-32.0); Calcium 8.2 mg/dL (8.5-10.1); Chloride 94 mmol/L (98-107); Estimated GFR 11.91 (mL/min/1.73m2); Glucose 187 mg/dL (74-106); Potassium 5.2 mmol/L (3.5-5.1); Sodium 128 mmol/L (136-145)
[2024-09-03 10:15] LABS: CREATININE 4.5 mg/dL (0.70-1.30)
--- NOTE | 2024-09-03 10:56 | W.PM.PROGNOT ---
Date of Service Date of service: 09/03/24 Time of Service: 10:56 Assessment and Plan Assessment and plan (1) Pneumothorax: Status: Acute Assessment and plan: repeat cxr pending clinically stable (2) Acute on chronic kidney failure: Status: Acute Assessment and plan: In the setting of IV contrast for CTA and aggressive diuresis with furosemide 80 mg twice daily avoid nephrotoxic drugs, renal dose meds lasix stopped for now gentle IV hydration. monitor I&O closely (3) Bilateral pleural effusion: Status: Acute Assessment and plan: Echocardiogram pending in AM (4) Acute on chronic heart failure with preserved ejection fraction (HFpEF): Status: Chronic Assessment and plan: lasix stopped yesterday Last LVEF 50-55% with RVSP at 42 mmHg in 02/2024 echo results pending Jardiance was added to medicine regimen creatinine up to 3.5 from 2.1 yesterday, hold lasix for now, consider gentle IV fluids follow BMP, CBC, mag in AM does not appear fluid overloaded. (5) Hypoxic respiratory failure: Status: Acute Assessment and plan: In the setting pleural effusion / small left sided pneumothorax No PE per CTA surgery consulted, no surgical intervention for now Continue O2 to maintain sat at 92-95% (6) Hyperlipidemia: Status: Chronic Assessment and plan: On home dose statin (7) Persistent atrial fibrillation: Status: Chronic Assessment and plan: s/p watchman rate controlled. (8) HTN (hypertension): Status: Chronic Assessment and plan: routine monitoring (9) DM II (diabetes mellitus, type II), controlled: Status: Acute Assessment and plan: Will hold home meds Continue Gluc AC and HS with SSI coverage Jardiance for CHF (10) Urinary retention: Status: Acute Assessment and plan: Already on flomax - increased Barrera inserted Most likely d/t opioids to treat chest pain (11) Hypomagnesemia: Status: Resolved Assessment and plan: Initially 1.4 - supplementation given in the ED now resolved Will continue to monitor (12) Contraindication to deep vein thrombosis (DVT) prophylaxis: Status: Acute Assessment and plan: Recent GIB with PRBC transfusion and instrumentation for which Watchman was initially completed and anticoagulation for atrial -fibrillation discontinued TEDS Discussed with Dr. Graves Subjective Subjective Patient reports: no new complaints, still having pain (worse with deep breath), tolerating liquids well, tolerating a regular diet, shortness of breath and afebrile Interval history since last seen: continues to have barrera Exam Narrative Exam Narrative: Elderly gentleman of stated age no acute distress Const General: no acute distress Orientation: alert HENMT Head: normal to inspection Mouth: moist mucous membranes Eyes General: appearance normal, both eyes and all related structures Neck Neck: normal visual inspection Resp Effort & Inspection: normal respiratory effort and able to speak in complete sentences Auscultation: clear to auscultation bilaterally Cardio Jugular venous pressure: no JVD Rate: regular rate Skin General skin exam: no rashes or lesions noted Neuro General: patient alert and patient oriented x3 Extrem General: edema Psych Mental Status: mental status grossly normal Objective Last Vital Signs Temp 37.6 C H 09/03/24 07:47 Pulse 65 09/03/24 07:47 Resp 20 09/03/24 02:52 BP 137/39 L 09/03/24 07:47 Pulse Ox 96 09/03/24 07:47 Laboratory Results - last 24 hr 09/03/24 09:50 WBC 8.38 RBC 3.21 L Hgb 9.3 L Hct 28.0 L MCV 87 MCH 29.0 MCHC 33.2 RDW 13.2 Plt Count 161 MPV 11.7 H Immature Gran % 0.5 Neutrophils % 76.7 Lymphocytes % 11.3 Monocytes % 10.0 Eosinophils % 1.1 Basophils % 0.4 Nucleated RBC % 0.0 Absolute Neutrophils 6.43 Absolute Lymphocytes 0.95 L Absolute Monocytes 0.84 H Absolute Eosinophils 0.09 Absolute Basophils 0.03 Sodium 128 L Potassium 5.2 H Chloride 94 L Carbon Dioxide 24.7 Anion Gap 9.3 BUN 67 H Creatinine 4.5 H* Est GFR (CKD-EPI 2020) 11.91 Glucose 187 H Calcium 8.2 L Time Spent with Patient Time Spent with Patient: 35-49 minutes Time was spent: preparing to see the patient(eg.review tests), obtaining and/or reviewing separately otained hiistory, ordering medications,tests, procedures, referring, communicating with other health acute care occupational therapist, indepentently interpreting results and counseling the patient
[2024-09-03] MEDS: Albuterol HFA 8 GM 60 PUFF INH IH (11:00)
--- NOTE | 2024-09-03 12:03 | CMPROGNOTE_ITS ---
Date of service: 09/03/24 Time of Service: 12:03 Care Management Progress Note Progress Note Text Progress Note Text: Ilya was sitting up in bed chatting with his many visitors when CM attempted to meet with him. He was smiling and appeared to be enjoying his company. When CM returned after his visitors left, Ilya was sound asleep. He did not wake to gentle touch or voice. Ilya was admitted with chest pain with slightly elevated troponins. and possible CHF. He was diuresed with IV Lasix however the order was discontinued when his renal function declined. At baseline he has CKD and on admission his creatinine was 1.8. It bumped to 2.1, 3.5 and today, to 4.5. He is being closely monitored with daily weights (preferably standing scale) and accurate I&Os. 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 He will follow up with his community providers and plan of care and transport with family. CM will follow and continue to support discharge planning efforts. Social Determinants of Health Screening Social Determinants of health last assessed in clinic: 09/03/24 Will the Patient Participate in the Screening?: Yes Do you worry about having a steady place to live?: no Problems where you live: no known problems In the past 12 months, have you had to go without electric, gas, oil or water in your home?: no 1. Within the past 12 months, we worried whether our food would run out before we got money to buy more.: Never true 2. Within the past 12 months, the food we bought just didn't last and we didn't have money to get more.: Never true Has lack of transportation kept you from medical appointments or from doing things needed for daily living?: no Has anyone in your life made you feel unsafe or unsupported?: no How hard is it for you to pay for the very basics like food, housing, medical care, and heating? Would you say it is:: Not hard at all Do you want help finding or keeping work or a job?: I do not need or want help If for any reason you need help with day-to-day activities such as bathing, preparing meals, shopping, managing finances, etc., do you get the help you need?: I don?t need any help How often do you feel lonely or isolated from those around you?: Never Do you speak a language other than Lithuanian at home?: No
[2024-09-03] MEDS: Normal Saline 1,000 ML 100 ML IV ×2 (12:19→21:28)
[2024-09-03] MEDS: Atorvastatin 40 MG TAB 80 MG PO (20:26)
[2024-09-03] MEDS: Mirtazapine 15 MG TAB PO (20:26)
[2024-09-04] VITALS (7 sets, daily range): BP systolic 124–174; BP diastolic 55–60; PULSE 65–71; RESP 16–24; TEMP 36.5–37.4; O2SAT 94–97
--- NOTE | 2024-09-04 | DI.CT_ITS ---
Exam(s) CT CHEST WO EXAM: CT CHEST WO CLINICAL HISTORY: hypoxia, f/u pleural effusions. TECHNIQUE: Multi planar reconstructions were performed. CONTRAST MATERIAL: None COMPARISON: CT CT THORAX ABDOMEN CTA from 08/31/2024 CR XR CHEST 2V PA LATERAL from 09/03/2024 FINDINGS: CHEST: LUNGS: The previously present small left pneumothorax is no longer seen. There are again noted bilat eral moderate-large pleural effusions which have not decreased in size from 4 days ago and there are associated with partial collapse of both lower lobes involving the basal segments bilaterally. MEDIASTINUM: No obvious hilar adenopathy nor obvious mediastinal adenopathy. Visualized thyroid unre markable.No obvious axillary adenopathy CARDIAC: Is mild cardiomegaly. Cardiac pacemaker wires again noted. The diameter of the ascending t horacic aorta is within normal limits. VISUALIZED UPPER ABDOMEN:No ascites evident. No adrenal masses. OSSEOUS: No significant osseous lesions.No fractures. DISH in noted. IMPRESSION: 1. There has been no decrease in the size of the moderate-large bilateral pleural effusions which wer e described on CT scan of 08/31/2024, 4 days ago. There is associated volume loss in the basal segme nts of both lower lobes. There is no pericardial effusion. 2. Again noted is a valve-type device between the upper left atrium and upper left pulmonary vein. A lso again noted is a cardiac pacemaker. 3. RADIATION DOSE DELIVERED: 525.04mGy.cm Total DLP DATA REPOSITORY: All CT scans at this facility are submitted to the National Radiology Data Registry (NRDR) Dose Index Registry (DIR) with the [employer] (ACR). RADIATION OPTIMIZATION: All CT scans at this facility use at least one of these dose optimization te chniques: automated exposure control; mA and/or kV adjustment per patient size (includes targeted exa ms where dose is matched to clinical indication); or iterative reconstruction.
[2024-09-04] MEDS: Acetaminophen 500 MG TAB 1000 MG PO ×3 (03:31→20:07)
[2024-09-04] MEDS: Albuterol HFA 8 GM 60 PUFF INH IH (05:12)
[2024-09-04] MEDS: Furosemide 40 MG/4 ML VIAL IVP (06:10)
[2024-09-04 06:13] LABS: Abs Immature Grans 0.03 10^3/uL (0.0-0.06); Absolute Basophil Count 0.03 10^3/uL (0.0-0.2); Absolute Eosinophil Count 0.09 10^3/uL (0.0-0.7); Absolute Lymphocyte Count 0.98 10^3/uL (1.2-3.4); Absolute Monocyte Count 0.62 10^3/uL (0.1-0.8); Absolute Neutrophil Count 6.42 10^3/uL (1.2-6.7); Basophils % 0.4 %; Eosinophils % 1.1 %; HCT 29.3 % (40.0-50.0); HGB 9.8 g/dL (13.5-17.5); Immature Grans % 0.4 %; MCHC 33.4 % (32.0-36.0); MCV 87 fL (80-95); MPV 11.8 fL (8.0-11.0); Monocytes % 7.6 %; Neutrophils % 78.5 %; Platelet Count 183 10^3/uL (130-400); RBC 3.38 10^6/uL (4.36-5.78); RDW 13.2 % (11.8-14.1); RDW-SD 41.7 fL; WBC 8.17 10^3/uL (4.4-10.8)
[2024-09-04 06:32] LABS: Anion Gap 13.4 mmol/L (3-11); BUN 68 mg/dL (7-18); CO2 20.6 mmol/L (21.0-32.0); Calcium 8.7 mg/dL (8.5-10.1); Chloride 97 mmol/L (98-107); Estimated GFR 12.94 (mL/min/1.73m2); Glucose 168 mg/dL (74-106); Potassium 4.7 mmol/L (3.5-5.1); Sodium 131 mmol/L (136-145)
[2024-09-04] MEDS: Albuterol 2.5 MG/3 ML INH SOLN VIAL UPD (06:36)
[2024-09-04 06:39] LABS: CREATININE 4.2 mg/dL (0.70-1.30)
--- NOTE | 2024-09-04 06:48 | PGE_ITS ---
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 At the time both patient and family were made aware of the potential worsening in kidney function as the goal was to prioritize breathing over renal function and had verbalized understanding. Echocardiogram completed on 09/02 with LEVF 50-55% similar to previous completed at [facility] in 06/2024. 09/02 Cr 3.5 then 4.5 on 09/03- Lasix was stopped and and IVF initiated at 100cc/hr with development of hypoxia and respiratory distress overnight for wish IVF was stopped and IV lasix 40 mg IVP given As musch as possible will continue to avoid nephrotoxic drugs, renal dose meds Will still hold IV lasix for now pending a second surgical consultation - for thoracentesis evaluation gentle IV hydration stopped overnight d/t increased hypoxia and respiratory distress. Continue to monitor I&O closely (3) Bilateral pleural effusion: Status: Acute Assessment and plan: As above As per discussion with Dr. Marshall-will repeat CT imaging to compare This might also be in the setting of progressing HFpEF (4) Acute on chronic heart failure with preserved ejection fraction (HFpEF): Status: Chronic Assessment and plan: lasix stopped yesterday but had a STAT dose overnight d/t hypoxia and respiratory distress LVEF 50-55% similar to previous Ongoing Jardiance added this stay creatinine up to 4.5 on 09/03 now trending down at 4.2 follow BMP, CBC (5) Hypoxic respiratory failure: Status: Acute Assessment and plan: In the setting pleural effusion / small left sided pneumothorax No PE per CTA surgery re-consulted d/t persiting hypoxia and resp. distress overnight Continue O2 to maintain sat at 92-95% (6) Hyperlipidemia: Status: Chronic Assessment and plan: Home dose statin (7) Persistent atrial fibrillation: Status: Chronic Assessment and plan: s/p watchman has a pacemaker On tele -rate controlled. (8) HTN (hypertension): Status: Chronic Assessment and plan: Norvasc on hold in the setting of IV lasix routine monitoring (9) DM II (diabetes mellitus, type II), controlled: Status: Acute Assessment and plan: Hold home meds Ongoing Gluc AC and HS with SSI coverage Continue initiated in setting of HFpEF Jardiance for CHF (10) Urinary retention: Status: Acute Assessment and plan: Already on flomax - increased Ongoing Young inserted this stay - consider voiding trial once we maintain decreased opiods use home dose of flomax increased to 0.8 mg Most likely d/t opioids to treat chest pain (11) Hypomagnesemia: Status: Resolved Assessment and plan: Resolved -Initially 1.4 - supplementation given in the ED In the setting of aggressive diuresis will complete a level today (12) History of CVA (cerebrovascular accident): Status: Acute Assessment and plan: On home dose Plavix and phenytoin initiated at [facility] during acute episode (13) Contraindication to deep vein thrombosis (DVT) prophylaxis: Status: Acute Assessment and plan: Recent GIB with PRBC transfusion and instrumentation for which Watchman was initially completed and anticoagulation for atrial -fibrillation discontinued Continue TEDS Discussed with Dr. Graves Subjective Subjective Patient reports: no new complaints, feels better, pain is less, tolerating liquids well, tolerating a regular diet, flatus, no bowel movement and shortness of breath; denies nausea, vomiting or fever Exam Narrative Exam Narrative: 89-year-old male patient appearing of stated age, no acute distress on 1 l/min of O2 d/t hypoxia overnight, , alert and oriented x 4, no neurological focal deficit, diminished L base > R sided basilar breath sounds, no wheezing, atrial fibrillation with moderate ventricular response - V-paced at time VS regular rhythm,no murmur S1- S2 distant , positive pedal and radial pulses, pain reproducible with deep breathing and cough improved with pain Rx, improved bilateral lower extremity pitting edema, abdomen is nondistended, soft, nontender, no CVA tenderness Young in palce for urinary retention Objective Last Vital Signs Temp 36.7 C 09/04/24 06:02 Pulse 68 09/04/24 06:02 Resp 24 09/04/24 06:02 BP 174/60 H 09/04/24 06:02 Pulse Ox 94 09/04/24 06:02 Laboratory Results - last 24 hr 09/03/24 09/04/24 09:50 06:02 WBC 8.38 8.17 RBC 3.21 L 3.38 L Hgb 9.3 L 9.8 L Hct 28.0 L 29.3 L MCV 87 87 MCH 29.0 29.0 MCHC 33.2 33.4 RDW 13.2 13.2 Plt Count 161 183 MPV 11.7 H 11.8 H Immature Gran % 0.5 0.4 Neutrophils % 76.7 78.5 Lymphocytes % 11.3 12.0 Monocytes % 10.0 7.6 Eosinophils % 1.1 1.1 Basophils % 0.4 0.4 Nucleated RBC % 0.0 0.0 Absolute Neutrophils 6.43 6.42 Absolute Lymphocytes 0.95 L 0.98 L Absolute Monocytes 0.84 H 0.62 Absolute Eosinophils 0.09 0.09 Absolute Basophils 0.03 0.03 Sodium 128 L 131 L Potassium 5.2 H 4.7 Chloride 94 L 97 L Carbon Dioxide 24.7 20.6 L Anion Gap 9.3 13.4 H BUN 67 H 68 H Creatinine 4.5 H* 4.2 H* Est GFR (CKD-EPI 2020) 11.91 12.94 Glucose 187 H 168 H Calcium 8.2 L 8.7 Time Spent with Patient Time Spent with Patient: >50 minutes Time was spent: preparing to see the patient(eg.review tests), obtaining and/or reviewing separately otained hiistory, ordering medications,tests, procedures, referring, communicating with other health resident care spec, indepentently interpreting results, counseling the patient and care coordination
[2024-09-04] MEDS: Pantoprazole 40 MG TABCR PO (07:27)
[2024-09-04] MEDS: Sucralfate 1 GM TAB PO ×4 (07:27→22:15)
[2024-09-04] MEDS: Normal Saline Flush 10 ML SYR IVP ×2 (07:27→22:16)
--- NOTE | 2024-09-04 07:43 | PDOC.CMPRO ---
Date of service: 09/04/24 Time of Service: 07:43 Care Management Progress Note Progress Note Text Progress Note Text: Ilya was sitting up in bed when CM met with him. He was wearing nasal oxygen again but stated he is feeling much better. He informed CM that he had had difficulty breathing last night and that air hunger is not pleasant. Ilya also shared that his chest pain is improved. He reported that his symptoms were related to the fluid on his lungs and that now that he has less fluid, both his breathing and chest pain have improved. He is hopeful that he will be able to go home over the weekend. 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 He will follow up with his community providers and plan of care and transport with family. CM will follow and continue to support discharge planning efforts. Social Determinants of Health Screening Social Determinants of health last assessed in clinic: 09/04/24 Will the Patient Participate in the Screening?: Yes Do you worry about having a steady place to live?: no Problems where you live: no known problems In the past 12 months, have you had to go without electric, gas, oil or water in your home?: no 1. Within the past 12 months, we worried whether our food would run out before we got money to buy more.: Never true 2. Within the past 12 months, the food we bought just didn't last and we didn't have money to get more.: Never true Has lack of transportation kept you from medical appointments or from doing things needed for daily living?: no Has anyone in your life made you feel unsafe or unsupported?: no How hard is it for you to pay for the very basics like food, housing, medical care, and heating? Would you say it is:: Not hard at all Do you want help finding or keeping work or a job?: I do not need or want help If for any reason you need help with day-to-day activities such as bathing, preparing meals, shopping, managing finances, etc., do you get the help you need?: I don?t need any help How often do you feel lonely or isolated from those around you?: Never Do you speak a language other than Sinhala at home?: No
[2024-09-04] MEDS: Polyethylene Glycol 3350 17 GM PACKET PO (08:09)
[2024-09-04] MEDS: Empaglifozin 10 MG TAB PO (08:10)
[2024-09-04] MEDS: Insulin Aspart 300 UNITS/3 ML PEN SC ×4 (08:10→22:10)
[2024-09-04] MEDS: Tamsulosin 0.4 MG CAPCR 0.8 MG PO (08:10)
[2024-09-04] MEDS: guaiFENesin 600 MG TABCR PO ×2 (08:11→20:08)
[2024-09-04] MEDS: Clopidogrel 75 MG TAB PO (08:11)
[2024-09-04] MEDS: Multivitamin w/Minerals TAB 1 TAB PO (08:11)
[2024-09-04] MEDS: Ferrous Sulfate 325 MG TAB PO (08:11)
[2024-09-04] MEDS: Docusate Sodium 100 MG CAP PO ×3 (08:11→20:08)
--- NOTE | 2024-09-04 17:15 | W.PM.OP ---
Operative Note Operative Note Refer to Anesthesia Record Procedure Description: Procedure: Ultrasound-guided left thoracocentesis Surgeon: Sury Marshall Assist: None Anesthesia: local 1% Lidocaine (10cc) Anesthesiologist: None Indication: Chronic pleural effuson from CHF - resistant to diuretics. He was advised that the fluid is likely to return, and/or equalize with the other side. This might be temporary. Also, that it may not provide meaningful relief. Findings: 1000cc transudative, straw-colored fluid offloaded Complications: None Estimated Blood Loss: Minimal Specimens removed: fluid removed but not analyzed. Grafts or implants: No Procedure in detail: Written consent was obtained from the patient who was in agreement the risks, the benefits and indications for the procedure. The patient was seated and upright and the site was marked by ultrasonography. A timeout was performed. When we were all in agreement we began the procedure. Local anesthetic was injected just over the rib at the left posterior lateral back. A small stab incision was made. The needle/catheter complex was advanced overtop of the rib and pleural fluid was aspirated upon entrance into the chest cavity. The catheter was left in place while the needle was removed. 1000cc was removed. The catheter was then removed, there were no complications, a sterile dressing was placed overtop. The sponge, instrument and sharps count was correct x3 at the end of the procedure. The patient tolerated the procedure well. He denied any significant symptom improvement. Date of Procedure: 09/04/24
[2024-09-04] MEDS: Atorvastatin 40 MG TAB 80 MG PO (20:08)
[2024-09-04] MEDS: Mirtazapine 15 MG TAB PO (20:08)
[2024-09-05] MEDS: Acetaminophen 500 MG TAB 1000 MG PO ×3 (02:54→19:26)
[2024-09-05 03:43] VITALS: BP 162/67; PULSE 69; RESP 20; TEMP 37.1; O2SAT 98
[2024-09-05 06:43] LABS: HCT 27.1 % (40.0-50.0); HGB 9.1 g/dL (13.5-17.5); MCH 28.6 pg (27.0-33.0); MCHC 33.6 % (32.0-36.0); MCV 85 fL (80-95); MPV 11.7 fL (8.0-11.0); Platelet Count 191 10^3/uL (130-400); RBC 3.18 10^6/uL (4.36-5.78); RDW 12.9 % (11.8-14.1); RDW-SD 39.9 fL; WBC 4.92 10^3/uL (4.4-10.8)
[2024-09-05 06:56] LABS: Anion Gap 9.3 mmol/L (3-11); BUN 70 mg/dL (7-18); CO2 22.7 mmol/L (21.0-32.0); Calcium 8.4 mg/dL (8.5-10.1); Chloride 98 mmol/L (98-107); Estimated GFR 15.56 (mL/min/1.73m2); Glucose 115 mg/dL (74-106); Potassium 4.1 mmol/L (3.5-5.1); Sodium 130 mmol/L (136-145)
[2024-09-05 07:02] LABS: CREATININE 3.6 mg/dL (0.70-1.30)
[2024-09-05 07:33] VITALS: BP 149/54; PULSE 68; RESP 16; TEMP 36.3; O2SAT 96
[2024-09-05] MEDS: Sucralfate 1 GM TAB PO ×4 (07:38→21:44)
[2024-09-05] MEDS: Pantoprazole 40 MG TABCR PO (07:38)
[2024-09-05] MEDS: Clopidogrel 75 MG TAB PO (08:13)
[2024-09-05] MEDS: Multivitamin w/Minerals TAB 1 TAB PO (08:13)
[2024-09-05] MEDS: Empaglifozin 10 MG TAB PO (08:13)
[2024-09-05] MEDS: guaiFENesin 600 MG TABCR PO ×2 (08:13→19:30)
[2024-09-05] MEDS: Tamsulosin 0.4 MG CAPCR 0.8 MG PO (08:13)
[2024-09-05] MEDS: Polyethylene Glycol 3350 17 GM PACKET PO (08:13)
[2024-09-05] MEDS: Docusate Sodium 100 MG CAP PO (08:13)
[2024-09-05] MEDS: Ferrous Sulfate 325 MG TAB PO (08:13)
[2024-09-05 08:41] VITALS: O2SAT 97
[2024-09-05] MEDS: Normal Saline Flush 10 ML SYR IVP ×2 (09:54→19:43)
[2024-09-05] MEDS: Insulin Aspart 300 UNITS/3 ML PEN SC ×3 (11:44→21:44)
[2024-09-05 12:06] VITALS: O2SAT 94
--- NOTE | 2024-09-05 12:29 | W.PALLCONSUL ---
Date of service: 09/05/24 Time of Service: 12:29 History of Present Illness Narrative: Ilya was seen in his hospital room. His friend, Nicole was present for the visit. Reviewed GO. He lives alone. He wishes to stay in his home. He reports that he has family that lives near him but he reports that they do not check on him often. Nat is his [id number], she helps with medication. They have met with [facility] in the past but he was not eligible for more help. He does not want to spend down. He wants to give his assets to his kids. He is not sure if his kids could make changes to their lives to help him. He plans to talk to his children to see what they might offer. He is not sure if he would want dialysis. He said no in the past but he had questions today about what HD entails. He was not sure if he would want this or not. Wants to discuss with the kids. Discussed options of working to get stronger vs transition to comfort-focused care. He may consider rehab for short term if this is what is recommended, he would not want to be there long-term. He feels like he needs more information and wants to discuss with his family. Discussed hospice as an option but he would need a caregiver, this also needs to be discussed with the family. His appetite is decreased. He is eating 25-50% of his meals. He still goes out in his garage and reports that he rides his [employer]-brand. He has had falls at home but denies falls in the last few months. His friend, Nicole, who was present for the visit, lives in [place]. They have been friends x40 years, they talk on the phone regularly. He is youngest of 14 kids. His sister, Shabnam Martin is the only surviving siblings- she is 94 and lives in [place]. He was 2x, both marriages ended in divorce. He has 3 sons: Calista Davis lives near by, to Nat who checks in on him frequently. Jere, lives between [place] and [place]. Anjum lives in [place]. Has [employer] paperwork that names Nat and Calista, then his granddaughter, Zelda. His sister, Shabnam can also be consulted. He is also DNR/DNI with [facility]. 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 [place] [facility] [place] by hosptialist: - Risk of increased creatinine and worsening kidney function remains but as long as urine output goal is met w/o hyperkalemia, refractory fluid overload, uremia, encephalopathy as GFR drops -below 15---> no HD required. (3) Bilateral pleural effusion: Status: Acute Assessment and plan: S/p thoracentesis, may have repeat pending surgical consultation (4) Acute on chronic heart failure with preserved ejection fraction (HFpEF): Status: Chronic Assessment and plan: LVEF 50-55% similar to previous (5) Hypoxic respiratory failure: Status: Acute Assessment and plan: Now on RA O2 to maintain sat at 92-95% (6) Hyperlipidemia: Status: Chronic Assessment and plan: On statin (7) Persistent atrial fibrillation: Status: Chronic Assessment and plan: s/p watchman has a pacemaker Rate controlled. (8) HTN (hypertension): Status: Chronic (9) DM II (diabetes mellitus, type II), controlled: Status: Acute Assessment and plan: Home meds on hold. Ongoing fingersticks AC and HS with SSI coverage Continue initiated in setting of HFpEF Jardiance for CHF (10) Urinary retention: Status: Acute Assessment and plan: Young in place. (11) Hypomagnesemia: Status: Resolved Assessment and plan: Resolved - (12) History of CVA (cerebrovascular accident): Status: Acute Assessment and plan: On home dose Plavix and phenytoin [place] [facility] during acute episode (13) Contraindication to deep vein thrombosis (DVT) prophylaxis: Status: Acute Assessment and plan: Recent GIB with PRBC transfusion and instrumentation for which Watchman was initially completed and anticoagulation for atrial -fibrillation discontinued Continue TEDS (14) Hyponatremia: Status: Acute Assessment and plan: Na 130 Fluid restriction (15) Palliative care encounter: Status: Acute (16) Advanced care planning/counseling discussion: Status: Acute Assessment and plan: Ilya is a very pleasant, elderly man with multiple comorbidities who is currently admitted to the hospital. His CKD appears to be nearing need for HD but not indicated yet. He lives alone. He wishes to stay in his home. He is not sure how much family is willing to help Palliative was consulted to discuss GOC. He feels he needs to discuss all of this with family. He would qualify for hospice if he chooses that route, although he needs a caregiver if he that is what he wants. He seems interested in getting a little stronger, discussed STR as an option in this case. His family is coming in to see him today. Unfortunately, Palliative is not available this afternoon to meet but the hospitalist plans to be present. Palliative to follow while in the hospital and after discharge depending on where he is discharged to. Review of Systems All systems reviewed & are unremarkable except as noted in HPI and below PFSH All Active Problems Discharge planning issues (Acute) Hyponatremia (Acute) History of CVA (cerebrovascular accident) (Acute) Acute on chronic kidney failure (Acute) Hypoxic respiratory failure (Acute) Urinary retention (Acute) DM II (diabetes mellitus, type II), controlled (Acute) Pneumothorax (Acute) HTN (hypertension) (Chronic) Bilateral pleural effusion (Acute) Contraindication to deep vein thrombosis (DVT) prophylaxis (Acute) Acute on chronic heart failure with preserved ejection fraction (HFpEF) (Chronic) Chest pain (Acute) DNR (do not resuscitate) (Acute) [facility] 04/10/2024: DNR/DNI, + transfer, antibiotics, IV fluids, transfusions. See form for additional discussion Advanced care planning/counseling discussion (Acute) Palliative care encounter (Acute) Chronic anticoagulation (Acute) Heart failure with preserved ejection fraction (Acute) Anemia (Chronic) Multifactorial: CKD 4, GI bleed/peptic ulcer CKD (chronic kidney disease) (Chronic) Stage IV CHF exacerbation (Acute) Shortness of breath (Acute) Osteoarthritis of knees, bilateral (Acute) Heart failure (Chronic) Skin lesion of face (Acute) NSTEMI (non-ST elevated myocardial infarction) (Acute) Hyperkalemia (Acute) Memory change (Acute) Paralysis of left upper extremity (Acute) Third degree burn of finger of left hand excluding thumb (Acute) Burn of finger (Acute) Sick sinus syndrome (Chronic) pt. unsure of this medical hx Essential hypertension (Chronic) Hyperlipidemia (Chronic) DM2 (diabetes mellitus, type 2) (Chronic) Mild aortic stenosis (Chronic) Cardiac pacemaker (Chronic 08/17/17) Medtronic [place] XT DR MRI model # W1DR01 serial # [id number] (pulse generator) Ventricular electrodes: Medtronic CapsureFix Model # 5076-58 cm Serial # [id number] Atrial electrodes: Medtronic CapsureFix model # 5076-52 cm serial # [id number] Right rotator cuff tendinitis (Acute) Corticosteroid injection: 07/16/18 Persistent atrial fibrillation (Chronic) Onset mid May 2019 - ongoing as of 06/25/2019 - sinus restored Onset again January 2021 - ongoing as of 10/26/2021 DC cardioversion [facility] 10/2021 - on amiodarone; recurrent in February 2022 - amiodarone stopped Osteoarthritis of carpometacarpal joint of right thumb (Acute) Trochanteric bursitis, left hip (Acute) Steroid injection: 12/07/2020; 03/17/2020 Trochanteric bursitis, right hip (Acute) Steroid injection: 12/07/2020; 03/17/2020 Traumatic arthropathy, right shoulder (Acute) Most recent Depo-Medrol injection: 11/22/2021; 05/24/2022 Medical History Elevated troponin level not due to acute coronary syndrome Anemia Heart failure, chronic, with acute decompensation Pleural effusion 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 states he doesn't remember ever having any History of TIA (transient ischemic attack) and stroke Per pt. in 2003 had carotid artery surgery, after procedure pt. suffered a stroke, pt. states full forearm numbness and parts of left leg Surgical History History of thoracentesis (~04/2023) FH: carotid endarterectomy History of permanent cardiac pacemaker placement Family History Brother Family history of premature coronary heart disease Sister Family history of premature coronary heart disease Social History Smoking/Tobacco Use Status: Former Tobacco Use Quit Date: 04/09/84 Pack-years: 30 Second Hand Exposure: No Smoking risk assessment performed?: Yes Alcohol Intake: never Drug use: Never Substance use type: does not use Housing: house Current gender identity: male Do you feel safe at home: Yes (lives alone) Do you feel safe in your relationship?: Yes Exam Narrative Exam Narrative: General: pleasant, elderly man, sitting up in his recliner in the hospital room. Skin is pale. He is alert and oriented. He engages in the visit and answers questions appropriately. HEENT: normocephalic, atraumatic, EOMI, mmm Neck: supple Respiratory: respirations appear even and unlabored at rest. Ext: moves all 4 extremities. Results Last Vital Signs Temp 36.3 C L 09/05/24 07:33 Pulse 68 09/05/24 07:33 Resp 16 09/05/24 07:33 BP 149/54 H 09/05/24 07:33 Pulse Ox 94 09/05/24 12:06 Labs 09/06/24 05:56 09/06/24 05:56 Labs: Laboratory Results - last 24 hr 09/04/24 09/05/24 06:02 06:22 WBC 4.92 RBC 3.18 L Hgb 9.1 L Hct 27.1 L MCV 85 MCH 28.6 MCHC 33.6 RDW 12.9 Plt Count 191 MPV 11.7 H Sodium 130 L Potassium 4.1 Chloride 98 Carbon Dioxide 22.7 Anion Gap 9.3 BUN 70 H Creatinine 3.6 H* Est GFR (CKD-EPI 2020) 15.56 Glucose 115 H Calcium 8.4 L Magnesium 2.0 2.0 Time Spent Time Spent with Patient Time Spent(min): 73
--- NOTE | 2024-09-05 16:58 | PGE_ITS ---
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 [facility] [place] Pleural effusion once establish most-likely not to respond to diuresis d/t negative alveolar pressure--> thoracentesis usually beneficial - IV lasix dose should be equivalent to 20 times the creatinine per dose and set to goal of negative fluid balance- even with worsening CKD - Risk of increased creatinine and worsening kidney function remains but as long as urine output goal is met w/o hyperkalemia, refractory fluid overload, uremia, encephalopathy as GFR drops -below 15---> no HD required. Surgical consultation - With Dr. Marshall completing thoracentesis for one liter with improvement of resp distress - -Considering thoracentesis of the other side over the week-end Continue to monitor I&O closely Will transition to daily torsemide 40 mg (3) Bilateral pleural effusion: Status: Acute Assessment and plan: As above As per discussion with Dr. Marshall-will repeat CT imaging to compare This might also be in the setting of progressing HFpEF (4) Acute on chronic heart failure with preserved ejection fraction (HFpEF): Status: Chronic Assessment and plan: IV lasix stopped but had a STAT dose on 09/04 night d/t hypoxia and respiratory distress Now on oral torsemide- read CKD point LVEF 50-55% similar to previous Ongoing Jardiance added this stay creatinine imrpoving follow BMP, CBC (5) Hypoxic respiratory failure: Status: Acute Assessment and plan: Now on RA In the setting pleural effusion / small left sided pneumothorax No PE per [facility] surgery consulted : see notes O2 to maintain sat at 92-95% (6) Hyperlipidemia: Status: Chronic Assessment and plan: On statin (7) Persistent atrial fibrillation: Status: Chronic Assessment and plan: s/p watchman has a pacemaker Rate controlled. (8) HTN (hypertension): Status: Chronic Assessment and plan: Norvasc on hold in the setting of IV lasix Resume in AM routine monitoring (9) DM II (diabetes mellitus, type II), controlled: Status: Acute Assessment and plan: Hold home meds Ongoing Gluc AC and HS with SSI coverage Continue initiated in setting of HFpEF Jardiance for CHF (10) Urinary retention: Status: Acute Assessment and plan: Already on flomax - increased D/c Young inserted this stay - voiding trial home dose of flomax increased to 0.8 mg Most likely d/t opioids to treat chest pain (11) Hypomagnesemia: Status: Resolved Assessment and plan: Resolved - (12) History of CVA (cerebrovascular accident): Status: Acute Assessment and plan: On home dose Plavix and phenytoin [place] [facility] [place] acute episode (13) Contraindication to deep vein thrombosis (DVT) prophylaxis: Status: Acute Assessment and plan: Recent GIB with PRBC transfusion and instrumentation for which Watchman was initially completed and anticoagulation for atrial -fibrillation discontinued Continue TEDS (14) Hyponatremia: Status: Acute Assessment and plan: Na 130 Fluid restriction (15) Discharge planning issues: Status: Acute Assessment and plan: patient elected for SNF and getting stronger s/p meeting wtih sons: Anjum Zayas Calista/ daughter in law - Nat and grand daughter -Zelda Was looking toward comfort this AM but felt better s/p thoracentesis and wants to get a few more months if possible Would want HD - nephrology referral outpatient needed PT consult pending Seen by palliative care: please read notes CM to send referral on Sunday s/p PT eval Discussed with Dr. Graves Subjective Subjective Patient reports: pain is less, tolerating liquids well, tolerating a regular diet, voiding w/o difficulty, nausea and shortness of breath (improved ); denies diarrhea, vomiting or fever Exam Narrative Exam Narrative: 89-year-old male patient appearing of stated age, no acute distress on on RA , alert and oriented x 4, no neurological focal deficit, speak 4-word sentences, diminished L base > R sided basilar breath sounds, no wheezing, atrial fibrillation with moderate ventricular response - V-paced at time VS regular rhythm,no murmur S1- S2 distant , positive pedal and radial pulses,no further chest pain with deep breathing and cough on scheduled acetaminophen , improved bilateral lower extremity pitting edema, abdomen is nondistended, soft, nontender, no CVA tenderness Objective Last Vital Signs Temp 36.3 C L 09/05/24 07:33 Pulse 68 09/05/24 07:33 Resp 16 09/05/24 07:33 BP 149/54 H 09/05/24 07:33 Pulse Ox 94 09/05/24 12:06 Laboratory Results - last 24 hr 09/05/24 06:22 WBC 4.92 RBC 3.18 L Hgb 9.1 L Hct 27.1 L MCV 85 MCH 28.6 MCHC 33.6 RDW 12.9 Plt Count 191 MPV 11.7 H Sodium 130 L Potassium 4.1 Chloride 98 Carbon Dioxide 22.7 Anion Gap 9.3 BUN 70 H Creatinine 3.6 H* Est GFR (CKD-EPI 2020) 15.56 Glucose 115 H Calcium 8.4 L Magnesium 2.0 Time Spent with Patient Time Spent with Patient: >50 minutes Time was spent: preparing to see the patient(eg.review tests), obtaining and/or reviewing separately otained hiistory, ordering medications,tests, procedures, referring, communicating with other health hospice care consultant, indepentently interpreting results, counseling the patient and care coordination
--- NOTE | 2024-09-05 18:16 | PDOC.CMPRO ---
Date of service: 09/05/24 Time of Service: 18:16 Care Management Progress Note Progress Note Text Progress Note Text: Ilya was lying in bed when CM met with him. He stated that he is still feeling weak, and that he would like to get stronger prior to returning home. Ilya met with palliative care today, who reported that he meets criteria for hospice. CM discussed his goals of care with Ilya, who reported that he is willing to go to SNF for a short time to get stronger, but he would prefer to go home once he is feeling better. He agreed to referrals being sent to the [facility], and [facility]. He has not been evaluated by PT yet; the provider put the consult in this afternoon to determine if he meets criteria. Referrals will be sent after this is completed, if SNF is their recommendation. Ilya's family visited this afternoon; CM coordinated a family meeting with the provider to review the plan of care. They are very supportive, and are happy with the plan for him to go to rehab. CM will continue to follow. Discharge Potential Discharge Needs: PT Evaluation and Other (SNF placement, if eligible) Anticipated Barriers to Discharge: Bed availability and Medical Status Patient/Family Education Needs: Review discharge instructions, discuss Ask Me Three Transportation: Private vehicle Plan: Ilya will be evaluated by PT to determine if he meets criteria for SNF for short term rehab. If so, referrals will be sent to the [facility], and [facility]. He will likely transport via private vehicle by family, and will follow up with his PCP and discharge plan of care. CM will continue to follow. Social Determinants of Health Screening Social Determinants of health last assessed in clinic: 09/05/24 Will the Patient Participate in the Screening?: Yes Do you worry about having a steady place to live?: no Problems where you live: no known problems In the past 12 months, have you had to go without electric, gas, oil or water in your home?: no 1. Within the past 12 months, we worried whether our food would run out before we got money to buy more.: Never true 2. Within the past 12 months, the food we bought just didn't last and we didn't have money to get more.: Never true Has lack of transportation kept you from medical appointments or from doing things needed for daily living?: no Has anyone in your life made you feel unsafe or unsupported?: no How hard is it for you to pay for the very basics like food, housing, medical care, and heating? Would you say it is:: Not hard at all Do you want help finding or keeping work or a job?: I do not need or want help If for any reason you need help with day-to-day activities such as bathing, preparing meals, shopping, managing finances, etc., do you get the help you need?: I don?t need any help How often do you feel lonely or isolated from those around you?: Never Do you speak a language other than Kyrgyz at home?: No
[2024-09-05 18:41] VITALS: BP 154/53; PULSE 71; TEMP 36.8; O2SAT 93
[2024-09-05] MEDS: Atorvastatin 40 MG TAB 80 MG PO (19:30)
[2024-09-05] MEDS: Mirtazapine 15 MG TAB PO (19:30)
[2024-09-05] MEDS: Melatonin 3 MG TAB 6 MG PO (19:30)
[2024-09-06 01:53] VITALS: BP 166/76; PULSE 72; RESP 18; TEMP 36.3; O2SAT 95
[2024-09-06] MEDS: Acetaminophen 500 MG TAB 1000 MG PO ×3 (01:54→19:21)
[2024-09-06 03:25] VITALS: BP 176/68; PULSE 71; RESP 20; TEMP 36.7; O2SAT 93
[2024-09-06 06:41] LABS: Abs Immature Grans 0.01 10^3/uL (0.0-0.06); Absolute Basophil Count 0.04 10^3/uL (0.0-0.2); Absolute Eosinophil Count 0.15 10^3/uL (0.0-0.7); Absolute Lymphocyte Count 0.92 10^3/uL (1.2-3.4); Absolute Monocyte Count 0.67 10^3/uL (0.1-0.8); Absolute Neutrophil Count 4.34 10^3/uL (1.2-6.7); Basophils % 0.7 %; Eosinophils % 2.4 %; HCT 31.2 % (40.0-50.0); HGB 10.4 g/dL (13.5-17.5); Immature Grans % 0.2 %; MCH 28.9 pg (27.0-33.0); MCHC 33.3 % (32.0-36.0); MCV 87 fL (80-95); MPV 11.3 fL (8.0-11.0); Monocytes % 10.9 %; Neutrophils % 70.8 %; Platelet Count 251 10^3/uL (130-400); RDW 13.1 % (11.8-14.1); RDW-SD 41.5 fL; WBC 6.13 10^3/uL (4.4-10.8)
[2024-09-06 06:48] LABS: BUN 63 mg/dL (7-18); CREATININE 2.7 mg/dL (0.70-1.30); Chloride 102 mmol/L (98-107); Estimated GFR 21.98 (mL/min/1.73m2); Glucose 162 mg/dL (74-106); Magnesium 2.2 mg/dL (1.8-2.4); Potassium 4.2 mmol/L (3.5-5.1); Sodium 136 mmol/L (136-145)
[2024-09-06 07:46] VITALS: BP 159/57; PULSE 75; RESP 16; TEMP 36.1; O2SAT 97
[2024-09-06] MEDS: Insulin Aspart 300 UNITS/3 ML PEN SC ×4 (07:53→21:46)
[2024-09-06] MEDS: Docusate Sodium 100 MG CAP PO ×2 (07:54→20:04)
[2024-09-06] MEDS: Tamsulosin 0.4 MG CAPCR 0.8 MG PO (07:54)
[2024-09-06] MEDS: Multivitamin w/Minerals TAB 1 TAB PO (07:54)
[2024-09-06] MEDS: Empaglifozin 10 MG TAB PO (07:54)
[2024-09-06] MEDS: Torsemide 20 MG TAB 40 MG PO (07:54)
[2024-09-06] MEDS: Sucralfate 1 GM TAB PO ×4 (07:54→21:45)
[2024-09-06] MEDS: Normal Saline Flush 10 ML SYR IVP ×2 (07:55→20:04)
[2024-09-06] MEDS: Polyethylene Glycol 3350 17 GM PACKET PO (07:55)
[2024-09-06] MEDS: guaiFENesin 600 MG TABCR PO ×2 (07:55→20:04)
[2024-09-06] MEDS: Pantoprazole 40 MG TABCR PO (07:55)
[2024-09-06] MEDS: Clopidogrel 75 MG TAB PO (07:55)
[2024-09-06] MEDS: Ferrous Sulfate 325 MG TAB PO (07:55)
--- NOTE | 2024-09-06 08:25 | PT.INIE ---
PT Notes Visit Reasons: CHF Exacerbation, Chest Pain Physical Therapy inpatient initial Evaluation Date: 09/06/2024 Referring Doctor: Lisa Valladares NP PT Orders: PT CONSULT: Safety consult for discharge Precautions: Pacemaker, standard Patient Profile/Admitting Diagnosis: Patient is an 89-year-old male presented to the ED on 08/31/2024 for evaluation of chest pain and shortness of breath starting at 5 AM that morning. EKG is showing A-fib with MRV with BBB similar to previous. Chest pain did not resolve with nitroglycerin, or morphine. Chest imaging was positive for bilateral pleural effusion, no PE; pulmonary edema and peribronchial thickening. . Blood work was unremarkable except for down trend in troponin with max 95 and now 82, stable anemia.In the ED the patient received IV lasix. The patient was admitted to the medical surgical floor with telemetry for evaluation and management of chest pain, CHF exacerbation, bilateral pleural effusion. Patient underwent thoracentesis on 09/05/2024 PMHX: DM II (diabetes mellitus, type II), controlled (Acute) Pneumothorax (Acute) HTN (hypertension) (Chronic) Bilateral pleural effusion (Acute) Contraindication to deep vein thrombosis (DVT) prophylaxis (Acute) Acute on chronic heart failure with preserved ejection fraction (HFpEF) (Acute) Chest pain (Acute) DNR (do not resuscitate) (Acute) COLST 04/10/2024: DNR/DNI, + transfer, antibiotics, IV fluids, transfusions. See form for additional discussionAdvanced care planning/counseling discussion (Acute) Palliative care encounter (Acute) Chronic anticoagulation (Acute) Heart failure with preserved ejection fraction (Acute) Anemia (Chronic) Multifactorial: CKD 4, GI bleed/peptic ulcer CKD (chronic kidney disease) (Chronic) Stage IV CHF exacerbation (Acute) Shortness of breath (Acute) Osteoarthritis of knees, bilateral (Acute) Heart failure (Chronic) Skin lesion of face (Acute) NSTEMI (non-ST elevated myocardial infarction) (Acute) Hyperkalemia (Acute) Memory change (Acute) Paralysis of left upper extremity Third degree burn of finger of left hand excluding thumb (Acute) Burn of finger (Acute) Sick sinus syndrome (Chronic) pt. unsure of this medical hxEssential hypertension (Chronic) Hyperlipidemia (Chronic) DM2 (diabetes mellitus, type 2) (Chronic) Mild aortic stenosis (Chronic) Cardiac pacemaker (Chronic 08/17/17) Medtronic Lola XT DR MRI model # [id number] serial # [id number] (pulse generator) Ventricular electrodes: Medtronic CapsureFix Model # 5076-58 cm Serial # [id number] Atrial electrodes: Medtronic CapsureFix model # 5076-52 cm serial # [id number] Right rotator cuff tendinitis (Acute) Corticosteroid injection: 07/16/18Persistent atrial fibrillation (Chronic) Onset mid May 2019 - ongoing as of 06/25/2019 - sinus restored Onset again January 2021 - ongoing as of 10/26/2021 DC cardioversion [facility] 10/2021 - on amiodarone; recurrent in February 2022 - amiodarone stoppedOsteoarthritis of carpometacarpal joint of right thumb (Acute) Trochanteric bursitis, left hip (Acute) Steroid injection: 12/07/2020; 03/17/2020Trochanteric bursitis, right hip (Acute) Steroid injection: 12/07/2020; 03/17/2020Traumatic arthropathy, right shoulder (Acute) Most recent Depo-Medrol injection: 11/22/2021; 05/24/2022 Medical History Elevated troponin level not due to acute coronary syndrome Anemia Acute on chronic kidney failure Heart failure, chronic, with acute decompensation Pleural effusion 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 states he doesn't remember ever having any History of TIA (transient ischemic attack) and stroke Per pt. in 2003 had carotid artery surgery, after procedure pt. suffered a stroke, pt. states full forearm numbness and parts of left leg Surgical History History of thoracentesis (~04/2023) FH: carotid endarterectomy History of permanent cardiac pacemaker placement Social History/Home Situation: Patient Lives alone in single level home with 1 step to enter with rail. 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 He has supportive family that also assists with meal prep, shopping and household tasks as he needs. Equipment Owned/DME: cane Subjective: Patient prefers to be called Ilya. Pt reports he has a SPC which he uses intermittently when he leaves his home only. Patient reports he is hopeful to return home to his dog Joni as soon as possible Objective: [] General Observation: Patient presents with telemetry in place IV access right upper extremity Mental Status: Alert and oriented x 4, cooperative, able to follow instructions, pleasant. Patient agreeable to participate in evaluation Pain: Denies Vitals: Monitored via telemetry ROM: [] Right Upper Extremity: WFL except thumb opposition unable to oppose to 4th and 5th digit. Left Upper Extremity: shoulder flexion and abduction to 45degrees, ER to neutral, elbow 0-85degrees, no supination, wrist extension to neutral, flexion 5 degrees, absent finger flexion. Right Lower Extremity: hip extension -5 degrees, flexion to 100, knee 5-115, ankle DF neutral with knee extension, 5degrees with knee flexion. ( impaired hamstring and gastroch length) Left Lower Extremity: hip extension -5 degrees, flexion to 100, knee 5-110, ankle DF neutral with knee extension, 5 degrees with knee flexion( impaired hamstring and gastroch length) Strength: Right Upper Extremity: 4/5 Left Upper Extremity: Active shoulder flexion and abduction 30 degrees elbow extension 1+/5 wrist and hand flaccid Right Lower Extremity: hip extension 3-/5, hip abduction 3-/5, hip flexion 3-/5, knee extension 3/5, flexion 3-/5, ankle 3/5 Left Lower Extremity: hip extension 3-/5, hip abduction 3-/5, hip flexion 3-/5, knee extension 3/5, flexion 3-/5, ankle 3/5 Sensation: intact to light touch Bed Mobility/Transfers: [] Supine to sit supervision Sit to stand CGA Stand to sit SBA Bed to chair CGA with SPC Gait: amb with SPC CGA 100 feet with impaired step length , wide JASON, foot flat at weight acceptance. Balance: [] Static Sitting: Normal Dynamic Sitting: Good Static Standing:Fair Dynamic Standing: Fair - Special Tests: [] Mobility Limitations Standardized Measure [] [facility] AM-PAC 6 clicks Basic Mobility Inpatient Short Form: [] Raw Score: 19 CMS Score: [] 41.77% Informed Consent/Education: Patient instructed in purpose of PT consult. Treatment: 05002 Functional transfers from various surfaces including chair, bed, toilet, wheelchair contact-guard assist. 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 Decreased strength to RUE/BLE major muscle groups 2. Impaired standing balance 3. Limitation of joint range of motion in left shoulder , elbow wrist, hand and fingers 4. hemiplegia LUE 5. Impaired functional activity tolerance Impairments are contributing to the following functional limitations: 1. Inability to safely ambulate without assistive device 2. Increase completion time for mobility ADL performance 3. Increased fall risk 4. Decline in bed mobility skills 5. Declining transfer skills Patient is assessed as a low complexity based on the following: History: 89-year-old male with impairment level findings, functional limitations, and past medical history as indicated above Examination: Demonstrable impairment in strength, balance, and mobility level with underlying impairments and functional limitations as documented above Presentation: Evolving/stable Decision Making: Low Goals: 1. Independent bed mobility 2. Independent transfers 3. Independent ambulation greater than 150 feet with single-point cane without reports of increased shortness of breath or pain 4. Supervision one-step with cane to safely enter and exit home Plan of Care/Treatment Plan: 1-2x/day, 7 days/week x 1 week. Plan of care has been reviewed with the BLEACHING SUPERVISOR providing the service under Physical Therapy direction. Initiate Physical Therapy intervention for strengthening, bed mobility, transfers, gait, stairs, balance training, use of assistive device. DISCHARGE RECOMMENDATIONS: Short-term SNF versus home health PT TREATMENT CODE/TIME: 11757, [id number] Thank you for the opportunity to participate in the care of this patient. Ashly Heath, PT [place] [facility]
--- NOTE | 2024-09-06 13:20 | NUR.NOTE ---
Spoke with Zelda, granddaughter of pt. She advised that before this recent admission pt was on home regimen of torsemide that was working well for him. DOsage was based on weight as follows: WT <177 take 40 mg once WT 177-181 take 40 mg am and 40 mg at noon time WT >181 take 80 mg am and 80 mg at noon time Advised Zelda would pass this information on to provider for discharge information
[2024-09-06] MEDS: Atorvastatin 40 MG TAB 80 MG PO (20:02)
[2024-09-06] MEDS: Melatonin 3 MG TAB 6 MG PO (20:03)
[2024-09-06] MEDS: Mirtazapine 15 MG TAB PO (20:04)
[2024-09-06 20:08] VITALS: BP 136/72; PULSE 71; RESP 18; TEMP 36.7; O2SAT 96
[2024-09-06 23:15] VITALS: BP 153/39; PULSE 73; RESP 18; TEMP 36.7; O2SAT 94
[2024-09-07] MEDS: Acetaminophen 500 MG TAB 1000 MG PO ×2 (03:31→11:54)
[2024-09-07 03:32] VITALS: BP 172/60; PULSE 72; RESP 20; TEMP 36.5; O2SAT 95
[2024-09-07] MEDS: Pantoprazole 40 MG TABCR PO (07:22)
[2024-09-07] MEDS: Sucralfate 1 GM TAB PO ×2 (07:22→11:55)
[2024-09-07 08:03] VITALS: BP 174/72; PULSE 69; RESP 18; TEMP 36.2; O2SAT 96
[2024-09-07] MEDS: Insulin Aspart 300 UNITS/3 ML PEN SC ×2 (08:31→11:55)
[2024-09-07] MEDS: amLODIPine 5 MG TAB PO (08:32)
[2024-09-07] MEDS: Ferrous Sulfate 325 MG TAB PO (08:32)
[2024-09-07] MEDS: Multivitamin w/Minerals TAB 1 TAB PO (08:32)
[2024-09-07] MEDS: Docusate Sodium 100 MG CAP PO (08:32)
[2024-09-07] MEDS: Polyethylene Glycol 3350 17 GM PACKET PO (08:32)
[2024-09-07] MEDS: Torsemide 20 MG TAB 40 MG PO (08:32)
[2024-09-07] MEDS: Normal Saline Flush 10 ML SYR IVP (08:32)
[2024-09-07] MEDS: Clopidogrel 75 MG TAB PO (08:32)
[2024-09-07] MEDS: guaiFENesin 600 MG TABCR PO (08:32)
[2024-09-07] MEDS: Empaglifozin 10 MG TAB PO (08:32)
[2024-09-07] MEDS: Tamsulosin 0.4 MG CAPCR 0.8 MG PO (08:32)
--- NOTE | 2024-09-07 08:49 | DI.RAD_ITS ---
Exam(s) XR PORTABLE CHEST AP EXAM: XR PORTABLE CHEST AP CLINICAL HISTORY: assess pleural effusions. TECHNIQUE: 2D digital imaging was performed. COMPARISON: CR XR CHEST 2V PA LATERAL from 09/03/[address] CHEST WO from 09/04/2024 FINDINGS: Single AP portable view. Heart size remains upper normal and there is a bipolar left subclavian pacemaker again noted with zev d tips in RA and right ventricle. Additional cardiac device is again noted Bilateral pleural effusions again noted moderate size left slightly larger than right and associated with some volume loss in the left lower lobe. No radiographic improvement compared to 09/03/2024. IMPRESSION: Persistent moderate size bilateral pleural effusions, left again larger than right. No improvement. DATA REPOSITORY: RADIATION DOSE DELIVERED:
--- NOTE | 2024-09-07 09:55 | DI.VRAD_ITS ---
PROCEDURE INFORMATION: Exam: XR Chest Exam date and time: 09/07/2024 8:49 AM Age: 89 years old Clinical indication: Other: Assess pleural effusions TECHNIQUE: Imaging protocol: Radiologic exam of the chest. Views: 1 view. COMPARISON: 1. CT CHEST WO 09/04/2024 1:56 PM. Report not available at time of dictation. 2. CR XR CHEST 2V PA LATERAL 09/03/2024 10:43 AM. Report not available at time of dictation. FINDINGS: Tubes, catheters and devices: Unchanged dual-lead left pacemaker. Lungs: Bilateral pleural effusions, at least small volume, L>R, likely adjacent atelectasis. No pneumothorax. Heart/Mediastinum: Stable cardiomediastinal silhouette. Cardiac device again seen. Bones/joints: Degenerative changes. IMPRESSION: Bilateral pleural effusions, at least small volume, L>R. Dictated and Authenticated by: Elham Naylor MD. Orderin Rolando Durbin MD
--- NOTE | 2024-09-07 11:12 | PT.INTREAT ---
PT Notes Visit Reasons: CHF Exacerbation, Chest Pain Inpatient Physical Therapy Treatment Note [facility] Date: 09/07/2024 PRECAUTIONS telemetry SUBJECTIVE: Patient reporting he feels better agreeable to participate in therapy. OBJECTIVE: ? PAIN: Denied VITALS: ?Monitored via telemetry throughout Therapeutic Activities (84792): Direct one-on-one instruction in dynamic activities to improve functional performance. ? BED MOBILITY/TRANSFERS? Rolling L/R: Independent Supine-sit: Independent ? Sit-supine: Independent ? Sit-stand: Supervision? Stand-sit: Supervision ? Bed-Chair: Supervision ? Chair-bed: Supervision Provided skilled cues and instruction on performance and technique throughout. GAIT? Assistive Device:? ?SPC ? Weight bearing: FWB Assist: SBA ? Distance:?150 feet x 2? Deviation: Wide base of support reduced step length kyphosis (chronic)? Assistive Device:? ?None? Weight bearing: FWB Assist: SBA ? Distance:?25 feet x 4 to simulate mobility within home ? Deviation: Wide base of support reduced step length kyphosis (chronic)? STAIRS: Two 6 inch steps and three 4 inch steps with rail on right reciprocal pattern ascending step to pattern descending with supervision ? ASSESSMENT: Patient tolerated session well demonstrating improvements in activity tolerance functional transfers sit to stand from various surfaces and ambulation with single-point cane. Patient denied dyspnea during ambulation and stairs. Patient has personal single-point cane at home and is encouraged to utilize outdoors when discharged. Patient able to ambulate short distances without device with steady gait. PLAN: Continue per plan of care TREATMENT CODE/TIME: [id number] DISCHARGE RECOMMENDATION: Home with PT when medically appropriate
[2024-09-07 11:22] VITALS: BP 163/62; PULSE 73; RESP 18; TEMP 36.5; O2SAT 95
--- NOTE | 2024-09-07 12:16 | DSE_ITS ---
Date of service: 09/07/24 Time of Service: 12:17 DS: Diagnosis Discharge Diagnosis (1) Pneumothorax: Status: Acute (2) Acute on chronic kidney failure: Status: Acute (3) Bilateral pleural effusion: Status: Acute (4) Acute on chronic heart failure with preserved ejection fraction (HFpEF): Status: Chronic (5) Hypoxic respiratory failure: Status: Acute (6) Hyperlipidemia: Status: Chronic (7) Persistent atrial fibrillation: Status: Chronic (8) HTN (hypertension): Status: Chronic (9) DM II (diabetes mellitus, type II), controlled: Status: Acute (10) Urinary retention: Status: Acute (11) Hypomagnesemia: Status: Resolved (12) History of CVA (cerebrovascular accident): Status: Acute (13) Hyponatremia: Status: Acute Discharge Plan Disposition Patient Disposition: Home W/Home Health Services Condition: Improving Discharge Details Reason For Visit: CHF Exacerbation, Chest Pain Admit Date/Time: 08/31/24 15:45 Admit Provider: Seamus Quiñones Attending Provider: Seamus Quiñones Primary Care Provider: Nel Cabrera Hospital Course Hospital Course: This is an 89 years old male patient with a past medical history of HFpEF with last LEVF 50-55% with RVSP 42 mmHg oin 02/2024, CKD stage IV, A-fib s/p Prema chman, GI bleed presented to the ED for evaluation of chest pain and shortness of breath. Chest pain did not resolve with nitroglycerin, or morphine. Chest imaging was positive for bilateral pleural effusion, no PE; pulmonary edema and peribronchial thickening, a CT scan did show small pneumothorax on left, likely source of pain. This resolved and repeat imaging was negative for ongoing pneumo. Blood work was unremarkable except for mildly elevated troponin with max 95 trending downward, stable anemia. In the ED the patient received IV lasix. The patient was admitted to the medical surgical floor with telemetry for evaluation and management. Surgical consult placed as the patient reported thoracentesis 1-2 years ago, he did undergo thoracentesis on left with removal of 1000 cc of transudative straw colored fluid. Hospital course complicated with acute on chronic kidney injury in setting of IV contrast and diuresis, improved at time of discharge. he has been weaned off oxygen, eating and drinking and working with physical therapy. He has been referred for skilled rehabilitation but would like to trial discharge to home as he has been making good gains and feels he could ele ge at home. He is being discharge to home with new home health services including nursing, PT/OT, nurses aide, caregivers non medical. Recommendation for PCP follow-up: Nephrology referral Cardiology referral Discussed with Dr. Osborne Home Meds and New Rx's Prescriptions: No Action phenytoin sodium extended [Dilantin Extended] 100 mg capsule 100 mg PO BID albuterol sulfate [Ventolin HFA] 90 mcg/actuation HFA aerosol inhaler 2 inh inhalation 6XD PRN atorvastatin 80 MG tablet 80 mg PO DAILY Qty: 90 Rx Instructions: 1 TAB DAILY ferrous sulfate [FeroSul] 325 mg (65 mg iron) tablet 325 mg PO DAILY tamsulosin 0.4 mg capsule 0.4 mg PO DAILY Patient Comments: 03/25/24 per [facility] [place] 03/21/24 [facility] furosemide 40 mg tablet 40 mg PO BID Patient Comments: 03/25/24 per [facility] [place] 03/21/24 RH sucralfate 1 gram Tablet 1 g PO AC & HS Qty: 120 0RF polyethylene glycol 3350 17 gram Powder In Packet 17 g PO DAILY Qty: 30 0RF pantoprazole [Protonix] 40 mg tablet,delayed release (DR/EC) 40 mg PO DAILY Qty: 60 0RF acetaminophen 500 mg capsule 1,000 mg PO Q8H PRN PRNQty: 60 0RF clopidogrel 75 mg tablet 75 mg PO DAILY Patient Comments: TAKE ONE TABLET BY MOUTH EVERY DAY amlodipine 5 mg tablet 5 mg PO DAILY Patient Comments: TAKE ONE TABLET BY MOUTH EVERY DAY Januvia 25 mg tablet 25 mg PO DAILY melatonin 3 mg capsule 6 mg PO HS PRN mirtazapine 15 mg tablet 15 mg PO HS Patient Comments: TAKE ONE TABLET BY MOUTH EVERY EVENING TO IMPROVE MOOD AND SLEEP multivitamin with folic acid [Tab-A-Chris] 400 mcg tablet 1 tab PO DAILY Patient Comments: TAKE ONE TABLET BY MOUTH ONCE DAILY Discharge Instructions Instructions: Acute kidney injury, Heart failure Additional Instructions: take all medications as directed weigh yourself 3-5 times weekly in the morning and report weight gain of more than 5 pounds to you pcp. Referrals: [place]PHROLOGY,[facility] [place] - ([phone]) Nel Cabrera [Primary Care Provider] - Stefanie Herring MD [ [facility] STAFF PHYSICIAN] - Activity:: Activity as Tolerated Equipment/Supplies:: No Equipment Needed Diet:: As Tolerated DS: Summary Time Spent with Patient providing and/or coordinating discharge services: Greater than 30 minutes Status at Discharge Functional status at discharge: uses cane/walker Overall status at discharge: patient is progressing back to baseline Mental Status: mental status grossly normal Speech and Movement: speech and movement normal Mood: congruent mood Affect: normal affect Quality:SDOH Health Related Social Needs: No Data to Display Exam Narrative Exam Narrative: Elderly gentleman of stated age no acute distress Const General: no acute distress Orientation: alert HENMT Head: normal to inspection Mouth: moist mucous membranes Eyes General: appearance normal, both eyes and all related structures Neck Neck: normal visual inspection Resp Effort & Inspection: normal respiratory effort and able to speak in complete sentences Auscultation: clear to auscultation bilaterally Cardio Rate: regular rate Skin General skin exam: no rashes or lesions noted Neuro General: patient alert and patient oriented x3 Extrem General: edema Psych Mental Status: mental status grossly normal Speech and Movement: speech and movement normal Mood: congruent mood Affect: normal affect DS: Data Vitals/I&O Vitals and I&O: Vital Signs Temperature 36.5 C 09/07/24 11:22 Temperature Source Temporal Artery Scan 09/07/24 11:22 Pulse 73 09/07/24 11:22 Pulse Rhythm Regular 08/31/24 16:50 Pulse 72 08/31/24 16:16 Respiratory Rate 18 09/07/24 11:22 Respiratory Effort Normal 08/31/24 16:50 Respiratory Depth Normal 08/31/24 16:50 Respiratory Pattern Normal 08/31/24 16:50 Blood Pressure 163/62 H 09/07/24 11:22 Blood Pressure Mean 95 09/07/24 11:22 Blood Pressure Position Sitting 08/31/24 10:21 Pulse Oximetry 95 09/07/24 11:22 Oxygen Delivery Method Room Air 09/07/24 11:22 Oxygen Flow Rate 0 09/07/24 11:22 Pain Level 2 09/07/24 11:54 Comment RN notified 09/04/24 15:19 Intake & Output 09/06/24 09/07/24 09/07/24 23:59 11:59 23:59 Intake Total 250 / 310 270 / 270 Output Total 1075 / 2075 950 / 950 Balance -825 / -1765 -680 / -680 Weight 81.5 kg Intake: IV Oral 240 / 290 250 / 250 Output: Urine [id number] 950 / 950 Other: Urine Color Yellow Yellow Urine Appearance Clear Clear Urine Odor None Normal Stool Size Moderate Stool Characteristics Soft PFSH All Active Problems (Updated 09/05/24 @ 17:54 by Lisa Valladares APRN) Discharge planning issues (Acute) Hyponatremia (Acute) History of CVA (cerebrovascular accident) (Acute) Acute on chronic kidney failure (Acute) Hypoxic respiratory failure (Acute) Urinary retention (Acute) DM II (diabetes mellitus, type II), controlled (Acute) Pneumothorax (Acute) HTN (hypertension) (Chronic) Bilateral pleural effusion (Acute) Contraindication to deep vein thrombosis (DVT) prophylaxis (Acute) Acute on chronic heart failure with preserved ejection fraction (HFpEF) (Chronic) Chest pain (Acute) DNR (do not resuscitate) (Acute) COLST 04/10/2024: DNR/DNI, + transfer, antibiotics, IV fluids, transfusions. See form for additional discussion Advanced care planning/counseling discussion (Acute) Palliative care encounter (Acute) Chronic anticoagulation (Acute) Heart failure with preserved ejection fraction (Acute) Anemia (Chronic) Multifactorial: CKD 4, GI bleed/peptic ulcer CKD (chronic kidney disease) (Chronic) Stage IV CHF exacerbation (Acute) Shortness of breath (Acute) Osteoarthritis of knees, bilateral (Acute) Heart failure (Chronic) Skin lesion of face (Acute) NSTEMI (non-ST elevated myocardial infarction) (Acute) Hyperkalemia (Acute) Memory change (Acute) Paralysis of left upper extremity (Acute) Third degree burn of finger of left hand excluding thumb (Acute) Burn of finger (Acute) Sick sinus syndrome (Chronic) pt. unsure of this medical hx Essential hypertension (Chronic) Hyperlipidemia (Chronic) DM2 (diabetes mellitus, type 2) (Chronic) Mild aortic stenosis (Chronic) Cardiac pacemaker (Chronic 08/17/17) Medtronic Lola XT DR MRI model # [id number] serial # [id number] (pulse generator) Ventricular electrodes: Medtronic CapsureFix Model # 5076-58 cm Serial # [id number] Atrial electrodes: Medtronic CapsureFix model # 5076-52 cm serial # [id number] Right rotator cuff tendinitis (Acute) Corticosteroid injection: 07/16/18 Persistent atrial fibrillation (Chronic) Onset mid May 2019 - ongoing as of 06/25/2019 - sinus restored Onset again January 2021 - ongoing as of 10/26/2021 DC cardioversion [facility] 10/2021 - on amiodarone; recurrent in February 2022 - amiodarone stopped Osteoarthritis of carpometacarpal joint of right thumb (Acute) Trochanteric bursitis, left hip (Acute) Steroid injection: 12/07/2020; 03/17/2020 Trochanteric bursitis, right hip (Acute) Steroid injection: 12/07/2020; 03/17/2020 Traumatic arthropathy, right shoulder (Acute) Most recent Depo-Medrol injection: 11/22/2021; 05/24/2022 Medical History Elevated troponin level not due to acute coronary syndrome Anemia Acute on chronic kidney failure Heart failure, chronic, with acute decompensation Pleural effusion 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 states he doesn't remember ever having any History of TIA (transient ischemic attack) and stroke Per pt. in 2003 had carotid artery surgery, after procedure pt. suffered a stroke, pt. states full forearm numbness and parts of left leg Surgical History History of thoracentesis (~04/2023) FH: carotid endarterectomy History of permanent cardiac pacemaker placement Family History Brother Family history of premature coronary heart disease Sister Family history of premature coronary heart disease Social History Smoking/Tobacco Use Status: Former Tobacco Use Quit Date: 04/09/84 Pack-years: 30 Second Hand Exposure: No Smoking risk assessment performed?: Yes Alcohol Intake: never Drug use: Never Substance use type: does not use Housing: house Current gender identity: male Do you feel safe at home: Yes (lives alone) Do you feel safe in your relationship?: Yes Time Spent with Patient Time Spent with Patient: 70-84 minutes4 Time was spent: preparing to see the patient(eg.review tests), obtaining and/or reviewing separately otained hiistory, ordering medications,tests, procedures, indepentently interpreting results, counseling the patient and care coordination
--- NOTE | 2024-09-07 12:28 | PDOC.HHF2F_ITS ---
Home Health Referral Home Health Orders Clinical synopsis of why skilled professionals are needed: frail elderly male at risk for failed discharge, lives independently. multiple co-morbidities with heart failure, kidney injury. Medical diagnosis necessitation home health referral: acute exacerbation of heart failure, acute on chronic kidney disease, urinary retention, diabetes mellitus type 2 Registered Nurse: Check all that apply Instruct on new or changed medication(s)/assess compliance: Ordered Assess for exacerbation of medical condition, instruct patient/caregivers on signs and symptoms to report for early detection: Ordered Physical Therapist: Check all that apply Increase strength & endurance for safe mobility at home: Ordered To design/establish home maintenance program: Ordered Fall reduction therapy program for patient with history of frequent falls: [employer] Home safety evaluation and teaching/gait training including stair management (if applicable): Ordered Occupational Therapist: Evaluate and treat for patient unable to perform ADL/IADL/self-care: Ordered Upper extremity strengthening, range and motion: Ordered Patient Financial Services Coordinator: Assist with community resources: Ordered Assist with intermission coordinator care planning: Ordered Home Bound Status Requires the aid of supportive device (check all that apply): Walker Describe why leaving home would require a considerable and taxing effort: Requires frequent rest periods Encounter Date and Reason: I certify that a FTF encounter for this patient was performed on September 07, 2024 and that such encounter was related to the primary reason the patient requires home health services. The encounter was conducted in the following manner: * By me as the certifying physician, COPING MACHINE ASSEMBLER, PA or * By an inpatient physician, COPING MACHINE ASSEMBLER or PA during an inpatient stay who communicated findings to me, Certification And Authentication I certify that I composed the above information based on my clinical judgment relating to this patient's medical condition and, if applicable, clinical findings communicated to me by the NPP or inpatient physician who performed the FTF encounter. Name of Provider that will be monitoring home health services: Nel Cabrera
--- NOTE | 2024-09-07 12:35 | PDOC.CMDIS ---
Date of service: 09/07/24 Time of Service: 12:35 LACE Index Scoring Tool Questions: Length of Stay (in days): 7 - 13 Was the patient admitted via the E.D.?: Yes Comorbidities: Diabetes w/o Complication, Congestive Heart Failure and Liver or Renal Disease E.D. Visits: 1 Answers: Total Score: 14 Risk of Readmission: High Risk Care Management Discharge Plan Reason for Hospitalization: CHF exacerbation, chest pain Discharge Plan: Anticipate Ilya will be discharged home with new home health services for RN, PT, OT and PUBLIC HOUSING MANAGER and declines SNF at this time. He will follow up with his community providers and plan of care and transport with family - Nigel. Patient/Family Education Needs: Review discharge instructions, activity, limitations and discharge plan of care. Discuss Ask Me Three. Services Needed at Discharge: Home Health Care Services SDOH Health Related Social Needs: No Data to Display
--- NOTE | 2024-09-07 12:39 | PGE_ITS ---
Date of Service Date of service: 09/07/24 Time of Service: 12:39 Assessment and Plan Assessment and plan (1) Pleural effusion: Assessment and plan: 89 yo man with chronic bilateral pleural effusions. He really isn't symptomatic at this point. We drained fluid off the left side 3 days ago and the repeat CXR today shows smaller effusions, but the right side is the better side now. In any event, I don't think he needs another thoracentesis. I discussed that with the primary team. I also discussed with the patient who stated: well, any fluid that is in there should be removed shouldn't it? I'm not sure he understands the overall picture of his condition and management of it. I gently explained that we don't drain the fluid just to drain it and that symptoms are the driving management strategy. Surgery signing off. Subjective Subjective Interval history since last seen: Patient has been ambulating in the halls. On room air. He denies shortness of breath or chest discomfort. Exam Narrative Exam Narrative: Gen: Interactive, no visible shortness of breath, room air. Talks effortlessly. Objective Last Vital Signs Temp 97.7 F 09/07/24 11:22 Pulse 73 09/07/24 11:22 Resp 18 09/07/24 11:22 BP 163/62 H 09/07/24 11:22 Pulse Ox 95 09/07/24 11:22 Time Spent with Patient Time Spent with Patient: <25 minutes Time was spent: preparing to see the patient(eg.review tests), obtaining and/or reviewing separately otained hiistory, ordering medications,tests, procedures, referring, communicating with other health career education teacher, indepentently interpreting results and counseling the patient
--- NOTE | 2024-09-16 18:21 | PGE_ITS ---
Date of Service Date of service: 09/06/24 Time of Service: 14:00 Assessment and Plan Assessment and plan (1) Pneumothorax: Status: Acute Assessment and plan: repeat cxr -seems resolved 09/03/2024 clinically stable -improved pain (2) Acute on chronic kidney failure: Status: Acute Assessment and plan: CKD stage IV at baseline progressing to GFR 12 to 15 s/p IV diuresis in the setting of point 3 and 4 Now considering HD and changed from previous Palliative notes Lasix was stopped with slow IV hydration caused hypoxia and respiratory distress with resolution when IVF stopped and IV lasix 40 mg IVP given X 1 on 09/04 or 2 nights prior As much as possible will continue to avoid nephrotoxic drugs, renal dose meds- [place] [facility] [place] Pleural effusion once establish most-likely not to respond to diuresis d/t negative alveolar pressure--> thoracentesis usually beneficial - IV lasix dose should be equivalent to 20 times the creatinine per dose and set to goal of negative fluid balance- even with worsening CKD - Risk of increased creatinine and worsening kidney function remains but as long as urine output goal is met w/o hyperkalemia, refractory fluid overload, uremia, encephalopathy as GFR drops -below 15---> no HD required. Surgical consultation - With Dr. Marshall completing thoracentesis for one liter with improvement of resp distress - -Considering thoracentesis of the other side over the week-end Continue to monitor I&O closely Will transition to daily torsemide 40 mg (3) Bilateral pleural effusion: Status: Acute Assessment and plan: As above As per discussion with Dr. Marshall-will repeat CT imaging to compare This might also be in the setting of progressing HFpEF (4) Acute on chronic heart failure with preserved ejection fraction (HFpEF): Status: Chronic Assessment and plan: IV lasix stopped but had a STAT dose on 09/04 night d/t hypoxia and respiratory distress Now on oral torsemide- read CKD point LVEF 50-55% similar to previous Ongoing Jardiance added this stay creatinine imrpoving follow BMP, CBC (5) Hypoxic respiratory failure: Status: Acute Assessment and plan: Now on RA In the setting pleural effusion / small left sided pneumothorax No PE per CTA surgery consulted : see notes O2 to maintain sat at 92-95% (6) Hyperlipidemia: Status: Chronic Assessment and plan: On statin (7) Persistent atrial fibrillation: Status: Chronic Assessment and plan: s/p watchman has a pacemaker Rate controlled. (8) HTN (hypertension): Status: Chronic Assessment and plan: Norvasc on hold in the setting of IV lasix Resume in AM routine monitoring (9) DM II (diabetes mellitus, type II), controlled: Status: Acute Assessment and plan: Hold home meds Ongoing Gluc AC and HS with SSI coverage Continue initiated in setting of HFpEF Jardiance for CHF (10) Urinary retention: Status: Acute Assessment and plan: Already on flomax - increased D/c Young inserted this stay - voiding trial home dose of flomax increased to 0.8 mg Most likely d/t opioids to treat chest pain (11) Hypomagnesemia: Status: Resolved Assessment and plan: Resolved - (12) History of CVA (cerebrovascular accident): Status: Acute Assessment and plan: On home dose Plavix and [place] [facility] (13) Contraindication to deep vein thrombosis (DVT) prophylaxis: Status: Acute Assessment and plan: Recent GIB with PRBC transfusion and instrumentation for which Watchman was initially completed and anticoagulation for atrial -fibrillation discontinued Continue TEDS (14) Hyponatremia: Status: Acute Assessment and plan: Na 130 Fluid restriction (15) Discharge planning issues: Status: Acute Assessment and plan: patient elected for SNF and getting stronger s/p meeting wtih sons: Anjum Zayas Calista/ daughter in law - Nat and grand daughter -Zelda Was looking toward comfort this AM but felt better s/p thoracentesis and wants to get a few more months if possible Would want HD - nephrology referral outpatient needed PT consult pending Seen by palliative care: please read notes CM to send referral on Sunday s/p PT eval Discussed with Dr. Graves Subjective Subjective Interval history since last seen: no new complaints Exam Narrative Exam Narrative: Elderly gentleman of stated age no acute distress Const General: no acute distress Orientation: alert HENMT Head: normal to inspection Mouth: moist mucous membranes Eyes General: appearance normal, both eyes and all related structures Neck Neck: normal visual inspection Resp Effort & Inspection: normal respiratory effort and able to speak in complete sentences Auscultation: clear to auscultation bilaterally Cardio Rate: regular rate Skin General skin exam: no rashes or lesions noted Neuro General: patient alert and patient oriented x3 Extrem General: edema Psych Mental Status: mental status grossly normal Speech and Movement: speech and movement normal Mood: congruent mood Affect: normal affect Objective Last Vital Signs Temp 36.5 C 09/07/24 11:22 Pulse 73 09/07/24 11:22 Resp 18 09/07/24 11:22 BP 163/62 H 09/07/24 11:22 Pulse Ox 95 09/07/24 11:22 Time Spent with Patient Time Spent with Patient: 25-34 minutes Time was spent: preparing to see the patient(eg.review tests), obtaining and/or reviewing separately otained hiistory, ordering medications,tests, procedures, referring, communicating with other health child care, indepentently interpreting results, counseling the patient and care coordination
== END 2024-09-07 14:35 | disposition home health service (06) | DRG 291 ==
LOC: ER 15:21 → MS 16:25
PROVIDERS: Nurse Practitioner Acute Care; Admitting Provider Family Medicine; Emergency Provider Emergency Medicine; PCP Family Medicine; Responsible Provider Nurse Practitioner Acute Care; Visit Provider Family Medicine
DX: I50.33 Acute on chronic diastolic (congestive) heart failure (principal); J96.01 Acute respiratory failure with hypoxia; N18.4 Chronic kidney disease, stage 4 (severe); I48.19 Other persistent atrial fibrillation; I13.0 Hypertensive heart and chronic kidney disease with heart failure and stage 1 through stage 4 chronic kidney disease, or unspecified chronic kidney disease; N17.9 Acute kidney failure, unspecified; E87.1 Hypo-osmolality and hyponatremia; J91.8 Pleural effusion in other conditions classified elsewhere; J93.83 Other pneumothorax; E78.2 Mixed hyperlipidemia; E11.22 Type 2 diabetes mellitus with diabetic chronic kidney disease; R33.9 Retention of urine, unspecified; E83.42 Hypomagnesemia; Z86.73 Personal history of transient ischemic attack (TIA), and cerebral infarction without residual deficits; Z66 Do not resuscitate; D63.1 Anemia in chronic kidney disease; M17.0 Bilateral primary osteoarthritis of knee; I25.2 Old myocardial infarction; E78.5 Hyperlipidemia, unspecified; I49.5 Sick sinus syndrome; I35.0 Nonrheumatic aortic (valve) stenosis; Z95.0 Presence of cardiac pacemaker; Z86.711 Personal history of pulmonary embolism; Z86.718 Personal history of other venous thrombosis and embolism; Z79.84 Long term (current) use of oral hypoglycemic drugs; R33.0 Drug induced retention of urine; T40.2X5A Adverse effect of other opioids, initial encounter; Z95.818 Presence of other cardiac implants and grafts
CPT/HCPCS: 32555; 00123; 36415; 71250; 71275; 74175; 80048; 80053; 84145; 85027; 93005; 93306; 94640; 96365; 96375; 97161; 97530; 99222; 99231; 99285; 71045; 71046; 83735; 83880; 84484; 85025; 85610; 85730; 93010; 94664; 94760; 99232; 99233; 99239; J1205; J1815; J1938; J2270; J3475; J3490; J7613

== ENCOUNTER 2025-01-22 06:58 | Inpatient (IN) | payer MEDICARE, SELFPAY ==
[2025-01-22] VITALS (37 sets, daily range): BP systolic 143–189; BP diastolic 55–92; PULSE 60–83; RESP 16–30; TEMP 36.2–36.9; O2SAT 92–99
--- NOTE | 2025-01-22 06:45 | RT.EKG_ITS ---
APPROVED REPORT Exam: Resting ECG Reason for Exam: sob Patient Location: E HR:77 bpm ECG Measurements Heart Rate 77 AXIS MI 208 P 0 QRSd 178 QRS -39 QT 434 T 117 QTc 491 Conclusion Ventricular-paced rhythm No Occlusion GA
--- NOTE | 2025-01-22 07:17 | W.ED.GENAD ---
Discharge Plan Disposition Patient Disposition: Admit to [facility] Discharge Details Clinical Impression: Acute exacerbation of CHF (congestive heart failure), Hypomagnesemia, Normocytic anemia, Myocardial injury, Bilateral pleural effusion Admit Date/Time: 01/22/25 09:32 Admit Provider: Lele Graves Attending Provider: Lele Graves Primary Care Provider: Nel Cabrera ED Provider: Lele Cook Discharge Data Discharge Date/Time-TO BE ENTERED AT DEPARTURE: 01/22/25 10:15 HPI General Date/Time Provider Initiated Documentation: 01/22/25 07:17. HPI Narrative: MDM This is an elderly appearing afebrile and not tachycardic 89-year-old male with history of heart failure now with lower extremity pitting edema orthopnea and bilateral B-lines concerning for the possibility of acute heart failure for which patient will receive sublingual nitroglycerin pending chemistries prior to anticipated diuresis with possibility of hospitalization. Patient is not having chest pain and is not tachycardic nor hypoxic so my suspicion for PE is low so I did not send a D-dimer. Will obtain troponin testing to assess for myocardial injury. Patient does have history of albuterol use however he is not wheezy and carries no history of COPD nor asthma. Furthermore he has not smoked in the past 30+ years so my suspicion was low for acute exacerbation of reactive airway disease so we will defer nebulized beta agonists at this point in time. No pain out of proportion to suggest necrotizing soft tissue infection. No black nor bloody stools to suggest symptomatic anemia from GI bleed so I did not order type and screen. No fevers nor cough nor focal lung abnormalities to suggest increased risk for pneumonia. I considered sepsis however patient's vitals are not suggestive so I did not initiate broad-spectrum antibiotics nor draw blood cultures. Patient does not have symptomatic crashing acute pulmonary edema so I did not feel he required emergent rescue BiPAP. He has had pleural effusions in the past and left-sided pneumothorax earlier this year. He does have bilateral crackles but his breath sounds are equal and he had no trauma so my suspicion is low for pneumothorax. He does have a systolic ejection murmur but does not carry history of critical aortic stenosis. On bedside ultrasound his ejection fraction appears moderate similar to prior dated earlier this year. Patient confirms DNI and DNR. Will obtain magnesium and basic comprehensive panel prior to diuresis. Will assess for hepatorenal syndrome and cardiorenal syndrome. 8:06 AM Myocardial injury improved compared to prior. Mild hypomagnesemia for which patient will receive oral repletion. Elevated proBNP slightly greater than prior from the spring. Chest x-ray showing left pleural effusion. Comprehensive metabolic panel with no CRUZ. Mildly elevated alkaline phosphatase proved compared to prior. No acute electrolyte abnormalities. Potassium lower limit of normal so we will provide oral repletion in setting of need for IV diuresis. Venous blood gas lacks acidemia and hypercarbia. CBC with mild normocytic anemia similar to prior. No leukocytosis nor thrombocytopenia. Will provide 40 mg IV furosemide in the setting of acute exacerbation of heart failure with reduced ejection fraction. Patient was found to have bilateral stable small to moderate-sized pleural effusion. He is not in respiratory distress to suggest benefit from emergent thoracentesis. Will provide full dose aspirin. 8:48 AM Reassuring repeat troponin with no significant delta. Will reach out to hospitalist plan for hospitalization. 10:07 AM I was in touch with Dr. Graves from the hospitalist team who graciously agreed to accept the patient for hospitalization. I updated patient and his son on plan of care. Diagnostic interpretations performed by me: Per my independent interpretation chest x-ray shows: Per my independent interpretation EKG shows: Ventricular paced rhythm at a rate of 77. Left axis deviation no signs of LVH. Not meeting Sgarbossa nor modified Edwards criteria for ischemia. Appears similar to prior dated earlier this year. No acute injury pattern. HPI This is a patient with a history of congestive heart failure presenting with shortness of breath. The patient has been experiencing shortness of breath for an extended period, with a previous episode occurring in the spring. He reports that steam from a shower triggered his current symptoms last night, making it difficult for him to breathe. He experiences difficulty breathing when lying flat, necessitating him to sleep in a recliner. He reports no unintentional weight gain or leg swelling. He has no history of asthma or COPD. He smokes cigarettes but quit in the 1980s. He reports no history of blood clots in his legs or lungs. He also reports no chest pain, nausea, vomiting, fevers, or black or bloody stools. He does have a dry cough, which is alleviated by using an inhaler. He uses an inhaler as needed. The patient was previously on blood thinners, but these were discontinued following the placement of a Watchman device due to a bleeding ulcer. The ulcer caused significant blood loss, leading to weakness and difficulty walking. PAST SURGICAL HISTORY: Placement of Watchman device Bleeding ulcer treatment Exam General: Elderly-appearing in no acute distress speaking in complete sentences. Head: Normocephalic, atraumatic. Eye: Extraocular eye movements intact. No conjunctival injection. No scleral icterus. Ear, nose, mouth, throat: Grossly normal inspection. Normal voice, handling secretions normally. Neck: Trachea midline. Cardiovascular: Well-perfused distal extremities. Regular rate and rhythm. Systolic ejection murmur. Respiratory: Nonlabored respiration. Bibasilar crackles. No respiratory distress. No stridor. Gastrointestinal: Nondistended abdomen. Musculoskeletal: Bilateral 1+ pitting lower extremity edema left greater than right. Moving all 4 extremities spontaneously. No calf tenderness bilaterally. Skin: Normal for age and race, grossly normal temperature and turgor. No acute rash. Neurologic: Alert and appropriate, no apparent acute deficits. GCS 15. Related Data Home Medications ?Medication ?Instructions ?Recorded ?Confirmed atorvastatin 80 mg tablet 80 mg PO DAILY #90 tab-caps 09/28/13 01/22/25 phenytoin sodium extended 100 mg 100 mg PO BID 04/15/20 01/22/25 capsule (Dilantin Extended) albuterol sulfate 90 mcg/actuation 2 inh inhalation 6XD PRN 10/24/23 01/22/25 aerosol inhaler (Ventolin HFA) acetaminophen 500 mg capsule 1,000 mg (2 x 500 mg) PO Q8H PRN 01/29/24 01/22/25 PRN #60 caps pantoprazole 40 mg tablet,delayed 40 mg PO DAILY #60 tabs 01/29/24 01/22/25 release (Protonix) sucralfate 1 gram tablet 1 g PO AC & HS #120 tabs 01/29/24 01/22/25 ferrous sulfate 325 mg (65 mg 325 mg PO DAILY 03/17/24 01/22/25 iron) tablet (FeroSul) furosemide 40 mg tablet 40 mg PO BID 03/25/24 01/22/25 tamsulosin 0.4 mg capsule 0.4 mg PO DAILY 03/25/24 01/22/25 amlodipine 5 mg tablet 5 mg PO DAILY 08/31/24 01/22/25 clopidogrel 75 mg tablet 75 mg PO DAILY 08/31/24 01/22/25 melatonin 3 mg capsule 6 mg PO HS PRN 08/31/24 01/22/25 mirtazapine 15 mg tablet 15 mg PO HS 08/31/24 01/22/25 multivitamin with folic acid 400 1 tab PO DAILY 08/31/24 01/22/25 mcg tablet (Tab-A-Chris) sitagliptin phosphate 25 mg tablet 25 mg PO DAILY 08/31/24 01/22/25 (Januvia) empagliflozin 10 mg tablet 10 mg PO DAILY #30 tabs 01/22/25 (Jardiance) Previous Rx's ?Medication ?Instructions ?Recorded acetaminophen 500 mg capsule 1,000 mg (2 x 500 mg) PO Q8H PRN 01/29/24 PRN #60 caps pantoprazole 40 mg tablet,delayed 40 mg PO DAILY #60 tabs 01/29/24 release (Protonix) sucralfate 1 gram tablet 1 g PO AC & HS #120 tabs 01/29/24 empagliflozin 10 mg tablet 10 mg PO DAILY #30 tabs 01/22/25 (Jardiance) Allergies Allergy/AdvReac Type Severity Reaction Status Date / Time metformin Allergy Unknown Diarrhea Verified 01/22/25 07:07 ezetimibe (From Vytorin) AdvReac FAILED Verified 01/22/25 07:07 lisinopril AdvReac Hyperkalemi Verified 01/22/25 07:07 a simvastatin (From Vytorin) AdvReac FAILED Verified 01/22/25 07:07 General Stated Complaint: SOB DEENA: 2 Course Vital Signs Vital signs: Vital Signs Temperature 36.4 C L 01/22/25 06:59 Pulse 78 01/22/25 06:59 Respiratory Rate 18 01/22/25 06:59 Blood Pressure 163/62 H 01/22/25 06:59 Pulse Oximetry 99 01/22/25 06:59 Temperature 36.4 C L 01/22/25 07:12 Temperature Source Oral 01/22/25 07:12 Pulse 79 01/22/25 07:12 Respiratory Rate 24 01/22/25 07:12 Blood Pressure 163/62 H 01/22/25 07:12 Pulse Oximetry 96 01/22/25 07:12 Oxygen Delivery Method Room Air 01/22/25 07:12 Oxygen Flow Rate 0 01/22/25 07:12 Pain Level 10 01/22/25 07:12 Comment hard to breath 01/22/25 07:12 PFSH All Active Problems (Updated 01/22/25 @ 11:49 by Lele Graves) DVT prophylaxis (Acute) Elevated AST (SGOT) (Acute) Bilateral pleural effusion (Acute) Myocardial injury (Acute) Normocytic anemia (Acute) Hypomagnesemia (Acute) Acute exacerbation of CHF (congestive heart failure) (Acute) Presence of left atrial appendage closure device (Acute) 07/03/24 at [facility] Discharge planning issues (Acute) Hyponatremia (Acute) History of CVA (cerebrovascular accident) (Acute) Acute on chronic kidney failure (Acute) Hypoxic respiratory failure (Acute) Urinary retention (Acute) DM II (diabetes mellitus, type II), controlled (Acute) Pneumothorax (Acute) HTN (hypertension) (Chronic) Bilateral pleural effusion (Acute) Contraindication to deep vein thrombosis (DVT) prophylaxis (Acute) Acute on chronic heart failure with preserved ejection fraction (HFpEF) (Chronic) DNR (do not resuscitate) (Acute) COLST 04/10/2024: DNR/DNI, + transfer, antibiotics, IV fluids, transfusions. See form for additional discussion Advanced care planning/counseling discussion (Acute) Palliative care encounter (Acute) Chronic anticoagulation (Acute) Atrial Clip placed at [facility] June 2024, off DOAC, continues on Plavix. Heart failure with preserved ejection fraction (Acute) Anemia (Chronic) Multifactorial: CKD 4, GI bleed/peptic ulcer CKD (chronic kidney disease) (Chronic) Stage IV CHF exacerbation (Acute) Shortness of breath (Acute) Osteoarthritis of knees, bilateral (Acute) Skin lesion of face (Acute) NSTEMI (non-ST elevated myocardial infarction) (Acute) Hyperkalemia (Acute) Memory change (Acute) Paralysis of left upper extremity (Acute) Third degree burn of finger of left hand excluding thumb (Acute) Burn of finger (Acute) Sick sinus syndrome (Chronic) pt. unsure of this medical hx Essential hypertension (Chronic) Hyperlipidemia (Chronic) DM2 (diabetes mellitus, type 2) (Chronic) Mild aortic stenosis (Chronic) Cardiac pacemaker (Chronic 08/17/17) Lumiant Lola XT DR MRI model # W1DR01 serial # [id number] (pulse generator) Ventricular electrodes: Medtronic CapsureFix Model # 5076-58 cm Serial # [id number] Atrial electrodes: Medtronic CapsureFix model # 5076-52 cm serial # [id number] Right rotator cuff tendinitis (Acute) Corticosteroid injection: 07/16/18 Persistent atrial fibrillation (Chronic) Onset mid May 2019 - ongoing as of 06/25/2019 - sinus restored Onset again January 2021 - ongoing as of 10/26/2021 DC cardioversion [facility] 10/2021 - on amiodarone; recurrent in February 2022 - amiodarone stopped Atrial Clip placed at [facility] June 2024, off DOAC, continues on Plavix. 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 Pain in right wrist Pain, joint, shoulder, right Atherosclerosis of coronary artery without angina pectoris History of pulmonary embolus (PE) Burn Contusion of hand Dyspnea on exertion Abnormal weight loss Unintentional weight loss Seizure Low back pain Hip pain Skin lesion Senile hyperkeratosis Chronic kidney disease, stage 3 Atrial fibrillation Hearing loss Cataract 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 in 2003 had carotid artery surgery, after procedure pt. suffered a stroke, pt. states full forearm numbness and parts of left leg Paroxysmal atrial fibrillation Surgical History S/P carotid endarterectomy History of thoracentesis (~04/2023) History of permanent cardiac pacemaker placement Family History Brother Family history of premature coronary heart disease Sister Family history of premature coronary heart disease Social History (Updated 01/22/25 @ 11:44 by Lele Graves) Smoking/Tobacco Use Status: Former Tobacco Use Quit Date: 04/09/84 Pack-years: 30 Second Hand Exposure: No Smoking risk assessment performed?: Yes Alcohol Intake: never Drug use: Never Substance use type: does not use Housing: house Current gender identity: male Do you feel safe at home: Yes (lives alone) Do you feel safe in your relationship?: Yes Additional Social history: Lives alone in [place] POCUS Exam (ED) Limited Cardiac Exam DATE OF EXAM: 01/22/25 TIME OF EXAM: 07:44 PROVIDER THAT PERFORMED THE STUDY: Lele Cook IS THIS A REPEAT EXAM DURING THIS ENCOUNTER: no REASON FOR EXAM: Dyspnea VISUALIZED STRUCTURES: Four Chambers, Left ventricle and LVOT VIEW OBTAINED: Apical 4-Chamber, Parasternal long-axis and Subxiphoid PERTINENT FINDINGS/IMPRESSION: No pericardial effusion and No RV dilation DIFFERENTIAL DIAGNOSES: Aortic outflow track less than 4 cm, moderate squeeze, RV less than LV, no significant pericardial effusion. B-lines bilaterally Exam complete
--- NOTE | 2025-01-22 07:30 | DI.RAD_ITS ---
Exam(s) XR PORTABLE CHEST AP EXAM: XR PORTABLE CHEST AP CLINICAL HISTORY: Chest pain TECHNIQUE: 2D digital imaging was performed. COMPARISON: CR XR CHEST 2V PA LATERAL from 09/03/2024 CR,XR XR PORTABLE CHEST AP from 09/07/2024 FINDINGS: LUNGS: Stable size of bilateral pleural effusions, moderate left and small right. There are increased interstitial markings greater at the lung bases which may indicate CHF. No definite focal area of consolidation. HEART: Pacemaker again noted. Cardiac silhouette partially obscured. The pulmonary arteries are mildly prominent. AORTA: Normal diameter. Calcification visible at arch. BONES: Unremarkable for age. Soft tissues: Unremarkable. IMPRESSION: Stable size small to moderate-sized bilateral pleural effusions. Findings suggestive of CHF. DATA REPOSITORY: RADIATION DOSE DELIVERED:
[2025-01-22] MEDS: nitroGLYcerin 0.4 MG TAB SL ×3 (07:38→08:05)
[2025-01-22 07:41] LABS: Abs Immature Grans 0.03 10^3/uL (0.0-0.06); HCT 33.1 % (40.0-50.0); HGB 10.7 g/dL (13.5-17.5); Immature Grans % 0.4 %; MCH 29.1 pg (27.0-33.0); MCHC 32.3 % (32.0-36.0); MCV 90 fL (80-95); MPV 12.1 fL (8.0-11.0); Platelet Count 187 10^3/uL (130-400); RBC 3.68 10^6/uL (4.36-5.78); RDW 13.1 % (11.8-14.1); RDW-SD 43.5 fL; WBC 7.71 10^3/uL (4.4-10.8)
[2025-01-22 07:52] LABS: BE (Venous) 1 mmol/L (-2-3); HCO3 (Venous) 26 mmol/L (23-28); O2 Sat (Venous) 65 %; TCO2 (Venous) 25 mmol/L (24-29); pCO2 (Venous) 44 mmHg (41-51); pO2 (Venous) 35 mmHg
[2025-01-22 08:03] LABS: ALT 17 U/L (16-63); AST 48 U/L (15-37); Albumin 3.6 g/dL (3.4-5.0); Alkaline Phosphatase 224 U/L (46-116); Anion Gap 10.9 mmol/L (3-11); BUN 31 mg/dL (7-18); Bilirubin, Total 0.5 mg/dL (0.2-1.0); CO2 27.1 mmol/L (21.0-32.0); Calcium 8.8 mg/dL (8.5-10.1); Chloride 105 mmol/L (98-107); Estimated GFR 41.19 (mL/min/1.73m2); Glucose 167 mg/dL (74-106); Magnesium 1.7 mg/dL (1.8-2.4); NT-proBNP 5807 pg/mL (<300); Potassium 3.8 mmol/L (3.5-5.1); Sodium 143 mmol/L (136-145); Total Protein 7.1 g/dL (6.4-8.2)
[2025-01-22 08:04] LABS: Troponin I 109 ng/L (<or=76)
[2025-01-22] MEDS: Furosemide 40 MG/4 ML VIAL IVP ×2 (08:16→16:03)
[2025-01-22] MEDS: Magnesium Oxide 400 MG TAB 800 MG PO (08:16)
[2025-01-22] MEDS: Potassium Chloride 20 MEQ TABCR 40 MEQ PO (08:16)
[2025-01-22 08:45] LABS: Troponin I 103 ng/L (<or=76)
[2025-01-22] MEDS: Aspirin 81 MG CHEW 324 MG CH (08:51)
--- NOTE | 2025-01-22 09:19 | W.PM.HP.N ---
Date of service: 01/22/25 Time of Service: 09:10 Assessment and Plan Assessment and plan (1) Acute exacerbation of CHF (congestive heart failure): Status: Acute Assessment and plan: Exam findings, history, CXR, and elevated BNaP all c/w CHF exacerbation. He has a history of HFpEF, but most recent echo 08/2024 showed LVEF of 45-50%. This an ongoing low level troponemia make me concerned about further reduction of cardiac function. Get repeat ECHO He he has not been on GDMT. Will start with empagliflozin and low dose ARB. Continue furosemide IV, 40mg BID, monitor urine output. (2) Essential hypertension: Status: Chronic Assessment and plan: BP a little high. He is on amlodipine but not GDMT, will stop amlodipine and exchange for meds that are better for his comorbidities, starting with ARB, possibly spironolactone if Cr/K+ tolerate. Go slow as amlodipine will leave system slowly over weeks. (3) DM II (diabetes mellitus, type II), controlled: Status: Acute Assessment and plan: Last A1c 6.5% in October 2024 on just low dose sitagliptin. He doesn't tolerate metformin. Would benefit from SGLT2i and GLP-1, but with CKD SGLT2i won't help sugars much. Continue sitaglipitin, adding empagliflozin, low dose ISS. (4) CKD (chronic kidney disease): Status: Chronic Assessment and plan: Baseline CKD 3b-4. His Cr is better today than recent baseline. He is not on BRIDGETTE agent, has h/o hyperkalemia but potassium low now, will start low dose losartan and empagliflozin and monitor renal function. (5) Normocytic anemia: Status: Acute Assessment and plan: A/w CKD3-4, though he also has a h/o GI bleeding. Stable from previous. On iron, will get levels. (6) Atrial fibrillation: Assessment and plan: S/p watchman, off anticoagulation due to h/o GI bleed. (7) History of CVA (cerebrovascular accident): Status: Acute Assessment and plan: s/p CEA. On clopigogrel and high intensity statin, continue. (8) Seizure as late effect of cerebrovascular accident (CVA): Assessment and plan: On phenytoin, no recent activity. Dosing is not high, but get levels. (9) Elevated AST (SGOT): Status: Acute Assessment and plan: Mild, may be related to phenytoin or statin or possible advanced fibrosis. No h/o cirrhosis. Follow, should consider outpatient work up including fibrosis assessment. (10) DVT prophylaxis: Status: Acute Assessment and plan: high risk with h/o DVT/PE. Enoxaparin. History of Present Illness History of Present Illness Chief Complaint: short of breath Narrative: 89 years old male patient with a past medical history of HFmrEF with last LEVF 45-50% 08/2024, CAD, CKD stage 3b with chronic anemia, A-fib s/p Watchman, s/p pacemaker, h/o PE on chronic pleural effusions with h/o pneumothorax in September 2024, type 2 DM controlled on oral medication, and seizure disorder and left hemiparesis s/p CVA on phetytoin who presents with increased shortness of breath over the past 24 hours. He states he first noted it yesterday evening while taking a steamy shower. He states he wasn't able to sleep last night with SOB, worse with lying flat. He has also noted increased leg edema over the past 2 days. He has not had chest pain or pressure. He is not dizzy. He hasn't had cough or URI symptoms. He denies any change in diet or known salt load, though he did state he had home-canned tomato soup yesterday. His urination has been normal. He hasn't weighed himself. In the ED he was given 40mg of furosemide, which has increased urine output. Review of Systems All systems reviewed & are unremarkable except as noted in HPI and below Neurologic Comments: no recent seizures PFSH All Active Problems (Updated 01/22/25 @ 11:49 by Lele Graves) DVT prophylaxis (Acute) Elevated AST (SGOT) (Acute) Bilateral pleural effusion (Acute) Myocardial injury (Acute) Normocytic anemia (Acute) Hypomagnesemia (Acute) Acute exacerbation of CHF (congestive heart failure) (Acute) Presence of left atrial appendage closure device (Acute) 07[place]03/24 [place] [facility] [place] Discharge planning issues (Acute) Hyponatremia (Acute) History of CVA (cerebrovascular accident) (Acute) Hypoxic respiratory failure (Acute) Urinary retention (Acute) DM II (diabetes mellitus, type II), controlled (Acute) Pneumothorax (Acute) HTN (hypertension) (Chronic) Bilateral pleural effusion (Acute) Contraindication to deep vein thrombosis (DVT) prophylaxis (Acute) Acute on chronic heart failure with preserved ejection fraction (HFpEF) (Chronic) DNR (do not resuscitate) (Acute) COLST 04/10/2024: DNR/DNI, + transfer, antibiotics, IV fluids, transfusions. See form for additional discussion Advanced care planning/counseling discussion (Acute) Palliative care encounter (Acute) Chronic anticoagulation (Acute) Atrial Clip placed at [facility] [place], off DOAC, continues on Plavix. Heart failure with preserved ejection fraction (Acute) Anemia (Chronic) Multifactorial: CKD 4, GI bleed/peptic ulcer CKD (chronic kidney disease) (Chronic) Stage IV CHF exacerbation (Acute) Shortness of breath (Acute) Osteoarthritis of knees, bilateral (Acute) Skin lesion of face (Acute) NSTEMI (non-ST elevated myocardial infarction) (Acute) Acute on chronic kidney failure (Acute) Hyperkalemia (Acute) Memory change (Acute) Paralysis of left upper extremity (Acute) Third degree burn of finger of left hand excluding thumb (Acute) Burn of finger (Acute) Traumatic arthropathy, right shoulder (Acute) Most recent Depo-Medrol injection: 11/22/2021; 05/24/2022 Trochanteric bursitis, right hip (Acute) Steroid injection: 12/07/2020; 03/17/2020 Trochanteric bursitis, left hip (Acute) Steroid injection: 12/07/2020; 03/17/2020 Osteoarthritis of carpometacarpal joint of right thumb (Acute) Persistent atrial fibrillation (Chronic) Onset mid May 2019 - ongoing as of 06/25/2019 - sinus restored Onset again January 2021 - ongoing as of 10/26/2021 DC cardioversion [facility] 10/2021 - on amiodarone; recurrent in February 2022 - amiodarone stopped Atrial Clip [place] [facility] [place], off DOAC, continues on Plavix. Right rotator cuff tendinitis (Acute) Corticosteroid injection: 07/16/18 Cardiac pacemaker (Chronic 08/17/17) [employer] [place] XT DR MRI model # W1DR01 serial # [id number] (pulse generator) Ventricular electrodes: [employer]onic CapsureFix Model # 5076-58 cm Serial # [id number] Atrial electrodes: [employer]onic CapsureFix model # 5076-52 cm serial # [id number] Mild aortic stenosis (Chronic) DM2 (diabetes mellitus, type 2) (Chronic) Hyperlipidemia (Chronic) Essential hypertension (Chronic) Sick sinus syndrome (Chronic) pt. 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 Pain in right wrist Pain, joint, shoulder, right Atherosclerosis of coronary artery without angina pectoris History of pulmonary embolus (PE) Burn Contusion of hand Dyspnea on exertion Abnormal weight loss Unintentional weight loss Seizure Low back pain Hip pain Skin lesion Senile hyperkeratosis Chronic kidney disease, stage 3 Atrial fibrillation Hearing loss Cataract 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 in 2003 had carotid artery surgery, after procedure pt. suffered a stroke, pt. states full forearm numbness and parts of left leg Paroxysmal atrial fibrillation Surgical History S/P carotid endarterectomy History of thoracentesis (~04/2023) History of permanent cardiac pacemaker placement Family History Brother Family history of premature coronary heart disease Sister Family history of premature coronary heart disease Social History (Updated 01/22/25 @ 11:44 by Lele Graves) Smoking/Tobacco Use Status: Former Tobacco Use Quit Date: 04/09/84 Pack-years: 30 Second Hand Exposure: No Smoking risk assessment performed?: Yes Alcohol Intake: never Drug use: Never Substance use type: does not use Housing: house Current gender identity: male Do you feel safe at home: Yes (lives alone) Do you feel safe in your relationship?: Yes Additional Social history: Lives alone in [facility] Allergies and Home Medications Allergies Allergy/AdvReac Type Severity Reaction Status Date / Time metformin Allergy Unknown Diarrhea Verified 01/22/25 07:07 ezetimibe (From Vytorin) AdvReac FAILED Verified 01/22/25 07:07 lisinopril AdvReac Hyperkalemi Verified 01/22/25 07:07 a simvastatin (From Vytorin) AdvReac FAILED Verified 01/22/25 07:07 Home Medications ?Medication ?Instructions ?Recorded ?Confirmed ?Type atorvastatin 80 mg tablet 80 mg PO DAILY #90 tab-caps 09/28/13 01/22/25 History phenytoin sodium extended 100 mg 100 mg PO BID 04/15/20 01/22/25 History capsule (Dilantin Extended) albuterol sulfate 90 mcg/actuation 2 inh inhalation 6XD PRN 10/24/23 01/22/25 History aerosol inhaler (Ventolin HFA) acetaminophen 500 mg capsule 1,000 mg (2 x 500 mg) PO Q8H PRN 01/29/24 01/22/25 Rx PRN #60 caps pantoprazole 40 mg tablet,delayed 40 mg PO DAILY #60 tabs 01/29/24 01/22/25 Rx release (Protonix) sucralfate 1 gram tablet 1 g PO AC & HS #120 tabs 01/29/24 01/22/25 Rx ferrous sulfate 325 mg (65 mg 325 mg PO DAILY 03/17/24 01/22/25 History iron) tablet (FeroSul) furosemide 40 mg tablet 40 mg PO BID 03/25/24 01/22/25 History tamsulosin 0.4 mg capsule 0.4 mg PO DAILY 03/25/24 01/22/25 History amlodipine 5 mg tablet 5 mg PO DAILY 08/31/24 01/22/25 History clopidogrel 75 mg tablet 75 mg PO DAILY 08/31/24 01/22/25 History melatonin 3 mg capsule 6 mg PO HS PRN 08/31/24 01/22/25 History mirtazapine 15 mg tablet 15 mg PO HS 08/31/24 01/22/25 History multivitamin with folic acid 400 1 tab PO DAILY 08/31/24 01/22/25 History mcg tablet (Tab-A-Chris) sitagliptin phosphate 25 mg tablet 25 mg PO DAILY 08/31/24 01/22/25 History (Januvia) empagliflozin 10 mg tablet 10 mg PO DAILY #30 tabs 01/22/25 Rx (Jardiance) Exam Narrative Exam Narrative: GEN: Alert and oriented x 4, pleasant and cooperative, gives linear history. No acute distress at rest. HEENT: Head atraumatic. Conjunctiva clear, no icterus. PEERL, EOMI. no rhinorrhea. MMM, OP benign. Neck is supple with no masses or lymphadenopathy, trachea midline LUNGS: Deminished in bases bilaterally with rales on right base, normal effort at rest. CV: irregularly irregular with no murmurs, gallops, or rubs. JVP up to about 12cm ABD: active bowel sounds, soft, nontender and nondistended. No masses. EXT: no cyanosis, clubbing. 1-2+ mikie pitting edema to knees MSK: No joint redness or swelling NEURO: CN 2-12 grossly intact. Left hemiparesis with stiff left arm. Normal speech and coordination. No tremor SKIN: No rashes or open wounds. PSYCH: normal mood and affect Results Imaging Chest x-ray: report reviewed and image reviewed EKG: report reviewed and image reviewed Labs 01/22/25 07:10 01/22/25 07:10 Labs: Laboratory Results - last 24 hr 01/22/25 01/22/25 01/22/25 07:10 07:47 08:07 WBC 7.71 RBC 3.68 L Hgb 10.7 L Hct 33.1 L MCV 90 MCH 29.1 MCHC 32.3 RDW 13.1 Plt Count 187 MPV 12.1 H Immature Gran % 0.4 Neutrophils % 74.7 Lymphocytes % 17.1 Monocytes % 5.3 Eosinophils % 1.7 Basophils % 0.8 Nucleated RBC % 0.0 Absolute Neutrophils 5.76 Absolute Lymphocytes 1.32 Absolute Monocytes 0.41 Absolute Eosinophils 0.13 Absolute Basophils 0.06 VBG pH 7.39 VBG pCO2 44 VBG pO2 35 VBG HCO3 26 VBG Total CO2 25 VBG O2 Saturation 65 VBG Base Excess 1 Sodium 143 Potassium 3.8 Chloride 105 Carbon Dioxide 27.1 Anion Gap 10.9 BUN 31 H Creatinine 1.6 H Est GFR (CKD-EPI 2020) 41.19 Glucose 167 H Calcium 8.8 Magnesium 1.7 L Total Bilirubin 0.5 AST 48 H ALT 17 Alkaline Phosphatase 224 H Troponin I 109 H* 103 H* NT-Pro-B Natriuret Pep 5807 H Total Protein 7.1 Albumin 3.6 Last Vital Signs Temp 36.4 C L 01/22/25 07:12 Pulse 71 01/22/25 08:50 Resp 23 10/16/25 08:50 BP 146/60 H 01/22/25 08:46 Pulse Ox 92 01/22/25 08:50 Time Spent Time spent with Patient: >75 minutes Time was spent: preparing to see the patient(eg.review tests), obtaining and/or reviewing separately otained hiistory, ordering medications,tests, procedures, referring, communicating with other health respiratory care instructor, indepentently interpreting results, counseling the patient and care coordination
--- NOTE | 2025-01-22 10:05 | DI.US_ITS ---
APPROVED REPORT EXAM: Comprehensive 2D, Doppler, and color-flow Echocardiogram Patient Location: In-Patient Room/Bed: [address] [employer]: Rosanna Dominguez RDCS (AE) Indications: New HRmrEF, Elevated troponin, worse CHF Other Information Study Quality: Adequate. Technically limited study due to body habitus exam done bedside supine. Conclusion Normal left ventricular wall thickness and chamber size. Ejection fraction is 45 to 50%. There is global hypokinesis Mildly dilated right ventricle, preserved systolic function Both atria are mildly enlarged Device lead noted in the right heart Aortic valve is sclerotic with trace regurgitation Mild to moderate mitral regurgitation Mild to moderate tricuspid regurgitation. Estimated right ventricular systolic pressure is 77 mmHg Large left pleural effusion Compared to echocardiogram from August 2024, right ventricular systolic pressure has increased Wall motion Left Ventricle The left ventricle is normal size. Left ventricular systolic function is mildly decreased. Mild concentric left ventricular hypertrophy. There is global hypokinesis of the left ventricle. There is no ventricular septal defect visualized. LVEF is 45-50%. Right Ventricle Right ventricle is mildly dilated. The right ventricular systolic function is normal. Atria Left atrium is mildly dilated. Right atrium is mildly dilated. The interatrial septum is intact with no evidence for an atrial septal defect. Aortic Valve The Aortic valve is sclerotic. Number of aortic valve leaflets could not be assessed. There is no aortic valvular stenosis. Trace aortic regurgitation. Mitral Valve The mitral valve is normal in structure. No evidence of mitral valve stenosis. Mild to moderate mitral regurgitation. Tricuspid Valve The tricuspid valve is normal in structure. There is no tricuspid valve stenosis. Mild to moderate tricuspid regurgitation. The RVSP is 76.7 mmHg. Pulmonic Valve The pulmonary valve is normal in structure. There is no pulmonic valvular stenosis. Trace to mild pulmonic regurgitation. Great Vessels The aortic root is normal in size. Ascending aorta is not well visualized. Aortic arch is not well visualized. The IVC collapses <50% with inspiration. Pericardium There is no pericardial effusion. Large pleural effusion. 2D Dimensions IVSD d PLAX 1.34 cm M: 0.6-1.2 Ao Root d 3.24 cm M: 3.1 - 3.7 LVPW d PLAX 1.31 cm M: 0.6 - 1.2 LVID d PLAX 4.82 cm M: 4.2 - 5.8 LVDs 3.60 cm M: 2.5 - 4.0 LV EF Teichholz 50.9 % FS 25.93 % LV EDV (Teich) 108.6 mL LV ESV (Teich) 53.4 mL Auto EF LV EDV A4C 122.1 mL LV EDV A2C 153.3 mL LV EDV BP 141.8 mL LV ESV A4C 67.1 mL LV ESV A2C 85.0 mL LV ESV BP 77.2 mL LVEF(%) A4C 45.0 % LVEF(%) A2C 44.6 % LVEF(%) BP 45.5 % LV SV A4C 55.0 ml LV SV A2C 68.3 ml LV SV BP 64.6 ml LV CO A4C 3.9 L/min LV CO A2C 4.8 L/min LV CO BP 4.4 L/min HR A4C 70.59 BPM HR A2C 70.73 BPM LV EDV Index (BP) LA Volume LA Length A4C 5.5 cm LA Length A2C 5.4 cm LA Area A4C s 21.83 cm2 LA Area A2C s 23.08 cm2 LA Vol A4C A-L 73.47 mL LA Vol A2C A-L 83.37 mL LA Vol Biplane A-L 78.8 mL LA Vol/BSA A4C A-L LA Vol/BSA A2C A-L LA Vol/BSA BP A-L 40.0 mL/m2 LA Vol A4C MOD 67.9 mL LA Vol A2C MOD 76.5 mL LA Vol BP MOD 72.5 mL RA Volume RA Area A4C 19.9 cm2 RA ESV A4C (A-L) 64.6mL RA Vol/BSA A4C A-L RA Length A4C 5.2 cm RA ESV A4C (MOD) 63.9mL LV Diastology MV E' medial 0.061 (>0.07 m/s) MV E Vmax 1.15 (0.4-1.3 m/s) MV E' lateral 0.078 (>0.1 m/s) Aortic Valve AoV Vmax 1.59 m/s LVOT Vmax 0.91 m/s AoV Peak Grad 10.2 mmHg LVOT Peak Grad 3.3 mmHg AoV Area (Vmax) 1.66 cm2 LVOT VTI 0.174 m AoV VTI 0.311 m LVOT Mean Grad 1.8 mmHg AoV Mean Kyle. 1.04 m/s LVOT SV 50.68 mL AoV Mean Grad 4.9 mmHg LVOT Diam s 1.90 cm AoV Area (VTI) 1.63 cm2 AV Regurg Peak Gr. 10.16 mmHg Velocity Ratio 0.57 Mitral Valve MV Vmax TIPS 1.19 m/s MV Mean Grad 2.2 (<2mmHg) MV Area PHT 3.97 cm2 MV VTI 0.272 m Pulmonary Valve PV Vmax 1.11 (0.5-1.5 m/s) RVOT Vmax 0.77 m/s PV Peak Grad 5.0 mmHg RVOT Peak Gr. 2.4 mmHg PV Mean Kyle 0.73 m/s RVOT VTI 0.166 m PV Mean Grad 2.4 mmHg RVOT Mean Gr. 1.0 mmHg Tricuspid Valve RA Pressure 8.00 mmHg TR Vmax 4.15 m/s TV S' 0.08 m/s TR Peak Grad 68.7 mmHg RVSP (TR) 76.7 mmHg
--- NOTE | 2025-01-22 12:37 | W.PC.ACHO ---
Registration Status: ADM IN Primary Language: Preferred Language: Maltese ED Information & Data Chief Complaint SOB 01/22/25 07:21 Triage Note increasing SOB since 01/22/25 06:59 yesterday. denies fevers. sat in recliner to sleep last night. did not take morning meds. 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 Pain in right wrist Pain, joint, shoulder, right Atherosclerosis of coronary artery without angina pectoris History of pulmonary embolus (PE) Burn Contusion of hand Dyspnea on exertion Abnormal weight loss Unintentional weight loss Seizure Low back pain Hip pain Skin lesion Senile hyperkeratosis Chronic kidney disease, stage 3 Atrial fibrillation Hearing loss Cataract 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 Hemiplegia Insomnia Depressive disorder Nicotine dependence Pure hypercholesterolemia Paroxysmal atrial fibrillation Pulmonary embolus History of TIA (transient ischemic attack) and stroke (Last Reviewed 01/22/25 @ 11:43 by Lele Graves) S/P carotid endarterectomy History of thoracentesis (~04/2023) History of permanent cardiac pacemaker placement Most Recent Vital Signs Temperature 36.2 C L 01/22/25 11:35 Temperature Source Temporal Artery Scan 01/22/25 11:35 Pulse 72 01/22/25 11:35 Pulse 71 01/22/25 09:40 Respiratory Rate 19 01/22/25 11:35 Respiratory Effort Short of Breath 01/22/25 07:15 Respiratory Pattern Irregular 01/22/25 07:15 Blood Pressure 189/92 H 01/22/25 11:35 Blood Pressure Mean 124 01/22/25 11:35 Pulse Oximetry 96 01/22/25 11:35 Oxygen Delivery Method Room Air 01/22/25 11:35 Oxygen Flow Rate 0 01/22/25 11:35 Pain Level 0 01/22/25 11:35 Comment hard to breath 01/22/25 07:12 Allergies metformin Allergy (Unknown, Verified 01/22/25 07:07) Diarrhea ezetimibe (From Vytorin) Adverse Reaction (Verified 01/22/25 07:07) FAILED lisinopril Adverse Reaction (Verified 01/22/25 07:07) Hyperkalemia simvastatin (From Vytorin) Adverse Reaction (Verified 01/22/25 07:07) FAILED Active Medications Generic Name Dose Route Start Last Admin Trade Name Keithq PRN Reason Stop Dose Admin Nitroglycerin 0.4 mg 01/22/25 07:34 01/22/25 08:05 Nitroglycerin 0.4 Mg Tab SL 0.4 mg Q5 MIN PRN X3 PRN Administration IV IV Catheter Type [Right Saline Lock Antecubital] IV Catheter Gauge [Right 18 Antecubital] Diet Orders Category Date Time Status Diabetes Consistent CHO/Low Na [DIET] Nutrition 01/22/25 Lunch Active Diagnostics 01/22/25 01/22/25 01/22/25 Range/Units 08:07 07:47 07:10 WBC 7.71 (4.4-10.8) 10^3/uL RBC 3.68 L (4.36-5.78) 10^6/uL Hgb 10.7 L (13.5-17.5) g/dL Hct 33.1 L (40.0-50.0) % MCV 90 (80-95) fL MCH 29.1 (27.0-33.0) pg MCHC 32.3 (32.0-36.0) % RDW 13.1 (11.8-14.1) % Plt Count 187 (130-400) 10^3/uL MPV 12.1 H (8.0-11.0) fL Immature Gran % 0.4 % Neutrophils % 74.7 % Lymphocytes % 17.1 % Monocytes % 5.3 % Eosinophils % 1.7 % Basophils % 0.8 % Nucleated RBC % 0.0 (0.0-0.3) % Absolute Neutrophils 5.76 (1.2-6.7) 10^3/uL Absolute Lymphocytes 1.32 (1.2-3.4) 10^3/uL Absolute Monocytes 0.41 (0.1-0.8) 10^3/uL Absolute Eosinophils 0.13 (0.0-0.7) 10^3/uL Absolute Basophils 0.06 (0.0-0.2) 10^3/uL VBG pH 7.39 (7.31-7.41) VBG pCO2 44 (41-51) mmHg VBG pO2 35 mmHg VBG HCO3 26 (23-28) mmol/L VBG Total CO2 25 (24-29) mmol/L VBG O2 Saturation 65 % VBG Base Excess 1 (-2-3) mmol/L Sodium 143 (136-145) mmol/L Potassium 3.8 (3.5-5.1) mmol/L Chloride 105 (98-107) mmol/L Carbon Dioxide 27.1 (21.0-32.0) mmol/L Anion Gap 10.9 (3-11) mmol/L BUN 31 H (7-18) mg/dL Creatinine 1.6 H (0.70-1.30) mg/dL Est GFR (CKD-EPI 2020) 41.19 (mL/min/1.73m2) Glucose 167 H (74-106) mg/dL Calcium 8.8 (8.5-10.1) mg/dL Magnesium 1.7 L (1.8-2.4) mg/dL Total Bilirubin 0.5 (0.2-1.0) mg/dL AST 48 H (15-37) U/L ALT 17 (16-63) U/L Alkaline Phosphatase 224 H (46-116) U/L Troponin I 103 H* 109 H* (<or=76) ng/L NT-Pro-B Natriuret Pep 5807 H (<300) pg/mL Total Protein 7.1 (6.4-8.2) g/dL Albumin 3.6 (3.4-5.0) g/dL Intake and Output - 24 Hour Total 01/22/25 06:58 thru 01/22/25 11:22 Intake Total 10 Output Total 850 Balance -840 Weight 79.379 kg Intake: IV 10 Output: Urine 850 Other: Urine Color Pale Urine Appearance Clear Falls Risk Assessment History of Falls Previous History 01/22/25 07:11 Contributing Factors Unstable 01/22/25 07:11 Ambulatory Aids Uses ambulatory device 01/22/25 07:11 Tubes/Lines None 01/22/25 07:11 Gait Evaluation W/no contributing factors 01/22/25 07:11 Cognition No cognitive impairment 01/22/25 07:11 Fall Total Score 43 01/22/25 07:11 Level of Risk Moderate Risk 01/22/25 07:11 Problems (Last Reviewed 01/22/25 @ 11:43 by Lele Graves) DVT prophylaxis (Acute) Elevated AST (SGOT) (Acute) Bilateral pleural effusion (Acute) Myocardial injury (Acute) Normocytic anemia (Acute) Hypomagnesemia (Acute) Acute exacerbation of CHF (congestive heart failure) (Acute) History of CVA (cerebrovascular accident) (Acute) DM II (diabetes mellitus, type II), controlled (Acute) CKD (chronic kidney disease) (Chronic) Essential hypertension (Chronic) v v v v v v v v v Sending and/or Receiving Nurses: Please use comment section below to note any information pertinent to the patient hand-off not included above. Information / Comments: Report received from: C/o SOB, and pain, crackles in the bases, 36.3C, 71 HR, 18 RR, 170/80, 96% RAGini Stockton RN
--- NOTE | 2025-01-22 17:30 | RT.EKG_ITS ---
APPROVED REPORT Exam: Resting ECG Reason for Exam: ST elevation in precordial leads?? Patient Location: I HR:71 bpm ECG Measurements Heart Rate 71 AXIS MN 346 P 92 QRSd 155 QRS -1 QT 418 T 192 QTc 455 Conclusion Ventricular paced rhythm
[2025-01-22 18:36] LABS: Troponin I 149 ng/L (<or=76)
[2025-01-22] MEDS: Losartan 25 MG TAB 12.5 MG PO (20:28)
[2025-01-22] MEDS: Atorvastatin 40 MG TAB 80 MG PO (20:28)
[2025-01-22] MEDS: Mirtazapine 15 MG TAB PO (20:29)
[2025-01-23 06:55] LABS: Abs Immature Grans 0.01 10^3/uL (0.0-0.06); HCT 31.0 % (40.0-50.0); HGB 10.1 g/dL (13.5-17.5); Immature Grans % 0.2 %; MCH 28.9 pg (27.0-33.0); MCHC 32.6 % (32.0-36.0); MCV 89 fL (80-95); MPV 11.8 fL (8.0-11.0); Platelet Count 180 10^3/uL (130-400); RBC 3.50 10^6/uL (4.36-5.78); RDW 13.1 % (11.8-14.1); RDW-SD 42.3 fL; WBC 5.57 10^3/uL (4.4-10.8)
[2025-01-23 07:05] LABS: INR 1.2 (0.9-1.1); Prothrombin Time 11.6 sec (9.1-11.1)
[2025-01-23 07:13] LABS: ALT 17 U/L (16-63); AST 44 U/L (15-37); Albumin 3.1 g/dL (3.4-5.0); Alkaline Phosphatase 200 U/L (46-116); Anion Gap 8.6 mmol/L (3-11); BUN 33 mg/dL (7-18); Bilirubin, Total 0.6 mg/dL (0.2-1.0); CO2 27.4 mmol/L (21.0-32.0); Calcium 8.4 mg/dL (8.5-10.1); Chloride 103 mmol/L (98-107); Estimated GFR 41.19 (mL/min/1.73m2); Glucose 118 mg/dL (74-106); Magnesium 1.5 mg/dL (1.8-2.4); Potassium 4.0 mmol/L (3.5-5.1); Sodium 139 mmol/L (136-145); Total Protein 6.3 g/dL (6.4-8.2)
[2025-01-23 07:16] LABS: Troponin I 135 ng/L (<or=76)
[2025-01-23 07:24] LABS: Iron 56 ug/dL (65-175); Total Iron Binding Capacity 220 ug/dL (250-450); Transferrin Sat 25 % (20-55)
[2025-01-23 07:26] LABS: Calculated LDL 58 mg/dL (<100); Cholesterol 117 mg/dL (<200); HDL Cholesterol 47 mg/dL (>or=40); Triglyceride 63 mg/dL (<150)
[2025-01-23 07:34] VITALS: BP 163/67; PULSE 67; RESP 16; TEMP 36.7; O2SAT 96
[2025-01-23] MEDS: MAGNESIUM SULFATE 2 GM/50 ML BAG IV_INF (08:31)
[2025-01-23] MEDS: Furosemide 40 MG/4 ML VIAL IVP (08:36)
[2025-01-23] MEDS: Enoxaparin 40 MG/0.4 ML SYR SC (08:39)
[2025-01-23] MEDS: Normal Saline Flush 10 ML SYR (08:46)
[2025-01-23] MEDS: Insulin Aspart 300 UNITS/3 ML PEN SC (08:47)
[2025-01-23] MEDS: Clopidogrel 75 MG TAB PO (08:48)
[2025-01-23] MEDS: Empaglifozin 10 MG TAB PO (08:48)
[2025-01-23] MEDS: Losartan 25 MG TAB 12.5 MG PO (08:48)
[2025-01-23] MEDS: Pantoprazole 40 MG TABCR PO (08:50)
[2025-01-23] MEDS: Tamsulosin 0.4 MG CAPCR PO (08:50)
--- NOTE | 2025-01-23 09:09 | INITIAL_ITS ---
Date of service: 01/23/25 Time of Service: 09:09 Care Management Initial Assmt Initial Assessment Reason for Hospitalization: CHF Functional Status/Living Situation Patient Presentation: Roberta was sitting up in a chair watching TV when CM met with him. He appeared to be in good spirits and easily engaged with CM. Lele lives alone in a single family home in [place]. His shared that his son lives right below him. Roberta has 2 other children: one lives in [place] and the other is in [facility]. He is retired. 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 Roberta is independent at baseline and does not receive any community services. It was suggested that he might benefit from home health however Roberta states that he is out and about all the time so likely would not qualify (not home bound). Roberta was admitted with CHF. He never needed supplemental oxygen and assured CM that he is feeling fine. His plan is to go deer hunting when he gets home later today using a bow and arrow. He proudly stated that he lives to [place]. He has a small dog that he brings with him to the [place]. Town of Residence: [place] Resides with: Alone Significant Other/Family: Local Natural Supports: children - all close and supportive Employment Status: Retired Instrumental Activities of Daily Living (ADLs): Independent Medications Medication Management: No Issues/Barriers identified Advance Directives Advance Directives: Do you have an Advance Directive: Y , 16:24 AD On File at [facility]: N 12/24/23, 16:24 Date Asked 01/22/25 01/22/25, 07:12 AD Date Reviewed COLST On File at [facility] Yes 08/31/24, 16:25 COLST Date Scanned 04/11/24 08/31/24, 16:25 Code Status Resuscitation Status DNR/DNI Portal Pt does not currently have a portal and education provided: Yes Insurance Coverage/Financial Issues Insurance: Medicare [facility] supplement Care Team Visit Care Team Role Provider Type Nel Cabrera Primary Care Provider NON-[facility] STAFF PHYSICIAN Lele Cook MD Emergency Provider [facility] STAFF PHYSICIAN Lele Graves Admit Provider [facility] STAFF PHYSICIAN Attending Provider Discharge Potential Discharge Needs: PCP F/U Appt Anticipated Barriers to Discharge: None Identified Patient/Family Education Needs: Review discharge instructions, discuss Ask Me Three Transportation: Private vehicle Plan: Anticipate roberta will be discharged home with no new services. He will follow up with his community providers and plan of care and transport with a friend. Roberta will have a new prescription for Jardiance. CM contacted his pharmacy and determined that Roberta's out of pocket expense will only be $2.00. Social Determinants of Health Screening Social Determinants of health last assessed in clinic: 01/23/25 Will the Patient Participate in the Screening?: Yes Do you worry about having a steady place to live?: no Problems where you live: no known problems In the past 12 months, have you had to go without electric, gas, oil or water in your home?: no 1. Within the past 12 months, we worried whether our food would run out before we got money to buy more.: Never true 2. Within the past 12 months, the food we bought just didn't last and we didn't have money to get more.: Never true Has lack of transportation kept you from medical appointments or from doing things needed for daily living?: no Has anyone in your life made you feel unsafe or unsupported?: no How hard is it for you to pay for the very basics like food, housing, medical care, and heating? Would you say it is:: Not hard at all Do you want help finding or keeping work or a job?: I do not need or want help If for any reason you need help with day-to-day activities such as bathing, preparing meals, shopping, managing finances, etc., do you get the help you need?: I don?t need any help How often do you feel lonely or isolated from those around you?: Never Do you speak a language other than Ukrainian at home?: No PFSH All Active Problems (Updated 01/23/25 @ 11:51 by Lele Graves) Pulmonary hypertension (Acute) a/w LV dysfunction, h/o PE DVT prophylaxis (Acute) Elevated AST (SGOT) (Acute) Bilateral pleural effusion (Acute) Myocardial injury (Acute) Normocytic anemia (Acute) Hypomagnesemia (Acute) Acute exacerbation of CHF (congestive heart failure) (Acute) Presence of left atrial appendage closure device (Acute) 07/03/24 at [facility] Discharge planning issues (Acute) Hyponatremia (Acute) History of CVA (cerebrovascular accident) (Acute) Acute on chronic kidney failure (Acute) Hypoxic respiratory failure (Acute) Urinary retention (Acute) DM II (diabetes mellitus, type II), controlled (Acute) Pneumothorax (Acute) HTN (hypertension) (Chronic) Bilateral pleural effusion (Acute) Contraindication to deep vein thrombosis (DVT) prophylaxis (Acute) Acute on chronic heart failure with preserved ejection fraction (HFpEF) (Chronic) DNR (do not resuscitate) (Acute) COLST 04/10/2024: DNR/DNI, + transfer, antibiotics, IV fluids, transfusions. See form for additional discussion Advanced care planning/counseling discussion (Acute) Palliative care encounter (Acute) Chronic anticoagulation (Acute) Atrial Clip placed at [facility] June 2024, off DOAC, continues on Plavix. Heart failure with preserved ejection fraction (Acute) Anemia (Chronic) Multifactorial: CKD 4, GI bleed/peptic ulcer CKD (chronic kidney disease) (Chronic) Stage IV CHF exacerbation (Acute) Shortness of breath (Acute) Osteoarthritis of knees, bilateral (Acute) Skin lesion of face (Acute) NSTEMI (non-ST elevated myocardial infarction) (Acute) Hyperkalemia (Acute) Memory change (Acute) Paralysis of left upper extremity (Acute) Third degree burn of finger of left hand excluding thumb (Acute) Burn of finger (Acute) Sick sinus syndrome (Chronic) pt. unsure of this medical hx Essential hypertension (Chronic) Hyperlipidemia (Chronic) DM2 (diabetes mellitus, type 2) (Chronic) Mild aortic stenosis (Chronic) Cardiac pacemaker (Chronic 08/17/17) [employer] [place] XT DR MRI model # [id number] serial # [id number] (pulse generator) Ventricular electrodes: [employer]tronic CapsureFix Model # 5076-58 cm Serial # [id number] Atrial electrodes: [employer] CapsureFix model # 5076-52 cm serial # [id number] Right rotator cuff tendinitis (Acute) Corticosteroid injection: 07/16/18 Persistent atrial fibrillation (Chronic) Onset mid May 2019 - ongoing as of 06/25/2019 - sinus restored Onset again January 2021 - ongoing as of 10/26/2021 DC cardioversion [facility] 10/2021 - on amiodarone; recurrent in February 2022 - amiodarone stopped Atrial Clip placed at [facility] June 2024, off DOAC, continues on Plavix. 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 Pain in right wrist Pain, joint, shoulder, right Atherosclerosis of coronary artery without angina pectoris History of pulmonary embolus (PE) Burn Contusion of hand Dyspnea on exertion Abnormal weight loss Unintentional weight loss Seizure Low back pain Hip pain Skin lesion Senile hyperkeratosis Chronic kidney disease, stage 3 Atrial fibrillation Hearing loss Cataract 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 in 2003 had carotid artery surgery, after procedure pt. suffered a stroke, pt. states full forearm numbness and parts of left leg Paroxysmal atrial fibrillation Surgical History S/P carotid endarterectomy History of thoracentesis (~04/2023) History of permanent cardiac pacemaker placement Family History Brother Family history of premature coronary heart disease Sister Family history of premature coronary heart disease Social History (Updated 01/22/25 @ 11:44 by Lele Graves) Smoking/Tobacco Use Status: Former Tobacco Use Quit Date: 04/09/84 Pack-years: 30 Second Hand Exposure: No Smoking risk assessment performed?: Yes Alcohol Intake: never Drug use: Never Substance use type: does not use Housing: house Current gender identity: male Do you feel safe at home: Yes (lives alone) Do you feel safe in your relationship?: Yes Additional Social history: Lives alone in [place]
[2025-01-23 11:10] VITALS: BP 122/61; PULSE 82; RESP 16; TEMP 36.2; O2SAT 98
--- NOTE | 2025-01-23 11:50 | DSE_ITS ---
Date of service: 01/23/25 Time of Service: 15:16 DS: Diagnosis Discharge Diagnosis (1) Acute exacerbation of CHF (congestive heart failure): Status: Acute (2) Essential hypertension: Status: Chronic (3) DM II (diabetes mellitus, type II), controlled: Status: Acute (4) CKD (chronic kidney disease): Status: Chronic (5) Normocytic anemia: Status: Acute (6) Atrial fibrillation: (7) History of CVA (cerebrovascular accident): Status: Acute (8) Seizure as late effect of cerebrovascular accident (CVA): (9) Elevated AST (SGOT): Status: Acute (10) Pulmonary hypertension: Status: Acute Discharge Plan Disposition Patient Disposition: Home W/Home Health Services Condition: Improving Discharge Details Reason For Visit: CHF Admit Date/Time: 01/22/25 09:32 Admit Provider: Lele Graves Attending Provider: Lele Graves Primary Care Provider: [facility] Course Hospital Course: 89 years old male patient with a past medical history of HFmrEF with last LEVF 45-50% 08/2024, CAD, CKD stage 3b with chronic anemia, A-fib s/p Watchman, s/p pacemaker, h/o PE on chronic pleural effusions with h/o pneumothorax in September 2024, type 2 DM controlled on oral medication, and seizure disorder and left hemiparesis s/p CVA on phetytoin who presents with increased shortness of breath and LE edema over about 24 hours. CXR and BNaP of 5807 suggested CHF. Chronic pleural effusions were noted. He was treated with 40mg IV furosemide BID. Troponins were mildly elevated but without significant trend (109, 103, 149, 135), and EKG showed LBBB but did no show new findings. By the next morning he stated he felt like he could breath again and requested discharge rather than stay another day for IV diuresis as suggested. He had a repeat ECHO which again showed global LV hypokenesis and LVEF of 45- 50%. RVSP was very elevated at 77mmHg. His CKD3b was at baseline (or slightly better). His anemia was at baseline and iron levels were normal, c/w anemia of renal disease. AST was elevated and INR was slightly high at 1.2. Fibrosis-4 score was 5.22, strongly suggesting advanced fibrosis, so elastography evluation for cirrhosis should be considered. Empagliflozin was started at 10mg. Amlodipine was stopped and losartan was started at 12.5mg BID, then 25mg daily at discharge. Furosemide was changed to torsemide at the same dose for a higher potency and more reliable absorption. He has a history of hyperkalemia with EVANGELINA inhitibor. He may also benefit from addition of MRA such as spironolactone but this was deferred given h/o hyperkalemia and also starting on the ARB. He will need close follow up of fluid status with home health and PCP in the next week and follow up with cardiology in the next couple weeks. Low magnesium was replaced and should also be followed. Before discharge he was evaluated by PT who also recommended home health PT to keep working on strength and fall prevention. Recommendations for Follow Up Recommended tests to be ordered by follow up provider: Mg LISA in 3-4 days referral for liver elastography (typically hepatology referral as procedure rather than consult) Home Meds and New Rx's Prescriptions: New Jardiance 10 mg tablet 10 mg PO DAILY Qty: 30 2RF torsemide 20 mg tablet 40 mg PO DAILY Qty: 60 0RF losartan 25 mg tablet 25 mg PO DAILY Qty: 30 0RF Rx Instructions: cancel BID magnesium oxide 400 mg magnesium capsule 400 mg PO DAILY Qty: 90 0RF Continued phenytoin sodium extended [Dilantin Extended] 100 mg capsule 100 mg PO BID atorvastatin 80 MG tablet 80 mg PO DAILY Qty: 90 Rx Instructions: 1 TAB DAILY ferrous sulfate [FeroSul] 325 mg (65 mg iron) tablet 325 mg PO DAILY tamsulosin 0.4 mg capsule 0.4 mg PO DAILY Patient Comments: 03/25/24 per [facility] [place] [place] d/c summary 03/21/24 [facility] sucralfate 1 gram Tablet 1 g PO AC & HS Qty: 120 0RF pantoprazole [Protonix] 40 mg tablet,delayed release (DR/EC) 40 mg PO DAILY Qty: 60 0RF acetaminophen 500 mg capsule 1,000 mg PO Q8H PRN PRNQty: 60 0RF clopidogrel 75 mg tablet 75 mg PO DAILY Patient Comments: TAKE ONE TABLET BY MOUTH EVERY DAY Januvia 25 mg tablet 25 mg PO DAILY melatonin 3 mg capsule 6 mg PO HS PRN mirtazapine 15 mg tablet 15 mg PO HS Patient Comments: TAKE ONE TABLET BY MOUTH EVERY EVENING TO IMPROVE MOOD AND SLEEP multivitamin with folic acid [Tab-A-Chris] 400 mcg tablet 1 tab PO DAILY Patient Comments: TAKE ONE TABLET BY MOUTH ONCE DAILY Discontinued albuterol sulfate [Ventolin HFA] 90 mcg/actuation HFA aerosol inhaler 2 inh inhalation 6XD PRN furosemide 40 mg tablet 40 mg PO BID Patient Comments: 03/25/24 per [facility] [place] d/c summary 03/21/24 [facility] amlodipine 5 mg tablet 5 mg PO DAILY Patient Comments: TAKE ONE TABLET BY MOUTH EVERY DAY Discharge Instructions Instructions: Heart Failure, Adult (DC) Activity:: Activity as Tolerated Equipment/Supplies:: No Equipment Needed Diet:: As Tolerated Discharge Orders Discharge Orders: Discharge Order (Routine); Ordered 01/23/25 Ordered By: Lele Graves DS: Summary Time Spent with Patient providing and/or coordinating discharge services: Greater than 30 minutes Status at Discharge Functional status at discharge: uses cane/walker Overall status at discharge: patient is progressing back to baseline Mental Status: mental status grossly normal Speech and Movement: speech and movement normal Mood: congruent mood Affect: normal affect Exam Narrative Exam Narrative: GEN: Alert and oriented, No acute distress at rest. LUNGS: Deminished in bases more on right base, normal effort at rest. CV: irregularly irregular with no murmurs, gallops, or rubs. ABD: active bowel sounds, soft, nontender and nondistended. No masses. EXT: no cyanosis, clubbing. trace to 1+ mikie pitting edema (improved) to knees PSYCH: normal mood and affect Psych Mental Status: mental status grossly normal Speech and Movement: speech and movement normal Mood: congruent mood Affect: normal affect DS: Data Vitals/I&O Vitals and I&O: Vital Signs Temperature 36.2 C L 01/23/25 11:10 Temperature Source Temporal Artery Scan 01/23/25 11:10 Pulse 82 01/23/25 11:10 Pulse 71 01/22/25 09:40 Respiratory Rate 16 01/23/25 11:10 Respiratory Effort Short of Breath 01/22/25 12:30 Respiratory Depth Normal 01/22/25 12:30 Respiratory Pattern Normal 01/22/25 12:30 Blood Pressure 122/61 01/23/25 11:10 Blood Pressure Mean 81 01/23/25 11:10 Pulse Oximetry 98 01/23/25 11:10 Oxygen Delivery Method Room Air 01/23/25 11:10 Oxygen Flow Rate 0 01/23/25 11:10 Pain Level 0 01/22/25 15:23 Comment pt sleeping 01/23/25 03:33 Intake & Output 01/22/25 01/22/25 01/23/25 11:59 23:59 11:59 Intake Total 10 610 / 620 220 / 220 Output Total 850 / 2250 1400 / 2250 400 / 400 Balance -840 / -1630 -790 / -1630 -180 / -180 Weight 79.379 kg 94.347 kg Intake: IV Oral 600 / 600 220 / 220 Output: Urine 850 / 2250 1400 / 2250 400 / 400 Other: Urine Color Pale Yellow Yellow Urine Appearance Clear Clear Clear Urine Odor Normal Normal Stool Size Moderate Stool Characteristics Soft Brown Data Completed and Pending Labs on day of discharge: Labs from last 24 hours 01/23/25 01/22/25 06:30 18:10 WBC 5.57 RBC 3.50 L Hgb 10.1 L Hct 31.0 L MCV 89 MCH 28.9 MCHC 32.6 RDW 13.1 Plt Count 180 MPV 11.8 H Immature Gran % 0.2 Neutrophils % 68.2 Lymphocytes % 20.3 Monocytes % 7.2 Eosinophils % 3.2 Basophils % 0.9 Nucleated RBC % 0.0 Absolute Neutrophils 3.80 Absolute Lymphocytes 1.13 L Absolute Monocytes 0.40 Absolute Eosinophils 0.18 Absolute Basophils 0.05 PT 11.6 H INR 1.2 H Sodium 139 Potassium 4.0 Chloride 103 Carbon Dioxide 27.4 Anion Gap 8.6 BUN 33 H Creatinine 1.6 H Est GFR (CKD-EPI 2020) 41.19 Glucose 118 H Calcium 8.4 L Magnesium 1.5 L Iron 56 L TIBC 220 L Transferrin % Sat 25 Total Bilirubin 0.6 AST 44 H ALT 17 Alkaline Phosphatase 200 H Troponin I 135 H* 149 H* Total Protein 6.3 L Albumin 3.1 L Triglycerides 63 Total Cholesterol 117 LDL Cholesterol, Calc 58 HDL Cholesterol 47 Phenytoin 2.9 L PFSH All Active Problems (Updated 01/23/25 @ 11:51 by Lele Graves) Pulmonary hypertension (Acute) a/w LV dysfunction, h/o PE DVT prophylaxis (Acute) Elevated AST (SGOT) (Acute) Bilateral pleural effusion (Acute) Myocardial injury (Acute) Normocytic anemia (Acute) Hypomagnesemia (Acute) Acute exacerbation of CHF (congestive heart failure) (Acute) Presence of left atrial appendage closure device (Acute) 07/03/24 at [facility] [place] [place] [facility] Discharge planning issues (Acute) Hyponatremia (Acute) History of CVA (cerebrovascular accident) (Acute) Hypoxic respiratory failure (Acute) Urinary retention (Acute) DM II (diabetes mellitus, type II), controlled (Acute) Pneumothorax (Acute) HTN (hypertension) (Chronic) Bilateral pleural effusion (Acute) Contraindication to deep vein thrombosis (DVT) prophylaxis (Acute) Acute on chronic heart failure with preserved ejection fraction (HFpEF) (Chronic) DNR (do not resuscitate) (Acute) COLST 04/10/2024: DNR/DNI, + transfer, antibiotics, IV fluids, transfusions. See form for additional discussion Advanced care planning/counseling discussion (Acute) Palliative care encounter (Acute) Chronic anticoagulation (Acute) Atrial Clip placed at [facility] [place] [place] June 2024, off DOAC, continues on Plavix. Heart failure with preserved ejection fraction (Acute) Anemia (Chronic) Multifactorial: CKD 4, GI bleed/peptic ulcer CKD (chronic kidney disease) (Chronic) Stage IV CHF exacerbation (Acute) Shortness of breath (Acute) Osteoarthritis of knees, bilateral (Acute) Skin lesion of face (Acute) NSTEMI (non-ST elevated myocardial infarction) (Acute) Acute on chronic kidney failure (Acute) Hyperkalemia (Acute) Memory change (Acute) Paralysis of left upper extremity (Acute) Third degree burn of finger of left hand excluding thumb (Acute) Burn of finger (Acute) Traumatic arthropathy, right shoulder (Acute) Most recent Depo-Medrol injection: 11/22/2021; 05/24/2022 Trochanteric bursitis, right hip (Acute) Steroid injection: 12/07/2020; 03/17/2020 Trochanteric bursitis, left hip (Acute) Steroid injection: 12/07/2020; 03/17/2020 Osteoarthritis of carpometacarpal joint of right thumb (Acute) Persistent atrial fibrillation (Chronic) Onset mid May 2019 - ongoing as of 06/25/2019 - sinus restored Onset again January 2021 - ongoing as of 10/26/2021 DC cardioversion [facility] 10/2021 - on amiodarone; recurrent in February 2022 - amiodarone stopped Atrial Clip placed at [facility] [place] [place] June 2024, off DOAC, continues on Plavix. Right rotator cuff tendinitis (Acute) Corticosteroid injection: 07/16/18 Cardiac pacemaker (Chronic 08/17/17) [employer] [place] XT DR MRI model # [id number] serial # [id number] (pulse generator) Ventricular electrodes: [employer] CapsureFix Model # 5076-58 cm Serial # [id number] Atrial electrodes: [employer] model # 5076-52 cm serial # [id number] Mild aortic stenosis (Chronic) DM2 (diabetes mellitus, type 2) (Chronic) Hyperlipidemia (Chronic) Essential hypertension (Chronic) Sick sinus syndrome (Chronic) pt. 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 Pain in right wrist Pain, joint, shoulder, right Atherosclerosis of coronary artery without angina pectoris History of pulmonary embolus (PE) Burn Contusion of hand Dyspnea on exertion Abnormal weight loss Unintentional weight loss Seizure Low back pain Hip pain Skin lesion Senile hyperkeratosis Chronic kidney disease, stage 3 Atrial fibrillation Hearing loss Cataract 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 in 2003 had carotid artery surgery, after procedure pt. suffered a stroke, pt. states full forearm numbness and parts of left leg Paroxysmal atrial fibrillation Surgical History S/P carotid endarterectomy History of thoracentesis (~04/2023) History of permanent cardiac pacemaker placement Family History Brother Family history of premature coronary heart disease Sister Family history of premature coronary heart disease Social History (Updated 01/22/25 @ 11:44 by Lele Graves) Smoking/Tobacco Use Status: Former Tobacco Use Quit Date: 04/09/84 Pack-years: 30 Second Hand Exposure: No Smoking risk assessment performed?: Yes Alcohol Intake: never Drug use: Never Substance use type: does not use Housing: house Current gender identity: male Do you feel safe at home: Yes (lives alone) Do you feel safe in your relationship?: Yes Additional Social history: Lives alone in [place] Time Spent with Patient Time Spent with Patient: 45-69 minutes Time was spent: preparing to see the patient(eg.review tests), obtaining and/or reviewing separately otained hiistory, ordering medications,tests, procedures, referring, communicating with other health childcare administrator, indepentently interpreting results, counseling the patient and care coordination
--- NOTE | 2025-01-23 11:54 | PDOC.HHF2F_ITS ---
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 CXR and BNaP of 5807 suggested CHF. Chronic pleural effusions were noted. He was treated with 40mg IV furosemide BID. Troponins were mildly elevated but without significant trend (109, 103, 149, 135), and EKG showed LBBB but did no show new findings. By the next morning he stated he felt like he could breath again and requested discharge rather than stay another day for IV diuresis as suggested. He had a repeat ECHO which again showed global LV hypokenesis and LVEF of 45- 50%. RVSP was very elevated at 77mmHg. His CKD3b was at baseline (or slightly better). His anemia was at baseline and iron levels were normal, c/w anemia of renal disease. AST was elevated and INR was slightly high at 1.2. Fibrosis-4 score was 5.22, strongly suggesting advanced fibrosis, so elastography evluation for cirrhosis should be considered. Empagliflozin was started at 10mg. Amlodipine was stopped and losartan was started at 12.5mg BID, then 25mg daily at discharge. Furosemide was changed to torsemide at the same dose for a higher potency and more reliable absorption. He has a history of hyperkalemia with EVANGELINA inhitibor. He may also benefit from addition of MRA such as spironolactone but this was deferred given h/o hyperkalemia and also starting on the ARB. He will need close follow up of fluid status with home health and PCP in the next week and follow up with cardiology in the next couple weeks. Low magnesium was replaced and should also be followed. Evaluated by PT and recommended home health PT for strength/balance work. Medical diagnosis necessitation home health referral: CHF Registered Nurse: Check all that apply Instruct on new or changed medication(s)/assess compliance: Ordered Assess for exacerbation of medical condition, instruct patient/caregivers on signs and symptoms to report for early detection: Ordered Physical Therapist: Check all that apply Increase strength & endurance for safe mobility at home: Ordered To design/establish home maintenance program: Ordered Fall reduction therapy program for patient with history of frequent falls: Ordered Home safety evaluation and teaching/gait training including stair management (if applicable): Ordered Occupational Therapist: Evaluate and treat for patient unable to perform ADL/IADL/self-care: Ordered Collision Center Manager: Assist with community resources: Ordered Assist with service advisor care planning: Ordered Home Bound Status Requires the aid of supportive device (check all that apply): Walker Describe why leaving home would require a considerable and taxing effort: Requires frequent rest periods Encounter Date and Reason: I certify that a FTF encounter for this patient was performed on January 23, 2025 and that such encounter was related to the primary reason the patient requires home health services. The encounter was conducted in the following manner: * By me as the certifying physician, EXHAUST EMISSIONS INSPECTOR, PA or * By an inpatient physician, EXHAUST EMISSIONS INSPECTOR or PA during an inpatient stay who communicated findings to me, Certification And Authentication I certify that I composed the above information based on my clinical judgment relating to this patient's medical condition and, if applicable, clinical findings communicated to me by the NPP or inpatient physician who performed the FTF encounter. Name of Provider that will be monitoring home health services: Nel Cabrera
--- NOTE | 2025-01-23 14:16 | PT.INIE ---
PT Notes Visit Reasons: Congestive heart failure Physical Therapy Inpatient initial Evaluation Date: 01/23/2025 Referring Doctor: Lele Graves MD PT Orders: PT CONSULT: Safety consult for discharge Precautions: Pacemaker in situ. Activity as tolerated. Fall risk. L-sided hemiparesis. Patient Profile/Admitting Diagnosis: Patient is an 89-year-old male who presented to the ED on 01/22/2025 for evaluation of shortness of breath and generalized weakness. Patient was admitted for management of CHF exacerbation, essential HTN, normocytic anemia, and and elevated AST PMHX: All Active Problems (Updated 01/22/25 @ 11:49 by Lele Graves) DVT prophylaxis (Acute) Elevated AST (SGOT) (Acute) Bilateral pleural effusion (Acute) Myocardial injury (Acute) Normocytic anemia (Acute) Hypomagnesemia (Acute) Acute exacerbation of CHF (congestive heart failure) (Acute) Presence of left atrial appendage closure device (Acute) [place] [facility] [place] issues (Acute) Hyponatremia (Acute) History of CVA (cerebrovascular accident) (Acute) Hypoxic respiratory failure (Acute) Urinary retention (Acute) DM II (diabetes mellitus, type II), controlled (Acute) Pneumothorax (Acute) HTN (hypertension) (Chronic) Bilateral pleural effusion (Acute) Contraindication to deep vein thrombosis (DVT) prophylaxis (Acute) Acute on chronic heart failure with preserved ejection fraction (HFpEF) (Chronic) DNR (do not resuscitate) (Acute) COLST 04/10/2024: DNR/DNI, + transfer, antibiotics, IV fluids, transfusions. See form for additional discussion Advanced care planning/counseling discussion (Acute) Palliative care encounter (Acute) Chronic anticoagulation (Acute) [place] [facility] [place], [place] DOAC, continues on Plavix. Heart failure with preserved ejection fraction (Acute) Anemia (Chronic) Multifactorial: CKD 4, GI bleed/peptic ulcer CKD (chronic kidney disease) (Chronic) Stage IV CHF exacerbation (Acute) Shortness of breath (Acute) Osteoarthritis of knees, bilateral (Acute) Skin lesion of face (Acute) NSTEMI (non-ST elevated myocardial infarction) (Acute) Acute on chronic kidney failure (Acute) Hyperkalemia (Acute) Memory change (Acute) Paralysis of left upper extremity (Acute) Third degree burn of finger of left hand excluding thumb (Acute) Burn of finger (Acute) Traumatic arthropathy, right shoulder (Acute) Most recent Depo-Medrol injection: 11/22/2021; 05/24/2022 Trochanteric bursitis, right hip (Acute) Steroid injection: 12/07/2020; 03/17/2020 Trochanteric bursitis, left hip (Acute) Steroid injection: 12/07/2020; 03/17/2020 Osteoarthritis of carpometacarpal joint of right thumb (Acute) Persistent atrial fibrillation (Chronic) Onset mid May 2019 - ongoing as of 06/25/2019 - sinus restored Onset again January 2021 - ongoing as of 10/26/2021 DC cardioversion [facility] 10/2021 - on amiodarone; recurrent in February 2022 - amiodarone stopped [place] [facility] [place], off DOAC, continues on Plavix. Right rotator cuff tendinitis (Acute) Corticosteroid injection: 07/16/18Cardiac pacemaker (Chronic 08/17/17) [employer] Optima XT DR MRI model # W1DR01 serial # [id number] (pulse generator) Ventricular electrodes: Medtronic CapsureFix Model # 5076-58 cm Serial # [id number] Atrial electrodes: [employer]onic CapsureFix model # 5076-52 cm serial # [id number] Mild aortic stenosis (Chronic) DM2 (diabetes mellitus, type 2) (Chronic) Hyperlipidemia (Chronic) Essential hypertension (Chronic) Sick sinus syndrome (Chronic) pt. 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 Pain in right wrist Pain, joint, shoulder, right Atherosclerosis of coronary artery without angina pectoris History of pulmonary embolus (PE) Burn Contusion of hand Dyspnea on exertion Abnormal weight loss Unintentional weight loss Seizure Low back pain Hip pain Skin lesion Senile hyperkeratosis Chronic kidney disease, stage 3 Atrial fibrillation Hearing loss Cataract 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 in 2003 had carotid artery surgery, after procedure pt. suffered a stroke, pt. states full forearm numbness and parts of left leg Paroxysmal atrial fibrillation Surgical History S/P carotid endarterectomy History of thoracentesis (~04/2023) History of permanent cardiac pacemaker placement Social History/Home Situation: Patient lives alone in single level home with 1 step to enter with rail. He has supportive family that also assists with meal prep, shopping and household tasks as needed. Equipment Owned/DME: [employer] Subjective: Pleasant and cooperative. Reported being much better today than yesterday. Objective: General Observation: Seated on bedside chair, friend Nicole with patient Mental Status: Alert and oriented x 4 Pain: Denies Vitals: Monitored by nursig staff ROM: Right Upper Extremity: WFL except thumb opposition unable to oppose to 4th and 5th digit. Left Upper Extremity: shoulder flexion and abduction to 20 degrees, ER to neutral, elbow unable, supination unable, wrist extension unable, flexion unable, finger absent. Right Lower Extremity: hip extension -5 degrees, flexion to 100, knee 5-115, ankle DF neutral with knee extension, 5degrees with knee flexion. ( impaired hamstring and gastroc length) Left Lower Extremity: hip extension -5 degrees, flexion to 100, knee 5-110, ankle DF neutral with knee extension, 5 degrees with knee flexion( impaired hamstring and gastroc length) Strength: Right Upper Extremity: Shoulder flexors 4-/5. Shoulder abductors 4-/5. Elbow flexors 4-/5. Elbow extensors 4-/5. Social Services Analyst strong. Left Upper Extremity: Shoulder flexors 2--/5. Shoulder abductors 2--/5. Elbow flexors 1/5. Elbow extensors 1/5. Social Services Analyst absent Right Lower Extremity: hip extension 3-/5, hip abduction 3-/5, hip flexion 3-/5, knee extension 3/5, flexion 3-/5, ankle 3-/5 Left Lower Extremity: hip extension 3-/5, hip abduction 3-/5, hip flexion 3-/5, knee extension 3/5, flexion 3-/5, ankle 3-/5 Sensation: Decrased light pressure/touch sensation in forearm and leg on the L side Bed Mobility/Transfers: Supine to sit independent Sit to stand independent Stand to sit independent Bed to chair independent Gait: 350 feet with SBQC stand by assist, cueing only for directions. Minimal SOB resolved with rest. No LOB. Deniend headache, chest pain, and lightheadedness throughout sessions. Stairs: 6 x 4-inch steps and 4 x 6-inch steps while holding onto 1 rail for support, step over step pattern. Balance: Static Sitting: Normal Dynamic Sitting: Good Static Standing: Fair Dynamic Standing: Fair Special Tests: Mobility Limitations Standardized Measure [facility] AM-PAC 6 clicks Basic Mobility Inpatient Short Form: Raw Score: 23 CMS Score: 11% deficit Informed Consent/Education: Patient instructed in purpose of PT consult. Assessment: Patient is an 89-year-old male who presents with clinical signs and symptoms consistent with current/admitting diagnoses that have resulted to mobility limitations, gait instability, generalized weakness, and impairment of motor control as demonstrated by the following impairment level findings: 1. Decreased strength to L UE/LE major muscle groups as R CVA sequela 2. Impaired standing balance 3. Limitation of joint range of motion in left shoulder, elbow wrist, hand and fingers 4. Impaired functional activity tolerance Impairments are contributing to the following functional limitations: 1. Inability to safely ambulate without assistive device 2. Increase completion time for mobility ADL performance 3. Increased fall risk 4. Decline in bed mobility skills 5. Declining transfer skills Patient is assessed as a 17084 moderate complexity based on the following: History: 89-year-old male with impairment level findings, functional limitations, and past medical history as indicated above Examination: Demonstrable impairment in strength, balance, and mobility level with underlying impairments and functional limitations as documented above Presentation: Evolving/stable Decision Makin moderate complexity Goals: Goals X1 week 1. Supine-Sit independent 2. Sit-Supine independent 3. Sit-Stand independent 4. Stand-Sit independent 5. Bed-Chair independent 6. Chair-Bed independent 7. Independent gait on level surface with use of [employer] for at least 300 feet without report of pain nor dyspnea 8. Independent stair negotiation while holding onto bilateral rails for at least 10 steps without report of pain nor dyspnea 9. Independent with home exercise program 10. Good static and dynamic standing balance/tolerance Plan of Care/Treatment Plan: 1-2x/day, 7 days/week x 1 week. Plan of care has been reviewed with the LEAD PRESSER providing the service under Physical Therapy direction. Initiate Physical Therapy intervention for strengthening, bed mobility, transfers, gait, stairs, balance training, use of assistive device. DISCHARGE RECOMMENDATIONS: PT TREATMENT CODE/TIME: 08790 x 28 minutes for 1 unit (13:45-14;13). Thank you for the opportunity to participate in the care of this patient. Sylvia Burgos PT, DPT, CLT [facility] [place], [place]
--- NOTE | 2025-01-23 15:02 | PHA.REVIEW2 ---
Pharmacy Admission Review Admission Clinical Review Admission Pharmacy Review: DVT prophylaxis (Acute) Elevated AST (SGOT) (Acute) Bilateral pleural effusion (Acute) Myocardial injury (Acute) Normocytic anemia (Acute) Hypomagnesemia (Acute) Acute exacerbation of CHF (congestive heart failure) (Acute) History of CVA (cerebrovascular accident) (Acute) DM II (diabetes mellitus, type II), controlled (Acute) metformin Allergy (Unknown, Verified 01/22/25 07:07) Diarrhea ezetimibe (From Vytorin) Adverse Reaction (Verified 01/22/25 07:07) FAILED lisinopril Adverse Reaction (Verified 01/22/25 07:07) Hyperkalemia simvastatin (From Vytorin) Adverse Reaction (Verified 01/22/25 07:07) FAILED Resuscitation Status DNR/DNI Height 5 ft 10 in Weight 94.347 kg Pharmacy Admission Review Renal Dosing Renal Dosing: BUN 33 mg/dL (7-18) H 01/23/25 06:30 Creatinine 1.6 mg/dL (0.70-1.30) H 01/23/25 06:30 Medications needing adjustments: Reviewed (CrCl 36.81 mL/min) List of meds needing interventions: Current medications are okay Anticoagulation Anticoagulation: Hgb 10.1 g/dL (13.5-17.5) L 01/23/25 06:30 Hct 31.0 % (40.0-50.0) L 01/23/25 06:30 Plt Count 180 10^3/uL (130-400) 01/23/25 06:30 INR 1.2 (0.9-1.1) H 01/23/25 06:30 Creatinine 1.6 mg/dL (0.70-1.30) H 01/23/25 06:30 DVT Prophylaxis: Reviewed Medications: Enoxaparin (40mg daily) Relevant Labs Relevant Labs: Sodium 139 mmol/L (136-145) 01/23/25 06:30 Potassium 4.0 mmol/L (3.5-5.1) 01/23/25 06:30 Chloride 103 mmol/L (98-107) 01/23/25 06:30 Magnesium 1.5 mg/dL (1.8-2.4) L 01/23/25 06:30 DM Control DM Control: Glucose 118 mg/dL (74-106) H 01/23/25 06:30 Finger Stick Blood Glucose 130 Finger Stick Blood Glucose 130 Finger Stick Blood Glucose 130 Finger Stick Blood Glucose 168 Finger Stick Blood Glucose 168 Finger Stick Blood Glucose 168 DM Control: Reviewed Insulin Dosing, Diabetic Medication: Has orders for SS insulin, Jardiance 10mg daily and Januvia 25mg daily Cardiac Review Cardiac Review: Troponin I 135 ng/L (<or=76) H* 01/23/25 06:30 NT-Pro-B Natriuret Pep 5807 pg/mL (<300) H 01/22/25 07:10 List meds needing interventions: Has orders for furosemide 40mg IVP BID, losartan 12.5mg BID and phenytoin ER 100mg BID QTc Review QTc: Reviewed (491 from 01/22/25) IV to PO Switch IV Medications: Reviewed (furosemide)
[2025-01-23 15:12] VITALS: BP 109/50; PULSE 73; RESP 16; TEMP 36.5; O2SAT 97
== END 2025-01-23 16:20 | disposition home health service (06) | DRG 291 ==
LOC: ER 10:08 → MS 10:18
PROVIDERS: Admitting Provider Family Medicine; Emergency Provider Emergency Medicine; PCP Family Medicine; Responsible Provider Family Medicine; Visit Provider Family Medicine
DX: I50.23 Acute on chronic systolic (congestive) heart failure; E11.22 Type 2 diabetes mellitus with diabetic chronic kidney disease; I13.0 Hypertensive heart and chronic kidney disease with heart failure and stage 1 through stage 4 chronic kidney disease, or unspecified chronic kidney disease; I48.91 Unspecified atrial fibrillation; I69.398 Other sequelae of cerebral infarction; R56.9 Unspecified convulsions; R74.01 Elevation of levels of liver transaminase levels; I27.20 Pulmonary hypertension, unspecified; I69.354 Hemiplegia and hemiparesis following cerebral infarction affecting left non-dominant side; I25.10 Atherosclerotic heart disease of native coronary artery without angina pectoris; Z95.818 Presence of other cardiac implants and grafts; Z95.0 Presence of cardiac pacemaker; Z79.84 Long term (current) use of oral hypoglycemic drugs; I44.7 Left bundle-branch block, unspecified; D63.1 Anemia in chronic kidney disease; E83.42 Hypomagnesemia; E87.5 Hyperkalemia; Z66 Do not resuscitate; Z79.01 Long term (current) use of anticoagulants; I25.2 Old myocardial infarction; I35.0 Nonrheumatic aortic (valve) stenosis; E78.5 Hyperlipidemia, unspecified; Z86.711 Personal history of pulmonary embolism; N18.32 Chronic kidney disease, stage 3b
CPT/HCPCS: 00123; 36415; 80053; 80061; 82805; 93005; 93306; 93308; 96374; 97162; 99285; J1650; 71045; 80185; 83540; 83550; 83735; 83880; 84484; 85025; 85610; 93010; 99223; 99239; J1815; J1938; J3475